=== PATIENT | male | born 1995 | race Caucasian/White ===

== ENCOUNTER → 2016-04-08 | Outpatient (CLI) | payer BC ==
[~2016-04-08] MED LIST: ALBU0.8322 IH; ALBU17AE23; ALBU17AE3 IH; ALBU17AE3 INH; ALBUNEBRX IH; ALPR0.5T PO; ANTACID; AZIT250T PO; AZIT250T5 PO; CETI-343 PO; CLOT15CR6; CYCL10TA9 PO; DIPH25CA79 PO; DIPH50CA33 PO; DXM1T PO; EPIN0.3P2 IM; FAMO-119 PO; FAMO40TA6 PO; FLUT1DIS26; FLUT1DIS26 IH; FLUT1DIS27 IH; HYDR-3456 PO; HYDR-700 PO; IBP800T PO; IPRA3AMP19 IH; LANS15CA PO; LRT10T PO; MONT10TA24 PO; NF-ESOM40C PO; ONDAN4ODT PO; ONDN4T PO; PNT40TEC PO; PRD20T PO; TIOT18CA2 IH; TRAM50TA2 PO
--- OUTSIDE RECORDS SUMMARY | 2016-04-08 16:32 | XMS REPORT | Continuity of Care Document ---
Author Author [facility] Organization [facility] Address Unknown Phone Unavailable Care Team Providers Care Collateral Specialist Name Role Phone STANFORDTOAN DO PCP Insurance Providers Payer Name Policy Number Subscriber Name Relationship [facility] [id number] Eusebio Henderson 18 Father Advance Directives Directive Response Recorded Date/Time Advance Directives No 02/17/16 11:40pm Health Care Power of Sports Physical Therapist No 02/17/16 11:40pm Organ Donor Yes 02/17/16 11:40pm Resuscitation Status Full Code 02/17/16 11:40pm Chief Complaint and Reason for Visit Chief Complaint Respiratory Problems Reason for Visit SUBJECTIVE DYSPNEA Problems Active Problems Medical Problem Onset Date Status Anxiety Unknown Acute Asthma with acute exacerbation Unknown Acute Asthma with acute exacerbation Unknown Acute Asthma with acute exacerbation Unknown Acute Asthma with acute exacerbation Unknown Acute Asthma with acute exacerbation Unknown Acute Non-compliance Unknown Acute Palpitations Unknown Acute Shortness of breath Unknown Acute Shortness of breath Unknown Acute Vocal cord dysfunction Unknown Acute Vocal cord dysfunction Unknown Acute Vocal cord dysfunction Unknown Acute Medications Current Home Medications Medication Dose Units Route Directions Days/Qty Instructions Start Date Salmeterol Xinafoate/Fluticasone 1 Disk 1 Puff Inhalation Daily 1 PUFF 09/07/13 Esomeprazole Magnesium 40 Mg 40 Mg Oral Daily 30 09/23/13 Albuterol 17 Gm 2 [place] Inhalation Every 6 Hours as needed for Shortness Of Breath 1 FOR BREATHING 10/24/13 Tiotropium [place] 1 Inh 1 Inh Inhalation Daily 0 12/09/13 Albuterol Sulfate 2.5 Mg/3 Ml 2.5 Mg Inhalation Every 4HRS for Dyspnea 0 12/09/13 Cetirizine Hcl 10 Mg 10 Mg Oral Daily And Prn as needed for Congestion 02/13/16 Diphenhydramine Hcl 25 Mg 50 Mg Oral Bedtime as needed for Insomnia 02/13/16 Prednisone 20 Mg 20 Mg Oral As Directed 18 Take 3 daily (60 mg) for 3 days, then 2 daily (40 mg) for 3 days, then one daily (20 mg) for 3 days. 02/12 Clotrimazole/Betamethasone Dip 15 Gm 45 02/16/16 Alprazolam 0.5 Mg 0.5 Mg Oral Twice Daily And Prn as needed for Anxiety 10 02/16/16 Past Home Medications Medication Directions Ordered Status Albuterol 17 Gm Inh, 1 Puff Inhalation As Needed 09/10/08 Discontinued Albuterol 17 Gm Aerosol, 09/10/08 Discontinued Ondansetron Hcl 4 Mg Tab, 1 Tab Oral Give Every 8 Hrs On Schedule 09/10/08 Discontinued Cyclobenzaprine Hcl (Flexeril) 10 Mg Tablet, 1 Each Oral Q8hr Prn 11/26/09 Discontinued Ibuprofen 800 Mg Tab, 800 Mg Oral Give Every 6 Hr On Schedule 11/26/09 Discontinued Ondansetron Hcl 4 Mg Tab, 4 Mg Oral Every 4HRS 05/08/11 Discontinued Albuterol Sulfate 2.5 Mg/3 Ml Solution, 2.5 Mg Inhalation Q4hr Prn 01/06/12 Discontinued Salmeterol Xinafoate/Fluticasone 1 Disk Inhp, 1 Puff Inhalation Twice A Day 02/16/12 Discontinued Dexamethasone 1 Mg Tab, 3 Each Oral Twice A Day 02/17/12 Discontinued Pantoprazole Sodium 40 Mg Tablet.dr, 40 Mg Oral Daily 12/24/12 Discontinued Acetaminophen/Hydrocodone Bitart 1 Each Tablet, 1 Tab Oral Q4-6HR as needed for Pain 07/15/13 Discontinued Tramadol Hcl 50 Mg Tablet, 50 Mg Oral Every 4HRS as needed for Pain 08/21/13 Discontinued Famotidine (Pepcid) 40 Mg Tablet, 1 Each Oral Daily 09/07/13 Discontinued Loratadine 10 Mg Tab, 5 Mg Oral Daily 09/07/13 Discontinued [Rx Antacid] , Twice A Day 09/07/13 Discontinued Prednisone 20 Mg Tab, 40 Mg Oral Daily as needed for Allergic Reaction Discontinued Prednisone 20 Mg Tab, 20 Mg Oral Twice A Day 09/23/13 Discontinued Prednisone 20 Mg Tab, 60 Mg Oral Daily 10/01/13 Discontinued Prednisone 20 Mg Tab, 20 Mg Oral Twice A Day 10/23/13 Discontinued Montelukast Sodium 10 Mg Tablet, 10 Mg Oral Daily 10/25/13 Discontinued Hydroxyzine Hcl (Atarax) 25 Mg Tablet, 1-2 Each Oral Qid Prn as needed for Anxiety 10/25/13 Discontinued Diphenhydramine Hcl 50 Mg Tablet, 1 Each Oral Bedtime 12/09/13 Discontinued Prednisone 20 Mg Tab, 20 Mg Oral Twice A Day 07/17/15 Discontinued Famotidine 20 Mg Tablet, 20 Mg Oral Twice A Day 07/17/15 Discontinued Prednisone 20 Mg Tab, 40 Mg Oral Daily 09/10/15 Discontinued Azithromycin 250 Mg Tablet, 250 Mg Oral As Directed 12/09/15 Discontinued Prednisone 20 Mg Tab, 40 Mg Oral Daily 12/09/15 Discontinued Prednisone 20 Mg Tab, 40 Mg Oral Daily 12/25/15 Discontinued Famotidine 20 Mg Tablet, 20 Mg Oral Twice A Day 12/25/15 Discontinued Social History Social History Problem Response Recorded Date/Time Alcohol Use Occasionally Uses 09/10/2015 3:05pm Recreational Drug Use No 09/10/2015 3:05pm Recent Foreign Travel No 10/25/2013 12:33am Recent Infectious Disease Exposure No 10/25/2013 12:33am Hospitalization with Isolation Denies 02/17/2016 11:40pm Smoking Status Never a Smoker 02/17/2016 11:40pm Do you dip or chew tobacco? No 09/10/2015 3:05pm Recent Hopitalizations No 02/17/2016 11:40pm Hospitalization with Isolation Denies 02/17/2016 11:40pm Query Response Start Date Stop Date Smoking Status Never a Smoker Hospital Discharge Instructions No hospital discharge instructions. Plan of Care Discharge Date 02/18/16 12:44am Disposition 01 HOME, SELF-CARE Condition at Discharge Improved Instructions/Education Provided Asthma, Adult (DC) Prescriptions See Medication Section Referrals TOAN STANFORD DO - Primary Care Physician Additional Instructions/Education TAKE YOUR MEDICATIONS PRESCRIBED KEEP YOUR APPOINTMENT WITH DR. STANFORD TOMORROW KEEP YOUR APPOINTMENT WITH DR. MAY SCHEDULED OR SOONER IF WORSE All discharge instructions reviewed with patient and/or family. Voiced understanding. Functional Status No functional status results. Allergies, Adverse Reactions, Alerts No known allergies. Immunizations No immunization records. Vital Signs Acute Vital Signs Vital Response Date/Time Temperature (Fahrenheit) 98.5 degrees F (97.6 - 99.5) 02/17/2016 11:40pm Temperature (Calculated Celsius) 36.55023 degrees C (36.4 - 37.5) 02/17/2016 11:40pm Temperature Source Temporal 02/17/2016 11:40pm Pulse Rate (adult) 86 bpm (60 - 90) 02/17/2016 11:40pm Respiratory Rate 26 bpm (12 - 24) 02/17/2016 11:40pm O2 Sat by Pulse Oximetry 96 % (88 - 100) 02/18/2016 12:23am Blood Pressure 140/101 mm Hg 02/17/2016 11:40pm Blood Pressure Mean 114 mm Hg 02/17/2016 11:40pm Pain Numeric Pain Scale 5-Moderate Pain 02/17/2016 11:40pm Height (Feet) 6 feet 02/17/2016 11:40pm Height (Inches) 1 inches 02/17/2016 11:40pm Height (Calculated Centimeters) 185.320834 cm 02/17/2016 11:40pm Weight (Pounds) 215 pounds 02/17/2016 11:40pm Weight (Calculated Kilograms) 97.158624 kilograms 02/17/2016 11:40pm Capillary Refill Capillary Refill Less Than 3 Seconds 02/17/2016 11:40pm Height 6 ft 1 in Weight 215 lb Body Mass Index 28.4 kg/m^2 Results Pending Laboratory Results Test Name Collection Date/Time Procedures Procedure Status Date Provider(s) Tracing only of electrocardiogram Completed 01/22/16 АЛЕКСАНДР ART MD Encounters Encounter Location Arrival/Admit Date Discharge/Depart Date Attending Provider Departed Emergency Room [facility] 02/17/16 11:23pm 12:44am DOYLE AKBAR DO Departed Emergency Room [facility] 02/16/16 12:59pm 2:28pm LNIDA JENKINS APRN Departed Emergency Room [facility] 02/13/16 6:52pm 02/12 8:43HAROON Funk MD Departed Emergency Room [facility] 01/21/16 11:19pm 12:27am АЛЕКСАНДР ART MD Recent Diagnosis
[2016-04-11 18:04] LABS: IGE DETAIL 86.8 IU/mL
[2016-04-12 07:51] LABS: INT IGE See Footnote
[2016-04-12 12:02] LABS: DUST MITE CL CLASS 3; DUST MITE RAST 3.70 H KU/L (0.00-0.34)
[2016-04-12 12:03] LABS: CAT DANDER CL CLASS 2; CAT DANDER RAST 1.05 H KU/L (0.00-0.34); DOG DANDER CL CLASS 1; DOG DANDER RAST 0.45 H KU/L (0.00-0.34)
[2016-04-12 12:04] LABS: BERMUDA CL CLASS 0; BERMUDA GRASS RAST <0.35 (<0.35); JOHNSON GR CL CLASS 0; JOHNSON GRASS RAST <0.35 (<0.35); PECAN TR CL CLASS 0
[2016-04-12 12:05] LABS: ELM TREE CL CLASS 1; OAK TREE <0.35 (<0.35); OAK TREE CL CLASS 0
[2016-04-12 12:06] LABS: CLADOSPORIUM CL CLASS 2; CLADOSPORIUM MOLD RAST 0.70 H KU/L (0.00-0.34); ELM TREE 0.47 H KU/L (0.00-0.34); MARSH ELDER RAST 0.51 H KU/L (0.00-0.34); RAGWEED CL CLASS 2; RAGWEED RAST 1.84 H KU/L (0.00-0.34); ROUGH MARSH CL CLASS 1
[2016-04-12 12:07] LABS: ALT TEN CL CLASS 2; KENT BLUE CL CLASS 2; KENTUCKY BLUE GRASS RAST 1.59 H KU/L (0.00-0.34)
[2016-04-12 13:04] LABS: ALLERGEN INTERP SEE FOOTNOTE (0.00-0.34)
== END ==
LOC: LAB 16:27
PROVIDERS: ATTEND Internal Medicine Critical Care Medicine
DX: J45.909 Unspecified asthma, uncomplicated (principal); R06.00 Dyspnea, unspecified; E66.9 Obesity, unspecified
CPT/HCPCS: 36415; 82785; 86003

== ENCOUNTER 2016-07-14 10:27 | Emergency (ER) | payer BC ==
[~2016-07-14] VITALS: Ht 185.4 cm; Wt 99.8 kg
[2016-07-14] MEDS ORDERED: RT-ALBUTEROL/IPRATROPIUM 3 ML (DUONEB) VIAL INH ONE (10:45)
[2016-07-14 11:00] LABS: BASOPHILS # (AUTO) 0.1 10^3/uL (0.0-0.1); BASOPHILS % (AUTO) 1 % (0-10); EOSINOPHILS # (AUTO) 0.1 10^3/uL (0.0-0.3); EOSINOPHILS % (AUTO) 1 % (0-10); LYMPHOCYTES # (AUTO) 1.6 X 10^3 (1.0-4.0); LYMPHOCYTES % (AUTO) 30 % (12-44); MEAN CORPUSCULAR HEMOGLOBIN 31 PG (25-34); MEAN CORPUSCULAR HGB CONC 34 G/DL (32-36); MEAN CORPUSCULAR VOLUME 89 FL (80-99); MEAN PLATELET VOLUME 10.1 FL (7.4-10.4); MONOCYTES # (AUTO) 0.5 X 10^3 (0.0-1.0); MONOCYTES % (AUTO) 10 % (0-12); NEUTROPHILS # (AUTO) 3.1 X 10^3 (1.8-7.8); NEUTROPHILS % (AUTO) 58 % (42-75); PLATELET COUNT 248 10^3/uL (130-400); RED BLOOD COUNT 4.82 10^6/uL (4.35-5.85); RED CELL DISTRIBUTION WIDTH 11.9 % (10.0-14.5); WHITE BLOOD COUNT 5.4 10^3/uL (4.3-11.0)
--- NOTE | 2016-07-14 11:21 | Diagnostic Imaging Report ---
Portable upright radiograph of the chest. INDICATION: Shortness of breath. FINDINGS: The lungs are clear. The heart size is normal. There is no effusion or pneumothorax. The mediastinum and guillermo appear unremarkable. IMPRESSION: Unremarkable exam. Dictated by: Dictated on workstation # [id number]
--- NOTE | 2016-07-14 11:25 | ED Respiratory ---
General Chief Complaint: Respiratory Problems Stated Complaint: SOA Nursing Triage Note: ARRIVED VIA AMBULANCE FROM WORK DUE TO A SUDDEN INCREASE OF SOA. STATES HE HAS BEEN SUFFERING FROM ALLERGIES. RECIEVED A DUONEB IN ROUTE AND STATES HE FEELS BETTER AT THIS TIME. Source: patient Exam Limitations: no limitations History of Present Illness Time seen by provider: 11:20 Initial Comments The patient is a 21-year-old white male whose family is known to me. 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 He became acutely and tightly dyspneic. The ambulance was called and brought him here. A DuoNeb inhaler on the way here produced considerable relief. He was not using a mask. He has 28 previous encounters for respiratory/asthma problems. He reports that he feels much better now. He was unwilling to take a second nebulizer treatment. Timing/Duration: just prior to arrival Prior Episodes/Possible Cause: frequent episodes Allergies and Home Medications Allergies Coded Allergies: No Known Drug Allergies (Unverified , 09/10/08) Home Medications Albuterol 17 Gm Inh, 2 SPRAY IH Q6H PRN for SHORTNESS OF BREATH, #1 Ref 0 FOR BREATHING Prescribed by: TRAY CARTER on 10/24/13 1647 Albuterol Sulfate 2.5 Mg/3 Ml Vial.neb, 2.5 MG IH Q4H, #0 Prescribed by: DOMENICA BOBO on 12/09/13 1637 Alprazolam 0.5 Mg Tablet, 0.5 MG PO BID PRN PRN for ANXIETY, #10 Prescribed by: LINDA JENKINS on 02/16/16 1358 Azithromycin 250 Mg Tablet, 250 MG PO UD, #6 TAKE 2 TABLETS ON DAY ONE THEN TAKE 1 TABLET DAILY FOR FOUR MORE DAYS Prescribed by: LINDA JENKINS on 02/29/16 1552 Cetirizine HCl 10 Mg Tablet, 10 MG PO DAILY PRN PRN for CONGESTION, (Reported) Clotrimazole/Betamethasone Dip 15 Gm Cream..g., #45 (Reported) Diphenhydramine HCl 25 Mg Capsule, 50 MG PO HS PRN for INSOMNIA, (Reported) Esomeprazole Mag Trihydrate 40 Mg Capsule.dr, 40 MG PO DAILY, #30 (Reported) Fluticasone/Salmeterol 1 Disk Inhp, 1 PUFF IH DAILY, (Reported) 1 PUFF Prednisone 20 Mg Tab, 20 MG PO UD, #18 Take 3 daily (60 mg) for 3 days, then 2 daily (40 mg) for 3 days, then one daily (20 mg) for 3 days. Prescribed by: HAROON ARIZMENDI on 02/13/162032 Prednisone 20 Mg Tab, 40 MG PO DAILY, #8 Prescribed by: ROMAN PATEL on 03/08/16 1808 Tiotropium [place] 1 Inh Aerp, 1 INH IH DAILY, #0 Prescribed by: DOMENICA BOBO on 12/09/13 1604 Constitutional: see HPI EENTM: nose congestion Respiratory: wheezing Cardiovascular: no symptoms reported Gastrointestinal: no symptoms reported Genitourinary: no symptoms reported Musculoskeletal: no symptoms reported Skin: no symptoms reported Psychiatric/Neurological: No Symptoms Reported Hematologic/Lymphatic: No Symptoms Reported Immunological/Allergic: no symptoms reported Past Rjizobo-Flkhvt-Wttcfx Hx Patient Social History Alcohol Use: Occasionally Uses Recreational Drug Use: No Smoking Status: Never a Smoker Recent Foreign Travel: No Contact w/Someone Who Travel: No Recent Infectious Disease Expo: No Recent Hopitalizations: No Immunizations Up To Date Tetanus Booster (TDap): More than 5yrs PED Vaccines UTD: Yes Date of Influenza Vaccine: Mar 03, 2013 Seasonal Allergies Seasonal Allergies: Yes (STATES HE TESTED + FOR ALLERGENS) Surgeries HX Surgeries: Yes (BMT'S) Surgeries: Abdominal, Adenoidectomy, Ear Surgery, Tonsillectomy Respiratory Hx Respiratory Disorders: Yes (ASTHMA, 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) Respiratory Disorders: Asthma Cardiovascular Hx Cardiac Disorders: Yes Cardiac Disorders: Palpitations Neurological Hx Neurological Disorders: No Reproductive System Hx Reproductive Disorders: No (unsure if infertile) Genitourinary Hx Genitourinary Disorders: No Gastrointestinal Hx Gastrointestinal Disorders: Yes Gastrointestinal Disorders: Gastroesophageal Reflux, Hilario's Esophagus Musculoskeletal Hx Musculoskeletal Disorders: No Endocrine Hx Endocrine Disorders: No HEENT HX ENT Disorders: Yes (Laryngospasm) Hearing Impairment: Denies Cancer Hx Cancer: No Psychosocial Hx Psychiatric Problems: No Integumentary HX Skin/Integumentary Disorder: No Blood Transfusions Hx Blood Disorders: No Family Medical History Significant Family History: No Pertinent Family Hx, Other Conditions/Hx Physical Exam Vital Signs Vital Sign - Last 12Hours 07/14/16 10:30 Temp 98.3 Pulse 80 Resp 16 B/P (MAP) 137/84 Pulse Ox 95 Capillary Refill : Less Than 3 Seconds General Appearance: WD/WN, no apparent distress Eyes: Bilateral Eye Normal Inspection HEENT: normal ENT inspection Neck: full range of motion Respiratory: chest non-tender, lungs clear, normal breath sounds, no respiratory distress, no accessory muscle use, respiratory distress Cardiovascular: normal peripheral pulses, regular rate, rhythm, no edema, no gallop, no JVD, no murmur Gastrointestinal: normal bowel sounds, non tender, soft, no organomegaly, no pulsatile mass Extremities: normal range of motion, non-tender, normal inspection, no pedal edema, no calf tenderness, normal capillary refill, pelvis stable Neurologic/Psychiatric: post splitter II-XII nml as tested, no motor/sensory deficits, alert, normal mood/affect, oriented x 3 Skin: normal color, warm/dry, cyanosis, cool, diaphoresis, damp Lymphatic: no adenopathy Progress/Results/Core Measures Results/Orders Lab Results Laboratory Tests Test 07/14/16 10:41 Range/Units White Blood Count 5.4 4.3-11.0 10^3/uL Red Blood Count 4.82 4.35-5.85 10^6/uL Hemoglobin 14.7 13.3-17.7 G/DL Hematocrit 43 40-54 % Mean Corpuscular Volume 89 80-99 FL Mean Corpuscular Hemoglobin 31 25-34 PG Mean Corpuscular Hemoglobin Concent 34 32-36 G/DL Red Cell Distribution Width 11.9 10.0-14.5 % Platelet Count 248 130-400 10^3/uL Mean Platelet Volume 10.1 7.4-10.4 FL Neutrophils (%) (Auto) 58 42-75 % Lymphocytes (%) (Auto) 30 12-44 % Monocytes (%) (Auto) 10 0-12 % Eosinophils (%) (Auto) 1 0-10 % Basophils (%) (Auto) 1 0-10 % Neutrophils # (Auto) 3.1 1.8-7.8 X 10^3 Lymphocytes # (Auto) 1.6 1.0-4.0 X 10^3 Monocytes # (Auto) 0.5 0.0-1.0 X 10^3 Eosinophils # (Auto) 0.1 0.0-0.3 10^3/uL Basophils # (Auto) 0.1 0.0-0.1 10^3/uL My Orders Orders - ZENON POON MD Cbc With Automated Diff (07/14/16 10:41) Chest 1 View, Ap/Pa Only (07/14/16 10:41) Albuterol/Ipra Inhalation Soln (Duoneb I (07/14/16 10:45) Svn Sm Volume Nebulizer Rt-Rfs (07/14/16 10:41) Vital Signs/I&O Vital Sign - Last 12Hours 07/14/16 10:30 Temp 98.3 Pulse 80 Resp 16 B/P (MAP) 137/84 Pulse Ox 95 Blood Pressure Mean: 101 Departure Impression Impression: Primary Impression: Asthma with acute exacerbation Disposition: 01 HOME, SELF-CARE Condition: Improved Departure-Patient Inst. Referrals: TOAN STANFORD DO (PCP/Family) Primary Care Physician Patient Instructions: Asthma, Adult (DC) Add. Discharge Instructions: All discharge instructions reviewed with patient and/or family. Voiced understanding. Inquire of your safety instructor as to the appropriate masks to be wearing. Use said mask ZENON POON MD Jul 14, 2016 11:25
[2016-07-14 11:37] VITALS: BP 135/85
== END 2016-07-14 11:36 | disposition home or self-care (01) ==
LOC: EDUNIT# 10:27 → ER 10:29
DX: J45.901 Unspecified asthma with (acute) exacerbation (principal)
CPT/HCPCS: 36415; 71010; 85025

== ENCOUNTER 2016-09-20 08:55 | Emergency (ER) | payer BC ==
[~2016-09-20] VITALS: Ht 185.4 cm; Wt 104.3 kg
--- NOTE | 2016-09-20 09:10 | ED General ---
General Chief Complaint: Dizziness/Syncope Stated Complaint: NECK/BACK PAIN Source of Information: Patient, EMS Exam Limitations: No Limitations History of Present Illness Time Seen by Provider: 08:58 Initial Comments Here with report of syncopal episode and asthma attack while at work. Here by EMS with c-collar in place. Apparently he passed out and hit the floor. He complains of head and neck pain. EMS did give a DuoNeb in route and this has resolved his lung concerns. Currently just complaining of head and neck pain. 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 Timing/Duration: 1/2 Hour Severity: Moderate Associated Systoms: Headaches, No Nausea/Vomiting, Syncope Allergies and Home Medications Allergies Coded Allergies: No Known Drug Allergies (Unverified , 09/10/08) Home Medications Albuterol 17 Gm Inh, 2 SPRAY IH Q6H PRN for SHORTNESS OF BREATH, #1 Ref 0 FOR BREATHING Prescribed by: TRAY CARTER on 10/24/13 1647 Albuterol Sulfate 2.5 Mg/3 Ml Vial.neb, 2.5 MG IH Q4H, #0 Prescribed by: DOMENICA BOBO on 12/09/13 1637 Constitutional: see HPI, No chills, No fever EENTM: no symptoms reported Respiratory: see HPI, short of breath, wheezing Cardiovascular: No chest pain, syncope Gastrointestinal: no symptoms reported Musculoskeletal: see HPI, neck pain Skin: no symptoms reported Psychiatric/Neurological: See HPI All Other Systems Reviewed Negative Unless Noted: Yes Past Immjzhd-Bwqizj-Liidzd Hx Patient Social History Alcohol Use: Occasionally Uses Recreational Drug Use: No Smoking Status: Never a Smoker Recent Foreign Travel: No Contact w/Someone Who Travel: No Recent Hopitalizations: No Immunizations Up To Date Tetanus Booster (TDap): More than 5yrs PED Vaccines UTD: Yes Date of Influenza Vaccine: Mar 03, 2013 Seasonal Allergies Seasonal Allergies: Yes (STATES HE TESTED + FOR ALLERGENS) Surgeries HX Surgeries: Yes (BMT'S) Surgeries: Abdominal, Adenoidectomy, Ear Surgery, Tonsillectomy Respiratory Hx Respiratory Disorders: Yes (ASTHMA, 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) Respiratory Disorders: Asthma Cardiovascular Hx Cardiac Disorders: Yes Cardiac Disorders: Palpitations Neurological Hx Neurological Disorders: No Reproductive System Hx Reproductive Disorders: No (unsure if infertile) Genitourinary Hx Genitourinary Disorders: No Gastrointestinal Hx Gastrointestinal Disorders: Yes Gastrointestinal Disorders: Gastroesophageal Reflux, Hilario's Esophagus Musculoskeletal Hx Musculoskeletal Disorders: No Endocrine Hx Endocrine Disorders: No HEENT HX ENT Disorders: Yes (Laryngospasm) Hearing Impairment: Denies Cancer Hx Cancer: No Psychosocial Hx Psychiatric Problems: No Integumentary HX Skin/Integumentary Disorder: No Blood Transfusions Hx Blood Disorders: No Reviewed Nursing Assessment Reviewed/Agree w Nursing PMH: Yes Family Medical History Significant Family History: No Pertinent Family Hx, Other Conditions/Hx Physical Exam Vital Signs Vital Sign - Last 12Hours 09/20/16 08:55 Temp 97.1 Pulse 104 Resp 17 B/P (MAP) 149/78 Pulse Ox 97 Capillary Refill : General Appearance: No Apparent Distress, WD/WN HEENT: PERRL/EOMI, TMs Normal Neck: Tender Midline, Other (c-collar remains in place) Respiratory: Lungs Clear, Normal Breath Sounds Cardiovascular: Regular Rate, Rhythm, No Murmur Gastrointestinal: Non Tender, Soft Back: Normal Inspection, No CVA Tenderness, No Vertebral Tenderness Extremity: Normal Range of Motion, Non Tender Neurologic/Psychiatric: Alert, Oriented x3 Skin: Normal Color, Warm/Dry, Other (no obvious contusion or injury to the posterior scalp. Tender to the posterior head) Progress/Results/Core Measures Results/Orders My Orders Orders - ROMAN PATEL MD Ct Head/Cervical Spine Wo (09/20/16 09:04) Vital Signs/I&O Vital Sign - Last 12Hours 09/20/16 08:55 Temp 97.1 Pulse 104 Resp 17 B/P (MAP) 149/78 Pulse Ox 97 Progress Note : Progress Note Seen and evaluated. CT head and neck ordered. Monitor patient. Toradol 30 mg IV. C collar removed at 1021. Patient able family without difficulty. No other acute findings. Discharged home with return precautions. Patient verbalize understanding instructions and agreement with plan. Diagnostic Imaging Diagonstic Imaging: CT Plain Films/CT/US/NM/MRI: c-spine, head Comments [facility] [place], [place] NAME: DEANNA LEE MED REC#: [id number] PT STATUS: REG ER : 1995 PHYSICIAN: ROMAN PATEL MD ADMIT DATE: 09/20/16/ER Draft Date of Exam:09/20/16 CT HEAD/CERVICAL SPINE WO PROCEDURE: CT head and CT cervical spine without contrast. TECHNIQUE: Multiple contiguous axial images were obtained through the brain and cervical spine without the use of intravenous contrast. Sagittal and coronal reformations through the cervical spine were then performed. INDICATION: Fall. Patient is shaky with headache and pain near the base of the neck. FINDINGS: CT HEAD: There is no intracranial hemorrhage, edema, or mass effect. The brain parenchyma and the chaudhry/white matter differentiation are preserved. There is no hydrocephalus. No extra-axial fluid collection is seen. The calvarium and orbits appear unremarkable. There is partial opacification of posterior ethmoidal air cells seen bilaterally. CT CERVICAL SPINE: There is mild motion artifact which could obscure subtle abnormalities. The study is of reasonable diagnostic quality overall, however, for detection of major abnormalities. The cervical spine demonstrates straightening of the lordotic curvature which could be positional or related to muscle spasm. There is normal alignment at the posterior spinal line, at the facet joints, and at the lateral masses of C1 and C2. There is also satisfactory alignment at the atlantooccipital joints. The vertebral body heights are preserved. The disc heights are also preserved. No significant posterior osteophyte is seen. There is no fracture seen. The paraspinal soft tissues appear unremarkable. IMPRESSION: CT HEAD: No intracranial abnormality. Mild opacification in the posterior ethmoidal air cells is seen bilaterally. CT CERVICAL SPINE: No fracture is seen. Dictated on workstation # [id number] Dict: 09/20/16 0949 Trans: 09/20/16 1011 [id number] Interpreted by: JOI ANDERSON MD Electronically signed by: Departure Impression Impression: Primary Impression: Asthma Qualified Codes: J45.20 - Mild intermittent asthma, uncomplicated Additional Impressions: Syncope Qualified Codes: R55 - Syncope and collapse Minor head injury Qualified Codes: S00.90XA - Unspecified superficial injury of unspecified part of head, initial encounter Disposition: 01 HOME, SELF-CARE Condition: Improved Departure-Patient Inst. Decision time for Depature: 10:24 Referrals: TOAN STANFORD DO (PCP/Family) Primary Care Physician Patient Instructions: Asthma in Adults, Syncope (Fainting) (DC) Add. Discharge Instructions: All discharge instructions reviewed with patient and/or family. Voiced understanding. Continue home medications as previously prescribed or indicated. You may take Tylenol 1000 mg every 8 hours as needed for pain. You may take ibuprofen 800 mg every 8 hours as needed for pain. Follow-up with your Dr. in a few days for recheck. Return for worse pain, fever, vomiting, weakness, breathing problems or other concerns as needed. ROMAN PATEL MD Sep 20, 2016 09:10
--- NOTE | 2016-09-20 10:12 | Diagnostic Imaging Report ---
PROCEDURE: CT head and CT cervical spine without contrast. TECHNIQUE: Multiple contiguous axial images were obtained through the brain and cervical spine without the use of intravenous contrast. Sagittal and coronal reformations through the cervical spine were then performed. INDICATION: Fall. Patient is shaky with headache and pain near the base of the neck. FINDINGS: CT HEAD: There is no intracranial hemorrhage, edema, or mass effect. The brain parenchyma and the chaudhry/white matter differentiation are preserved. There is no hydrocephalus. No extra-axial fluid collection is seen. The calvarium and orbits appear unremarkable. There is partial opacification of posterior ethmoidal air cells seen bilaterally. CT CERVICAL SPINE: There is mild motion artifact which could obscure subtle abnormalities. The study is of reasonable diagnostic quality overall, however, for detection of major abnormalities. The cervical spine demonstrates straightening of the lordotic curvature which could be positional or related to muscle spasm. There is normal alignment at the posterior spinal line, at the facet joints, and at the lateral masses of C1 and C2. There is also satisfactory alignment at the atlantooccipital joints. The vertebral body heights are preserved. The disc heights are also preserved. No significant posterior osteophyte is seen. There is no fracture seen. The paraspinal soft tissues appear unremarkable. IMPRESSION: CT HEAD: No intracranial abnormality. Mild opacification in the posterior ethmoidal air cells is seen bilaterally. CT CERVICAL SPINE: No fracture is seen. Dictated by: Dictated on workstation # [id number]
[2016-09-20] MEDS ORDERED: KETOROLAC 30 MG/ML VIAL IVP STA (10:19)
[2016-09-20 10:58] VITALS: BP 149/78
--- OUTSIDE RECORDS SUMMARY | 2016-09-22 14:30 | XMS REPORT | Continuity of Care Document ---
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 measurement (moles/volume) 107 mmol /L 98-107 Carbon dioxide 25 mmol/L 21-32 Serum or plasma anion gap determination (moles/volume) 8 mmol/L 5-14 Serum or plasma urea nitrogen measurement (mass/volume) 14 mg/dL 7-18 Serum or plasma creatinine measurement (mass/volume) 1.00 mg /dL 0.60-1.30 Serum or plasma urea nitrogen/creatinine mass ratio 14 NRG Serum or plasma creatinine measurement with calculation of estimated glomerular filtration rate > NRG Serum or plasma glucose measurement (mass/volume) 110 mg/dL 70-105 Serum or plasma calcium measurement (mass/volume) 9.3 mg/dL 8.5-10.1 Magnesium - 02/16/16 13:30 Magnesium 2.2 mg/dL 1.8-2.4 Complete blood count (CBC) with automated white blood cell (WBC) differential - 02/29/16 15:50 Blood leukocytes automated count (number/volume) 8.4 10*3/ uL 4.3-11.0 Blood erythrocytes automated count (number/volume) 4.79 10*6 /uL 4.35-5.85 Venous blood hemoglobin measurement (mass/volume) 15.1 g/dL 13.3-17.7 Blood hematocrit (volume fraction) 43 % 40-54 Automated erythrocyte mean corpuscular volume 91 [foz_us] 80-99 Automated erythrocyte mean corpuscular hemoglobin (mass per erythrocyte) 32 pg 25-34 Automated erythrocyte mean corpuscular hemoglobin concentration measurement ( mass/volume) 35 g/dL 32-36 Automated erythrocyte distribution width ratio 12.6 % 10.0-14.5 Automated blood platelet count (count/volume) 214 10*3/uL 130-400 Automated blood platelet mean volume measurement 10.5 [foz_ us] 7.4-10.4 Automated blood neutrophils/100 leukocytes 68 % 42-75 Automated blood lymphocytes/100 leukocytes 22 % 12-44 Blood monocytes/100 leukocytes 9 % 0-12 Automated blood eosinophils/100 leukocytes 1 % 0-10 Automated blood basophils/100 leukocytes 1 % 0-10 Blood neutrophils automated count (number/volume) 5.7 10*3 1.8-7.8 Blood lymphocytes automated count (number/volume) 1.9 10*3 1.0-4.0 Blood monocytes automated count (number/volume) 0.8 10*3 0.0-1.0 Automated eosinophil count 0.1 10*3/uL 0.0-0.3 Automated blood basophil count (count/volume) 0.0 10*3/uL 0.0-0.1 IMMUNOGLOBULIN IGE - 04/08/16 16:46 Serum or plasma IgE antibody detection 86.8 NRG IgE measurement (mass/volume) See Footnote NRG RAST [place] [facility] PROFILE - 04/08/16 16:46 Serum or plasma rheumatoid factor measurement (units/volume) 1.84 H 0.00-0.34 Serum Alternaria alternata IgE antibody assay (units/volume) 2.22 H 0.00-0.34 Dog dander IgE ab RAST class [presence] in serum CLASS 1 NRG Serum dust mite specific IgE antibody assay 3.70 H 0.00-0.34 Serum mold allergen mix 1 (Alternaria alternata, Aspergillus fumigatus, Cladosporium herbarum and Pen 0.70 H 0.00-0.34 Serum [place] live oak IgE antibody assay (units/volume) < <0.35 Serum [place] grass IgE antibody assay (units/volume) < <0.35 Serum cat dander IgE antibody assay (units/volume) 1.05 H 0.00-0.34 Serum dog dander specific IgE antibody assay 0.45 H 0.00-0.34 [place] CL CLASS 0 NRG [place] blue grass IgE ab [units/volume] in serum CLASS 2 NRG Bermuda grass IgE ab RAST class [presence] in serum CLASS 0 NRG Southern ragweed IgE ab RAST class [presence] in serum CLASS 2 NRG Cat dander IgE ab RAST class [presence] in serum CLASS 2 NRG Prydeinig house dust mite IgE ab RAST class [presence] in serum CLASS 3 NRG ALT TEN CL CLASS 2 NRG Cladosporium herbarum IgE ab RAST class [presence] in serum CLASS 2 NRG Serum white elm IgE antibody assay (units/volume) 0.47 H 0.00-0.34 [place] TREE CL CLASS 1 NRG Serum pecan or hickory tree IgE antibody assay (units/volume) CLASS 0 NRG Serum Shoaib grass IgE antibody assay (units/volume) CLASS 0 NRG Serum watkins elder IgE antibody assay (units/volume) CLASS 1 NRG [id number] - 04/08/16 16:46 [id number] SEE FOOTNOTE 0.00-0.34 Complete blood count (CBC) with automated white blood cell (WBC) differential - 07/14/16 10:41 Blood leukocytes automated count (number/volume) 5.4 10*3/ uL 4.3-11.0 Blood erythrocytes automated count (number/volume) 4.82 10*6 /uL 4.35-5.85 Venous blood hemoglobin measurement (mass/volume) 14.7 g/dL 13.3-17.7 Blood hematocrit (volume fraction) 43 % 40-54 Automated erythrocyte mean corpuscular volume 89 [foz_us] 80-99 Automated erythrocyte mean corpuscular hemoglobin (mass per erythrocyte) 31 pg 25-34 Automated erythrocyte mean corpuscular hemoglobin concentration measurement ( mass/volume) 34 g/dL 32-36 Automated erythrocyte distribution width ratio 11.9 % 10.0-14.5 Automated blood platelet count (count/volume) 248 10*3/uL 130-400 Automated blood platelet mean volume measurement 10.1 [foz_ us] 7.4-10.4 Automated blood neutrophils/100 leukocytes 58 % 42-75 Automated blood lymphocytes/100 leukocytes 30 % 12-44 Blood monocytes/100 leukocytes 10 % 0-12 Automated blood eosinophils/100 leukocytes 1 % 0-10 Automated blood basophils/100 leukocytes 1 % 0-10 Blood neutrophils automated count (number/volume) 3.1 10*3 1.8-7.8 Blood lymphocytes automated count (number/volume) 1.6 10*3 1.0-4.0 Blood monocytes automated count (number/volume) 0.5 10*3 0.0-1.0 Automated eosinophil count 0.1 10*3/uL 0.0-0.3 Automated blood basophil count (count/volume) 0.1 10*3/uL 0.0-0.1 Encounters ACCT No. Visit Date/Time Discharge Status Pt. Type Provider Facility Loc./Unit Complaint [id number] 03/08/2013 10:05:00 03/08/2013 23: 59:59 [facility] Outpatient ROSALVA ARMSTRONG APRN [id number] 02/01/2012 12:44:00 02/01/2012 23: 59:59 [facility] Outpatient [id number] 07/30/2012 08:45:00 Document Registration
== END 2016-09-20 10:58 | disposition home or self-care (01) ==
LOC: EDUNIT# 09:03 → ER 09:04
DX: S09.90XA Unspecified injury of head, initial encounter (principal); J45.909 Unspecified asthma, uncomplicated; R55 Syncope and collapse; Z86.79 Personal history of other diseases of the circulatory system; W01.198A Fall on same level from slipping, tripping and stumbling with subsequent striking against other object, initial encounter
CPT/HCPCS: 70450; 72125

== ENCOUNTER 2016-10-19 16:25 | Emergency (ER) | payer BC ==
[~2016-10-19] VITALS: Ht 185.4 cm; Wt 104.6 kg
[2016-10-19] MEDS ORDERED: PROMETHAZINE INJ 25 MG/ML (PHENERGAN) AMP IVP STA (18:35)
[2016-10-19] MEDS ORDERED: NS IV 1000 ML 1,000 ML IV ONE (18:35)
--- NOTE | 2016-10-19 18:43 | ED Abdominal Pain ---
General Chief Complaint: Abdominal/GI Problems Stated Complaint: PT HAS BEEN VOMITTING AND PASSED OUT AT DR SALINAS Nursing Triage Note: PT C/O N/V/D SINCE 1000 THIS AM. HE ALSO STATES HE "PASSED OUT" WHILE AT DR LEE'S OFFICE WITH SO. Sepsis Screen: No Definite Risk History of Present Illness Time Seen By Provider: 18:30 Initial Comments Patient reports nausea vomiting and diarrhea for the last 6 hours. He had a syncopal episode with no loss of consciousness during his girlfriend's visit with Dr. Lee today. He tried Zofran at 1300 with no resolution of his symptoms. He reports that his girlfriend and brother have had similar episodes in the last 3-4 days. Timing/Duration: 4-6 Hours Severity/Quality: Mild Location: Generalized Abdomen Radiation: No Radiation Activities at Onset: None Modifying Factors: Improves With Defecating, Improves With Resting, Improves With Vomiting Associated Symptoms: Fatigue, Nausea/Vomiting, Syncope, Weakness Allergies and Home Medications Allergies Coded Allergies: No Known Drug Allergies (Unverified , 09/10/08) Home Medications Albuterol 17 Gm Inh, 2 SPRAY IH Q6H PRN for SHORTNESS OF BREATH, #1 Ref 0 FOR BREATHING Prescribed by: TRAY CARTER on 10/24/13 1647 Albuterol Sulfate 2.5 Mg/3 Ml Vial.neb, 2.5 MG IH Q4H, #0 Prescribed by: DOMENICA BOBO on 12/09/13 1637 Diphenoxylate HCl/Atropine 1 Each Tablet, 1 EACH PO Q4H, #6 Ref 0 Prescribed by: ERNETTA NEWELL on 10/19/161939 Promethazine HCl 25 Mg Tablet, 25 MG PO Q6H PRN for NAUSEA/VOMITING, #6 Ref 0 Prescribed by: RENETTA NEWELL on 10/19/161939 Review of Systems Constitutional: no symptoms reported, see HPI Gastrointestinal: See HPI, Abdominal Pain, Diarrhea, Nausea, Poor Appetite, Poor Fluid Intake, Vomiting Genitourinary: No Symptoms Reported, See HPI All Other Systems Reviewed Negative Unless Noted: Yes Past Rhrcsft-Klzphj-Szwjiw Hx Patient Social History Alcohol Use: Denies Use Recreational Drug Use: No Smoking Status: Never a Smoker 2nd Hand Smoke Exposure: No Recent Foreign Travel: No Contact w/Someone Who Travel: No Recent Infectious Disease Expo: No Recent Hopitalizations: No Immunizations Up To Date Tetanus Booster (TDap): More than 5yrs PED Vaccines UTD: Yes Date of Influenza Vaccine: Mar 03, 2013 Seasonal Allergies Seasonal Allergies: Yes (STATES HE TESTED + FOR ALLERGENS) Surgeries HX Surgeries: Yes (BMT'S) Surgeries: Abdominal, Adenoidectomy, Ear Surgery, Tonsillectomy Respiratory Hx Respiratory Disorders: Yes (ASTHMA, 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) Respiratory Disorders: Asthma Cardiovascular Hx Cardiac Disorders: Yes Cardiac Disorders: Palpitations Neurological Hx Neurological Disorders: No Reproductive System Hx Reproductive Disorders: No (unsure if infertile) Genitourinary Hx Genitourinary Disorders: No Gastrointestinal Hx Gastrointestinal Disorders: Yes Gastrointestinal Disorders: Gastroesophageal Reflux, Hilario's Esophagus Musculoskeletal Hx Musculoskeletal Disorders: No Endocrine Hx Endocrine Disorders: No HEENT HX ENT Disorders: Yes (Laryngospasm) Hearing Impairment: Denies Cancer Hx Cancer: No Psychosocial Hx Psychiatric Problems: No Integumentary HX Skin/Integumentary Disorder: No Blood Transfusions Hx Blood Disorders: No Reviewed Nursing Assessment Reviewed/Agree w Nursing PMH: Yes Family Medical History Significant Family History: No Pertinent Family Hx, Other Conditions/Hx Physical Exam Vital Signs VS - Last 72 Hours, by Label 10/19/16 18:13 Temp 97.2 Pulse 91 Resp 16 B/P (MAP) 138/88 Pulse Ox 99 O2 Delivery Room Air Capillary Refill : Less Than 3 Seconds General Appearance: WD/WN, no apparent distress HEENT: PERRL/EOMI, normal ENT inspection, TMs normal, pharynx normal Neck: non-tender, full range of motion, supple, normal inspection Respiratory: chest non-tender, lungs clear, normal breath sounds Cardiovascular: normal peripheral pulses, regular rate, rhythm, no murmur Gastrointestinal: normal bowel sounds, soft, No distended, No guarding, No rebound, tenderness (generalized), other (negative [place]) Extremities: normal range of motion, non-tender, normal inspection, no calf tenderness, normal capillary refill Back: normal inspection, no CVA tenderness, no vertebral tenderness Neurologic/Psychiatric: no motor/sensory deficits, alert, normal mood/affect, oriented x 3 Skin: normal color, warm/dry Lymphatic: no adenopathy Progress/Results/Core Measures Results/Orders Lab Results Laboratory Tests Test 10/19/16 18:38 10/19/16 18:50 Range/Units Urine Color YELLOW Urine Clarity CLEAR Urine pH 6 5-9 Urine Specific [place] 1.015 L 1.016-1.022 Urine Protein 1+ H NEGATIVE Urine Glucose (UA) NEGATIVE NEGATIVE Urine Ketones 2+ H NEGATIVE Urine Nitrite NEGATIVE NEGATIVE Urine Bilirubin NEGATIVE NEGATIVE Urine Urobilinogen NORMAL NORMAL MG/DL Urine Leukocyte Esterase NEGATIVE NEGATIVE Urine RBC (Auto) 2+ H NEGATIVE Urine RBC 0-2 /HPF Urine WBC NONE /HPF Urine Crystals NONE /LPF Urine Bacteria NONE /HPF Urine Casts NONE /LPF Urine Mucus NEGATIVE /LPF Urine Culture Indicated NO White Blood Count 10.5 4.3-11.0 10^3/uL Red Blood Count 5.44 4.35-5.85 10^6/uL Hemoglobin 16.6 13.3-17.7 G/DL Hematocrit 48 40-54 % Mean Corpuscular Volume 88 80-99 FL Mean Corpuscular Hemoglobin 31 25-34 PG Mean Corpuscular Hemoglobin Concent 35 32-36 G/DL Red Cell Distribution Width 12.4 10.0-14.5 % Platelet Count 190 130-400 10^3/uL Mean Platelet Volume 10.8 H 7.4-10.4 FL Neutrophils (%) (Auto) 86 H 42-75 % Lymphocytes (%) (Auto) 6 L 12-44 % Monocytes (%) (Auto) 8 0-12 % Eosinophils (%) (Auto) 0 0-10 % Basophils (%) (Auto) 0 0-10 % Neutrophils # (Auto) 9.1 H 1.8-7.8 X 10^3 Lymphocytes # (Auto) 0.6 L 1.0-4.0 X 10^3 Monocytes # (Auto) 0.8 0.0-1.0 X 10^3 Eosinophils # (Auto) 0.0 0.0-0.3 10^3/uL Basophils # (Auto) 0.0 0.0-0.1 10^3/uL Neutrophils % (Manual) 89 % Lymphocytes % (Manual) 4 % Monocytes % (Manual) 3 % Eosinophils % (Manual) 0 % Basophils % (Manual) 1 % Band Neutrophils 3 % Blood Morphology Comment NORMAL Sodium Level 140 135-145 MMOL/L Potassium Level 4.3 3.6-5.0 MMOL/L Chloride Level 106 98-107 MMOL/L Carbon Dioxide Level 24 21-32 MMOL/L Anion Gap 10 5-14 MMOL/L Blood Urea Nitrogen 13 7-18 MG/DL Creatinine 0.93 0.60-1.30 MG/DL Estimat Glomerular Filtration Rate > 60 BUN/Creatinine Ratio 14 Glucose Level 91 70-105 MG/DL Calcium Level 9.3 8.5-10.1 MG/DL Total Bilirubin 2.0 H 0.1-1.0 MG/DL Aspartate Amino Transf (AST/SGOT) 41 H 5-34 U/L Alanine Aminotransferase (ALT/SGPT) 100 H 0-55 U/L Alkaline Phosphatase 92 40-136 U/L Total Protein 7.4 6.4-8.2 GM/DL Albumin 4.5 3.2-4.5 GM/DL My Orders Orders - RENETTA NEWELL Cbc With Automated Diff (10/19/16 18:35) Comprehensive Metabolic Panel (10/19/16 18:35) Ua Culture If Indicated (10/19/16 18:35) Saline Lock/Iv-Start (10/19/16 18:35) Ns Iv 1000 Ml (Sodium Chloride 0.9%) (10/19/16 18:35) Promethazine Injection (Phenergan Injec (10/19/16 18:35) Manual Differential (10/19/16 18:50) Medications Given in ED Current Medications Medications Dose Ordered Sig/Lisa Route Start Time Stop Time Status Last Admin Dose Admin Sodium Chloride 1,000 ml @ 0 mls/hr Q0M ONCE IV 10/19/16 18:35 10/19/16 18:36 DC 10/19/16 18:50 0 MLS/HR Vital Signs/I&O Vital Sign - Last 12Hours 10/19/16 18:13 Temp 97.2 Pulse 91 Resp 16 B/P (MAP) 138/88 Pulse Ox 99 O2 Delivery Room Air Blood Pressure Mean: 105 Progress Note : Time: 18:30 Progress Note Evaluation for nausea vomiting and diarrhea. Will obtain labs, 1 L IV fluid normal saline, Phenergan 25 mg IV. 1909 patient drowsy, reports improvement in diarrhea, nausea and vomiting. Patient will attempt patient chips. 1929 patient eating ice chips, no further nausea or vomiting or diarrhea. Discussed plans for discharge to home, verbalized understanding of all discharge instructions. Departure Impression Impression: Primary Impression: Nausea and vomiting Qualified Codes: R11.14 - Bilious vomiting Additional Impressions: Dehydration Diarrhea Qualified Codes: R19.7 - Diarrhea, unspecified Disposition: 01 HOME, SELF-CARE Condition: Improved Departure-Patient Inst. Decision time for Depature: 19:30 Referrals: TOAN STANFORD DO (PCP/Family) Primary Care Physician Patient Instructions: Nausea and Vomiting, Adult (DC), Viral Gastroenteritis, Adult (DC) Add. Discharge Instructions: Clear liquids until tomorrow morning. Use prescription medicine for nausea, vomiting and diarrhea as needed Return to emergency department for increased symptoms, fever greater than 100 or new problems. All discharge instructions reviewed with patient and/or family. Voiced understanding. Scripts Diphenoxylate HCl/Atropine (Lomotil 2.5-0.025 mg Tablet) 1 Each Tablet 1 EACH PO Q4H for Diarrhea, #6 TAB 0 Refills Prov: RENETTA NEWELL 10/19/16 Promethazine HCl (Promethazine Tablet) 25 Mg Tablet 25 MG PO Q6H Y for NAUSEA/VOMITING, #6 TAB 0 Refills Prov: RENETTA NEWELL 10/19/16 Work/School Note: Work Release Form Date Seen in the Emergency Department: Oct 19, 2016 Return to Work: Oct 21, 2016 Restrictions: No Restrictions RENETTA NEWELL Oct 19, 2016 18:43
[2016-10-19 18:51] LABS: BILIRUBIN,URINE NEGATIVE (NEGATIVE); KETONES,URINE 2+ (NEGATIVE); LEUKOCYTE ESTERASE ,URINE NEGATIVE (NEGATIVE); NITRITE,URINE NEGATIVE (NEGATIVE); PH,URINE 6 (5-9); PROTEIN,URINE 1+ (NEGATIVE); UROBILINOGEN,URINE NORMAL (NORMAL)
[2016-10-19 19:03] LABS: BASOPHILS % (AUTO) 0 % (0-10); EOSINOPHILS % (AUTO) 0 % (0-10); LYMPHOCYTES # (AUTO) 0.6 X 10^3 (1.0-4.0); LYMPHOCYTES % (AUTO) 6 % (12-44); MEAN CORPUSCULAR HEMOGLOBIN 31 PG (25-34); MEAN CORPUSCULAR HGB CONC 35 G/DL (32-36); MEAN CORPUSCULAR VOLUME 88 FL (80-99); MEAN PLATELET VOLUME 10.8 FL (7.4-10.4); MONOCYTES # (AUTO) 0.8 X 10^3 (0.0-1.0); MONOCYTES % (AUTO) 8 % (0-12); NEUTROPHILS # (AUTO) 9.1 X 10^3 (1.8-7.8); NEUTROPHILS % (AUTO) 86 % (42-75); PLATELET COUNT 190 10^3/uL (130-400); RED BLOOD COUNT 5.44 10^6/uL (4.35-5.85); RED CELL DISTRIBUTION WIDTH 12.4 % (10.0-14.5); WHITE BLOOD COUNT 10.5 10^3/uL (4.3-11.0)
[2016-10-19 19:24] LABS: ALANINE AMINOTRANSFERASE 100 U/L (0-55); ALBUMIN 4.5 GM/DL (3.2-4.5); ANION GAP 10 MMOL/L (5-14); ASPARTATE AMINO TRANSFERASE 41 U/L (5-34); BLOOD UREA NITROGEN 13 MG/DL (7-18); BUN/CREATININE RATIO 14; CALCIUM 9.3 MG/DL (8.5-10.1); CARBON DIOXIDE 24 MMOL/L (21-32); CHLORIDE 106 MMOL/L (98-107); CREATININE SERUM 0.93 MG/DL (0.60-1.30); GFR ESTIMATED > 60; GLUCOSE 91 MG/DL (70-105); POTASSIUM 4.3 MMOL/L (3.6-5.0); SODIUM 140 MMOL/L (135-145); TOTAL PROTEIN 7.4 GM/DL (6.4-8.2)
[2016-10-19 19:25] LABS: BAND NEUTROPHILS 3 %; BASOPHILS % (MANUAL) 1 %; EOSINOPHILS % (MANUAL) 0 %; LYMPHOCYTES % (MANUAL) 4 %; NEUTROPHILS % (MANUAL) 89 %
[2016-10-19] MEDS ORDERED: DIPH1TAB PO (19:40)
[2016-10-19] MEDS ORDERED: PROM25TA14 PO (19:40)
[2016-10-19 19:45] VITALS: BP 130/74
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
== END 2016-10-19 19:45 | disposition home or self-care (01) ==
LOC: EDUNIT# 16:25 → ER 16:28
DX: E86.0 Dehydration (principal); R11.0 Nausea; K21.9 Gastro-esophageal reflux disease without esophagitis; J45.909 Unspecified asthma, uncomplicated; Z90.89 Acquired absence of other organs
CPT/HCPCS: 36415; 80053; 81000; 85007; 85027; 96361; 96374

== ENCOUNTER → 2017-09-11 | Outpatient (REF) ==
[~2017-09-11] MED LIST changes: +AZIT250T12 PO; -AZIT250T5 PO; +DIPH1TAB PO; +PROM25TA14 PO
--- NOTE | 2017-09-11 16:06 | Diagnostic Imaging Report ---
INDICATION: Left hand injury with pain. AP, oblique and lateral views of the left hand are obtained. FINDINGS: No acute fracture or dislocation is identified. No abnormal lytic or sclerotic focus is seen, and there is no radiopaque foreign body. IMPRESSION: No acute abnormality. Dictated by: Dictated on workstation # [id number]
== END | disposition home or self-care (01) ==
LOC: OCC 15:31
PROVIDERS: ATTEND Family Medicine
CPT/HCPCS: 73130

== ENCOUNTER 2017-10-26 17:01 | Emergency (ER) | payer BC ==
[~2017-10-26] VITALS: Ht 185.4 cm; Wt 102.1 kg
[2017-10-26] MEDS ORDERED: IPRA3AMP31 IH (18:12)
[2017-10-26] MEDS ORDERED: PRD20T PO (18:12)
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
[2017-10-26 18:21] VITALS: BP 123/67
== END 2017-10-26 18:21 | disposition home or self-care (01) ==
LOC: EDUNIT# 17:01 → ER 17:02
DX: J45.901 Unspecified asthma with (acute) exacerbation (principal); K21.9 Gastro-esophageal reflux disease without esophagitis; Z87.19 Personal history of other diseases of the digestive system; Z79.51 Long term (current) use of inhaled steroids; Z79.52 Long term (current) use of systemic steroids; Z90.89 Acquired absence of other organs
CPT/HCPCS: 99283

== ENCOUNTER 2018-03-03 13:39 | Emergency (ER) | payer SELFPAY ==
[~2018-03-03] VITALS: Ht 185.4 cm; Wt 105.7 kg
[~2018-03-03 13:39] MED LIST changes: -CETI-343 PO; +CETI10TA4 PO; +IPRA3AMP31 IH
--- NOTE | 2018-03-03 14:27 | ED Trauma-Multisystem ---
General Stated Complaint: R SHOULDER/R KNEE INJ Source of Information: Patient Exam Limitations: No Limitations History of Present Illness Date Seen by Provider: Mar 03, 2018 Time Seen by Provider: 14:26 Initial Comments Patient is a 23-year-old male who presents to the emergency room with complaints of right shoulder and right knee pain after being hit by a cow. He reports that he was deer hunting and a pasture when the cattle in the pasture started to rodrigo him and a cow struck him on the right side knocking him to the ground. He got back up and ran and jumped over a fence landing on his right side again. Reports pain to his right knee and right shoulder. Denies other injuries from the incident. Occurred: This Morning Pain/Injury Location: Lower Extremity, Upper Extremity (right knee and right shoulder) Associated Symptoms (Fall): No Headache, No Neck Pain Allergies and Home Medications Allergies Coded Allergies: No Known Drug Allergies (Unverified , 09/10/08) Home Medications Albuterol 17 Gm Inh, 2 SPRAY IH Q6H PRN for SHORTNESS OF BREATH FOR BREATHING Prescribed by: TRAY CARTER on 10/24/13 1647 Albuterol Sulfate 2.5 Mg/3 Ml Vial.neb, 2.5 MG IH Q4H Prescribed by: DOMENICA BOBO on 12/09/13 1637 Diphenoxylate HCl/Atropine 1 Each Tablet, 1 EACH PO Q4H Prescribed by: RENETTA NEWELL on 10/19/161939 Ipratropium/Albuterol Sulfate 3 Ml Ampul.neb, 3 ML IH Q4H PRN for SHORTNESS OF BREATH Prescribed by: DOYLE AKBAR on 10/26/171811 Prednisone 20 Mg Tab, 40 MG PO DAILY Prescribed by: DOYLE AKBAR on 10/26/171811 Promethazine HCl 25 Mg Tablet, 25 MG PO Q6H PRN for NAUSEA/VOMITING Prescribed by: RENETTA NEWELL on 10/19/161939 Patient Home Medication List Home Medication List Reviewed: Yes Review of Systems Review of Systems Constitutional: no symptoms reported, see HPI Musculoskeletal: joint pain (right knee and right shoulder) All Other Systems Reviewed Negative Unless Noted: Yes Past Sauafty-Djtjwh-Pwubcw Hx Past Med/Social Hx: Reviewed Nursing Past Med/Soc Hx Patient Social History 2nd Hand Smoke Exposure: No Recent Foreign Travel: No Contact w/Someone Who Travel: No Recent Hopitalizations: No Immunizations Up To Date Tetanus Booster (TDap): More than 5yrs PED Vaccines UTD: Yes Date of Influenza Vaccine: Mar 03, 2013 Seasonal Allergies Seasonal Allergies: Yes (STATES HE TESTED + FOR ALLERGENS) Past Medical History Surgeries: Yes (BMT'S, RIGHT KNEE) Abdominal, Adenoidectomy, Ear Surgery, Orthopedic, Tonsillectomy Respiratory: Yes (ASTHMA, 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) Asthma Currently Using CPAP: No Currently Using BIPAP: No Cardiac: Yes Palpitations Neurological: No Reproductive Disorders: No Gastrointestinal: Yes Gastroesophageal Reflux, Hilario's Esophagus Musculoskeletal: No Endocrine: No HEENT: Yes ("LARYNGOSPASM" ) Hearing Impairment: Denies Cancer: No Psychosocial: No Integumentary: No Blood Disorders: No Family Medical History Reviewed Nursing Family Hx No Pertinent Family Hx, Other Conditions/Hx Physical Exam Vital Signs Vital Signs - First Documented 03/03/18 14:18 Temp 98.0 Pulse 99 Resp 16 B/P (MAP) 188/130 (149) Pulse Ox 99 O2 Delivery Room Air Height, Weight, BMI Height: 6'1.00" Weight: 225lbs. 8.0oz. 102.580171av; 22.29 BMI Method:Stated General Appearance: No Apparent Distress, WD/WN Head: No Evidence of Injury Neck: Full Range of Motion, Normal Inspection, Non Tender, Supple Cardiovascular: Regular Rate, Rhythm, No Edema, No Gallop, No JVD, No Murmur, Normal Peripheral Pulses Respiratory: Chest Non Tender, Lungs Clear, Normal Breath Sounds, No Accessory Muscle Use, No Respiratory Distress Extremity: Normal Capillary Refill, Normal Inspection, Normal Range of Motion ( of the and right shoulder), No Calf Tenderness, No Pedal Edema; No Swelling ( tenderness to the right shoulder and right knee); Other Neurologic/Psychiatric: Alert, Oriented x3, Normal Mood/Affect Skin: Normal Color, Warm/Dry Nghia Coma Score Best Eye Response (Nghia): (4) Open Spontaneously Best Verbal Response (Kimball): (5) Oriented Best Motor Response (Kimball): (6) Obeys Commands Kimball Total: 15 Progress/Results/Core Measures Results/Orders My Orders Orders - MAR BEAUCHAMP Shoulder, Right, 3 Views (03/03/18 13:42) Knee, Right, 3 Views (03/03/18 13:42) Hydrocodone/Apap 7.5/325 Tab (Lortab 7. (03/03/18 14:30) Medications Given in ED Vital Signs/I&O 03/03/18 03/03/18 14:18 16:20 Temp 98.0 Pulse 99 77 Resp 16 16 B/P (MAP) 188/130 (149) 134/90 (105) Pulse Ox 99 98 O2 Delivery Room Air Room Air Progress Progress Note : Time: 15:53 Progress Note I have seen and evaluated the patient. I have informed him of normal imaging studies. His pain has improved. He agrees with plan of care and plans for discharge. Return precautions were given. Diagnostic Imaging Diagonstic Imaging: Xray Plain Films/CT/US/NM/MRI: knee, other (shoulder) Comments NAME: DEANNA LEE [facility] REC#: [id number] PT STATUS: DEP ER : 1995 PHYSICIAN: MAR BEAUCHAMP ADMIT DATE: 03/03/18/ER Signed Date of Exam: 03/03/18 KNEE, RIGHT, 3 VIEWS INDICATION: Injury to right knee. TIME OF EXAM: 3:16 PM FINDINGS: 3 views right knee show normal alignment. Joint spaces are well maintained. The articular surfaces are smooth. No fracture, dislocation or effusion is seen. IMPRESSION: No acute bony abnormality is detected. Dictated by: Dictated on workstation # [id number] Dict: 03/03/18 1515 Trans: 03/03/18 1619 Interpreted by: MARIAMA ERICKSON MD Electronically signed by: MARIAMA ERICKSON MD 03/03/18 1619 NAME: DEANNA LEE [facility] REC#: [id number] PT STATUS: REG ER : 1995 PHYSICIAN: MAR BEAUCHAMP ADMIT DATE: 03/03/18/ER Signed Date of Exam: 03/03/18 SHOULDER, RIGHT, 3 VIEWS INDICATION: Injury to the right shoulder. TIME OF EXAM: 3:21 PM FINDINGS: 3 views right shoulder show normal glenohumeral and acromioclavicular alignment. Acromiohumeral space is normal. No fracture or dislocation is seen. IMPRESSION: No acute bony abnormality is detected. Dictated by: Dictated on workstation # [id number] Dict: 03/03/18 1513 Trans: 03/03/18 1521 Interpreted by: MARIAMA ERICKSON MD Electronically signed by: MARIAMA ERICKSON MD 03/03/18 1521 Reviewed: Reviewed by Me Departure Impression Primary Impression: Contusion of shoulder, right Additional Impression: Contusion of knee, right Disposition: HOME, SELF-CARE Condition: Stable/Unchanged Departure-Patient Inst. Decision time for Depature: 15:53 Referrals: TOAN STANFORD DO (PCP/Family) Primary Care Physician Patient Instructions: General Trauma (DC) Add. Discharge Instructions: Tylenol and ibuprofen as directed by the bottle for pain relief. Ice to the sore areas at 20 minute intervals. Rest. Use the Dinh bandages as needed for comfort. Follow-up with her primary care provider within 1 week for recheck. Return back to the emergency room for any worsening symptoms or concerns as needed. MAR BEAUCHAMP Mar 03, 2018 14:27
[2018-03-03] MEDS ORDERED: HYDROcodone/APAP 7.5 MG/325 MG (LORTAB, LORCET PLUS) TABLET PO ONE (14:30)
--- NOTE | 2018-03-03 15:18 | Diagnostic Imaging Report ---
INDICATION: Injury to the right shoulder. TIME OF EXAM: 3:21 PM FINDINGS: 3 views right shoulder show normal glenohumeral and acromioclavicular alignment. Acromiohumeral space is normal. No fracture or dislocation is seen. IMPRESSION: No acute bony abnormality is detected. Dictated by: Dictated on workstation # [id number]
--- OUTSIDE RECORDS SUMMARY | 2018-03-03 15:54 | XMS REPORT ---
Author Author MCKENZIE PHAN [facility] Address [address] [place] [address] Care Team Providers Care Concrete Mason Name Role Phone MCKENZIE PHAN Unavailable PROBLEMS Type Condition ICD9-CM Code [id number] Code Onset Dates Condition Status SNOMED Code Problem Acute severe exacerbation of asthma J45.901 Active 968201645 Problem Other acne 706.1 Active 38974951 Problem Need for prophylactic vaccination and inoculation, Influenza V04.81 Active 106190487 Problem Unspecified disorder of skin and subcutaneous tissue 709.9 Active 81212146 Problem Need for prophylactic vaccination and inoculation, Influenza V04.81 Active 914486540 ALLERGIES No Information ENCOUNTERS Encounter Location Date Diagnosis [facility] [address] [address] Feb, [facility] [address] [address] Feb, Sore throat J02.9 [facility] [address] [address] Feb, Encounter for immunization Z23 [facility] [address] [id number] Jul, Dental examination Z01.20 [facility] [address] [id number] Dec, Encounter for dental examination Z01.20 [facility] [address] [address] Oct, Acute severe exacerbation of asthma J45.901 [facility] [address] [address] Jul, Encounter for immunization Z23 [facility] [address] [facility] [id number] [address] 2015 Encounter for immunization Z23 [facility] [address] [facility] [id number], [place] [address] 14 Jul, 2014 [facility] [address] [address] Jul, 2014 [facility] [address] [address] Jan, [facility] [address] [address] Jan, [facility] [address] [place] [address] Mar, [facility] [address] [address] Mar, [facility] [address] [address] Jul, [facility] [address] [address] Jan, [facility] [address], [place] [address] Jan, IMMUNIZATIONS No Known Immunizations SOCIAL HISTORY Never Assessed REASON FOR VISIT PLAN OF CARE VITAL SIGNS MEDICATIONS Unknown Medications RESULTS No Results PROCEDURES No Known procedures INSTRUCTIONS MEDICATIONS ADMINISTERED No Known Medications MEDICAL (GENERAL) HISTORY Type Description Date Medical History Asthma Surgical History tonsillectomy and adenoidectomy Surgical History meniskus repair 01/2017 Hospitalization History Multiple admissions for resp problems
--- OUTSIDE RECORDS SUMMARY | 2018-03-03 15:54 | XMS REPORT ---
Author Author MCKENZIE PHAN [facility] Address [address] [place] [address] Care Team Providers Care Production Recovery Operator Name Role Phone MCKENZIE PHAN Unavailable PROBLEMS Type Condition ICD9-CM Code FKA48-YS Code Onset Dates Condition Status SNOMED Code Problem Acute severe exacerbation of asthma J45.901 Active 122117387 Problem Other acne 706.1 Active 56379192 Problem Need for prophylactic vaccination and inoculation, Influenza V04.81 Active 075494099 Problem Unspecified disorder of skin and subcutaneous tissue 709.9 Active 89578372 Problem Need for prophylactic vaccination and inoculation, Influenza V04.81 Active 272928306 ALLERGIES No Known Allergies ENCOUNTERS Encounter Location Date Diagnosis [facility] [address] [address] Feb, [facility] [address] [address] Feb, Sore throat J02.9 [facility] [address] [address] Feb, Encounter for immunization Z23 [facility] [address] [id number] Jul, Dental examination Z01.20 [facility] [id number] [place] [id number] Dec, Encounter for dental examination Z01.20 [facility] [address] [address] Oct, Acute severe exacerbation of asthma J45.901 [facility] [address] [address] Jul, Encounter for immunization Z23 [facility] [address] [address] 2015 Encounter for immunization Z23 [facility] [id number] [place] [address] 14 Jul, 2014 [facility] [address] [address] Jul, 2014 [facility] [id number] [place] [address] Jan, 2013 [facility] [id number] [place] [address] Jan, [facility] [id number] [place] [address] Mar, 2012 [facility] [id number] [place] [address] Mar, 2012 [facility] [id number] [place] [address] Jul, 2012 [facility] [id number] [place] [address] Jan, [facility] [id number] [place] [address] Jan, IMMUNIZATIONS No Known Immunizations SOCIAL HISTORY Never Assessed REASON FOR VISIT Congestion, cough, sore throat and fevers off and on that started last week.-- KATERINA Trejo PLAN OF CARE Activity Details Follow Up if not improving with PCP or reg follow up Reason: VITAL SIGNS Height 71 in 2018-02-19 Weight 240.6 lbs 2018-02-19 Temperature 98.1 degrees Fahrenheit 2018-02-19 Heart Rate 84 bpm 2018-02-19 Respiratory Rate 20 2018-02-19 BMI 33.55 kg/m2 2018-02-19 Blood pressure systolic 116 mmHg 2018-02-19 Blood pressure diastolic 80 mmHg 2018-02-19 MEDICATIONS Medication Instructions Dosage Frequency Start Date End Date Duration Status Nexium 24HR 20 MG Orally Once a day 1 capsule 24h Active Cetirizine HCl 10 MG Orally Once a day 1 tablet 24h 30 day(s) Active Fish Oil 1000 MG Orally Once a day 1 capsule 24h 30 day(s) Active RESULTS Name Result Date Reference Range STREP A (IN HOUSE) 2018-02-19 STREP A Negative Control + Lot # [id number] Exp date 08/31/2018 PROCEDURES Procedure Date Ordered Result Body Site STREP A ASSAY W/OPTIC Feb 19, 2018 INSTRUCTIONS MEDICATIONS ADMINISTERED No Known Medications MEDICAL (GENERAL) HISTORY Type Description Date Medical History Asthma Surgical History tonsillectomy and adenoidectomy Surgical History meniskus repair 01/2017 Hospitalization History Multiple admissions for resp problems
--- OUTSIDE RECORDS SUMMARY | 2018-03-03 15:54 | XMS REPORT ---
Author Author LUCIANA PELLETIER [facility] Address [address] [place] [address] Care Team Providers Care Track Patrol Name Role Phone PRABHU LUCIANA Unavailable PROBLEMS Type Condition ICD9-CM Code RTT76-PB Code Onset Dates Condition Status SNOMED Code Problem Acute severe exacerbation of asthma J45.901 Active 525273666 Problem Other acne 706.1 Active 90886002 Problem Need for prophylactic vaccination and inoculation, Influenza V04.81 Active 225759435 Problem Unspecified disorder of skin and subcutaneous tissue 709.9 Active 96281703 Problem Need for prophylactic vaccination and inoculation, Influenza V04.81 Active 830167369 ALLERGIES No Known Allergies ENCOUNTERS Encounter Location Date Diagnosis [facility] [address] [address] Feb, Encounter for immunization Z23 [facility] [address] [id number] Jul, Dental examination Z01.20 [facility] [address] [id number] Dec, Encounter for dental examination Z01.20 [facility] [id number] [place] [address] Oct, Acute severe exacerbation of asthma J45.901 [facility] [id number] [place] [address] Jul, Encounter for immunization Z23 [facility] [address] [address] Jan, Encounter for immunization Z23 [facility] [id number] [place] [address] Jul, [facility] [id number], [place] [address] Jul, [facility] [id number], [place] [address] Jan, [facility] [id number] Jan, [facility] [address], [place] [address] Mar, [facility] [id number], [place] [address] Mar, [facility] [address] [address] Jul, [facility] [id number], [place] [address] Jan, [facility] [id number], [place] [address] Jan, IMMUNIZATIONS Vaccine Route Administration Date Status FLULAVAL QUAD 0.5ML (6 MO & UP) 2018 IM Intramuscular Feb 01, 2018 Administered SOCIAL HISTORY Never Assessed REASON FOR VISIT Flu shot per pts request. [email or web address] PLAN OF CARE VITAL SIGNS Height 71 in 2018-02-01 Weight 232.6 lbs 2018-02-01 BMI 32.44 kg/m2 2018-02-01 MEDICATIONS Medication Instructions Dosage Frequency Start Date End Date Duration Status Claritin 10 MG Orally Once a day 1 tablet 24h Active Breo Ellipta 200-25 MCG/INH Inhalation Once a day 1 puff 24h Active Nexium 24HR 20 MG Orally Once a day 1 capsule 24h Active Spiriva Respimat Active Bactrim DS 800-160 mg 1 tablet by Oral route 2 times per day for 10 day(s) Jul, Not-Taking Bactroban 2 % 1 niyah by Topical route 2 times per day for 14 day(s) Jul, Not-Taking Advair Diskus 500-50 mcg/dose Jul, Not-Taking Fish Oil 1000 MG Orally Once a day 1 capsule 24h 30 day(s) Active RESULTS No Results PROCEDURES Procedure Date Ordered Result Body Site FLULAVAL QUAD 0.5ML (6 MO AND UP) 2017Feb 01, 2018 SINGLE IMMUNIZATION ADMIN Feb 01, 2018 INSTRUCTIONS MEDICATIONS ADMINISTERED No Known Medications MEDICAL (GENERAL) HISTORY Type Description Date Medical History Asthma Surgical History tonsillectomy and adenoidectomy Surgical History meniskus repair 01/2017 Hospitalization History Multiple admissions for resp problems
--- OUTSIDE RECORDS SUMMARY | 2018-03-03 15:54 | XMS REPORT ---
Author Author HANKCELINA BLAS Jimbo [facility] Address Unknown Care Team Providers Care Supervisor Rod Placing Name Role Phone CELINA AUSTIN Unavailable PROBLEMS Type Condition ICD9-CM Code FXH77-ML Code Onset Dates Condition Status SNOMED Code Problem Acute severe exacerbation of asthma J45.901 Active 067713404 Problem Other acne 706.1 Active 45323735 Problem Need for prophylactic vaccination and inoculation, Influenza V04.81 Active 227350492 Problem Unspecified disorder of skin and subcutaneous tissue 709.9 Active 45655947 Problem Need for prophylactic vaccination and inoculation, Influenza V04.81 Active 907614310 ALLERGIES No Known Allergies ENCOUNTERS Encounter Location Date Diagnosis [facility] [id number] [place] [id number] Jul, Dental examination Z01.20 [facility] [address] [id number] Dec, Encounter for dental examination Z01.20 [facility] [id number] [place] [address] Oct, Acute severe exacerbation of asthma J45.901 [facility] [id number] [place] [address] Jul, Encounter for immunization Z23 [facility] [id number] [place] [address] Jan, Encounter for immunization Z23 [facility] [address] [address] 14 Jul, 2014 [facility] [address] [address] Jul, 2014 [facility] [address] [address] Jan, [facility] [address] [facility] [id number] [place] Jan, [facility] [address] [facility] [id number], [place] [address] Mar, [facility] [address] [facility] [id number], [place] [address] Mar, [facility] [address] [facility] [id number] Jul, [facility] [address] [facility] [id number] Jan, [facility] [address] [facility] [id number], [place] [address] Jan, IMMUNIZATIONS No Known Immunizations SOCIAL HISTORY Never Assessed REASON FOR VISIT delilah PLAN OF CARE Activity Details Follow Up prn Reason:RADHA VITAL SIGNS Height 71 in 2017-07-03 Blood pressure systolic 138 mmHg 2017-07-03 Blood pressure diastolic 85 mmHg 2017-07-03 MEDICATIONS Medication Instructions Dosage Frequency Start Date End Date Duration Status Bactroban 2 % 1 niyah by Topical route 2 times per day for 14 day(s) Jul, Not-Taking Advair Diskus 500-50 mcg/dose Jul, Not-Taking Spiriva Respimat Active Bactrim DS 800-160 mg 1 tablet by Oral route 2 times per day for 10 day(s) Jul, Not-Taking Breo Ellipta 200-25 MCG/INH Inhalation Once a day 1 puff 24h Active Nexium 24HR 20 MG Orally Once a day 1 capsule 24h Active Claritin 10 MG Orally Once a day 1 tablet 24h Active RESULTS No Results PROCEDURES Procedure Date Ordered Result Body Site LTD ORAL EVALUATION - PROBLEM FOCUS July 03, 2017 INTRAORL-PERIAPICAL 1 FILM 54699 July 03, 2017 BITEWING - SINGLE FILM July 03, 2017 INTRAORL-PERIAPICAL EA ADD FILM July 03, 2017 INSTRUCTIONS MEDICATIONS ADMINISTERED No Known Medications MEDICAL (GENERAL) HISTORY Type Description Date Medical History Asthma Surgical History tonsillectomy and adenoidectomy Surgical History meniskus repair 01/2017 Hospitalization History Multiple admissions for resp problems
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
--- NOTE | 2018-03-03 16:06 | Diagnostic Imaging Report ---
INDICATION: Injury to right knee. TIME OF EXAM: 3:16 PM FINDINGS: 3 views right knee show normal alignment. Joint spaces are well maintained. The articular surfaces are smooth. No fracture, dislocation or effusion is seen. IMPRESSION: No acute bony abnormality is detected. Dictated by: Dictated on workstation # [id number]
[2018-03-03 16:20] VITALS: BP 134/90
== END 2018-03-03 16:20 | disposition home or self-care (01) ==
LOC: EDUNIT# 13:39 → ER 13:40
DX: S40.011A Contusion of right shoulder, initial encounter (principal); S80.01XA Contusion of right knee, initial encounter; J45.909 Unspecified asthma, uncomplicated; K21.9 Gastro-esophageal reflux disease without esophagitis; R40.2142 Coma scale, eyes open, spontaneous, at arrival to emergency department; R40.2252 Coma scale, best verbal response, oriented, at arrival to emergency department; R40.2362 Coma scale, best motor response, obeys commands, at arrival to emergency department; Z87.19 Personal history of other diseases of the digestive system; Z79.51 Long term (current) use of inhaled steroids; Z79.52 Long term (current) use of systemic steroids; Z90.89 Acquired absence of other organs; Z98.890 Other specified postprocedural states; W55.89XA Other contact with other mammals, initial encounter
CPT/HCPCS: 73030; 73562

== ENCOUNTER 2018-03-25 10:25 | Emergency (ER) | payer SELFPAY ==
[~2018-03-25] VITALS: Ht 185.4 cm; Wt 104.3 kg
[2018-03-25] MEDS ORDERED: RX-TOBRA/DEXAMETH (TOBRADEX) OP. SUSP 2.5 ML BTL OU STA (11:06)
[2018-03-25] MEDS ORDERED: FLUORESCEIN (FLUOR-I-STRIPS) 1 MG STRP OU ONE (11:15)
[2018-03-25] MEDS ORDERED: TETRACAINE 0.5% OPHTH SOLN 4 ML BTL (SINGLE DOSE ONLY) OU ONE (11:15)
[2018-03-25] MEDS ORDERED: BSS 15 ML IR ONE (11:15)
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
[2018-03-25 11:48] VITALS: BP 143/88
== END 2018-03-25 11:48 | disposition home or self-care (01) ==
LOC: EDUNIT# 10:25 → ER 10:26
DX: S05.01XA Injury of conjunctiva and corneal abrasion without foreign body, right eye, initial encounter (principal); H10.9 Unspecified conjunctivitis; J45.909 Unspecified asthma, uncomplicated; K21.9 Gastro-esophageal reflux disease without esophagitis; Z87.19 Personal history of other diseases of the digestive system; Z79.51 Long term (current) use of inhaled steroids; Z79.52 Long term (current) use of systemic steroids; Z90.89 Acquired absence of other organs; X58.XXXA Exposure to other specified factors, initial encounter
CPT/HCPCS: 99284

== ENCOUNTER 2018-10-18 16:50 | Emergency (ER) | payer BC, OTHER | END 2018-10-18 18:40 | disposition home or self-care (01) | LOC: ER 16:50 ==

== ENCOUNTER 2018-11-23 17:46 | Emergency (ER) | payer BC | END 2018-11-23 19:46 | disposition home or self-care (01) | LOC: ER 17:46 ==

== ENCOUNTER 2018-12-03 13:16 | Emergency (ER) | payer BC ==
[~2018-12-03] VITALS: Ht 185.4 cm; Wt 109.3 kg
[~2018-12-03 13:16] MED LIST changes: +NYST1000 PO
[2018-12-03] MEDS ORDERED: KETOROLAC 30 MG/ML VIAL IVP STA (13:45)
[2018-12-03] MEDS ORDERED: ONDANSETRON 4 MG/2 ML (SDV) Z0FRAN IVP ONE (13:45)
[2018-12-03] MEDS ORDERED: NS IV 1000 ML 1,000 ML IV ONE (13:45)
[2018-12-03] MEDS ORDERED: NS IV 1000 ML 1,000 ML IV STA (13:45)
[2018-12-03 13:59] LABS: BASOPHILS % (AUTO) 1 % (0-10); EOSINOPHILS # (AUTO) 0.1 10^3/uL (0.0-0.3); EOSINOPHILS % (AUTO) 1 % (0-10); HEMATOCRIT 45 % (40-54); LYMPHOCYTES # (AUTO) 1.8 X 10^3 (1.0-4.0); LYMPHOCYTES % (AUTO) 31 % (12-44); MEAN CORPUSCULAR HEMOGLOBIN 31 PG (25-34); MEAN CORPUSCULAR HGB CONC 35 G/DL (32-36); MEAN CORPUSCULAR VOLUME 88 FL (80-99); MEAN PLATELET VOLUME 10.7 FL (7.4-10.4); MONOCYTES # (AUTO) 0.7 X 10^3 (0.0-1.0); MONOCYTES % (AUTO) 11 % (0-12); NEUTROPHILS # (AUTO) 3.3 X 10^3 (1.8-7.8); NEUTROPHILS % (AUTO) 57 % (42-75); PLATELET COUNT 256 10^3/uL (130-400); RED CELL DISTRIBUTION WIDTH 12.3 % (10.0-14.5); WHITE BLOOD COUNT 5.9 10^3/uL (4.3-11.0)
[2018-12-03 14:15] LABS: ALANINE AMINOTRANSFERASE 44 U/L (0-55); ALBUMIN 4.4 GM/DL (3.2-4.5); ALKALINE PHOSPHATASE 101 U/L (40-136); BILIRUBIN,TOTAL 1.1 MG/DL (0.1-1.0); BUN/CREATININE RATIO 10; CALCIUM 9.3 MG/DL (8.5-10.1); CARBON DIOXIDE 26 MMOL/L (21-32); CHLORIDE 106 MMOL/L (98-107); CREATININE SERUM 0.86 MG/DL (0.60-1.30); GFR ESTIMATED > 60; GLUCOSE 98 MG/DL (70-105); LIPASE 30 U/L (8-78); POTASSIUM 4.4 MMOL/L (3.6-5.0); SODIUM 139 MMOL/L (135-145); TOTAL PROTEIN 7.4 GM/DL (6.4-8.2)
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
[2018-12-03] MEDS ORDERED: NS 100 ML (IVPB) BAG IV ONE (14:45)
[2018-12-03] MEDS ORDERED: HOLD METFORMIN - RECEIVED CONTRAST 20 ML VIAL IV SCH (14:45)
[2018-12-03] MEDS ORDERED: IOHEXOL 350 MG/ML 100 ML (OMNIPAQUE 350) VIAL IV ONE (14:45)
--- NOTE | 2018-12-03 15:08 | Diagnostic Imaging Report ---
PROCEDURE: CT abdomen and pelvis with contrast. TECHNIQUE: Multiple contiguous axial images were obtained through the abdomen and pelvis after administration of intravenous contrast. Auto Exposure Controls were utilized during the CT exam to meet ALARA standards for radiation dose reduction. INDICATION: Right-sided abdominal pain. Dark stools. FINDINGS: The lung bases are clear. The liver appears normal. The gallbladder and bile ducts are normal. The pancreas and spleen are normal. The adrenal glands are normal. There is normal enhancement of the abdominal organs and vessels. The stomach and small bowel are not distended. There are no areas of thickened bowel wall. The appendix is normal. The colon shows normal stool and gas pattern. There are diverticula in the descending and sigmoid colon though no evidence of diverticulitis. The bladder is normal. Prostate is not enlarged. No intra-abdominal adenopathy of pathologic size. No free air or free fluid. IMPRESSION: Normal CT scan of the abdomen and pelvis with mild diverticulosis. No evidence of diverticulitis. Dictated by: Dictated on workstation # [id number]
[2018-12-03 15:09] LABS: BILIRUBIN,URINE NEGATIVE (NEGATIVE); CLARITY,URINE CLEAR; COLOR,URINE YELLOW; GLUCOSE, URINE (UA) NEGATIVE (NEGATIVE); KETONES,URINE NEGATIVE (NEGATIVE); LEUKOCYTE ESTERASE ,URINE NEGATIVE (NEGATIVE); NITRITE,URINE NEGATIVE (NEGATIVE); PH,URINE 8 (5-9); PROTEIN,URINE NEGATIVE (NEGATIVE); UROBILINOGEN,URINE NORMAL (NORMAL)
[2018-12-03 15:25] LABS: BACTERIA,URINE NEGATIVE /HPF
[2018-12-03] MEDS ORDERED: SUCR1TAB PO (15:39)
[2018-12-03 16:10] VITALS: BP 123/71
== END 2018-12-03 16:00 | disposition home or self-care (01) ==
LOC: EDUNIT# 13:16 → ER 13:17
DX: R10.13 Epigastric pain (principal); J45.909 Unspecified asthma, uncomplicated; K21.9 Gastro-esophageal reflux disease without esophagitis; Z79.52 Long term (current) use of systemic steroids; Z90.89 Acquired absence of other organs
CPT/HCPCS: 36415; 74177; 80053; 81000; 83690; 85025; 86141

== ENCOUNTER 2019-02-01 07:27 | Emergency (ER) | payer BC, OTHER ==
[~2019-02-01] VITALS: Ht 185.4 cm; Wt 107.0 kg
[~2019-02-01 07:27] MED LIST changes: +SUCR1TAB PO
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
[2019-02-01] MEDS ORDERED: KETOROLAC 60 MG/2 ML VIAL IM STA (08:20)
--- NOTE | 2019-02-01 08:28 | Diagnostic Imaging Report ---
INDICATION: Prior history of shoulder dislocations. Patient states that he dislocated the shoulder yesterday. TIME OF EXAM: 8:02 a.m. COMPARISON: Correlation is made with prior shoulder radiograph from 03/03/2018. TECHNIQUE: Three views of the right shoulder were obtained. FINDINGS: The glenohumeral and acromioclavicular alignment are normal. The acromiohumeral space is normal. No fracture or dislocation is identified. IMPRESSION: No acute bony abnormality is detected. Dictated by: Dictated on workstation # [id number]
--- NOTE | 2019-02-01 08:33 | NUR ---
Pt wanted IM toradol in R ventrogluteal side after charted in L
[2019-02-01 09:24] VITALS: BP 141/93
[2019-02-25] MEDS ORDERED: TRM50T PO (09:40)
[2019-02-25] MEDS ORDERED: IBUP-2473 PO (09:40)
== END 2019-02-01 09:19 | disposition home or self-care (01) ==
LOC: EDUNIT# 07:27 → ER 07:28
DX: S46.911A Strain of unspecified muscle, fascia and tendon at shoulder and upper arm level, right arm, initial encounter (principal); J45.909 Unspecified asthma, uncomplicated; K21.9 Gastro-esophageal reflux disease without esophagitis; Z90.89 Acquired absence of other organs; Z79.52 Long term (current) use of systemic steroids; Z87.891 Personal history of nicotine dependence; X50.0XXA Overexertion from strenuous movement or load, initial encounter; Y92.59 Other trade areas as the place of occurrence of the external cause
CPT/HCPCS: 73030; 96372

== ENCOUNTER 2019-02-07 05:45 | Emergency (ER) | payer BC, OTHER ==
[~2019-02-07] VITALS: Ht 182 cm; Wt 107.0 kg
[2019-02-07 05:47] VITALS: BP 137/90
[2019-02-07] MEDS ORDERED: fentaNYL INJECTION 100 MCG/2 ML AMP ONE (05:50)
[2019-02-07] MEDS ORDERED: LACTATED RINGERS 1,000 ML IV ONE (06:07)
[2019-02-07 06:11] LABS: MEAN PLATELET VOLUME 10.1 FL (7.4-10.4); WHITE BLOOD COUNT 10.3 10^3/uL (4.3-11.0)
[2019-02-07] MEDS ORDERED: KETAMINE/NaCl 50 MG/5 ML SYRINGE (ED ONLY) IV ONE (06:15)
[2019-02-07] MEDS ORDERED: fentaNYL INJECTION 100 MCG/2 ML AMP IVP ONE (06:15)
[2019-02-07] MEDS ORDERED: ceFAZolin 2 GM IV Premixed 50 ML IV ONE (06:15)
[2019-02-07 06:39] LABS: ALANINE AMINOTRANSFERASE 38 U/L (0-55); ALBUMIN 3.7 GM/DL (3.2-4.5); ALKALINE PHOSPHATASE 78 U/L (40-136); BILIRUBIN,DIRECT 0.3 MG/DL (0.0-0.3); BILIRUBIN,INDIRECT 0.5 MG/DL; BILIRUBIN,TOTAL 0.8 MG/DL (0.1-1.0); BUN/CREATININE RATIO 17; CALCIUM 8.1 MG/DL (8.5-10.1); CARBON DIOXIDE 23 MMOL/L (21-32); CHLORIDE 109 MMOL/L (98-107); CREATININE SERUM 0.95 MG/DL (0.60-1.30); GFR ESTIMATED > 60; GLUCOSE 162 MG/DL (70-105); POTASSIUM 4.1 MMOL/L (3.6-5.0); SODIUM 140 MMOL/L (135-145); TOTAL PROTEIN 5.6 GM/DL (6.4-8.2)
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
== END 2019-02-07 06:50 | disposition short-term general hospital (02) ==
LOC: EDUNIT# 05:45 → ER 05:47
DX: S72.322A Displaced transverse fracture of shaft of left femur, initial encounter for closed fracture (principal); S82.202C Unspecified fracture of shaft of left tibia, initial encounter for open fracture type IIIA, IIIB, or IIIC; S82.402C Unspecified fracture of shaft of left fibula, initial encounter for open fracture type IIIA, IIIB, or IIIC; J45.909 Unspecified asthma, uncomplicated; K21.9 Gastro-esophageal reflux disease without esophagitis; Z79.52 Long term (current) use of systemic steroids; Z90.89 Acquired absence of other organs; V89.2XXA Person injured in unspecified motor-vehicle accident, traffic, initial encounter
CPT/HCPCS: 36415; 71045; 72170; 73020; 73552; 73590; 80048; 80076; 80320; 85027; 86850; 86900; 86901; 93041; 99291

== ENCOUNTER → 2019-02-12 | Outpatient (CLI) | payer OTHER, BC ==
[~2019-02-12] MED LIST changes: +CETI10TA20 PO; +ENOX40DI13 SQ; +HYDR-3820 PO
== END | disposition home or self-care (01) ==
LOC: PREOP 05:47
PROVIDERS: ATTEND Surgery
DX: Z01.818 Encounter for other preprocedural examination (principal)

== ENCOUNTER 2019-02-13 11:24 | Inpatient (IN) | payer OTHER, BC ==
[~2019-02-13] VITALS: Ht 185.5 cm; Wt 113.6 kg
[~2019-02-13 11:24] MED LIST changes: -CETI10TA20 PO; -ENOX40DI13 SQ; -HYDR-3820 PO
[2019-02-13] MEDS ORDERED: LACTULOSE SYRUP 10GM/15ML (ENULOSE) 30ML UDC PO PRN (12:00)
[2019-02-13] MEDS ORDERED: ENOXAPARIN 40 MG/0.4 ML (LOVENOX) SYR SC SCH (12:00)
[2019-02-13] MEDS ORDERED: diphenhydrAMINE 25 MG TAB (BENADRYL) PO PRN (12:00)
[2019-02-13] MEDS ORDERED: HYDROcodone/APAP 5 MG/325 MG (LORTAB) TAB PO PRN (12:00)
[2019-02-13] MEDS ORDERED: BISACODYL 10 MG SUPP (DULCOLAX) PR PRN (12:00)
[2019-02-13] MEDS ORDERED: ACETAMINOPHEN 500 MG TAB (TYLENOL) PO PRN (12:00)
[2019-02-13] MEDS ORDERED: CALCIUM CARBONATE 500 MG (TUMS) TAB.CHEW PO PRN (12:00)
[2019-02-13] MEDS ORDERED: DOCUSATE SODIUM 100 MG (COLACE) CAP PO PRN (12:00)
[2019-02-13] MEDS ORDERED: FLEET ENEMA ADULT 1 EA BTL PR PRN (12:00)
[2019-02-13] MEDS ORDERED: guaiFENesin/CODEINE (ROBITUSSIN AC) 10ML UDC PO PRN (12:00)
[2019-02-13] MEDS ORDERED: ONDANSETRON 4 MG (ZOFRAN) ORAL DISSOLVE TAB PO PRN (12:00)
[2019-02-13] MEDS ORDERED: LOPERAMIDE 2 MG (IMODIUM) TABLET PO PRN (12:00)
[2019-02-13] MEDS ORDERED: HYDR-3820 PO (12:24)
[2019-02-13] MEDS ORDERED: CETI10TA20 PO (12:24)
[2019-02-13] MEDS ORDERED: ENOX40DI13 SQ (12:24)
[2019-02-13] MEDS ORDERED: NF-ESOM40C PO (12:24)
[2019-02-13] MEDS ORDERED: FAMO40TA6 PO (12:24)
--- NOTE | 2019-02-13 12:27 | NUR ---
UPDATED MED REC WITH DISCHARGE SUMMARY FROM ORIENTAL. NOTE THE FOLLOWING CHANGES WERE MADE AT THAT DISCHARGE: START TAKING: HYDROCODONE 10-325MG 1 Q4H PRN #30 LOVENOX 40MG DAILY #14 CONTINUE: FAMOTIDINE 40MG DAILY NEXIUM 40MG HS ZYRTEC 10MG HS [facility] HAS NOT FILLED ANY MEDICATION RECENTLY FOR THE PATIENT AND THERE IS NO MEDS SHOWN ON THE EXT MED HX. Addendum: 02/14/19 at 0815 by BIPIN MCDONALD sales department clerk REMOVED THE TWO NEW MEDICATIONS ORDERED AT DISCHARGE FROM ORIENTAL AT THIS TIME; HYDROCODONE AND LOVENOX.
[2019-02-13 16:30] VITALS: BP 126/69
--- NOTE | 2019-02-13 16:30 | NUR ---
PT TO ROOM 424 VIA WC ACCOMPANIED BY FAMILY AND HOSPITAL STAFF. PT TRANSFERRED USING WALKER AND GAIT BELT AND ASSISTANCE FROM STAFF TO BED. PT INTRODUCED TO SURROUNDINGS AND PLAN OF CARE. PT CALL LIGHT WITHIN REACH.
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
[2019-02-13] MEDS ORDERED: RT-ALBUTEROL SULF 2.5 MG/3 ML PRE-MIX VIAL INH PRN (17:00)
[2019-02-13] MEDS: POLYETHYLENE GLYCOL 17 GM (MIRALAX) PACK PO SCH (19:26)
[2019-02-13] MEDS: HYDROcodone/APAP 10 MG/325 MG (LORTAB) TAB PO PRN ×2 (19:26→23:33)
[2019-02-13] MEDS: SENNA W/DOCUSATE (SENOKOT S) TABLET PO SCH (19:26)
[2019-02-14] VITALS (7 sets, daily range): BP systolic 102–154; BP diastolic 65–86
[2019-02-14] MEDS: HYDROcodone/APAP 10 MG/325 MG (LORTAB) TAB PO PRN ×5 (03:54→23:30)
[2019-02-14 06:13] LABS: BASOPHILS % (AUTO) 1 % (0-10); EOSINOPHILS # (AUTO) 0.1 10^3/uL (0.0-0.3); EOSINOPHILS % (AUTO) 2 % (0-10); HEMATOCRIT 24 % (40-54); HEMOGLOBIN 7.8 G/DL (13.3-17.7); LYMPHOCYTES # (AUTO) 1.2 X 10^3 (1.0-4.0); LYMPHOCYTES % (AUTO) 15 % (12-44); MEAN CORPUSCULAR HEMOGLOBIN 30 PG (25-34); MEAN CORPUSCULAR HGB CONC 32 G/DL (32-36); MEAN CORPUSCULAR VOLUME 92 FL (80-99); MEAN PLATELET VOLUME 9.8 FL (7.4-10.4); MONOCYTES % (AUTO) 12 % (0-12); NEUTROPHILS # (AUTO) 5.5 X 10^3 (1.8-7.8); NEUTROPHILS % (AUTO) 71 % (42-75); PLATELET COUNT 344 10^3/uL (130-400); RED CELL DISTRIBUTION WIDTH 13.5 % (10.0-14.5); WHITE BLOOD COUNT 7.8 10^3/uL (4.3-11.0)
[2019-02-14 06:43] LABS: ALANINE AMINOTRANSFERASE 52 U/L (0-55); ALBUMIN 3.2 GM/DL (3.2-4.5); ALKALINE PHOSPHATASE 53 U/L (40-136); BILIRUBIN,TOTAL 1.9 MG/DL (0.1-1.0); BUN/CREATININE RATIO 22; CALCIUM 8.8 MG/DL (8.5-10.1); CARBON DIOXIDE 24 MMOL/L (21-32); CHLORIDE 104 MMOL/L (98-107); CREATININE SERUM 0.69 MG/DL (0.60-1.30); GFR ESTIMATED > 60; GLUCOSE 102 MG/DL (70-105); POTASSIUM 4.1 MMOL/L (3.6-5.0); SODIUM 137 MMOL/L (135-145); TOTAL PROTEIN 5.8 GM/DL (6.4-8.2)
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
--- NOTE | 2019-02-14 08:51 | Physical Therapy Progress Note ---
Therapy Progress Note This note is for 02/13/2019. Pt arrived to this facility at 1430 via wheelchair van transport. Unable to complete full PT evaluation on this date due to time of arrival. Assisted pt from wheelchair to bed and assisted nursing with making patient comfortable. Will complete PT and OT evaluations on 02/14/2019. TOVA DUMONT PT Feb 14, 2019 08:51 POS
[2019-02-14] MEDS: SENNA W/DOCUSATE (SENOKOT S) TABLET PO SCH ×2 (09:33→21:45)
[2019-02-14] MEDS: FAMOTIDINE 20 MG (PEPCID) TABLET PO SCH (09:34)
[2019-02-14] MEDS: ENOXAPARIN 40 MG/0.4 ML (LOVENOX) SYR SC SCH (09:35)
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
[2019-02-14] MEDS: IRON SUCROSE 200 MG/10 ML (VENOFER) VIAL IV SCH (10:41)
[2019-02-14] MEDS: POLYETHYLENE GLYCOL 17 GM (MIRALAX) PACK PO SCH ×2 (10:53→19:37)
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
--- NOTE | 2019-02-14 13:24 | Occupational Ther Daily Note ---
OT Current Status-Daily Note Subjective Pt seen in bed, more alert than evaluation. Pt agreeable to OT tx session, states that he is "in rehab" and "needs to work." Pt apologizes for pt's previous state, pt educated on safety and ensured. Pt states 6-7/10 pain in LLE while laying in bed. Mental Status/Objective Patient Orientation: Person, Place, Situation, Normal For Age ADL-Treatment Therapy Code Descriptions/Definitions Functional [place] Measure: 0=Not Assessed/NA 4=Minimal Assistance 1=Total Assistance 5=Supervision or Setup 2=Maximal Assistance 6=Modified [place] 3=Moderate Assistance 7=Complete IndependenceSCALE: Activities may be completed with or without assistive devices. 8-Fpdiyplbly-eqdduzl completes the activity by him/herself with no assistance from a helper. 5-Set-up or Clean-up Assistance-helper sets up or cleans up; patient completes activity. [place] assists only prior to or following the activity. 4-Supervision or Touching Assistance-helper provides verbal cues and/or touching/steadying and/or contact guard assistance as patient completes activity. Assistance may be provided throughout the activity or intermittently. 3-Partial/Moderate Assistance-helper does LESS THAN HALF the effort. [place] lifts, holds or supports trunk or limbs, but provides less than half the effort. 2-Substantial/Maximal Assistance-helper does MORE THAN HALF the effort. [place] lifts or holds trunk or limbs and provides more than half the effort. 2-Ptatlgnup-mgxwyj does ALL the effort. Patient does none of the effort to complete the activity. Or, the assistance of 2 or more helpers is required for the patient to complete the activity. If activity was not attempted, code reason: 7-Patient Refused. 9-Not Applicable-not attempted and the patient did not perform the activity before the current illness, exacerbation or injury. 10-Not Attempted due to Environmental Limitations-(lack of equipment, weather restraints, etc.). 88-Not Attempted due to Medical Conditions or Safety Concerns. Eating (QC): 5 Shower/Bathe Self (QC): 3 Upper Body Dressing (QC): 3 Lower Body Dressing (QC): 2 on/off footwear 6 (RLE) Other Treatment present through session. Pt agreeable to sponge bath while in bed. Pt talkative throughout session. Pt completes UB bathing with min A for back, completes LB bathing with min A for rolling while in bed and maintaining position during bathing task; pt requires max cues for attention to task during bathing. completes assist with rolling/ pant management. Pt completes UB dressing with min A for adjusting in back, LB dressing with assist to pull down from hips and pull up over hips in bed. Pt completes sitting EOB with min A to sit upright and max A for LB movement to EOB; pt wishes to sit in recliner chair for feeding. Pt sit to stand with min A, vocalizing pain/ denying dizziness, utilizes FWW to take 4 steps to situate in front of chair with CGA. Pt sits while extends and supports LLE; pt positioned with cold packs on LLE and pillows under LLE. Pt requires s/u for cutting meat and opening soda. Pt and left with call light in reach, all needs met. Education OT Patient Education: Correct positioning, Instructions to caregiver, Modified ADL techniques, Purpose of tx/functional activities, Reviewed precautions, Safety issues, Transfer techniques, Use of adapted equipment Teaching Recipient: Patient, Significant Other Teaching Methods: Demonstration, Discussion Response to Teaching: Verbalize Understanding, Return Demonstration, Reinforcement Needed OT Short Term Goals Short Term Goals 1=Demonstrate adherence to instructed precautions during ADL tasks. 2=Patient will verbalize/demonstrate understanding of assistive devices/modifications for ADL. 3=Patient will improve strength/tolerance for activity to enable patient to perform ADL's. OT Associate Trainer Goals Associate Trainer Goals Time Frame: Feb 28, 2019 Eating (QC): 6 Oral Hygiene (QC): 6 Shower/Bathe Self (QC): 5 Upper Body Dressing (QC): 6 Lower Body Dressing (QC): 6 On/Off Footwear (QC): 6 Toileting Hygiene (QC): 6 Toilet/Commode Transfer (QC): 6 Additional Goals: 1-Demonstrate ADL Tasks, 2-Verbalize Understanding, 3-ImproveStrength/Marcelle 1=Demonstrate adherence to instructed precautions during ADL tasks. 2=Patient will verbalize/demonstrate understanding of assistive devices/modifications for ADL. 3=Patient will improve strength/tolerance for activity to enable patient to perform ADL's. OT Education/Plan Problem List/Assessment Assessment: Decreased Activ Tolerance, Decreased UE Strength, Dependent Transfers, Impaired Bed Mobility, Impaired Funct Balance, Impaired I ADL's, Impaired Self-Care Skills Discharge Recommendations Plan/Recommendations: Continue POC Treatment Plan/Plan of Care Treatment,Training & Education: Yes Patient would benefit from OT for education, treatment and training to promote independence in ADL's, mobility, safety and/or upper extremity function for ADL's. Plan of Care: ADL Retraining, Caregiver Training, Concurrent Therapy, Functional Mobility, Group Exercise/Act as Ind, UE Funct Exercise/Act Treatment Duration: Feb 28, 2019 Frequency: At least 5 of 7 days/Wk (IRF) Estimated Hrs Per Day: 1.5 hours per day Agreement: Yes Rehab Potential: Guarded Time/GCodes Start Time: 11:15 Stop Time: 12:15 Total Time Billed (hr/min): 60 Billed Treatment Time 1, ADL 4 (60) DENNISE GONZALEZ OTR Feb 14, 2019 13:24 POS
[2019-02-14 14:11] LABS: BILIRUBIN,URINE NEGATIVE (NEGATIVE); CLARITY,URINE SL CLOUDY; COLOR,URINE DARK YELLOW; GLUCOSE, URINE (UA) NEGATIVE (NEGATIVE); KETONES,URINE NEGATIVE (NEGATIVE); LEUKOCYTE ESTERASE ,URINE NEGATIVE (NEGATIVE); NITRITE,URINE NEGATIVE (NEGATIVE); PROTEIN,URINE NEGATIVE (NEGATIVE)
--- NOTE | 2019-02-14 14:14 | Occupational Ther Daily Note ---
OT Current Status-Daily Note Subjective Pt seen in recliner chair, states 7/10 pain in LLE. Pt states no pain in RUE. Pt agreeable to OT/ PT cotreat. Cotreat required due to pt's NWB LLE status, decreased standing balance and standing tolerance, increased pain and episodes of light headedness. OT focused on ADL tasks, UE placement, and environmental barriers while PT focused on functional transfers, standing endurance, balance and gross motor movements. Mental Status/Objective Patient Orientation: Normal For Age ADL-Treatment Therapy Code Descriptions/Definitions Functional [place] Measure: 0=Not Assessed/NA 4=Minimal Assistance 1=Total Assistance 5=Supervision or Setup 2=Maximal Assistance 6=Modified [place] 3=Moderate Assistance 7=Complete IndependenceSCALE: Activities may be completed with or without assistive devices. 7-Suzdqgcgrj-dqsgyzk completes the activity by him/herself with no assistance from a helper. 5-Set-up or Clean-up Assistance-helper sets up or cleans up; patient completes activity. [place] assists only prior to or following the activity. 4-Supervision or Touching Assistance-helper provides verbal cues and/or touching/steadying and/or contact guard assistance as patient completes activity. Assistance may be provided throughout the activity or intermittently. 3-Partial/Moderate Assistance-helper does LESS THAN HALF the effort. [place] lifts, holds or supports trunk or limbs, but provides less than half the effort. 2-Substantial/Maximal Assistance-helper does MORE THAN HALF the effort. [place] lifts or holds trunk or limbs and provides more than half the effort. 6-Oknzaipkk-fnkqtq does ALL the effort. Patient does none of the effort to complete the activity. Or, the assistance of 2 or more helpers is required for the patient to complete the activity. If activity was not attempted, code reason: 7-Patient Refused. 9-Not Applicable-not attempted and the patient did not perform the activity before the current illness, exacerbation or injury. 10-Not Attempted due to Environmental Limitations-(lack of equipment, weather restraints, etc.). 88-Not Attempted due to Medical Conditions or Safety Concerns. Oral Hygiene (QC): 5 (Pt completes in w/c in front of sink. Pt completes by placing toothbrush in R cast, places toothpaste on with LUE, able to completes with s/u for water and item placements. and minimal cues.) Other Treatment OT/ PT cotreat from [id number]. Pt sit to stand from recliner chair with CGA. Pt utilizes FWW with platform to step ~3 steps to w/c. Sits with control. Pt completes oral hygiene with s/u. Pt pushed to therapy gym, completes 2 stances at parallel bars with full WB on RLE and NWB LLE. Pt completes with BUE placed on bars, cues to stand upright as pt begins to slouch. Pt states no pain in RUE, pain in LLE during entire session, increased grimacing with movement. Pt transfers to recliner chair in room with CGA and use of FWW. Pt left with legs elevated, call light in reach, all needs met. Education OT Patient Education: Correct positioning, Exercise program, Modified ADL techniques, Reviewed precautions, Transfer techniques Teaching Recipient: Patient Teaching Methods: Demonstration, Discussion Response to Teaching: Verbalize Understanding, Return Demonstration OT Short Term Goals Short Term Goals Eating(FIM): 7 Grooming(FIM): 7 1=Demonstrate adherence to instructed precautions during ADL tasks. 2=Patient will verbalize/demonstrate understanding of assistive devices/modifications for ADL. 3=Patient will improve strength/tolerance for activity to enable patient to perform ADL's. OT Detention Goals Nutrient Management Specialist Goals Time Frame: Feb 28, 2019 Eating (QC): 6 Oral Hygiene (QC): 6 Shower/Bathe Self (QC): 5 Upper Body Dressing (QC): 6 Lower Body Dressing (QC): 6 On/Off Footwear (QC): 6 Toileting Hygiene (QC): 6 Toilet/Commode Transfer (QC): 6 Additional Goals: 1-Demonstrate ADL Tasks, 2-Verbalize Understanding, 3- ImproveStrength/Marcelle 1=Demonstrate adherence to instructed precautions during ADL tasks. 2=Patient will verbalize/demonstrate understanding of assistive devices/modifications for ADL. 3=Patient will improve strength/tolerance for activity to enable patient to perform ADL's. OT Education/Plan Problem List/Assessment Assessment: Decreased Activ Tolerance, Decreased UE Strength, Dependent Transfers, Impaired Funct Balance, Impaired I ADL's, Impaired Self-Care Skills Discharge Recommendations Plan/Recommendations: Continue POC Treatment Plan/Plan of Care Treatment,Training & Education: Yes Patient would benefit from OT for education, treatment and training to promote independence in ADL's, mobility, safety and/or upper extremity function for ADL's. Plan of Care: ADL Retraining, Caregiver Training, Concurrent Therapy, Functional Mobility, Group Exercise/Act as Ind, UE Funct Exercise/Act Treatment Duration: Feb 28, 2019 Frequency: At least 5 of 7 days/Wk (IRF) Estimated Hrs Per Day: 1.5 hours per day Agreement: Yes Rehab Potential: Guarded Time/GCodes Start Time: 13:30 Stop Time: 14:00 Total Time Billed (hr/min): 30 Billed Treatment Time 1, ADL (10), EX (20)= 30 OT/ PT cotreat. Cotreat required due to pt's NWB LLE status, decreased standing balance and standing tolerance, increased pain and episodes of light headedness. OT focused on ADL tasks, UE placement, and environmental barriers while PT focused on functional transfers, standing endurance, balance and gross motor mo vements DENNISE GONZALEZ OTR Feb 14, 2019 14:14 POS
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
[2019-02-14 14:24] LABS: BACTERIA,URINE NEGATIVE /HPF; SQUAMOUS EPITHELIAL CELL,UR 0-2 /HPF
--- NOTE | 2019-02-14 14:25 | NUR ---
Visit by Multiple Cut Off Saw Operatorramon Cuevas: Engaged in rapport building and educated about Spiritual Care Services. Pt is mandaeism. Two female visitors present at the conclusion of visit.
--- NOTE | 2019-02-14 14:57 | Physical Therapy Daily Note ---
PT Daily Note-Current Subjective pt in recliner pre-tx agrees to PT/OT cotreat this session. Pt needs 2 skilled therapist for mobility as well as for the need to coordinate UE & LE functional activities. Pt reports 7/10 pain in the LLE at this time and no pain in the RUE. Appearance pt in recliner post-tx with feet elevated and present for duration of session. Pt with call light, room phone, tray table in reach and all needs met at this time. Mental Status Patient Orientation: Person, Place, Time, Situation Attachments: IV Transfers SCALE: Activities may be completed with or without assistive devices. 2-Yjklwrnbsq-basxbiy completes the activity by him/herself with no assistance from a helper. 5-Set-up or Clean-up Assistance-helper sets up or cleans up; patient completes activity. [place] assists only prior to or following the activity. 4-Supervision or Touching Assistance-helper provides verbal cues and/or touching/steadying and/or contact guard assistance as patient completes activ ity. Assistance may be provided throughout the activity or intermittently. 3-Partial/Moderate Assistance-helper does LESS THAN HALF the effort. [place] lifts, holds or supports trunk or limbs, but provides less than half the effort. 2-Substantial/Maximal Assistance-helper does MORE THAN HALF the effort. [place] lifts or holds trunk or limbs and provides more than half the effort. 8-Dydsiubel-ylprsb does ALL the effort. Patient does none of the effort to complete the activity. Or, the assistance of 2 or more helpers is required for the patient to complete the activity. If activity was not attempted, code reason: 7-Patient Refused. 9-Not Applicable-not attempted and the patient did not perform the activity before the current illness, exacerbation or injury. 10-Not Attempted due to Environmental Limitations-(lack of equipment, weather restraints, etc.). 88-Not Attempted due to Medical Conditions or Safety Concerns. Sit to Stand (QC): 3 (Naima-CGA) Chair/Qxa-wj-Azozb Xfer(QC): 3 (Naima-CGA) pt requires Naima-CGA for sit to stand and for transferring to the WC/Chair as pt tends to have a posterior lean requiring Naima to maintain upright. Weight Bearing Right Lower Extremity: Right Full Weight Bearing Left Lower Extremity: Left Non Weight Bearing Exercises Standing: Sit to Stand Standing Reps: 2 Treatments PT assisted in transfers to WC and with seated balance training while OT worked on UE ADL training. Pt performed sit to stands in the //bars and required co- treat as pt tries to stay hunched over and has difficulty coming to upright position. Assessment Current Status: Fair Progress pt has improved transfer assist needs from last session. Pt appears to be more awake and aware this session but continues to have high pain in the LLE. Pt is able to maintain NWB status on the LLE. Pt is highly fatigued following structured therapy. PT Short Term Goals Short Term Goals Time Frame: Feb 21, 2019 Gait Distance Comment: 100' CGA Gait Assistive Device: Walker Platform Wheelchair Distance: 100' Wheelchair Level of Assist: 3 PT Flake Or Shred Roll Operator Goals Group Home Goals PT Group Home Goals Time Frame: Mar 07, 2019 Sit to Lying (QC): 3 (Naima) Lying-Sitting on Side/Bed(QC): 3 (Naima) Sit to Stand (QC): 4 (CGA) Roll Left to Right (QC): 6 Chair/Wdy-wa-Pfkme Xfer(QC): 4 (CGA) Car Transfer (QC): 4 (CGA) Does the Patient Walk: Yes Distance: 150' Walk 10 feet (QC): 4 (CGA) Walk 10ft-Uneven Surface(QC): 4 (CGA) Walk 50ft with 2 Turns (QC): 4 (CGA) Walk 150 ft (QC): 4 (CGA) Gait Assistive Device: Walker Platform # of Steps: 4 1 Step (curb) (QC): 3 (Naima) 4 Steps (QC): 3 (Naima) PT Plan Problem List Problem List: Activity Tolerance, Functional Strength, Safety, Balance, Gait, Transfer, Bed Mobility, ROM Treatment/Plan Treatment Plan: Continue Plan of Care Treatment Plan: Bed Mobility, Concurrent Therapy, Education, Functional Activity Marcelle, Functional Strength, Group Therapy, Gait, Safety, Therapeutic Exercise, Transfers Treatment Duration: Feb 28, 2019 Frequency: At least 5 of 7 days/Wk (IRF) Estimated Hrs Per Day: 1.5 hours per day Patient and/or Family Agrees t: Yes Safety Risks/Education Patient Education: Transfer Techniques, Reviewed Precautions, Correct Positioning, Safety Issues Teaching Recipient: Patient Teaching Methods: Demonstration, Discussion Response to Teaching: Return Demonstration, Reinforcement Needed Time/GCodes Time In: 1330 Time Out: 1400 Total Billed Treatment Time: 30 Total Billed Treatment Co-treat with OT [id number] 1 visit FA 30' PT performed transfers and standing, assist with mobility during ADL's, OT performed ADL's and assist with UE positioning during transfers and standing. MAREN PERES PT Feb 14, 2019 14:57 POS
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
[2019-02-14] MEDS: LORATADINE (CLARITIN) 10 MG TAB PO SCH (21:45)
[2019-02-14] MEDS: PANTOPRAZOLE 40 MG (PROTONIX) TAB PO SCH (21:45)
[2019-02-14] MEDS: ALPRAZolam 0.25 MG (XANAX) TAB PO PRN (22:03)
[2019-02-15] MEDS: HYDROcodone/APAP 10 MG/325 MG (LORTAB) TAB PO PRN ×4 (04:07→23:22)
[2019-02-15 05:04] VITALS: BP 128/76
--- NOTE | 2019-02-15 06:15 | NUR ---
Remaining sutures to left side of face d/c'd at this time. Pt kelly well with no c/o's.
--- NOTE | 2019-02-15 08:59 | Physical Therapy Daily Note ---
PT Daily Note-Current Subjective Pt in bed pre-tx agrees to therapy. pt reports pain 6/10 in the L thigh and calf. Pt agrees to PT/OT co-treat. This will be co-treat secondary to pt's need for the skill of 2 therapist to coordinate UE & LE functional activity as well as to maintain balance while performing functional activities. Appearance pt in WC in his room with the L LE elevated post-tx with OT continuing for some ADL's. All needs met at this time. Mental Status Patient Orientation: Person, Place, Time, Situation Attachments: Other-See Comments (LLE emir wrapped. RUE emri wrapped), IV Pt is more clear headed this session. Pt reports that overall he feels better and feels like today will be a good day. pt is pleasant and motivated with therapy today. Transfers SCALE: Activities may be completed with or without assistive devices. 8-Nhfmvithsu-nvktova completes the activity by him/herself with no assistance from a helper. 5-Set-up or Clean-up Assistance-helper sets up or cleans up; patient completes activity. [place] assists only prior to or following the activity. 4-Supervision or Touching Assistance-helper provides verbal cues and/or touching/steadying and/or contact guard assistance as patient completes activity. Assistance may be provided throughout the activity or intermittently. 3-Partial/Moderate Assistance-helper does LESS THAN HALF the effort. [place] lifts, holds or supports trunk or limbs, but provides less than half the effort. 2-Substantial/Maximal Assistance-helper does MORE THAN HALF the effort. [place] lifts or holds trunk or limbs and provides more than half the effort. 0-Sksqeawuf-zbuydj does ALL the effort. Patient does none of the effort to complete the activity. Or, the assistance of 2 or more helpers is required for the patient to complete the activity. If activity was not attempted, code reason: 7-Patient Refused. 9-Not Applicable-not attempted and the patient did not perform the activity before the current illness, exacerbation or injury. 10-Not Attempted due to Environmental Limitations-(lack of equipment, weather restraints, etc.). 88-Not Attempted due to Medical Conditions or Safety Concerns. Sit to Stand (QC): 3 (Naima-CGA) Chair/Ptt-nc-Obbwj Xfer(QC): 3 (Naima-CGA) Weight Bearing Right Lower Extremity: Right Full Weight Bearing Left Lower Extremity: Left Non Weight Bearing Gait Training Does the Patient Walk?: Yes Distance: 26' Walk 10 feet (QC): 3 (Naima) Gait Assistive Device: Walker Platform pt is Naima for ambulation secondary to posterior lean and COM. Pt is unsteady on his feet and has 2-3 periods of min LOB posteriorly requiring Naima to correct and regain balance. Wheelchair Training Wheelchair Distance: 1=183-17 ft Distance: 100' Wheel 50 ft with 2 turns (QC): 3 (Naima) Type of Wheelchair: Manual pt continues to drift to the R while propelling with the R LE and LUE. Pt is able to feel the drift and attempts to self correcting using only the RLE to turn back left. Balance Special Test Comments pt performs ADL training with OT while balancing without UE support and brings the R foot off of the floor. Pt able to sit and reach in all directions to play catch for 5 minutes. Exercises Seated Therapy Exercises: Ankle pumps, Long arc quads, Hip flexion Seated Reps: 10 (RLE only) Treatments pt performed transfer training with PT while OT worked on UE coordination and placement for transfers. PT assisted pt with balance control while OT practiced ADL's. OT assisted with pt balance control while PT challenged balance playing catch with a ball to multiple locations in front of the pt and throwing the ball back from his front and again from over his head. Pt played catch for 5 minutes. Assessment Current Status: Good Progress pt with improved transfers this date. pt had weeping coming from the medial maleoli blister which RN was notified of and RN said to wrap the wound for therapy, noted strike through into the dressing post-tx. Pt kelly increased activity kelly this date with only min-mod lightheadedness requiring shorter breaks. Pt balance continues to be poor with the posterior lean during standing. Pt continues to have decreased hip flexion while sitting. PT Short Term Goals Short Term Goals Time Frame: Feb 21, 2019 Gait Distance Comment: 100' CGA Gait Assistive Device: Walker Platform Wheelchair Distance: 100' Wheelchair Level of Assist: 3 PT Telegraphic Typewriter Installer Goals Shelter Goals PT Shelter Goals Time Frame: Mar 07, 2019 Sit to Lying (QC): 3 (Naima) Lying-Sitting on Side/Bed(QC): 3 (Naima) Sit to Stand (QC): 4 (CGA) Roll Left to Right (QC): 6 Chair/Ybi-vd-Pckvh Xfer(QC): 4 (CGA) Car Transfer (QC): 4 (CGA) Does the Patient Walk: Yes Distance: 150' Walk 10 feet (QC): 4 (CGA) Walk 10ft-Uneven Surface(QC): 4 (CGA) Walk 50ft with 2 Turns (QC): 4 (CGA) Walk 150 ft (QC): 4 (CGA) Gait Assistive Device: Walker Platform # of Steps: 4 1 Step (curb) (QC): 3 (Naima) 4 Steps (QC): 3 (Naima) PT Plan Problem List Problem List: Activity Tolerance, Functional Strength, Safety, Balance, Gait, Transfer, Bed Mobility, ROM Treatment/Plan Treatment Plan: Continue Plan of Care Treatment Plan: Bed Mobility, Concurrent Therapy, Education, Functional Activity Marcelle, Functional Strength, Group Therapy, Gait, Safety, Therapeutic Exercise, Transfers Treatment Duration: Feb 28, 2019 Frequency: At least 5 of 7 days/Wk (IRF) Estimated Hrs Per Day: 1.5 hours per day Patient and/or Family Agrees t: Yes Safety Risks/Education Patient Education: Gait Training, Transfer Techniques, Correct Positioning, Safety Issues Teaching Recipient: Patient Teaching Methods: Demonstration, Discussion Response to Teaching: Reinforcement Needed Time/GCodes Time In: 0900 Time Out: 1000 Total Billed Treatment Time: 60 Total Billed Treatment 60 minutes co-treat with OT. OT works on balance assist, UE coordination and placement for transfers, and ADL's. PT works on balance assist and LE coordination and placement for transfers, sitting balance exercises, and LE functional exercises. 1 visit FA 45' EX 15' MAREN PERES PT Feb 15, 2019 08:59 POS
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
--- NOTE | 2019-02-15 09:26 | Occupational Ther Daily Note ---
OT Current Status-Daily Note Subjective Pt seen in bed on this date, agreeable to OT tx session. Pt states 6/10 pain in LLE. OT/ PT cotreatment for 60 minutes to focus on higher level motor function due to decreased balance, NWB status, safety, and overall complexity of pt's condition. OT focused on ADLs, dressing, and UE movements while PT focused on gait, balance, LE movement. Mental Status/Objective Patient Orientation: Person, Place, Time, Situation, Normal For Age ADL-Treatment Therapy Code Descriptions/Definitions Functional [place] Measure: 0=Not Assessed/NA 4=Minimal Assistance 1=Total Assistance 5=Supervision or Setup 2=Maximal Assistance 6=Modified [place] 3=Moderate Assistance 7=Complete IndependenceSCALE: Activities may be completed with or without assistive devices. 3-Ffacufbesr-xsflndn completes the activity by him/herself with no assistance from a helper. 5-Set-up or Clean-up Assistance-helper sets up or cleans up; patient completes a ctivity. [place] assists only prior to or following the activity. 4-Supervision or Touching Assistance-helper provides verbal cues and/or touching/steadying and/or contact guard assistance as patient completes activity. Assistance may be provided throughout the activity or intermittently. 3-Partial/Moderate Assistance-helper does LESS THAN HALF the effort. [place] lifts, holds or supports trunk or limbs, but provides less than half the effort. 2-Substantial/Maximal Assistance-helper does MORE THAN HALF the effort. [place] lifts or holds trunk or limbs and provides more than half the effort. 9-Tobmndlkg-ixuyac does ALL the effort. Patient does none of the effort to complete the activity. Or, the assistance of 2 or more helpers is required for the patient to complete the activity. If activity was not attempted, code reason: 7-Patient Refused. 9-Not Applicable-not attempted and the patient did not perform the activity before the current illness, exacerbation or injury. 10-Not Attempted due to Environmental Limitations-(lack of equipment, weather restraints, etc.). 88-Not Attempted due to Medical Conditions or Safety Concerns. Oral Hygiene (QC): 6 Upper Body Dressing (QC): 5 Lower Body Dressing (QC): 2 Toileting Hygiene (QC): 1 Toilet Transfer (QC): 1 Other Treatment OT/ PT cotreatment for 60 minutes to focus on higher level motor function due to decreased balance, NWB status, safety, and overall complexity of pt's condition. OT focused on ADLs, dressing, and UE movements while PT focused on gait, balance, LE movement. Pt transfers from EOB to FWW with CGA. Pt completes walking to w/c with CGA, sits in w/c with good control. Pt pushed to hallway where pt propels w/c with R foot on floor and L hand pushing. Pt attempts R hand pushing, unable to bowstring maker. Pt educated on use of theraband in future to potentially use to bowstring maker with increased abilties. Pt transfers to EOM with CGA and FWW. Pt completes forward trunk flexion exercises to enable to increased IND for pant donning, pt expresses pain toward end of range during forward flexion to toe. Pt educated to complete exercises within pain toelrance. Pt completes threading theraband around L toe with use of barrel tester and drainer, doffs, and completes donning theraband on R leg up to thigh. Pt completes each exercises 2 sets of 10 reps. Pt completes UE movement/ balance activity with ball toss, able to complete with good dynamic sitting balance and UE movement, pt c/o pain when reaching further to L side with more WB on L hip. Pt sit to stand with CGA, FWW to w/c, pt pushed to room and remains in w/c when PT leaves. Pt completes tooth brushing at sink with IND (w/c placed in front of sink), pt states need for bathroom; CGA with FWW to commode. Pillow placed under L foot due to height of commode. Pt told to notify OT when pt complete BM. Pt yells from bathroom, states he urinated on pants. Pt yelling/ crying on commode. Pt's pants doffed with max A, donned with max A. Pt attempts BM, begins yelling in pain stating that it needs to come out and it is painful. Pt completes deep breathing exercises and drinks water, pt redirected from yelling/ crying momentarily before begins again. Pt begins to close eyes and let head drop, pt requires physical and verbal cues to maintain alertness. Nursing, nursing care partner, and OT present. Environment s/u for successful transition into recliner chair within bathroom. Pt alert when stands, requires cues to maintain stance with FWW as pt's R leg bent and placed behind pt's base of support; suppository placed with pt agreement, pants donned with TD, and pt transfers to recliner chair with TD (Max Ax2). Pt reclined and pillows placed under pt for comfort. Pt left with nursing staff in room, call light in reach, pt's head to side and eyes slightly open. Education OT Patient Education: Correct positioning, Exercise program, Home exercise program, Modified ADL techniques, Purpose of tx/functional activities, Reviewed precautions, Safety issues, Transfer techniques, Use of adapted equipment, W/C management Teaching Recipient: Patient Teaching Methods: Demonstration, Discussion Response to Teaching: Verbalize Understanding, Return Demonstration, Reinforcement Needed OT Short Term Goals Short Term Goals Eating(FIM): 7 Grooming(FIM): 7 1=Demonstrate adherence to instructed precautions during ADL tasks. 2=Patient will verbalize/demonstrate understanding of assistive devices/modifications for ADL. 3=Patient will improve strength/tolerance for activity to enable patient to perform ADL's. OT Assisted Goals Assisted Goals Time Frame: Feb 28, 2019 Eating (QC): 6 Oral Hygiene (QC): 6 Shower/Bathe Self (QC): 5 Upper Body Dressing (QC): 6 Lower Body Dressing (QC): 6 On/Off Footwear (QC): 6 Toileting Hygiene (QC): 6 Toilet/Commode Transfer (QC): 6 Additional Goals: 1-Demonstrate ADL Tasks, 2-Verbalize Understanding, 3- ImproveStrength/Marcelle 1=Demonstrate adherence to instructed precautions during ADL tasks. 2=Patient will verbalize/demonstrate understanding of assistive devices/modifications for ADL. 3=Patient will improve strength/tolerance for activity to enable patient to perform ADL's. OT Education/Plan Problem List/Assessment Assessment: Decreased Activ Tolerance, Decreased Safety Aware, Dependent Transfers, Impaired Funct Balance, Impaired I ADL's, Impaired Self-Care Skills Discharge Recommendations Plan/Recommendations: Continue POC Equpiment Recommendations-D/C: Youth Manager, Rails on Toilet Treatment Plan/Plan of Care Treatment,Training & Education: Yes Patient would benefit from OT for education, treatment and training to promote independence in ADL's, mobility, safety and/or upper extremity function for ADL's. Plan of Care: ADL Retraining, Caregiver Training, Concurrent Therapy, Functional Mobility, Group Exercise/Act as Ind, UE Funct Exercise/Act Treatment Duration: Feb 28, 2019 Frequency: At least 5 of 7 days/Wk (IRF) Estimated Hrs Per Day: 1.5 hours per day Agreement: Yes Rehab Potential: Guarded Time/GCodes Start Time: 08:00 Stop Time: 09:45 Total Time Billed (hr/min): 105 Billed Treatment Time 1, ADL 4 (55), EX 3 (50)= 105 OT/ PT cotreatment from [id number] (60 min) to focus on higher level motor function due to decreased balance, NWB status, safety, and overall complexity of pt's condition. OT focused on ADLs, dressing, and UE movements while PT focused on gait, balance, LE movement. DENNISE GONZALEZ OTR Feb 15, 2019 09:26 POS
[2019-02-15 09:46] VITALS: BP 127/83
[2019-02-15] MEDS: SENNA W/DOCUSATE (SENOKOT S) TABLET PO SCH ×2 (09:50→21:10)
[2019-02-15] MEDS: ENOXAPARIN 40 MG/0.4 ML (LOVENOX) SYR SC SCH (09:50)
[2019-02-15] MEDS: FAMOTIDINE 20 MG (PEPCID) TABLET PO SCH (09:50)
[2019-02-15] MEDS: POLYETHYLENE GLYCOL 17 GM (MIRALAX) PACK PO SCH ×2 (09:51→21:11)
[2019-02-15 09:55] VITALS: BP 119/76
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
[2019-02-15] MEDS: BACLOFEN 10 MG (LIORESAL) TAB PO PRN ×2 (10:40→21:11)
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
--- NOTE | 2019-02-15 13:21 | Physical Therapy Daily Note ---
PT Daily Note-Current Subjective pt in recliner pre-tx with spouse in the room. Pt agrees to therapy and reports 3/10 pain in the LLE. Appearance pt in recliner with feet elevated post-tx with spouse in room for duration of session. pt with call light, room phone, tray table in reach with all needs met at this time. Mental Status Patient Orientation: Person, Place, Time, Situation Transfers SCALE: Activities may be completed with or without assistive devices. 5-Idjtdmpuun-itysxrv completes the activity by him/herself with no assistance from a helper. 5-Set-up or Clean-up Assistance-helper sets up or cleans up; patient completes activity. [place] assists only prior to or following the activity. 4-Supervision or Touching Assistance-helper provides verbal cues and/or touching/steadying and/or contact guard assistance as patient completes activity. Assistance may be provided throughout the activity or intermittently. 3-Partial/Moderate Assistance-helper does LESS THAN HALF the effort. [place] lifts, holds or supports trunk or limbs, but provides less than half the effort. 2-Substantial/Maximal Assistance-helper does MORE THAN HALF the effort. [place] lifts or holds trunk or limbs and provides more than half the effort. 2-Qajccssdz-llrjmy does ALL the effort. Patient does none of the effort to complete the activity. Or, the assistance of 2 or more helpers is required for the patient to complete the activity. If activity was not attempted, code reason: 7-Patient Refused. 9-Not Applicable-not attempted and the patient did not perform the activity before the current illness, exacerbation or injury. 10-Not Attempted due to Environmental Limitations-(lack of equipment, weather restraints, etc.). 88-Not Attempted due to Medical Conditions or Safety Concerns. Weight Bearing Right Lower Extremity: Right Full Weight Bearing Left Lower Extremity: Left Non Weight Bearing Exercises Supine Ex: Ankle pumps, Quad Set, Glut sets, Heel Slides, Straight leg raise, Hip abd/add Supine Reps: 40 (4sets 10 repsRLE AROMLLE AAROM) Treatments pt performed supine functional strengthening exercises reclined in the chair. Assessment Current Status: Fair Progress pt demonstrating increased Quad/VMO contraction this session. Pt continues to wince and moan with any motion of the LLE. Pt seems to be more drowsy and lethargic this afternoon much like pt's sessions yesterday. PT Short Term Goals Short Term Goals Time Frame: Feb 21, 2019 Gait Distance Comment: 100' CGA Gait Assistive Device: Walker Platform Wheelchair Distance: 100' Wheelchair Level of Assist: 3 PT Custodial Goals Custodial Goals PT [facility] Home Demonstrator Goals Time Frame: Mar 07, 2019 Sit to Lying (QC): 3 (Naima) Lying-Sitting on Side/Bed(QC): 3 (Naima) Sit to Stand (QC): 4 (CGA) Roll Left to Right (QC): 6 Chair/Cuk-hh-Vyegl Xfer(QC): 4 (CGA) Car Transfer (QC): 4 (CGA) Does the Patient Walk: Yes Distance: 150' Walk 10 feet (QC): 4 (CGA) Walk 10ft-Uneven Surface(QC): 4 (CGA) Walk 50ft with 2 Turns (QC): 4 (CGA) Walk 150 ft (QC): 4 (CGA) Gait Assistive Device: Walker Platform # of Steps: 4 1 Step (curb) (QC): 3 (Naima) 4 Steps (QC): 3 (Naima) PT Plan Problem List Problem List: Activity Tolerance, Functional Strength, Safety, Balance, Gait, Transfer, Bed Mobility, ROM Treatment/Plan Treatment Plan: Continue Plan of Care Treatment Plan: Bed Mobility, Concurrent Therapy, Education, Functional Activity Marcelle, Functional Strength, Group Therapy, Gait, Safety, Therapeutic Exercise, Transfers Treatment Duration: Feb 28, 2019 Frequency: At least 5 of 7 days/Wk (IRF) Estimated Hrs Per Day: 1.5 hours per day Patient and/or Family Agrees t: Yes Safety Risks/Education Patient Education: Correct Positioning, Safety Issues Teaching Recipient: Patient Teaching Methods: Demonstration, Discussion Response to Teaching: Return Demonstration, Reinforcement Needed Time/GCodes Time In: 1245 Time Out: 1315 Total Billed Treatment Time: 30 Total Billed Treatment 1 visit EX 30' MAREN PERES PT Feb 15, 2019 13:21 POS
[2019-02-15 16:11] VITALS: BP 109/70
[2019-02-15] MEDS: LORATADINE (CLARITIN) 10 MG TAB PO SCH (21:10)
[2019-02-15] MEDS: PANTOPRAZOLE 40 MG (PROTONIX) TAB PO SCH (21:10)
[2019-02-16] MEDS: HYDROcodone/APAP 10 MG/325 MG (LORTAB) TAB PO PRN ×5 (04:51→21:33)
[2019-02-16 05:39] VITALS: BP 114/74
[2019-02-16] MEDS: SENNA W/DOCUSATE (SENOKOT S) TABLET PO SCH ×2 (08:17→20:23)
[2019-02-16] MEDS: FAMOTIDINE 20 MG (PEPCID) TABLET PO SCH (08:18)
[2019-02-16] MEDS: IRON SUCROSE 200 MG/10 ML (VENOFER) VIAL IV SCH (08:18)
[2019-02-16] MEDS: ENOXAPARIN 40 MG/0.4 ML (LOVENOX) SYR SC SCH (08:18)
[2019-02-16] MEDS: POLYETHYLENE GLYCOL 17 GM (MIRALAX) PACK PO SCH ×2 (08:27→20:24)
--- NOTE | 2019-02-16 09:50 | Occupational Ther Daily Note ---
OT Current Status-Daily Note Subjective Pt seen in bed, c/o 10 pain in LLE. Pt agreeable to OT/ PT co-treat. Co-treat rendered due to pt's previous pain reactions during functional transfers and safety, balance and NWB status. OT focused on ADL functions, balance, and UE movements and adaptations while PT focused on balance, gait, w/c mobility, and gross motor movements. Mental Status/Objective Patient Orientation: Normal For Age ADL-Treatment Therapy Code Descriptions/Definitions Functional [place] Measure: 0=Not Assessed/NA 4=Minimal Assistance 1=Total Assistance 5=Supervision or Setup 2=Maximal Assistance 6=Modified [place] 3=Moderate Assistance 7=Complete IndependenceSCALE: Activities may be completed with or without assistive devices. 2-Mreojbrysl-wckacyk completes the activity by him/herself with no assistance from a helper. 5-Set-up or Clean-up Assistance-helper sets up or cleans up; patient completes activity. [place] assists only prior to or following the activity. 4-Supervision or Touching Assistance-helper provides verbal cues and/or touching/steadying and/or contact guard assistance as patient completes activity. Assistance may be provided throughout the activity or intermittently. 3-Partial/Moderate Assistance-helper does LESS THAN HALF the effort. [place] lifts, holds or supports trunk or limbs, but provides less than half the effort. 2-Substantial/Maximal Assistance-helper does MORE THAN HALF the effort. [place] lifts or holds trunk or limbs and provides more than half the effort. 4-Dqcdanplm-bsozky does ALL the effort. Patient does none of the effort to complete the activity. Or, the assistance of 2 or more helpers is required for the patient to complete the activity. If activity was not attempted, code reason: 7-Patient Refused. 9-Not Applicable-not attempted and the patient did not perform the activity before the current illness, exacerbation or injury. 10-Not Attempted due to Environmental Limitations-(lack of equipment, weather restraints, etc.). 88-Not Attempted due to Medical Conditions or Safety Concerns. Eating (QC): 6 Upper Body Dressing (QC): 5 Other Treatment OT/ PT co-treat. Co-treat rendered due to pt's previous pain reactions during functional transfers and safety, balance and NWB status. OT focused on ADL functions, balance, and UE movements and adaptations while PT focused on balance, gait, w/c mobility, and gross motor movements. Pt completes bed mob with assist for LLE movement toward EOB, grimaces during movement. Completes UB dressing sitting EOB. Sit to stand with CGA to FWW with platform, completes ~25 feet of walking with CGA. Requires sit in w/c, pushed to therapy gym. Pt transfers EOM with FWW, completes dynamic sitting balance activities while seated EOM with wiggle cushion under bottom, reaching in differ ent planes with CGA, and reaching below waist and lifting R LE toward body for increased balance/ coordination with min A for righting self. Pt completes sit to stand with CGA, sits in w/c with good control. R UE modified with theraband for increased crowning inspector, completes w/c mobility utilizing theraband and R thumb grasp to wheel with rest breaks, pt educated on need to know thumb limits and rest intermittently. Pt able to situate self in w/c in room, requests to remain in w/c. Pt's call light in reach, all needs met, pt's L LE secured with theraband as pt's motor control of LLE decreased, decreased risk of limb falling from leg rest. Pt agrees comfortable; pt is able to reach theraband to pull to remove if needed. Education OT Patient Education: Correct positioning, Exercise program, Home exercise program, Modified ADL techniques, Purpose of tx/functional activities, Reviewed precautions, Safety issues, Transfer techniques, W/C management Teaching Recipient: Patient Teaching Methods: Demonstration, Discussion Response to Teaching: Verbalize Understanding, Return Demonstration OT Short Term Goals Short Term Goals Eating(FIM): 7 Grooming(FIM): 7 1=Demonstrate adherence to instructed precautions during ADL tasks. 2=Patient will verbalize/demonstrate understanding of assistive devices/modifications for ADL. 3=Patient will improve strength/tolerance for activity to enable patient to perform ADL's. OT Prison Goals Prison Goals Time Frame: Feb 28, 2019 Eating (QC): 6 Oral Hygiene (QC): 6 Shower/Bathe Self (QC): 5 Upper Body Dressing (QC): 6 Lower Body Dressing (QC): 6 On/Off Footwear (QC): 6 Toileting Hygiene (QC): 6 Toilet/Commode Transfer (QC): 6 Additional Goals: 1-Demonstrate ADL Tasks, 2-Verbalize Understanding, 3-ImproveStrength/Marcelle 1=Demonstrate adherence to instructed precautions during ADL tasks. 2=Patient will verbalize/demonstrate understanding of assistive devices/modifications for ADL. 3=Patient will improve strength/tolerance for activity to enable patient to perform ADL's. OT Education/Plan Problem List/Assessment Assessment: Decreased Activ Tolerance, Decreased UE Strength, Dependent Transfers, Impaired Funct Balance, Impaired I ADL's, Impaired Self-Care Skills Discharge Recommendations Plan/Recommendations: Continue POC Treatment Plan/Plan of Care Treatment,Training & Education: Yes Patient would benefit from OT for education, treatment and training to promote i ndependence in ADL's, mobility, safety and/or upper extremity function for ADL's. Plan of Care: ADL Retraining, Caregiver Training, Concurrent Therapy, Functional Mobility, Group Exercise/Act as Ind, UE Funct Exercise/Act Treatment Duration: Feb 28, 2019 Frequency: At least 5 of 7 days/Wk (IRF) Estimated Hrs Per Day: 1.5 hours per day Agreement: Yes Rehab Potential: Guarded Time/GCodes Start Time: 08:30 Stop Time: 09:10 Total Time Billed (hr/min): 40 Billed Treatment Time OT/ PT co-treat. Co-treat rendered due to pt's previous pain reactions during functional transfers and safety, balance and NWB status. OT focused on ADL functions, balance, and UE movements and adaptations while PT focused on balance, gait, w/c mobility, and gross motor movements. 1, ADL (10), EX 2 (30)= 40 DENNISE GONZALEZ OTR Feb 16, 2019 09:50 POS
[2019-02-16] MEDS: IBUPROFEN TABLET 200 MG TAB PO PRN (11:48)
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
--- NOTE | 2019-02-16 12:22 | Physical Therapy Daily Note ---
PT Daily Note-Current Subjective Pt seen in bed, c/o 3/10 pain in LLE. Pt agreeable to OT/ PT co-treat. Co-treat rendered due to pt's previous pain reactions during functional transfers and safety, balance and NWB status. OT focused on ADL functions, balance, and UE movements and adaptations while PT focused on balance, gait, w/c mobility, and gross motor movements. Mental Status Patient Orientation: Normal For Age Transfers SCALE: Activities may be completed with or without assistive devices. 0-Pqxupakydq-jfdfkfw completes the activity by him/herself with no assistance from a helper. 5-Set-up or Clean-up Assistance-helper sets up or cleans up; patient completes activity. [place] assists only prior to or following the activity. 4-Supervision or Touching Assistance-helper provides verbal cues and/or touching/steadying and/or contact guard assistance as patient completes activity. Assistance may be provided throughout the activity or intermittently. 3-Partial/Moderate Assistance-helper does LESS THAN HALF the effort. [place] l ifts, holds or supports trunk or limbs, but provides less than half the effort. 2-Substantial/Maximal Assistance-helper does MORE THAN HALF the effort. [place] lifts or holds trunk or limbs and provides more than half the effort. 6-Hjxbnnnrh-oulegt does ALL the effort. Patient does none of the effort to complete the activity. Or, the assistance of 2 or more helpers is required for t he patient to complete the activity. If activity was not attempted, code reason: 7-Patient Refused. 9-Not Applicable-not attempted and the patient did not perform the activity before the current illness, exacerbation or injury. 10-Not Attempted due to Environmental Limitations-(lack of equipment, weather restraints, etc.). 88-Not Attempted due to Medical Conditions or Safety Concerns. Roll Left to Right (QC): 5 Sit to Lying (QC): 3 Sit to Stand (QC): 3 Chair/Hjw-nm-Jwucj Xfer(QC): 4 occasional retro LOB when backing up toward chair requiring min A to correct. Requiring min A with LLE out of bed and on/off w/c leg rest Weight Bearing Right Lower Extremity: Right Full Weight Bearing Left Lower Extremity: Left Non Weight Bearing WBAT- RIGHT HAND Gait Training Does the Patient Walk?: Yes Distance: 45 Walk 10 feet (QC): 4 Gait Assistive Device: Walker Platform (R platform) Wheelchair Training Does the Pt Use a Wheelchair?: Yes Wheelchair Distance: 3=374-60 ft Wheel 50 ft with 2 turns (QC): 4 Type of Wheelchair: Manual skilled verb inst for techniques in maneuvering w/c in room, around corners, through doorways Treatments Pt completes bed mob with assist for LLE movement toward EOB, grimaces during movement. Completes UB dressing sitting EOB. Sit to stand with CGA to FWW with p latform, completes 45 feet of walking with CGA. Requires sit in w/c, pushed to therapy gym. Pt transfers EOM with FWW, completes dynamic sitting balance activities while seated EOM with wiggle cushion under bottom, reaching in different planes with CGA, and reaching below waist and lifting R LE toward body for increased balance/ coordination with min A for righting self. Pt completes sit to stand with CGA, sits in w/c with good control. R UE modified with theraband for increased hand router operator, completes w/c mobility utilizing theraband and R thumb grasp to wheel with rest breaks, pt educated on need to know thumb limits and rest intermittently. Pt able to situate self in w/c in room, requests to remain in w/c. Pt's call light in reach, all needs met, pt's L LE secured with theraband as pt's motor control of LLE decreased, decreased risk of limb falling from leg rest. Pt agrees comfortable; pt is able to reach theraband to pull to remove if needed. Assessment Current Status: Good Progress PT Short Term Goals Short Term Goals Time Frame: Feb 21, 2019 Gait Distance Comment: 100' CGA Gait Assistive Device: Walker Platform Wheelchair Distance: 100' Wheelchair Level of Assist: 3 PT Fdc Goals Inspector Heating And Refrigeration Goals PT Inspector Heating And Refrigeration Goals Time Frame: Mar 07, 2019 Sit to Lying (QC): 3 (Naima) Lying-Sitting on Side/Bed(QC): 3 (Naima) Sit to Stand (QC): 4 (CGA) Roll Left to Right (QC): 6 Chair/Hcd-dq-Yncjl Xfer(QC): 4 (CGA) Car Transfer (QC): 4 (CGA) Does the Patient Walk: Yes Distance: 150' Walk 10 feet (QC): 4 (CGA) Walk 10ft-Uneven Surface(QC): 4 (CGA) Walk 50ft with 2 Turns (QC): 4 (CGA) Walk 150 ft (QC): 4 (CGA) Gait Assistive Device: Walker Platform # of Steps: 4 1 Step (curb) (QC): 3 (Naima) 4 Steps (QC): 3 (Naima) PT Plan Treatment/Plan Treatment Plan: Continue Plan of Care Treatment Plan: Bed Mobility, Concurrent Therapy, Education, Functional Activity [place], Functional Strength, Group Therapy, Gait, Safety, Therapeutic Exercise, Transfers Treatment Duration: Feb 28, 2019 Frequency: At least 5 of 7 days/Wk (IRF) Estimated Hrs Per Day: 1.5 hours per day Patient and/or Family Agrees t: Yes Safety Risks/Education Patient Education: Gait Training, Transfer Techniques, Reviewed Precautions, Reviewed Use of Ice, W/C Management, Safety Issues Teaching Recipient: Patient Teaching Methods: Demonstration, Discussion Response to Teaching: Verbalize Understanding, Return Demonstration Time/GCodes Time In: 830 Time Out: 910 Total Billed Treatment Time: 40 Total Billed Treatment 1 visit, NM x1 unit, GT x1 unit, WC x1 unit RAMONITA MULLER PTA Feb 16, 2019 12:22 POS
--- NOTE | 2019-02-16 14:00 | NUR ---
Dressing change done to left leg/ Pt tolerated poorly. [place] are clean/no redness or swelling noted/no drainage noted. Two large dark fluid blisters were noted at bilateral sides of left ankle. Blisters intact, but weeping noted to dressings in this area. Sutures to lateral area of left calf and sutures on posterior calf are reddened/lumpy. Lateral area of left calf appears pale/bruised/decreased capillary refill. Extreme pain noted by pt during dressing change.
[2019-02-16 17:02] VITALS: BP 117/69
[2019-02-16] MEDS: BACLOFEN 10 MG (LIORESAL) TAB PO PRN ×2 (17:24→22:56)
[2019-02-16] MEDS: PANTOPRAZOLE 40 MG (PROTONIX) TAB PO SCH (20:23)
[2019-02-16] MEDS: LORATADINE (CLARITIN) 10 MG TAB PO SCH (20:23)
[2019-02-16] MEDS: ALPRAZolam 0.25 MG (XANAX) TAB PO PRN (22:56)
[2019-02-17] MEDS: HYDROcodone/APAP 10 MG/325 MG (LORTAB) TAB PO PRN ×4 (06:04→22:12)
[2019-02-17 06:14] VITALS: BP 106/64
[2019-02-17] MEDS: ENOXAPARIN 40 MG/0.4 ML (LOVENOX) SYR SC SCH (08:59)
[2019-02-17] MEDS: SENNA W/DOCUSATE (SENOKOT S) TABLET PO SCH ×2 (08:59→21:22)
[2019-02-17] MEDS: FAMOTIDINE 20 MG (PEPCID) TABLET PO SCH (08:59)
[2019-02-17] MEDS: POLYETHYLENE GLYCOL 17 GM (MIRALAX) PACK PO SCH ×2 (09:00→21:06)
[2019-02-17] MEDS: BACLOFEN 10 MG (LIORESAL) TAB PO PRN ×2 (09:08→18:01)
--- NOTE | 2019-02-17 09:59 | NUR ---
pt has at side during assessment. Pt turning/positioning in bed independently. Pain is better controlled today, pt states. He is watching television/joking some/ Pt to w/c and then traveled down stairs accompanied by /family for change of scenery. Skin on buttocks normal/no signs of pressure. Swelling in fingers of right hand has subsided. Pt has appropriate color/sensation of fingers and is able to move them. Toes of left foot continue to be +1 edema/appropriate color/appropriate temp. Lungs clear/bs x 4/states he feels like he will have a bm today.
--- NOTE | 2019-02-17 11:19 | NUR ---
pt back from w/c walk. pt in br/ Large BM. pt felt dizzy and felt like he was going to pass out. pt placed in w/c and back to bed. pt feels better after returning to bed. Pillows x 3 placed under left leg. rails up x 4. will continue to monitor
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
--- NOTE | 2019-02-17 17:50 | NUR ---
DRESSING CHANGE TO LEFT LOWER EXTREMITY. LEFT TOES +1 EDEMA /WARM TO TOUCH/SENSATION APPROPRIATE. STAPLE SITES ARE CLEAN/NO DRAINAGE. LARGE BLISTERS ON LEFT HEEL BILATERALLY HAS RUPTURED AND ARE DRAINING DARK BROWN/RED FLUID. ANTERIOR FOOT IS REDDENED/ +2 EDEMA/ WARM TO TOUCH/TIGHT/SHINY. INCISIONS CONTINUE TO BE ROUGH EDGED/SMALL AMOUNT OF RED/SEROUS FLUID. XEROFORM ON CICI/INCISION SITES/GAUZE TO HEEL BILATERALLY. ABD PADS THROUGHOUT AND THEN WRAPPED WITH KERLIX. BRACE PLACED/WRAPS PLACED OVER GAUZE FROM TOES TO KNEE.
[2019-02-17 18:18] VITALS: BP 75/64
[2019-02-17] MEDS: IBUPROFEN TABLET 200 MG TAB PO PRN (21:22)
[2019-02-17] MEDS: LORATADINE (CLARITIN) 10 MG TAB PO SCH (21:22)
[2019-02-17] MEDS: PANTOPRAZOLE 40 MG (PROTONIX) TAB PO SCH (21:22)
[2019-02-18] MEDS: BACLOFEN 10 MG (LIORESAL) TAB PO PRN ×3 (02:34→21:52)
[2019-02-18] MEDS: HYDROcodone/APAP 10 MG/325 MG (LORTAB) TAB PO PRN ×4 (02:34→20:51)
[2019-02-18 06:04] VITALS: BP 122/74
[2019-02-18 08:02] LABS: BASOPHILS # (AUTO) 0.1 10^3/uL (0.0-0.1); BASOPHILS % (AUTO) 1 % (0-10); EOSINOPHILS # (AUTO) 0.1 10^3/uL (0.0-0.3); EOSINOPHILS % (AUTO) 2 % (0-10); HEMATOCRIT 28 % (40-54); HEMOGLOBIN 8.7 G/DL (13.3-17.7); LYMPHOCYTES # (AUTO) 1.6 X 10^3 (1.0-4.0); LYMPHOCYTES % (AUTO) 20 % (12-44); MEAN CORPUSCULAR HEMOGLOBIN 30 PG (25-34); MEAN CORPUSCULAR HGB CONC 31 G/DL (32-36); MEAN CORPUSCULAR VOLUME 97 FL (80-99); MONOCYTES # (AUTO) 0.8 X 10^3 (0.0-1.0); MONOCYTES % (AUTO) 9 % (0-12); NEUTROPHILS # (AUTO) 5.8 X 10^3 (1.8-7.8); NEUTROPHILS % (AUTO) 69 % (42-75); PLATELET COUNT 453 10^3/uL (130-400); RED CELL DISTRIBUTION WIDTH 15.9 % (10.0-14.5); WHITE BLOOD COUNT 8.4 10^3/uL (4.3-11.0)
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
[2019-02-18 08:28] LABS: ALANINE AMINOTRANSFERASE 38 U/L (0-55); ALBUMIN 3.3 GM/DL (3.2-4.5); ALKALINE PHOSPHATASE 64 U/L (40-136); BILIRUBIN,TOTAL 1.4 MG/DL (0.1-1.0); BUN/CREATININE RATIO 21; CALCIUM 9.2 MG/DL (8.5-10.1); CARBON DIOXIDE 23 MMOL/L (21-32); CHLORIDE 105 MMOL/L (98-107); CREATININE SERUM 0.77 MG/DL (0.60-1.30); GFR ESTIMATED > 60; GLUCOSE 123 MG/DL (70-105); POTASSIUM 4.6 MMOL/L (3.6-5.0); SODIUM 136 MMOL/L (135-145); TOTAL PROTEIN 6.1 GM/DL (6.4-8.2)
[2019-02-18] MEDS: POLYETHYLENE GLYCOL 17 GM (MIRALAX) PACK PO SCH ×2 (09:00→20:51)
--- NOTE | 2019-02-18 09:00 | Physical Therapy Daily Note ---
PT Daily Note-Current Subjective pt in bed pre-tx agrees to PT this morning. This session will be co-tx with OT secondary to pt's need for the assist of 2 therapist for balance and coordinating UE & LE for functional activities and due to pain with activity. Appearance pt in WC in room with LLE elevated with OT in the room to continues with OT therapy and grooming and ADL's. Mental Status Patient Orientation: Person, Place, Time, Situation Attachments: IV Transfers SCALE: Activities may be completed with or without assistive devices. 0-Tkmpwzgcag-jauvbwx completes the activity by him/herself with no assistance from a helper. 5-Set-up or Clean-up Assistance-helper sets up or cleans up; patient completes activity. [place] assists only prior to or following the activity. 4-Supervision or Touching Assistance-helper provides verbal cues and/or touching/steadying and/or contact guard assistance as patient completes activity. Assistance may be provided throughout the activity or intermittently. 3-Partial/Moderate Assistance-helper does LESS THAN HALF the effort. [place] lifts, holds or supports trunk or limbs, but provides less than half the effort. 2-Substantial/Maximal Assistance-helper does MORE THAN HALF the effort. [place] lifts or holds trunk or limbs and provides more than half the effort. 3-Qgqgdrgfe-etgnuw does ALL the effort. Patient does none of the effort to complete the activity. Or, the assistance of 2 or more helpers is required for the patient to complete the activity. If activity was not attempted, code reason: 7-Patient Refused. 9-Not Applicable-not attempted and the patient did not perform the activity before the current illness, exacerbation or injury. 10-Not Attempted due to Environmental Limitations-(lack of equipment, weather restraints, etc.). 88-Not Attempted due to Medical Conditions or Safety Concerns. Sit to Stand (QC): 3 (Naima) pt able to transfer supine to sit EOB with Naima only needing help for LLE mobility. Weight Bearing Right Lower Extremity: Right Full Weight Bearing Left Lower Extremity: Left Non Weight Bearing WBAT- RIGHT HAND Gait Training Distance: 15' Walk 10 feet (QC): 3 (mod assist) Gait Assistive Device: Walker Platform (RUE) pt continues to have posterior COM requiring modA at times to maintain balance. Treatments PT worked on sitting and standing balance while OT performed ADL's and showering. PT performed transfers while OT assisted with UE placement and functional usage. Assessment Current Status: Fair Progress pt required decreased assistance with all transfers today. Pt had no syncopial episodes this session and only c/o dizziness once this session towards the end of his shower. Pts balance is improving, however, pt continues to maintain a sitting position with decreased hip flexion. PT Short Term Goals Short Term Goals Time Frame: Feb 21, 2019 Gait Distance Comment: 100' CGA Gait Assistive Device: Walker Platform Wheelchair Distance: 100' Wheelchair Level of Assist: 3 PT Light Rail Train Operator Goals Light Rail Train Operator Goals PT Halfway Goals Time Frame: Mar 07, 2019 Sit to Lying (QC): 3 (Naima) Lying-Sitting on Side/Bed(QC): 3 (Naima) Sit to Stand (QC): 4 (CGA) Roll Left to Right (QC): 6 Chair/Ign-hn-Xrfdp Xfer(QC): 4 (CGA) Car Transfer (QC): 4 (CGA) Does the Patient Walk: Yes Distance: 150' Walk 10 feet (QC): 4 (CGA) Walk 10ft-Uneven Surface(QC): 4 (CGA) Walk 50ft with 2 Turns (QC): 4 (CGA) Walk 150 ft (QC): 4 (CGA) Gait Assistive Device: Walker Platform # of Steps: 4 1 Step (curb) (QC): 3 (Naima) 4 Steps (QC): 3 (Naima) PT Plan Problem List Problem List: Activity Tolerance, Functional Strength, Safety, Balance, Gait, Transfer, Bed Mobility, ROM Treatment/Plan Treatment Plan: Continue Plan of Care Treatment Plan: Bed Mobility, Concurrent Therapy, Education, Functional Activity Marcelle, Functional Strength, Group Therapy, Gait, Safety, Therapeutic Exercise, Transfers Treatment Duration: Feb 28, 2019 Frequency: At least 5 of 7 days/Wk (IRF) Estimated Hrs Per Day: 1.5 hours per day Patient and/or Family Agrees t: Yes Safety Risks/Education Patient Education: Gait Training, Transfer Techniques, Reviewed Precautions, Correct Positioning, Safety Issues Teaching Recipient: Patient Teaching Methods: Demonstration, Discussion Response to Teaching: Return Demonstration, Reinforcement Needed Time/GCodes Time In: 0800 Time Out: 0900 Total Billed Treatment Time: 60 Total Billed Treatment 60min co-tx with OT. 1 visit GT 15' FA 45' MAREN PERES PT Feb 18, 2019 09:00 POS
[2019-02-18] MEDS: ENOXAPARIN 40 MG/0.4 ML (LOVENOX) SYR SC SCH (09:03)
[2019-02-18] MEDS: FAMOTIDINE 20 MG (PEPCID) TABLET PO SCH (09:04)
[2019-02-18] MEDS: IRON SUCROSE 200 MG/10 ML (VENOFER) VIAL IV SCH (10:11)
[2019-02-18] MEDS: SENNA W/DOCUSATE (SENOKOT S) TABLET PO SCH ×2 (10:11→20:51)
--- NOTE | 2019-02-18 12:12 | Occupational Ther Daily Note ---
OT Current Status-Daily Note Subjective OT/ PT co-treat for 60 min ([id number]) due to pt's pain level, NWB, decreased functional transfer status. OT focused on ADL function and UE movements while PT focused on functional transfers and gross motor abilities. Pt seen in bed, does not rate pain, agreeable to OT/ PT co-treatment and showering. Pt states did not sleep well previous night. Mental Status/Objective Patient Orientation: Normal For Age ADL-Treatment Therapy Code Descriptions/Definitions Functional [place] Measure: 0=Not Assessed/NA 4=Minimal Assistance 1=Total Assistance 5=Supervision or Setup 2=Maximal Assistance 6=Modified [place] 3=Moderate Assistance 7=Complete IndependenceSCALE: Activities may be completed with or without assistive devices. 3-Zoeboxwxjk-qhyrtii completes the activity by him/herself with no assistance from a helper. 5-Set-up or Clean-up Assistance-helper sets up or cleans up; patient completes activity. [place] assists only prior to or following the activity. 4-Supervision or Touching Assistance-helper provides verbal cues and/or touching/steadying and/or contact guard assistance as patient completes activity. Assistance may be provided throughout the activity or intermittently. 3-Partial/Moderate Assistance-helper does LESS THAN HALF the effort. [place] lifts, holds or supports trunk or limbs, but provides less than half the effort. 2-Substantial/Maximal Assistance-helper does MORE THAN HALF the effort. [place] lifts or holds trunk or limbs and provides more than half the effort. 7-Qhdrqtcse-anvbxh does ALL the effort. Patient does none of the effort to complete the activity. Or, the assistance of 2 or more helpers is required for the patient to complete the activity. If activity was not attempted, code reason: 7-Patient Refused. 9-Not Applicable-not attempted and the patient did not perform the activity before the current illness, exacerbation or injury. 10-Not Attempted due to Environmental Limitations-(lack of equipment, weather restraints, etc.). 88-Not Attempted due to Medical Conditions or Safety Concerns. Eating (QC): 6 (completes drinking with IND.) Oral Hygiene (QC): 6 (completes while seated in w/c in front of sink. Utilizes R UE for stabilization of toothbrush during toothpaste donning.) Shower/Bathe Self (QC): 4 (Completes on commode within shower with s/u for covering LLE and RUE bandaging, pillows propped up to suite comfort of LLE.Pt does not stand to wash bottom, rather utilizes LHS to reach under commode with IND.Pt dries all areas excluding back. 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 Completes pulling up in stance with min A for maintaining balance.) Toilet Transfer (QC): 4 (CGA from w/c to commode with use of FWW with platforms. While transferring from commode (post showering) to w/c with FWW, pt c/o nausea/ lightheadedness. Pt drinks water and requires rest and cues for breathing techniques. Pt completes sit to stand with CGA and completes safe transfer to w/c. ) Other Treatment Pt completes ADLs in room. Pt remains in w/c at end of PT/ OT cotreatment. Pt completes UE theraband exercises while seated in w/c with skilled modifications to allow R UE to maintain hold on theraband. Pt requires minimal cues for positioning and resistance levels. Pt's nurse notified of dressing wet, completes sit to stand with FWW from w/c with CGA to complete bandage doff/ donning, maintains stance for ~2 minutes with CGA. Pt positioned in w/c with LLE propped up with leg rest. Pt left with call light in reach, all needs met. Education OT Patient Education: Correct positioning, Exercise program, Home exercise program, Modified ADL techniques, Purpose of tx/functional activities, Safety issues, Transfer techniques, Use of adapted equipment Teaching Recipient: Patient Teaching Methods: Demonstration, Discussion Response to Teaching: Verbalize Understanding, Return Demonstration OT Short Term Goals Short Term Goals Eating(FIM): 7 Grooming(FIM): 7 1=Demonstrate adherence to instructed precautions during ADL tasks. 2=Patient will verbalize/demonstrate understanding of assistive devices/modifications for ADL. 3=Patient will improve strength/tolerance for activity to enable patient to perform ADL's. OT Cryptographer Goals Cryptographer Goals Time Frame: Feb 28, 2019 Eating (QC): 6 (met) Oral Hygiene (QC): 6 (met) Shower/Bathe Self (QC): 5 (met) Upper Body Dressing (QC): 6 Lower Body Dressing (QC): 6 On/Off Footwear (QC): 6 Toileting Hygiene (QC): 6 Toilet/Commode Transfer (QC): 6 Additional Goals: 1-Demonstrate ADL Tasks, 2-Verbalize Understanding, 3- ImproveStrength/Marcelle 1=Demonstrate adherence to instructed precautions during ADL tasks. 2=Patient will verbalize/demonstrate understanding of assistive devices/modifications for ADL. 3=Patient will improve strength/tolerance for activity to enable patient to perform ADL's. OT Education/Plan Problem List/Assessment Assessment: Decreased Activ Tolerance, Dependent Transfers, Impaired Bed Mobility, Impaired Funct Balance, Impaired I ADL's, Impaired Self-Care Skills, Restricted Funct UE ROM Discharge Recommendations Plan/Recommendations: Continue POC Equpiment Recommendations-D/C: Toilet Riser with Rails, Etcher Enameling Treatment Plan/Plan of Care Treatment,Training & Education: Yes Patient would benefit from OT for education, treatment and training to promote independence in ADL's, mobility, safety and/or upper extremity function for ADL's. Plan of Care: ADL Retraining, Caregiver Training, Concurrent Therapy, Functional Mobility, Group Exercise/Act as Ind, UE Funct Exercise/Act Treatment Duration: Feb 28, 2019 Frequency: At least 5 of 7 days/Wk (IRF) Estimated Hrs Per Day: 1.5 hours per day Agreement: Yes Rehab Potential: Guarded Time/GCodes Start Time: 08:00 Stop Time: 09:30 Total Time Billed (hr/min): 90 Billed Treatment Time OT/ PT cotreatment [id number] OT individual session [id number] 1, ADL 5, EX (90) DENNISE GONZALEZ OTR Feb 18, 2019 12:12 POS
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
--- NOTE | 2019-02-18 15:22 | Physical Therapy Daily Note ---
PT Daily Note-Current Subjective Agrees to PT. Pt reports dizziness post treatment and notes "the room is spinning." Pt layed down and reported feeling better. Transfers SCALE: Activities may be completed with or without assistive devices. 0-Otyjkyjdnd-rhhpldh completes the activity by him/herself with no assistance from a helper. 5-Set-up or Clean-up Assistance-helper sets up or cleans up; patient completes activity. [place] assists only prior to or following the activity. 4-Supervision or Touching Assistance-helper provides verbal cues and/or touching/steadying and/or contact guard assistance as patient completes activity. Assistance may be provided throughout the activity or intermittently. 3-Partial/Moderate Assistance-helper does LESS THAN HALF the effort. [place] lifts, holds or supports trunk or limbs, but provides less than half the effort. 2-Substantial/Maximal Assistance-helper does MORE THAN HALF the effort. [place] lifts or holds trunk or limbs and provides more than half the effort. 1-Qwzuhwugj-qejibb does ALL the effort. Patient does none of the effort to complete the activity. Or, the assistance of 2 or more helpers is required for the patient to complete the activity. If activity was not attempted, code reason: 7-Patient Refused. 9-Not Applicable-not attempted and the patient did not perform the activity before the current illness, exacerbation or injury. 10-Not Attempted due to Environmental Limitations-(lack of equipment, weather restraints, etc.). 88-Not Attempted due to Medical Conditions or Safety Concerns. Roll Left & Right (QC): 0 Sit to Lying (QC): 3 Lying to Sitting/Side of Bed(Q: 3 Sit to Stand (QC): 3 Chair/Wab-co-Fgbji Xfer(QC): 3 Car Transfer (QC): 88 Weight Bearing Right Lower Extremity: Right Full Weight Bearing Left Lower Extremity: Left Non Weight Bearing WBAT- RIGHT HAND Gait Training Does the Patient Walk?: Yes Distance: 120ft; 80 ft Walk 10 feet (QC): 3 (min assist for balance and safety ) Walk 50 ft with 2 Turns(QC): 3 Walk 150 ft (QC): 88 Walking 10ft/uneven surface-QC: 88 Gait Assistive Device: Walker Platform Wheelchair Training Does the Pt Use a Wheelchair?: No Wheel 50 ft with 2 turns (QC): 0 Wheel 150 ft (QC): 0 Type of Wheelchair: Manual Stair Training Stair Training: Handrails/: No handrail #of Steps: 0 1 Step (curb) (QC): 0 4 Steps (QC): 0 12 Steps (QC): 0 Assessment Current Status: Good Progress Pt is progressing with gait distance and safety. Able to maintain NWB status. PT Short Term Goals Short Term Goals Time Frame: Feb 21, 2019 PT Prison Goals Front Desk Manager Goals PT Prison Goals Time Frame: Mar 07, 2019 Roll Left & Right (QC): 6 Sit to Lying (QC): 3 (Naima) Lying-Sitting on Side/Bed(QC): 3 (Naima) Sit to Stand (QC): 4 (CGA) Chair/Mlk-jc-Dchcf Xfer(QC): 4 (CGA) Toilet Transfer (QC): 6 Car Transfer (QC): 4 (CGA) Does the Patient Walk: Yes Walk 10 feet (QC): 4 (CGA) Walk 50ft with 2 Turns (QC): 4 (CGA) Walk 150 ft (QC): 4 (CGA) Walking 10ft on Uneven Surface: 4 (CGA) 1 Step (curb) (QC): 3 (Naima) 4 Steps (QC): 3 (Naima) 12 Steps (QC): 88 Picking up an Object (QC): 88 Does the Pt use WC or Scooter?: No Type: N/A Type: N/A PT Plan Problem List Problem List: Activity Tolerance, Functional Strength, Safety Treatment/Plan Treatment Plan: Continue Plan of Care Treatment Plan: Bed Mobility, Concurrent Therapy, Education, Functional Activity Marcelle, Functional Strength, Group Therapy, Gait, Safety, Therapeutic Exercise, Transfers Treatment Duration: Feb 28, 2019 Frequency: At least 5 of 7 days/Wk (IRF) Estimated Hrs Per Day: 1.5 hours per day Patient and/or Family Agrees t: Yes Safety Risks/Education Patient Education: Gait Training, Transfer Techniques Teaching Recipient: Patient Teaching Methods: Demonstration, Discussion Response to Teaching: Reinforcement Needed Time/GCodes Time In: 1230 Time Out: 108 Total Billed Treatment Time: 38 Total Billed Treatment visit GT 38 TOVA DUMONT PT Feb 18, 2019 15:22 POS
[2019-02-18 16:00] VITALS: BP 106/64
[2019-02-18 18:00] VITALS: BP 117/69
[2019-02-18] MEDS: PANTOPRAZOLE 40 MG (PROTONIX) TAB PO SCH (20:50)
[2019-02-18] MEDS: LORATADINE (CLARITIN) 10 MG TAB PO SCH (20:51)
[2019-02-18] MEDS: MELATONIN 3 MG TABLET PO PRN (21:52)
[2019-02-19 05:23] VITALS: BP 134/81
[2019-02-19] MEDS: HYDROcodone/APAP 10 MG/325 MG (LORTAB) TAB PO PRN ×4 (06:26→20:33)
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
[2019-02-19] MEDS: POLYETHYLENE GLYCOL 17 GM (MIRALAX) PACK PO SCH ×2 (08:44→20:33)
[2019-02-19] MEDS: FAMOTIDINE 20 MG (PEPCID) TABLET PO SCH (08:44)
[2019-02-19] MEDS: SENNA W/DOCUSATE (SENOKOT S) TABLET PO SCH ×3 (08:44→20:33)
[2019-02-19] MEDS: ENOXAPARIN 40 MG/0.4 ML (LOVENOX) SYR SC SCH (08:45)
--- NOTE | 2019-02-19 09:40 | Occupational Ther Daily Note ---
OT Current Status-Daily Note Subjective Pt seen in bed, alert and talkative. Pt's brother and present through session, agreeable to OT tx session. Mental Status/Objective Patient Orientation: Normal For Age ADL-Treatment Therapy Code Descriptions/Definitions Functional [place] Measure: 0=Not Assessed/NA 4=Minimal Assistance 1=Total Assistance 5=Supervision or Setup 2=Maximal Assistance 6=Modified [place] 3=Moderate Assistance 7=Complete IndependenceSCALE: Activities may be completed with or without assistive devices. 6-Gdliadfwsm-fxnwslp completes the activity by him/herself with no assistance from a helper. 5-Set-up or Clean-up Assistance-helper sets up or cleans up; patient completes activity. [place] assists only prior to or following the activity. 4-Supervision or Touching Assistance-helper provides verbal cues and/or touching/steadying and/or contact guard assistance as patient completes activity. Assistance may be provided throughout the activity or intermittently. 3-Partial/Moderate Assistance-helper does LESS THAN HALF the effort. [place] lifts, holds or supports trunk or limbs, but provides less than half the effort. 2-Substantial/Maximal Assistance-helper does MORE THAN HALF the effort. [place] lifts or holds trunk or limbs and provides more than half the effort. 4-Jhggpohqj-wzfqco does ALL the effort. Patient does none of the effort to complete the activity. Or, the assistance of 2 or more helpers is required for the patient to complete the activity. If activity was not attempted, code reason: 7-Patient Refused. 9-Not Applicable-not attempted and the patient did not perform the activity before the current illness, exacerbation or injury. 10-Not Attempted due to Environmental Limitations-(lack of equipment, weather restraints, etc.). 88-Not Attempted due to Medical Conditions or Safety Concerns. Eating (QC): 6 Oral Hygiene (QC): 4 (CGA while in stance at sink, pt completes with modified grasp in R cast.) Lower Body Dressing (QC): 3 (Pt completes sweat pant donning with assist for threading onto LLE due to large bandaging and difficulty clearing LE from floor. Pt requires assist to quill picking machine operator LE ) Toileting Hygiene (QC): 4 (CGA in stance. Pt able to wipe self with s/u with L hand) Toilet Transfer (QC): 4 (CGA to commode. Pt c/o urination out side of commode. New commode placed on pt's toilet for increased IND and decreased frustration with urination.) Other Treatment Pt completes LB dressing EOB with good motor control and ability to thread most of sweat pants onto LLE with bessemer converter blower with assist for lifting LE off floor. Pt completes sit to stand from bed with CGA, brushes teeth with CGA at sink. Pt completes standing tolerance while playing tabletop game for 3-4 minutes, does not c/o pain, good standing balance while reaching for cards outside of MIMI. Pt completes sit to stand CGA, toilet transfer CGA ( Pt's educated on toilet transfers, return demonstrates ability to assist pt with transfers), and completes BM. Pt screams that urine got on floor once more and should grab his fan as he is hot. Pt's places fan in bathroom. Pt completes toileting routine with increased IND on this date, still requires CGA in stance to complete BM hygiene. Pt's educated on pt's abilities within bathroom and common results on commode- pt and educated on safety of ensuring someone with pt as he toilets due to decreased pain management techniques. Pt and agree that pt will not bathe without present but would have difficulty and safety issues going to bathroom without assist due to episodes of decreased alertness. Pt and educated on AE and DME within the home. Pt completes EOB exercises with theraband, reaches with LUE to thread theraband around toes, cues for breathing techniques due to holding breath, pt states dizziness, requires rest break back into bed 2x during this exercise. Pt drinks water and talks to family members without issues immediately in bed. Pt returns to sitting position EOB, completes UE theraband exercises with modified marketing consultant for RUE. Pt completes with mod cues for positioning and tension. Pt completes trunk rotations and lateral leaning EOB, pt c/o L knee popping when leaning to R side, requires rest break 1x during this exercise as pt begins leaning backwards and closing eyes. Pt returns to sitting once alert, continues exercise and talks with family members during exercise, does not c/o pain or experience any dizziness/ pain while talking. Pt sit to stand from EOB, transfers with FWW to w/c, positioned with theraband per pt's request to maintain LLE propping. Pt educated on how to untie theraband if needed. Pt nods in agreement. Pt left in w/c with family members present, pt talkative, call light in reach, all needs met. Education OT Patient Education: Correct positioning, Exercise program, Home exercise program, Modified ADL techniques, Purpose of tx/functional activities, Safety issues, Transfer techniques, Use of adapted equipment Teaching Recipient: Patient, Family, Significant Other Teaching Methods: Demonstration, Discussion Response to Teaching: Verbalize Understanding, Return Demonstration OT Fci Goals Fci Goals Time Frame: Feb 28, 2019 Eating (QC): 6 (met) Oral Hygiene (QC): 6 (met) Toileting Hygiene (QC): 6 Shower/Bathe Self (QC): 5 (met) Upper Body Dressing (QC): 6 Lower Body Dressing (QC): 6 On/Off Footwear (QC): 6 Additional Goals: 1-Demonstrate ADL Tasks, 2-Verbalize Understanding, 3- ImproveStrength/Marcelle 1=Demonstrate adherence to instructed precautions during ADL tasks. 2=Patient will verbalize/demonstrate understanding of assistive devices/modifications for ADL. 3=Patient will improve strength/tolerance for activity to enable patient to perform ADL's. OT Education/Plan Problem List/Assessment Assessment: Decreased Activ Tolerance, Decreased Safety Aware, Dependent Transfers, Impaired Funct Balance, Impaired I ADL's, Impaired Self-Care Skills Discharge Recommendations Plan/Recommendations: Continue POC Equpiment Recommendations-D/C: Rails on Tub/Shower, Roofer Applicator, Bedside Commode Treatment Plan/Plan of Care Treatment,Training & Education: Yes Patient would benefit from OT for education, treatment and training to promote independence in ADL's, mobility, safety and/or upper extremity function for ADL's. Plan of Care: ADL Retraining, Caregiver Training, Concurrent Therapy, Functional Mobility, Group Exercise/Act as Ind, UE Funct Exercise/Act Treatment Duration: Feb 28, 2019 Frequency: At least 5 of 7 days/Wk (IRF) Estimated Hrs Per Day: 1.5 hours per day Agreement: Yes Rehab Potential: Guarded Time/GCodes Start Time: 08:00 Stop Time: 09:30 Total Time Billed (hr/min): 90 Billed Treatment Time 1, ADL 3 (45), EX 2 (30), FA (15)= 90 DENNISE GONZALEZ OTR Feb 19, 2019 09:40 POS
--- NOTE | 2019-02-19 10:03 | Speech Therapy Daily Note ---
Speech Daily Progress Note Subjective Date Seen by Provider: Feb 19, 2019 Time Seen by Provider: 00:30 Patient was playing war games with his brother when I entered his room. Patient's was also present. Objective Patient completed a series of memory questions with 80% given 15% verbal cues. Assessment Assessment Current Status: Good Progress Treatment Plan Continue Plan of Care Speech Short Term Goals Short Term Goals Short Term Goals 1) The patient will complete memory tasks related to his daily needs at 90% or greater with minimal cues. 2) The patient will complete problem solving tasks related to his daily needs at 90% or greater with minimal cues. 3) The patient will complete safety awareness tasks related to his daily needs at 90% or greater with minimal cues. Speech Can Cutter Goals Can Cutter Goals The patient will improve cognitive-communication necessary for safety and daily living tasks with minimal assist. Speech-Plan Patient/Family Goals Patient/Family Goals: Patient plans on returning home post rehab. Treatment Plan Speech Therapy Treatment Plan: Continue Plan of Care Patient's cognitive progress has been significant. Treatment Duration: Feb 22, 2019 Frequency: 2 times per week Estimated Hrs Per Day: .5 hour per day Rehab Potential: Guarded Barriers to Learning: Patient has cognitive deficits. Pt/Family Agrees to Plan: Yes Safety Risks/Education Teaching Recipient: Patient, Family, Significant Other Teaching Methods: Demonstration, Discussion Response to Teaching: Verbalize Understanding, Return Demonstration Education Topics Provided: Continued safety within his room. Time Speech Therapy Time In: 09:00 Speech Therapy Time Out: 09:30 Total Billed Time: 30 Billed Treatment Time 1, RUFINO Jensen Feb 19, 2019 10:03 POS
--- NOTE | 2019-02-19 10:29 | NUR ---
Patient has a follow up appointment with Dr. Cook in the [facility] office in [place], [place] tomorrow, 02/20/19, at 10[address]. Dr[address] Vargas has requested patient keep this appointment. Patient will require wheelchair van transportation. Discussed with Fredrick Gonzalez RN Director. Transportation via [employer] has been approved. Faxed information to [employer] and awaiting confirmation phone call. Notified patient of plan and patient verbalized understanding. Patient's will accompany patient to his appointment.
--- NOTE | 2019-02-19 10:57 | Physical Therapy Daily Note ---
PT Daily Note-Current Subjective Patient in wheelchair at bedside pre tx, agrees to PT, has 5/10 pain in left leg. Appearance Patient in wheelchair at bedside post tx with nurse call, phone, tray, visitors in the room, all needs met. Mental Status Patient Orientation: Person, Place, Situation Transfers SCALE: Activities may be completed with or without assistive devices. 8-Sjhutenehw-bjybjuo completes the activity by him/herself with no assistance from a helper. 5-Set-up or Clean-up Assistance-helper sets up or cleans up; patient completes activity. [place] assists only prior to or following the activity. 4-Supervision or Touching Assistance-helper provides verbal cues and/or touching/steadying and/or contact guard assistance as patient completes activity. Assistance may be provided throughout the activity or intermittently. 3-Partial/Moderate Assistance-helper does LESS THAN HALF the effort. [place] lifts, holds or supports trunk or limbs, but provides less than half the effort. 2-Substantial/Maximal Assistance-helper does MORE THAN HALF the effort. [place] lifts or holds trunk or limbs and provides more than half the effort. 7-Exyqpagbq-prfpvs does ALL the effort. Patient does none of the effort to complete the activity. Or, the assistance of 2 or more helpers is required for the patient to complete the activity. If activity was not attempted, code reason: 7-Patient Refused. 9-Not Applicable-not attempted and the patient did not perform the activity before the current illness, exacerbation or injury. 10-Not Attempted due to Environmental Limitations-(lack of equipment, weather restraints, etc.). 88-Not Attempted due to Medical Conditions or Safety Concerns. Roll Left & Right (QC): 3 Sit to Lying (QC): 3 Lying to Sitting/Side of Bed(Q: 3 Sit to Stand (QC): 4 Chair/Soc-fk-Heehc Xfer(QC): 4 Min assist for supine to sit, CGA for sit to stand and transfers. Patient needs cues for hand placement and positioning in order to keep weight off his left leg. Weight Bearing Right Lower Extremity: Right Full Weight Bearing Left Lower Extremity: Left Non Weight Bearing WBAT- RIGHT HAND Gait Training Distance: 100', 50' Walk 10 feet (QC): 4 Walk 50 ft with 2 Turns(QC): 4 Gait Assistive Device: Walker Platform CGA, patient got light headed on the way back to his room and had to sit in the wheelchair and wheeled back to his room. Patient cannot lift his left leg to clear his foot, he slides it along the floor but is compliant with keeping weight off it. Exercises Supine Ex: Ankle pumps (wiggle toes), Quad Set, Glut sets, Heel Slides, Short Arc Quads Supine Reps: 10 (just LLE AAROM) LAQ right side with 3# ankle weight for 5 min, sit to stand 2 sets of 5 Treatments LE exercise, bed mobility and transfers, ambulation Assessment Current Status: Fair Progress Patient needs frequent rest breaks due to pain and fatigue, tends to get light headed with activity PT Short Term Goals Short Term Goals Time Frame: Feb 21, 2019 PT Mcfp Goals Mcfp Goals PT Mcfp Goals Time Frame: Mar 07, 2019 Roll Left & Right (QC): 6 Sit to Lying (QC): 3 (Naima) Lying-Sitting on Side/Bed(QC): 3 (Naima) Sit to Stand (QC): 4 (CGA) Chair/Vtd-lp-Unfej Xfer(QC): 4 (CGA) Toilet Transfer (QC): 6 Car Transfer (QC): 4 (CGA) Does the Patient Walk: Yes Walk 10 feet (QC): 4 (CGA) Walk 50ft with 2 Turns (QC): 4 (CGA) Walk 150 ft (QC): 4 (CGA) Walking 10ft on Uneven Surface: 4 (CGA) 1 Step (curb) (QC): 3 (Naima) 4 Steps (QC): 3 (Naima) 12 Steps (QC): 88 Picking up an Object (QC): 88 Does the Pt use WC or Scooter?: No Type: N/A Type: N/A PT Plan Problem List Problem List: Activity Tolerance, Functional Strength, Safety, Balance, Gait, Transfer, Bed Mobility, ROM Treatment/Plan Treatment Plan: Continue Plan of Care Treatment Plan: Bed Mobility, Concurrent Therapy, Education, Functional Activity Marcelle, Functional Strength, Group Therapy, Gait, Safety, Therapeutic Exercise, Transfers Treatment Duration: Feb 28, 2019 Frequency: At least 5 of 7 days/Wk (IRF) Estimated Hrs Per Day: 1.5 hours per day Patient and/or Family Agrees t: Yes Safety Risks/Education Patient Education: Gait Training, Transfer Techniques, Reviewed Precautions, Correct Positioning, Safety Issues Teaching Recipient: Patient Teaching Methods: Demonstration, Discussion Response to Teaching: Reinforcement Needed Time/GCodes Time In: 1000 Time Out: 1100 Total Billed Treatment Time: 60 Total Billed Treatment 1 visit GT 20' EX 30' FA 10' MAREN PERES PT Feb 19, 2019 10:57 POS
[2019-02-19] MEDS: BACLOFEN 10 MG (LIORESAL) TAB PO PRN (11:07)
--- NOTE | 2019-02-19 13:31 | Physical Therapy Daily Note ---
PT Daily Note-Current Subjective pt in bed pre-tx agrees to PT. pt with unreported pain in the LLE Appearance pt in WC post-tx with in room, call light, room phone, tray table in reach and all needs met at this time. Mental Status Patient Orientation: Person, Place, Time, Situation LLE & RUE wrapped Transfers SCALE: Activities may be completed with or without assistive devices. 3-Eabxrhadsn-ednewea completes the activity by him/herself with no assistance from a helper. 5-Set-up or Clean-up Assistance-helper sets up or cleans up; patient completes activity. [place] assists only prior to or following the activity. 4-Supervision or Touching Assistance-helper provides verbal cues and/or touching/steadying and/or contact guard assistance as patient completes activity. Assistance may be provided throughout the activity or intermittently. 3-Partial/Moderate Assistance-helper does LESS THAN HALF the effort. [place] lifts, holds or supports trunk or limbs, but provides less than half the effort. 2-Substantial/Maximal Assistance-helper does MORE THAN HALF the effort. [place] lifts or holds trunk or limbs and provides more than half the effort. 8-Lodfdrrcn-arhwmt does ALL the effort. Patient does none of the effort to complete the activity. Or, the assistance of 2 or more helpers is required for the patient to complete the activity. If activity was not attempted, code reason: 7-Patient Refused. 9-Not Applicable-not attempted and the patient did not perform the activity before the current illness, exacerbation or injury. 10-Not Attempted due to Environmental Limitations-(lack of equipment, weather restraints, etc.). 88-Not Attempted due to Medical Conditions or Safety Concerns. Sit to Stand (QC): 4 (CGA) Chair/Maa-ey-Bsjco Xfer(QC): 4 (CGA) Weight Bearing Right Lower Extremity: Right Full Weight Bearing Left Lower Extremity: Left Non Weight Bearing WBAT- RIGHT HAND Exercises Supine Ex: Ankle pumps, Quad Set, Glut sets, Heel Slides, Straight leg raise Supine Reps: 30 (15reps 2 sets, no AP on left leg, AAROM) Treatments pt performed functional LE strengthening exercises, transfer training, and education Assessment Current Status: Fair Progress pt improved LLE knee ROM with decreased pain. Pt educated on importance of increasing ROM and for making sure he continues to breathe and not hold his breath through session PT Short Term Goals Short Term Goals Time Frame: Feb 21, 2019 PT Correction Goals Tire Tester Goals PT Tire Tester Goals Time Frame: Mar 07, 2019 Roll Left & Right (QC): 6 Sit to Lying (QC): 3 (Naima) Lying-Sitting on Side/Bed(QC): 3 (Naima) Sit to Stand (QC): 4 (CGA) Chair/Bbs-ra-Ksurm Xfer(QC): 4 (CGA) Toilet Transfer (QC): 6 Car Transfer (QC): 4 (CGA) Does the Patient Walk: Yes Walk 10 feet (QC): 4 (CGA) Walk 50ft with 2 Turns (QC): 4 (CGA) Walk 150 ft (QC): 4 (CGA) Walking 10ft on Uneven Surface: 4 (CGA) 1 Step (curb) (QC): 3 (Naima) 4 Steps (QC): 3 (Naima) 12 Steps (QC): 88 Picking up an Object (QC): 88 Does the Pt use WC or Scooter?: No Type: N/A Type: N/A PT Plan Problem List Problem List: Activity Tolerance, Functional Strength, Safety, Balance, Gait, Transfer, Bed Mobility, ROM Treatment/Plan Treatment Plan: Continue Plan of Care Treatment Plan: Bed Mobility, Concurrent Therapy, Education, Functional A ctivity Marcelle, Functional Strength, Group Therapy, Gait, Safety, Therapeutic Exercise, Transfers Treatment Duration: Feb 28, 2019 Frequency: At least 5 of 7 days/Wk (IRF) Estimated Hrs Per Day: 1.5 hours per day Patient and/or Family Agrees t: Yes Safety Risks/Education Patient Education: Transfer Techniques, Correct Positioning, Safety Issues Teaching Recipient: Patient Teaching Methods: Demonstration, Discussion Response to Teaching: Return Demonstration, Reinforcement Needed Time/GCodes Time In: 1300 Time Out: 1330 Total Billed Treatment Time: 30 Total Billed Treatment 1 visit EX 30' MAREN PERES PT Feb 19, 2019 13:31 POS
--- NOTE | 2019-02-19 15:43 | NUR ---
Confirmed with [employer] transportation tomorrow, 02/20/19, to Dr. Cook's office for follow up appointment. [employer] will be at the hospital at approximately 0915 tomorrow to parts picker patient. Therapy, RN, patient and patient's spouse notified of parts picker time and all verbalized understanding.
[2019-02-19 17:25] VITALS: BP 123/73
--- NOTE | 2019-02-19 19:15 | NUR ---
bedside report received from MICHAEL MIRANDA, assume care of pt
[2019-02-19] MEDS: PANTOPRAZOLE 40 MG (PROTONIX) TAB PO SCH (20:32)
[2019-02-19] MEDS: LORATADINE (CLARITIN) 10 MG TAB PO SCH (20:32)
[2019-02-19] MEDS: MELATONIN 3 MG TABLET PO PRN (20:32)
--- NOTE | 2019-02-19 20:33 | NUR ---
pt refused miralax, c/o pain to lt leg level 6/10 on numeric scale, Lortab 10 1 tab given, also requested melatonin
--- NOTE | 2019-02-19 21:20 | NUR ---
rates pain level 3/10 on numeric scale
[2019-02-20] MEDS: HYDROcodone/APAP 10 MG/325 MG (LORTAB) TAB PO PRN ×5 (03:24→22:48)
--- NOTE | 2019-02-20 03:24 | NUR ---
c/o lt leg pain level 6/10 numeric scale, Lortab 10 1 tab given
--- NOTE | 2019-02-20 04:12 | NUR ---
resting quietly in bed, pain level 0/10 on flacc scale
[2019-02-20 06:00] VITALS: BP 124/79
--- NOTE | 2019-02-20 07:08 | NUR ---
bedside report given to MICHAEL MIRANDA
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
[2019-02-20] MEDS: FAMOTIDINE 20 MG (PEPCID) TABLET PO SCH (08:07)
[2019-02-20] MEDS: IRON SUCROSE 200 MG/10 ML (VENOFER) VIAL IV SCH (08:07)
[2019-02-20] MEDS: ENOXAPARIN 40 MG/0.4 ML (LOVENOX) SYR SC SCH (08:07)
[2019-02-20] MEDS: POLYETHYLENE GLYCOL 17 GM (MIRALAX) PACK PO SCH ×4 (08:34→20:41)
[2019-02-20] MEDS: SENNA W/DOCUSATE (SENOKOT S) TABLET PO SCH ×2 (08:34→20:40)
--- NOTE | 2019-02-20 09:23 | NUR ---
PT LEFT UNIT PER W/C TO GO TO DR. LIVINGSTON IN [place], PER [facility] TRANSPORTATION, ACCOMP BY SPINE SPECIALIST & .
--- NOTE | 2019-02-20 10:43 | Occupational Ther Daily Note ---
OT Current Status-Daily Note Subjective Pt seen in bed asleep, easily wakes with auditory cues. Pt states no current pain, though grimaces at times throughout therapy session. PT/ OT co-treat due to increased physical challenges on this date placed by therapists, requiring the assist of 2 therapists. OT focused on pt's ADL function, balance and UE m ovements while PT focused on gait/ mobility, LE movements and standing balance. Pt agreeable to co-treat session. Mental Status/Objective Patient Orientation: Normal For Age ADL-Treatment Therapy Code Descriptions/Definitions Functional [place] Measure: 0=Not Assessed/NA 4=Minimal Assistance 1=Total Assistance 5=Supervision or Setup 2=Maximal Assistance 6=Modified [place] 3=Moderate Assistance 7=Complete IndependenceSCALE: Activities may be completed with or without assistive devices. 0-Jrfzqqxkye-higkzqv completes the activity by him/herself with no assistance from a helper. 5-Set-up or Clean-up Assistance-helper sets up or cleans up; patient completes activity. [place] assists only prior to or following the activity. 4-Supervision or Touching Assistance-helper provides verbal cues and/or touching/steadying and/or contact guard assistance as patient completes activity. Assistance may be provided throughout the activity or intermittently. 3-Partial/Moderate Assistance-helper does LESS THAN HALF the effort. [place] lifts, holds or supports trunk or limbs, but provides less than half the effort. 2-Substantial/Maximal Assistance-helper does MORE THAN HALF the effort. [place] lifts or holds trunk or limbs and provides more than half the effort. 3-Krwvlcabj-sxrvhs does ALL the effort. Patient does none of the effort to complete the activity. Or, the assistance of 2 or more helpers is required for the patient to complete the activity. If activity was not attempted, code reason: 7-Patient Refused. 9-Not Applicable-not attempted and the patient did not perform the activity before the current illness, exacerbation or injury. 10-Not Attempted due to Environmental Limitations-(lack of equipment, weather restraints, etc.). 88-Not Attempted due to Medical Conditions or Safety Concerns. Eating (QC): 6 Oral Hygiene (QC): 4 (SBA while pt standing at sink with FWW) Shower/Bathe Self (QC): 4 (CGA in stance as pt washes bottom/ kelly area with warm wipes.) Upper Body Dressing (QC): 5 (s/u) Toileting Hygiene (QC): 4 (CGA in stance.) Toilet Transfer (QC): 4 (SBA stand to sit. Pt agrees new commode more comfortable and agree commode good option at home) QC on/off sock: 6 EOB Other Treatment Pt completes bed mob with SUP, able to hold onto sweats to lift LLE to EOB. Pt sits EOB with SBA to complete UB washing/ dressing. Pt sit to stand from EOB with FWW and CGA to wash bottom/ kelly area. Pt completes ADLs in bathroom. Pt ambulates with FWW to therapy gym with standing rest break due to pain in LLE. Pt sits in chair, completes round of 3 exercises 3x (UE theraband exercises 10 reps per side focusing on triceps and back, LLE knee bend/ straightening and adduction/ abduction with decreased friction surface, and LLE lifting to clear floor to thread theraband past ankle with use of shadow graph weight operator). Pt completes with c/o pain in adduction/ abduction, requires rest in chair. Pt sit to stand with CGA, transfers with FWW to EOM to complete functional seated balance while reaching in different planes above and below shoulder and waist height, reaching across midline. Pt able to complete all reaching with good- balance with c/o pain while leaning to L side in L hip. Requires rest break supine on mat 2x during exercise due to pain/ nausea. Pt returns to room with CGA with use of FWW, transfers to w/c to be pushed to [facility] vehicle for appointment. Pt positioned for comfort and left with transportation and end of session. Education OT Patient Education: Correct positioning, Exercise program, Home exercise program, Modified ADL techniques, Purpose of tx/functional activities, Safety issues Teaching Recipient: Patient Teaching Methods: Demonstration, Discussion Response to Teaching: Verbalize Understanding, Return Demonstration OT Partner Alliance Manager Goals Partner Alliance Manager Goals Time Frame: Feb 28, 2019 Eating (QC): 6 (met) Oral Hygiene (QC): 6 (met) Toileting Hygiene (QC): 6 Shower/Bathe Self (QC): 5 (met) Upper Body Dressing (QC): 6 Lower Body Dressing (QC): 6 On/Off Footwear (QC): 6 (met) Additional Goals: 1-Demonstrate ADL Tasks, 2-Verbalize Understanding, 3- ImproveStrength/Marcelle 1=Demonstrate adherence to instructed precautions during ADL tasks. 2=Patient will verbalize/demonstrate understanding of assistive devices/modifications for ADL. 3=Patient will improve strength/tolerance for activity to enable patient to perform ADL's. OT Education/Plan Problem List/Assessment Assessment: Decreased Activ Tolerance, Decreased UE Strength, Dependent Transfers, Impaired Funct Balance, Impaired I ADL's, Impaired Self-Care Skills Discharge Recommendations Plan/Recommendations: Continue POC Equpiment Recommendations-D/C: Assistant Field Hockey Coach, Bedside Commode Treatment Plan/Plan of Care Treatment,Training & Education: Yes Patient would benefit from OT for education, treatment and training to promote independence in ADL's, mobility, safety and/or upper extremity function for ADL's. Plan of Care: ADL Retraining, Caregiver Training, Concurrent Therapy, Functional Mobility, Group Exercise/Act as Ind, UE Funct Exercise/Act Treatment Duration: Feb 28, 2019 Frequency: At least 5 of 7 days/Wk (IRF) Estimated Hrs Per Day: 1.5 hours per day Agreement: Yes Rehab Potential: Guarded Time/GCodes Start Time: 07:50 Stop Time: 09:25 Total Time Billed (hr/min): 95 Billed Treatment Time 1, ADL 2 (30), EX 4 (65)= 95 DENNISE GONZALEZ OTR Feb 20, 2019 10:43 POS
--- NOTE | 2019-02-20 11:59 | Physical Therapy Daily Note ---
PT Daily Note-Current Subjective Pt agreeable to PT/OT co tx session. States will be picked up this morning by transportation for Dr james in [place]. Pain Numeric Pain Scale: 0-No Pain Comment: no pain at rest, pain increases with activity but no pain rating provided Appearance Upon arrival into pt's room, pt in bed awake and alert with OT present. At end of session, pt up in w/c being with nsg, pt and transportation present. Mental Status Patient Orientation: Person, Place, Time, Eyes Open, Situation R knee support brace Transfers SCALE: Activities may be completed with or without assistive devices. 0-Hfpifeogzv-mvbixke completes the activity by him/herself with no assistance from a helper. 5-Set-up or Clean-up Assistance-helper sets up or cleans up; patient completes activity. [place] assists only prior to or following the activity. 4-Supervision or Touching Assistance-helper provides verbal cues and/or touching/steadying and/or contact guard assistance as patient completes activity. Assistance may be provided throughout the activity or intermittently. 3-Partial/Moderate Assistance-helper does LESS THAN HALF the effort. [place] lifts, holds or supports trunk or limbs, but provides less than half the effort. 2-Substantial/Maximal Assistance-helper does MORE THAN HALF the effort. [place] lifts or holds trunk or limbs and provides more than half the effort. 4-Rewnnpmzc-ukjizq does ALL the effort. Patient does none of the effort to complete the activity. Or, the assistance of 2 or more helpers is required for the patient to complete the activity. If activity was not attempted, code reason: 7-Patient Refused. 9-Not Applicable-not attempted and the patient did not perform the activity before the current illness, exacerbation or injury. 10-Not Attempted due to Environmental Limitations-(lack of equipment, weather restraints, etc.). 88-Not Attempted due to Medical Conditions or Safety Concerns. Sit to Lying (QC): 3 (x4 reps throughout tx session, occasionally requiring min A with RLE both on and off mat in gym, SBA only in and out of bed) Lying to Sitting/Side of Bed(Q: 3 (x4 reps throughout tx session, occasionally requiring min A with RLE both on and off mat in gym, SBA only in and out of bed) Sit to Stand (QC): 4 added practicing transfers on off toilet riser Weight Bearing Right Lower Extremity: Right Full Weight Bearing Left Lower Extremity: Left Non Weight Bearing WBAT- RIGHT HAND Gait Training Does the Patient Walk?: Yes Walk 10 feet (QC): 4 Walk 50 ft with 2 Turns(QC): 4 Walk 150 ft (QC): 4 Gait Persons Needed: 1 Gait Assistive Device: Walker Platform (platform RUE) slow pace, standing rest breaks, compliant with WB precautions, fatigue and increased pain Exercises Seated Therapy Exercises: Sit to stand (10), Shoulder Abd (10, red tband), Hip flexion (knee ext AAROM), Hamstring Curls (10, friction eliminated), Reaching activity (cones off floor and on plinth in all plance, occasional R foot off floor to increase sitting balance difficulty, fwd flexion stretch x10), Hip abd/add (knee ext, friction eliminated), Tricep (10, red tband) Neuromuscular sitting and standing balance activities with cones and at sink with ADL's Treatments PT/ OT co-treat due to increased physical challenges on this date placed by therapists, requiring the assist of 2 therapists. OT focused on pt's ADL function, balance and UE movements while PT focused on gait/ mobility, LE movements and standing balance. Pt agreeable to co-treat session. Pt completes bed mob with SUP, able to hold onto sweats to lift LLE to EOB. Pt sits EOB with SBA to complete UB washing/ dressing. Pt sit to stand from EOB with FWW and CGA to wash bottom/ kelly area. Pt completes ADLs in bathroom. Pt ambulates with FWW to therapy gym with standing rest break due to pain in LLE. Pt sits in chair, completes round of 3 exercises 3x (UE theraband exercises 10 reps per side focusing on triceps and back, LLE knee bend/ straightening and adduction/ abduction with decreased friction surface, and LLE lifting to clear floor to thread theraband past ankle with use of senior staff consultant). Pt completes with c/o pain in adduction/ abduction, requires rest in chair. Pt sit to stand with CGA, transfers with FWW to EOM to complete functional seated balance while reaching in different planes above and below shoulder and waist height, reaching across midline. Pt able to complete all reaching with good- balance with c/o pain while leaning to L side in L hip. Requires rest break supine on mat 2x during exercise due to pain/ nausea. Pt returns to room with CGA with use of FWW, transfers to w/c to be pushed to [facility] vehicle for appointment. Pt positioned for comfort and left with transportation and end of session. Assessment Current Status: Good Progress PT Short Term Goals Short Term Goals Time Frame: Feb 21, 2019 PT Fpc Goals Fpc Goals PT Fpc Goals Time Frame: Mar 07, 2019 Roll Left & Right (QC): 6 Sit to Lying (QC): 3 (Naima) Lying-Sitting on Side/Bed(QC): 3 (Naima) Sit to Stand (QC): 4 (CGA) Chair/Vxz-jp-Abntk Xfer(QC): 4 (CGA) Toilet Transfer (QC): 6 Car Transfer (QC): 4 (CGA) Does the Patient Walk: Yes Walk 10 feet (QC): 4 (CGA) Walk 50ft with 2 Turns (QC): 4 (CGA) Walk 150 ft (QC): 4 (CGA) Walking 10ft on Uneven Surface: 4 (CGA) 1 Step (curb) (QC): 3 (Naima) 4 Steps (QC): 3 (Naima) 12 Steps (QC): 88 Picking up an Object (QC): 88 Does the Pt use WC or Scooter?: No Type: N/A Type: N/A PT Plan Treatment/Plan Treatment Plan: Continue Plan of Care Treatment Plan: Bed Mobility, Concurrent Therapy, Education, Functional Activity Marcelle, Functional Strength, Group Therapy, Gait, Safety, Therapeutic Exercise, Transfers Treatment Duration: Feb 28, 2019 Frequency: At least 5 of 7 days/Wk (IRF) Estimated Hrs Per Day: 1.5 hours per day Patient and/or Family Agrees t: Yes Safety Risks/Education Patient Education: Gait Training, Transfer Techniques, Reviewed Precautions, Safety Issues Teaching Recipient: Patient Teaching Methods: Demonstration, Discussion Response to Teaching: Verbalize Understanding, Return Demonstration Time/GCodes Time In: 800 Time Out: 925 Total Billed Treatment Time: 85 Total Billed Treatment 1 visit, FA x15 min, EX x25 min, GT x15 min, NM x30 min RAMONITA MULLER DISPLAY CARD WRITER Feb 20, 2019 11:59 POS
--- NOTE | 2019-02-20 12:42 | NUR ---
Pt returned per w/c via [facility]. states that the surgeon took the david out of the leg incisions, left the sutures & said that he would take those out at appt next week. X-rays were taken, & all drsgs were changed there.
[2019-02-20 17:29] VITALS: BP 112/72
--- NOTE | 2019-02-20 18:12 | NUR ---
Pt has appt w his surgeon, Dr. Jose Antonio Cook @ [facility] on Feb 27 @ 10:30.
[2019-02-20] MEDS: MELATONIN 3 MG TABLET PO PRN (20:40)
[2019-02-20] MEDS: PANTOPRAZOLE 40 MG (PROTONIX) TAB PO SCH (20:40)
[2019-02-20] MEDS: LORATADINE (CLARITIN) 10 MG TAB PO SCH (20:40)
[2019-02-20] MEDS: BACLOFEN 10 MG (LIORESAL) TAB PO PRN (22:48)
[2019-02-21] MEDS: BACLOFEN 10 MG (LIORESAL) TAB PO PRN ×2 (05:23→19:55)
[2019-02-21] MEDS: HYDROcodone/APAP 10 MG/325 MG (LORTAB) TAB PO PRN ×3 (05:23→19:53)
[2019-02-21 05:58] VITALS: BP 112/71
[2019-02-21 06:19] LABS: HEMOGLOBIN 8.3 G/DL (13.3-17.7); RED CELL DISTRIBUTION WIDTH 15.6 % (10.0-14.5)
--- NOTE | 2019-02-21 08:59 | Physical Therapy Daily Note ---
PT Daily Note-Current Subjective pt in bed pre-tx agrees to therapy, pt brother in room at this time. This session will be co-treat secondary to pt needing the skill of 2 therapists to maintain high level balance while performing functional activities and to coordinate UE & LE for functional mobility and transfers. Appearance pt on EOB with OT to continues with therapy. All needs met at this time. Mental Status Patient Orientation: Person, Place, Time, Situation Transfers SCALE: Activities may be completed with or without assistive devices. 9-Bonukgbpxm-pgcseqa completes the activity by him/herself with no assistance from a helper. 5-Set-up or Clean-up Assistance-helper sets up or cleans up; patient completes activity. [place] assists only prior to or following the activity. 4-Supervision or Touching Assistance-helper provides verbal cues and/or touching/steadying and/or contact guard assistance as patient completes activity. Assistance may be provided throughout the activity or intermittently. 3-Partial/Moderate Assistance-helper does LESS THAN HALF the effort. [place] lifts, holds or supports trunk or limbs, but provides less than half the effort. 2-Substantial/Maximal Assistance-helper does MORE THAN HALF the effort. [place] lifts or holds trunk or limbs and provides more than half the effort. 7-Aoxuhwzpo-djdywk does ALL the effort. Patient does none of the effort to complete the activity. Or, the assistance of 2 or more helpers is required for the patient to complete the activity. If activity was not attempted, code reason: 7-Patient Refused. 9-Not Applicable-not attempted and the patient did not perform the activity befo re the current illness, exacerbation or injury. 10-Not Attempted due to Environmental Limitations-(lack of equipment, weather re straints, etc.). 88-Not Attempted due to Medical Conditions or Safety Concerns. Roll Left & Right (QC): 4 (SBA) Lying to Sitting/Side of Bed(Q: 4 (SBA) Sit to Stand (QC): 4 (CGA) Chair/Szu-ak-Pvvxv Xfer(QC): 4 Weight Bearing Right Lower Extremity: Right Full Weight Bearing Left Lower Extremity: Left Non Weight Bearing WBAT- RIGHT HAND Gait Training Does the Patient Walk?: Yes Distance: 150'x2 Walk 10 feet (QC): 4 (CGA) Walk 50 ft with 2 Turns(QC): 4 (CGA) Walk 150 ft (QC): 4 (CGA) Gait Assistive Device: Walker Platform pt continues to ambulate with the RLE externally rotated and hopping. Pt has unusual leaning patterns during ambulation this session leaning his head down onto his right shoulder or squatting on the RLE while standing. Wheelchair Training Does the Pt Use a Wheelchair?: No Balance Special Test Comments pt performed standing and rotating to move cones and reaching to challenge balance. pt performed catching and throwing a ball in changing positions to challenge balance. with and without sitting on foam Exercises Seated Therapy Exercises: Hip flexion Seated Reps: 20 Treatments pt performed transfer training, skilled ambulation training, functional LE strengthening exercises, balance training, and education PT assisted with standing balance and sitting balance while OT performed reaching for cones and catching a ball in multiple positions to challenge high level balance. OT assisted with balance & UE placement as PT performed transfers and ambulation. Assessment Current Status: Good Progress pt has no episode of syncope this session. Pt is able to maintain balance with CGA needed and able to perform dual tasking with the balance and speaking. Pt is improving in his distance for ambulation and his tolerance for longer bouts of exercise performed with decreased rest time required. PT Short Term Goals Short Term Goals Time Frame: Feb 21, 2019 PT Shelter Goals Director Diabetes Goals PT Director Diabetes Goals Time Frame: Mar 07, 2019 Roll Left & Right (QC): 6 Sit to Lying (QC): 3 (Naima) Lying-Sitting on Side/Bed(QC): 3 (Naima) Sit to Stand (QC): 4 (CGA) Chair/Vzf-my-Brxey Xfer(QC): 4 (CGA) Toilet Transfer (QC): 6 Car Transfer (QC): 4 (CGA) Does the Patient Walk: Yes Walk 10 feet (QC): 4 (CGA) Walk 50ft with 2 Turns (QC): 4 (CGA) Walk 150 ft (QC): 4 (CGA) Walking 10ft on Uneven Surface: 4 (CGA) 1 Step (curb) (QC): 3 (Naima) 4 Steps (QC): 3 (Naima) 12 Steps (QC): 88 Picking up an Object (QC): 88 Does the Pt use WC or Scooter?: No Type: N/A Type: N/A PT Plan Problem List Problem List: Activity Tolerance, Functional Strength, Safety, Balance, Gait, Transfer, Bed Mobility, ROM Treatment/Plan Treatment Plan: Continue Plan of Care Treatment Plan: Bed Mobility, Concurrent Therapy, Education, Functional Activity Marcelle, Functional Strength, Group Therapy, Gait, Safety, Therapeutic Exercise, Transfers Treatment Duration: Feb 28, 2019 Frequency: At least 5 of 7 days/Wk (IRF) Estimated Hrs Per Day: 1.5 hours per day Patient and/or Family Agrees t: Yes Safety Risks/Education Patient Education: Gait Training, Transfer Techniques, Correct Positioning, Safety Issues Teaching Recipient: Patient Teaching Methods: Demonstration, Discussion Response to Teaching: Return Demonstration, Reinforcement Needed Time/GCodes Time In: 0800 Time Out: 0900 Total Billed Treatment Time: 60 Total Billed Treatment 1 visit 60' minute Co-Treat with OT GT 15' FA 30' EX 15' MAREN PERES PT Feb 21, 2019 08:59 POS
[2019-02-21] MEDS: SENNA W/DOCUSATE (SENOKOT S) TABLET PO SCH ×2 (09:16→19:54)
[2019-02-21] MEDS: ENOXAPARIN 40 MG/0.4 ML (LOVENOX) SYR SC SCH (09:16)
[2019-02-21] MEDS: FAMOTIDINE 20 MG (PEPCID) TABLET PO SCH (09:16)
[2019-02-21] MEDS: POLYETHYLENE GLYCOL 17 GM (MIRALAX) PACK PO SCH ×2 (09:17→19:54)
--- NOTE | 2019-02-21 09:37 | Occupational Ther Daily Note ---
OT Current Status-Daily Note Subjective Pt does not c/o pain on this date, states he slept well and is feeling like he is ready to go home. Pt educated on level of function previous date and safety hazards, pt states agreement but hesitantly as he wishes to return home. Pt agreeable to OT/ PT cotreatment from 8675-8611; co-treat required to work on high level dynamic balance with safety based on pt's NWB status and need for 2 clinicians. OT worked on balance during ADLs and UE movements while PT focused on gait, mobility, standing balance, and LE movements. Pt agreeable for OT individual tx from 4526-6143 to complete ADLs and UE exercises in recliner chair. Mental Status/Objective Patient Orientation: Normal For Age ADL-Treatment Therapy Code Descriptions/Definitions Functional [place] Measure: 0=Not Assessed/NA 4=Minimal Assistance 1=Total Assistance 5=Supervision or Setup 2=Maximal Assistance 6=Modified [place] 3=Moderate Assistance 7=Complete IndependenceSCALE: Activities may be completed with or without assistive devices. 7-Nbvcugaltj-roibtcl completes the activity by him/herself with no assistance from a helper. 5-Set-up or Clean-up Assistance-helper sets up or cleans up; patient completes activity. [place] assists only prior to or following the activity. 4-Supervision or Touching Assistance-helper provides verbal cues and/or touching/steadying and/or contact guard assistance as patient completes activity. Assistance may be provided throughout the activity or intermittently. 3-Partial/Moderate Assistance-helper does LESS THAN HALF the effort. [place] lifts, holds or supports trunk or limbs, but provides less than half the effort. 2-Substantial/Maximal Assistance-helper does MORE THAN HALF the effort. [place] lifts or holds trunk or limbs and provides more than half the effort. 1-Hcrskevio-nuvcrm does ALL the effort. Patient does none of the effort to complete the activity. Or, the assistance of 2 or more helpers is required for the patient to complete the activity. If activity was not attempted, code reason: 7-Patient Refused. 9-Not Applicable-not attempted and the patient did not perform the activity before the current illness, exacerbation or injury. 10-Not Attempted due to Environmental Limitations-(lack of equipment, weather restraints, etc.). 88-Not Attempted due to Medical Conditions or Safety Concerns. Eating (QC): 6 Oral Hygiene (QC): 4 (SUP- balance good on this date.) Upper Body Dressing (QC): 6 (IND) Toileting Hygiene (QC): 4 (SUP in stance.) Toilet Transfer (QC): 4 (SUP- completes with FWW, backs to standard toilet, commode placed on L side of toilet to represent sink/ countertop at home on L side. Pt able to stand>sit and sit>stand with SUP with use of commode on L and grab bar on R side. Pt states standard toilet more comfortable for LLE position and states grab bar may be preferred over commode at home.) Other Treatment Pt agreeable to OT/ PT cotreatment from 7089-7135; co-treat required to work on high level dynamic balance with safety based on pt's NWB status and need for 2 clinicians. OT worked on balance during ADLs and UE movements while PT focused on gait, mobility, standing balance, and LE movements. Pt agreeable for OT individual tx from [id number] to complete ADLs and UE exercises in recliner chair. Pt completes bed mob with SUP. Pt sit to stand with SBA, ambulates to therapy gym to complete standing balance activity crossing midline and reaching in different planes (good balance), dynamic sitting balance with and without wiggle cushion under bottom (good to fair balance). Pt completes reaction activity with ball toss, completes fine motor/ gripping activity while in sit with good success. Pt requires cues for leg positioning, balance, and education for safety at home. Pt completes bending below waist to complete LLE don/ doffing of theraband to represent pant donning. Pt talks throughout bending exercises, completes without closing eyes/ expressing lightheadedness/ nausea. Pt educated on benefits of talking/ deep breathing/ singing through activities. Pt ambulates with SBA to room, sits EOB to complete shirt doff/ donning with washing back and arm pits with IND. Pt completes toileting and oral hygiene with increased IND. Pt returns to recliner chair, completes 10 reps of 5 UE exercises bilaterally to focus on strengthening and endurance. Pt requires min cues for positioning. Pt left in recliner chair, all needs met, call light in reach. Education OT Patient Education: Correct positioning, Energy conservation, Exercise program, Home exercise program, Modified ADL techniques, Purpose of tx/functional activities, Reviewed precautions, Rehab process, Safety issues, Transfer techniques Teaching Recipient: Patient Teaching Methods: Demonstration, Discussion Response to Teaching: Verbalize Understanding, Return Demonstration OT Waistline Joiner Lockstitch Goals Nursing Home Goals Time Frame: Feb 28, 2019 Eating (QC): 6 (met) Oral Hygiene (QC): 6 (met) Toileting Hygiene (QC): 6 Shower/Bathe Self (QC): 5 (met) Upper Body Dressing (QC): 6 (met) Lower Body Dressing (QC): 6 On/Off Footwear (QC): 6 (met) Additional Goals: 1-Demonstrate ADL Tasks, 2-Verbalize Understanding, 3- ImproveStrength/Marcelle 1=Demonstrate adherence to instructed precautions during ADL tasks. 2=Patient will verbalize/demonstrate understanding of assistive devices/modifications for ADL. 3=Patient will improve strength/tolerance for activity to enable patient to perform ADL's. OT Education/Plan Problem List/Assessment Assessment: Decreased Activ Tolerance, Decreased Safety Aware, Impaired I ADL's, Impaired Self-Care Skills Discharge Recommendations Plan/Recommendations: Continue POC Equpiment Recommendations-D/C: Rails on Toilet Treatment Plan/Plan of Care Treatment,Training & Education: Yes Patient would benefit from OT for education, treatment and training to promote independence in ADL's, mobility, safety and/or upper extremity function for ADL's. Plan of Care: ADL Retraining, Caregiver Training, Concurrent Therapy, Functional Mobility, Group Exercise/Act as Ind, UE Funct Exercise/Act Treatment Duration: Feb 28, 2019 Frequency: At least 5 of 7 days/Wk (IRF) Estimated Hrs Per Day: 1.5 hours per day Agreement: Yes Rehab Potential: Guarded Time/GCodes Start Time: 08:00 Stop Time: 09:30 Total Time Billed (hr/min): 90 Billed Treatment Time 1, ADL 2 (30), EX 4 (60)= 90 Pt agreeable to OT/ PT cotreatment from 8565-5792; co-treat required to work on high level dynamic balance with safety based on pt's NWB status and need for 2 clinicians. OT worked on balance during ADLs and UE movements while PT focused on gait, mobility, standing balance, and LE movements. Pt agreeable for OT individual tx from 8016-6910 to complete ADLs and UE exercises in recliner chair. DENNISE GONZALEZ OTR Feb 21, 2019 09:37 POS
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
--- NOTE | 2019-02-21 11:36 | NUR ---
Reviewed weekly Rehab Team Conference Summary with patient. He has a second followup appointment with his orthopaedic surgeon, Dr. Jose Antonio Cook, 02/27/19 at 1030. Patient is in agreement for that a.m. to be his target discharge date departing with family timely for this appointment. DME: Reviewed recommended DME with patient and facilities in service area. Patient indicated his choice agency to be [facility], particularly for the benefit of the umbrella of financial assistance. Will pursue: FWW with right platform. Patient/spouse to pursue grab bars for tub/shower, tub transfer bench, extended shower hose, cartographic designer, bedside commode/framework for toilet. Ramp was discussed prior. Patient has one step into home, patient agrees with therapy team that he can manage this safely and no ramp is needed.
--- NOTE | 2019-02-21 12:51 | NUR ---
"RD ASSESSMENT PMHx: GERD; Hilario's Esophagus; asthma PT INTERACTION: Pt was awake and pleasant during follow-up. Pt states that he has been eating well since last assessment. Note pt avg PO intake of >75% x3d, per chart review. Pt states no recent issues with n/v/c/d since last assessment. Note last BM was 02/19 and pt currently on bowel regimen of miralax BID; senna BID; and colace PRN, per chart review. ABNORMAL NUTRITION-RELATED LAB VALUES: glu 123 (H); bili 1.4 (H); Pro 6.1 (L) Est. kcal needs: 7352-4033 kcal | 20-25 kcal/kg Est. Pro needs: 129-150 g Pro | 1.2-1.4 g Pro/kg PES STATEMENT: Given pt's avg PO intake, no nutrition diagnosis at this time (NO-1.1) INTERVENTION: Continue with current diet order of Regular diet. MONITOR/EVALUATE: PO Intake; Plan of Care; Hydration Status; Weight Status; Lab Values Anjali Brady, MS, RD, LD"
--- NOTE | 2019-02-21 14:20 | Physical Therapy Daily Note ---
PT Daily Note-Current Subjective pt in bed pre-tx agrees to therapy. pt reports unrated pain isn't too bad just laying in bed. Appearance pt in WC with LLE elevated with call light, room phone, tray table in reach with all needs met at this time. Mental Status Patient Orientation: Person, Place, Time, Situation Transfers SCALE: Activities may be completed with or without assistive devices. 1-Ecvwtezyrk-vxrolbk completes the activity by him/herself with no assistance from a helper. 5-Set-up or Clean-up Assistance-helper sets up or cleans up; patient completes activity. [place] assists only prior to or following the activity. 4-Supervision or Touching Assistance-helper provides verbal cues and/or touching/steadying and/or contact guard assistance as patient completes activity. Assistance may be provided throughout the activity or intermittently. 3-Partial/Moderate Assistance-helper does LESS THAN HALF the effort. [place] lifts, holds or supports trunk or limbs, but provides less than half the effort. 2-Substantial/Maximal Assistance-helper does MORE THAN HALF the effort. [place] lifts or holds trunk or limbs and provides more than half the effort. 0-Kmejeokcb-tjegkd does ALL the effort. Patient does none of the effort to complete the activity. Or, the assistance of 2 or more helpers is required for the patient to complete the activity. If activity was not attempted, code reason: 7-Patient Refused. 9-Not Applicable-not attempted and the patient did not perform the activity before the current illness, exacerbation or injury. 10-Not Attempted due to Environmental Limitations-(lack of equipment, weather restraints, etc.). 88-Not Attempted due to Medical Conditions or Safety Concerns. Lying to Sitting/Side of Bed(Q: 4 (SBA) Sit to Stand (QC): 4 (CGA) Weight Bearing Right Lower Extremity: Right Full Weight Bearing Left Lower Extremity: Left Non Weight Bearing WBAT- RIGHT HAND Gait Training Distance: 200' Walk 10 feet (QC): 4 (CGA) Walk 50 ft with 2 Turns(QC): 4 (CGA) Walk 150 ft (QC): 4 (CGA) Gait Assistive Device: Walker Platform pt has difficulty sliding his LLE on the floor in his room but is able to manage on all other floors. Pt required 3 standing rest breaks during ambulation to rest his UE's. Wheelchair Training Does the Pt Use a Wheelchair?: No Exercises Seated Therapy Exercises: Ankle pumps, Hip flexion, Hamstring Curls, Hip abd/add Seated Reps: 30 (15reps 2 sets) Treatments pt performed functional LE strengthening exercise, skilled ambulation training, transfer training, bed mobility training, and education. Assessment Current Status: Good Progress pt kelly increase in ambulation kelly this session. Pt demonstrates slight increase in knee ROM and quad contraction quality. Continues to try to slide left foot on the floor instead of lifting it from the ground. PT Short Term Goals Short Term Goals Time Frame: Feb 21, 2019 PT Long-Term Goals Long-Term Goals PT Foreign Student Adviser Goals Time Frame: Mar 07, 2019 Roll Left & Right (QC): 6 Sit to Lying (QC): 3 (Naima) Lying-Sitting on Side/Bed(QC): 3 (Naima) Sit to Stand (QC): 4 (CGA) Chair/Sfy-sz-Dppqi Xfer(QC): 4 (CGA) Toilet Transfer (QC): 6 Car Transfer (QC): 4 (CGA) Does the Patient Walk: Yes Walk 10 feet (QC): 4 (CGA) Walk 50ft with 2 Turns (QC): 4 (CGA) Walk 150 ft (QC): 4 (CGA) Walking 10ft on Uneven Surface: 4 (CGA) 1 Step (curb) (QC): 3 (Naima) 4 Steps (QC): 3 (Naima) 12 Steps (QC): 88 Picking up an Object (QC): 88 Does the Pt use WC or Scooter?: No Type: N/A Type: N/A PT Plan Problem List Problem List: Activity Tolerance, Functional Strength, Safety, Balance, Gait, Transfer, Bed Mobility, ROM Treatment/Plan Treatment Plan: Continue Plan of Care Treatment Plan: Bed Mobility, Concurrent Therapy, Education, Functional Activity Marcelle, Functional Strength, Group Therapy, Gait, Safety, Therapeutic Exercise, Transfers Treatment Duration: Feb 28, 2019 Frequency: At least 5 of 7 days/Wk (IRF) Estimated Hrs Per Day: 1.5 hours per day Patient and/or Family Agrees t: Yes Safety Risks/Education Patient Education: Gait Training, Transfer Techniques, Correct Positioning, Safety Issues Teaching Recipient: Patient Teaching Methods: Demonstration, Discussion Response to Teaching: Return Demonstration, Reinforcement Needed Time/GCodes Time In: 1300 Time Out: 1330 Total Billed Treatment Time: 30 Total Billed Treatment 1 visit EX 15' GT 15' MAREN PERES PT Feb 21, 2019 14:20 POS
--- NOTE | 2019-02-21 16:20 | NUR ---
Met with patient and spouse Vale to review discharge plan with them together. DME: Planner Scheduler will coordinate W with [employer] platform. Reiterated patient/family responsible to obtain: Grab bars for tub/shower area, tub transfer bench, extended shower hose, relationship advisor, BSC/framework over stool. Vale made a list and she is going to shop through [employer] in preparation for 02/27 discharge. It was learned that patient's assumed insurance, [facility], had approved patient for his admission here 02/13/19. When Clinical Liaison/Torrie called for review on 02/19/19, it was learned that patient's insurance was terminated as of 01/31/19 and that new insurance [employer] [facility] initiated 02/01/19. Torrie and freelance writer working in partnership to advocate for patient's stay to be covered, updated patient/spouse fully and will continue to do so as more is known. Vale indicated that patient likely was admitted to [facility] under old insurance as well because that was reflected on the demographics from his presentation to [facility] ED and transferred with him for trauma intervention. Planner Scheduler will fax updated insurance to [facility] on behalf of patient. Patient requested a day pass for Monday to go to [facility], physician approved. Patient will utilize the hospital [facility] with [employer] platform for outing. Addendum: 02/21/19 at 1652 by JULIETA GALVAN Patient's motor vehicle insurance is [employer]: Policy #[id number] Claim #[id number] Reproductive Endocrinologist: Pia Gale, phone [phone]
[2019-02-21 16:31] VITALS: BP 111/71
[2019-02-21] MEDS: LORATADINE (CLARITIN) 10 MG TAB PO SCH (19:52)
[2019-02-21] MEDS: PANTOPRAZOLE 40 MG (PROTONIX) TAB PO SCH (19:53)
[2019-02-21] MEDS: MELATONIN 3 MG TABLET PO PRN (19:55)
[2019-02-22] MEDS: HYDROcodone/APAP 10 MG/325 MG (LORTAB) TAB PO PRN ×4 (01:52→21:39)
[2019-02-22 05:55] VITALS: BP 120/73
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
--- NOTE | 2019-02-22 09:01 | Occupational Ther Daily Note ---
OT Current Status-Daily Note Subjective Pt seen in bed, awake. Pt agreeable to OT/ PT co-treat; co-treat due to working towards higher level balance/ ADL function requiring the skill of 2 therapists that an aide could not provide. OT focused on ADL abilities and UE movements while PT focused on LB/ gross movements and balance. Pt denies pain, though grimaces with movements intermittently. ADL-Treatment Therapy Code Descriptions/Definitions Functional [place] Measure: 0=Not Assessed/NA 4=Minimal Assistance 1=Total Assistance 5=Supervision or Setup 2=Maximal Assistance 6=Modified [place] 3=Moderate Assistance 7=Complete IndependenceSCALE: Activities may be completed with or without assistive devices. 7-Lfpcqmpihd-pdogpwo completes the activity by him/herself with no assistance from a helper. 5-Set-up or Clean-up Assistance-helper sets up or cleans up; patient completes activity. [place] assists only prior to or following the activity. 4-Supervision or Touching Assistance-helper provides verbal cues and/or touching/steadying and/or contact guard assistance as patient completes activity. Assistance may be provided throughout the activity or intermittently. 3-Partial/Moderate Assistance-helper does LESS THAN HALF the effort. [place] lifts, holds or supports trunk or limbs, but provides less than half the effort. 2-Substantial/Maximal Assistance-helper does MORE THAN HALF the effort. [place] lifts or holds trunk or limbs and provides more than half the effort. 6-Vdcexrvti-bodwby does ALL the effort. Patient does none of the effort to complete the activity. Or, the assistance of 2 or more helpers is required for the patient to complete the activity. If activity was not attempted, code reason: 7-Patient Refused. 9-Not Applicable-not attempted and the patient did not perform the activity before the current illness, exacerbation or injury. 10-Not Attempted due to Environmental Limitations-(lack of equipment, weather restraints, etc.). 88-Not Attempted due to Medical Conditions or Safety Concerns. Eating (QC): 6 Oral Hygiene (QC): 4 (SBA at sink with FWW use.) Shower/Bathe Self (QC): 5 (s/u) Upper Body Dressing (QC): 6 Lower Body Dressing (QC): 4 (Able to thread BUE with lining parts sewer without assist. CGA while in stance to pull up) Toileting Hygiene (QC): 6 (completes bottom hygiene in shower.) on/ off footwear: 6 Other Treatment Pt completes ADLs in room, pt ambulates to tub to complete tub bench transfer with IND. Pt states tub at home is ~3in taller than tub here, able to complete with grimacing but good abilities to problem solve. Pt educated on other bathing options including keeping LLE outside of shower/ bathing on bench sideways and when present. Pt has flat affect on this date until speaking in gym where he begins to talk about preferred topics. Pt complete UE and LE movements/ exercises with 2# weights on B wrists. Pt questions why he is still at [facility] and states his abilities and financial pressures; pt educated on [facility] process and safety needed at home. Pt returns to room, sits in w/c with pillows and leg rests to comfort. Pt again has flat affect, states no other needs, call light in reach. 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 2=Patient will verbalize/demonstrate understanding of assistive devices/modifications for ADL. 3=Patient will improve strength/tolerance for activity to enable patient to perform ADL's. OT Education/Plan Problem List/Assessment Assessment: Decreased Activ Tolerance, Impaired Funct Balance, Impaired I ADL's Discharge Recommendations Plan/Recommendations: Continue POC Equpiment Recommendations-D/C: Extended Bath Bench, Extended Shower Sprayer, Household Coordinator, Rails on Toilet Treatment Plan/Plan of Care Treatment,Training & Education: Yes Patient would benefit from OT for education, treatment and training to promote independence in ADL's, mobility, safety and/or upper extremity function for ADL's. Plan of Care: ADL Retraining, Caregiver Training, Concurrent Therapy, Functional Mobility, Group Exercise/Act as Ind, UE Funct Exercise/Act Treatment Duration: Feb 28, 2019 Frequency: At least 5 of 7 days/Wk (IRF) Estimated Hrs Per Day: 1.5 hours per day Agreement: Yes Rehab Potential: Guarded Time/GCodes Start Time: 08:00 Stop Time: 09:00 Total Time Billed (hr/min): 60 Billed Treatment Time 1, ADL 3 (45) EX (15)= 60 OT/ PT co-treat; co-treat due to working towards higher level balance/ ADL function requiring the skill of 2 therapists that an aide could not provide. OT focused on ADL abilities and UE movements while PT focused on LB/ gross movements and balance. DENNISE GONZALEZ OTR Feb 22, 2019 09:01 POS
[2019-02-22] MEDS: SENNA W/DOCUSATE (SENOKOT S) TABLET PO SCH ×2 (09:10→20:36)
[2019-02-22] MEDS: FAMOTIDINE 20 MG (PEPCID) TABLET PO SCH (09:10)
[2019-02-22] MEDS: ENOXAPARIN 40 MG/0.4 ML (LOVENOX) SYR SC SCH (09:11)
[2019-02-22] MEDS: IRON SUCROSE 200 MG/10 ML (VENOFER) VIAL IV SCH (09:38)
[2019-02-22] MEDS: POLYETHYLENE GLYCOL 17 GM (MIRALAX) PACK PO SCH ×2 (10:00→20:36)
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
--- NOTE | 2019-02-22 11:39 | Occupational Ther Daily Note ---
OT Current Status-Daily Note Subjective Pt seen in bed, awake. Pt states no pain, agreeable to OT tx session. Given options, pt states he would like to continue working on tub transfers. ADL-Treatment Therapy Code Descriptions/Definitions Functional [place] Measure: 0=Not Assessed/NA 4=Minimal Assistance 1=Total Assistance 5=Supervision or Setup 2=Maximal Assistance 6=Modified [place]vin 3=Moderate Assistance 7=Complete IndependenceSCALE: Activities may be completed with or without assistive devices. 5-Synhkwihpx-xxhcwwh completes the activity by him/herself with no assistance from a helper. 5-Set-up or Clean-up Assistance-helper sets up or cleans up; patient completes activity. [place] assists only prior to or following the activity. 4-Supervision or Touching Assistance-helper provides verbal cues and/or touching/steadying and/or contact guard assistance as patient completes activity. Assistance may be provided throughout the activity or intermittently. 3-Partial/Moderate Assistance-helper does LESS THAN HALF the effort. [place] lifts, holds or supports trunk or limbs, but provides less than half the effort. 2-Substantial/Maximal Assistance-helper does MORE THAN HALF the effort. [place] lifts or holds trunk or limbs and provides more than half the effort. 9-Nubozorbd-ldbubx does ALL the effort. Patient does none of the effort to complete the activity. Or, the assistance of 2 or more helpers is required for the patient to complete the activity. If activity was not attempted, code reason: 7-Patient Refused. 9-Not Applicable-not attempted and the patient did not perform the activity before the current illness, exacerbation or injury. 10-Not Attempted due to Environmental Limitations-(lack of equipment, weather restraints, etc.). 88-Not Attempted due to Medical Conditions or Safety Concerns. Eating (QC): 6 Other Treatment Pt completes bed mob with IND. Sit to stand with SBA, ambulates with FWW and platform to tub shower, completes tub transfer bench 2x with increased LLE clearance from edge of tub for practice at home. Pt completes with SUP. Pt states they plan to place 2 grab bars within the shower, placement for grab bars discussed. Pt sit to stand and returns to recliner chair, completes leaning side/ side with pain noted leaning to L side to represent leaning during toilet hygiene. Pt completes LLE raises to practice for pant donning with min A for clearance. Pt left in recliner chair, legs elevated, call light within reach, all needs met. Education OT Patient Education: Correct positioning, Exercise program, Home exercise program, Modified ADL techniques, Transfer techniques, Use of adapted equipment Teaching Recipient: Patient Teaching Methods: Demonstration, Discussion Response to Teaching: Verbalize Understanding, Return Demonstration OT Halfway Goals Halfway Goals Time Frame: Feb 28, 2019 Eating (QC): 6 (met) Oral Hygiene (QC): 6 (met) Toileting Hygiene (QC): 6 Shower/Bathe Self (QC): 5 (met) Upper Body Dressing (QC): 6 (met) Lower Body Dressing (QC): 6 On/Off Footwear (QC): 6 (met) Additional Goals: 1-Demonstrate ADL Tasks, 2-Verbalize Understanding, 3- ImproveStrength/Marcelle 1=Demonstrate adherence to instructed precautions during ADL tasks. 2=Patient will verbalize/demonstrate understanding of assistive devices/modifications for ADL. 3=Patient will improve strength/tolerance for activity to enable patient to perform ADL's. OT Education/Plan Problem List/Assessment Assessment: Decreased Activ Tolerance, Impaired Funct Balance, Impaired I ADL' s, Impaired Self-Care Skills Discharge Recommendations Plan/Recommendations: Continue POC Equpiment Recommendations-D/C: Extended Bath Bench Treatment Plan/Plan of Care Treatment,Training & Education: Yes Patient would benefit from OT for education, treatment and training to promote independence in ADL's, mobility, safety and/or upper extremity function for ADL's. Plan of Care: ADL Retraining, Caregiver Training, Concurrent Therapy, Functional Mobility, Group Exercise/Act as Ind, UE Funct Exercise/Act Treatment Duration: Feb 28, 2019 Frequency: At least 5 of 7 days/Wk (IRF) Estimated Hrs Per Day: 1.5 hours per day Agreement: Yes Rehab Potential: Guarded Time/GCodes Start Time: 11:00 Stop Time: 11:30 Total Time Billed (hr/min): 30 Billed Treatment Time 1, FA (15), EX (15)= 30 DENNISE GONZALEZ OTR Feb 22, 2019 11:39 POS
--- NOTE | 2019-02-22 14:06 | Speech Therapy Daily Note ---
Speech Daily Progress Note Subjective Date Seen by Provider: Feb 22, 2019 Time Seen by Provider: 00:30 Patient was resting in his bed working on a "[employer]" notebook. Objective Patient completed memory tasks at 90% with minimal cues. Assessment Assessment Current Status: Good Progress Treatment Plan Continue Plan of Care Speech Short Term Goals Short Term Goals Short Term Goals 1) The patient will complete memory tasks related to his daily needs at 90% or greater with minimal cues. 2) The patient will complete problem solving tasks related to his daily needs at 90% or greater with minimal cues. 3) The patient will complete safety awareness tasks related to his daily needs at 90% or greater with minimal cues. 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 Speech-Plan Patient/Family Goals Patient/Family Goals: Patient plans on returning home with his and son next week. Treatment Plan Speech Therapy Treatment Plan: Continue Plan of Care Patient has made good progress as a result of skilled therapies. Treatment Duration: Feb 27, 2019 Frequency: 2 times per week Estimated Hrs Per Day: .5 hour per day Rehab Potential: Guarded Barriers to Learning: Patient has mild cognitive deficits, however these have mostly resolved Pt/Family Agrees to Plan: Yes Safety Risks/Education Teaching Recipient: Patient Teaching Methods: Demonstration, Discussion Response to Teaching: Verbalize Understanding, Return Demonstration Education Topics Provided: Continued safety within his room. Time Speech Therapy Time In: 09:30 Speech Therapy Time Out: 10:00 Total Billed Time: 30 Billed Treatment Time 1MEAGHAN [address] ST Feb 22, 2019 14:06 POS
--- NOTE | 2019-02-22 14:25 | Physical Therapy Daily Note ---
PT Daily Note-Current Subjective pt in recliner pre-tx agrees to therapy and has 6/10 pain in the LLE Appearance pt in bed post-tx with call light, room phone, tray table, and all needs met at this time. Mental Status Patient Orientation: Person, Place, Time, Situation Transfers SCALE: Activities may be completed with or without assistive devices. 0-Ydmtwqohad-sbdzbft completes the activity by him/herself with no assistance from a helper. 5-Set-up or Clean-up Assistance-helper sets up or cleans up; patient completes activity. [place] assists only prior to or following the activity. 4-Supervision or Touching Assistance-helper provides verbal cues and/or touching/steadying and/or contact guard assistance as patient completes activity. Assistance may be provided throughout the activity or intermittently. 3-Partial/Moderate Assistance-helper does LESS THAN HALF the effort. [place] lifts, holds or supports trunk or limbs, but provides less than half the effort. 2-Substantial/Maximal Assistance-helper does MORE THAN HALF the effort. [place] lifts or holds trunk or limbs and provides more than half the effort. 3-Xjnbvtmiy-bbpjcs does ALL the effort. Patient does none of the effort to complete the activity. Or, the assistance of 2 or more helpers is required for the patient to complete the activity. If activity was not attempted, code reason: 7-Patient Refused. 9-Not Applicable-not attempted and the patient did not perform the activity before the current illness, exacerbation or injury. 10-Not Attempted due to Environmental Limitations-(lack of equipment, weather restraints, etc.). 88-Not Attempted due to Medical Conditions or Safety Concerns. Sit to Lying (QC): 5 Sit to Stand (QC): 4 (SBA) Chair/Kqx-uj-Yclxn Xfer(QC): 4 (CGA) Weight Bearing Right Lower Extremity: Right Full Weight Bearing Left Lower Extremity: Left Non Weight Bearing WBAT- RIGHT HAND Exercises Seated Therapy Exercises: Hamstring Curls, Hip abd/add Seated Reps: 20 (10reps 2 sets) Treatments pt performed functional LE strengthening, bed mobility training, transfer training, and education. Assessment Current Status: Good Progress pt requires decreased assistance for transfers and continues to not have syncopial episodes PT Short Term Goals Short Term Goals Time Frame: Feb 21, 2019 PT Organic Preparation Analyst Goals Jail Goals PT Jail Goals Time Frame: Mar 07, 2019 Roll Left & Right (QC): 6 Sit to Lying (QC): 3 (Naima) Lying-Sitting on Side/Bed(QC): 3 (Naima) Sit to Stand (QC): 4 (CGA) Chair/Szd-td-Ttpno Xfer(QC): 4 (CGA) Toilet Transfer (QC): 6 Car Transfer (QC): 4 (CGA) Does the Patient Walk: Yes Walk 10 feet (QC): 4 (CGA) Walk 50ft with 2 Turns (QC): 4 (CGA) Walk 150 ft (QC): 4 (CGA) Walking 10ft on Uneven Surface: 4 (CGA) 1 Step (curb) (QC): 3 (Naima) 4 Steps (QC): 3 (Naima) 12 Steps (QC): 88 Picking up an Object (QC): 88 Does the Pt use WC or Scooter?: No Type: N/A Type: N/A PT Plan Problem List Problem List: Activity Tolerance, Functional Strength, Safety, Balance, Gait, Transfer, Bed Mobility, ROM Treatment/Plan Treatment Plan: Continue Plan of Care Treatment Plan: Bed Mobility, Concurrent Therapy, Education, Functional Activity Marcelle, Functional Strength, Group Therapy, Gait, Safety, Therapeutic Exercise, Transfers Treatment Duration: Feb 28, 2019 Frequency: At least 5 of 7 days/Wk (IRF) Estimated Hrs Per Day: 1.5 hours per day Patient and/or Family Agrees t: Yes Safety Risks/Education Patient Education: Gait Training, Transfer Techniques, Correct Positioning, Safety Issues Teaching Recipient: Patient Teaching Methods: Demonstration, Discussion Response to Teaching: Return Demonstration, Reinforcement Needed Time/GCodes Time In: 1245 Time Out: 1300 Total Billed Treatment Time: 15 Total Billed Treatment 1 visit EX MAREN AUGUSTIN PT Feb 22, 2019 14:25 POS
[2019-02-22 16:28] VITALS: BP 113/75
[2019-02-22] MEDS: BACLOFEN 10 MG (LIORESAL) TAB PO PRN (18:26)
[2019-02-22] MEDS: LORATADINE (CLARITIN) 10 MG TAB PO SCH (20:36)
[2019-02-22] MEDS: PANTOPRAZOLE 40 MG (PROTONIX) TAB PO SCH (20:36)
[2019-02-22] MEDS: MELATONIN 3 MG TABLET PO PRN (21:39)
[2019-02-23] MEDS: HYDROcodone/APAP 10 MG/325 MG (LORTAB) TAB PO PRN ×4 (01:56→20:20)
[2019-02-23 06:00] VITALS: BP 117/74
--- NOTE | 2019-02-23 09:00 | NUR ---
Patient and Patient requests to visit with Pastoral Care. Explained will call and leave message. Weekend hours for pastoral care may be different than weekday hours. Patient voiced understanding. Will continue to monitor.
[2019-02-23] MEDS: SENNA W/DOCUSATE (SENOKOT S) TABLET PO SCH ×2 (09:10→20:20)
[2019-02-23] MEDS: FAMOTIDINE 20 MG (PEPCID) TABLET PO SCH (09:11)
[2019-02-23] MEDS: ENOXAPARIN 40 MG/0.4 ML (LOVENOX) SYR SC SCH (09:11)
[2019-02-23] MEDS: POLYETHYLENE GLYCOL 17 GM (MIRALAX) PACK PO SCH ×2 (09:18→20:21)
--- NOTE | 2019-02-23 12:06 | Physical Therapy Daily Note ---
PT Daily Note-Current Subjective Pt agreeable to PT session. States he didn't have a very good night last night. C/O pain and extreme discomfort down LLE upon standing from EOB. States he has not been up out of bed since last night and just now getting up with therapy at 1130am. Pain Numeric Pain Scale: 6 Comment: LLE and R knee Appearance Pt in bed upon arrival, using urinal, donned shorts. At end of session, pt sitting up in recliner with lunch tray, call light and phone within reach, CIGARETTE PACKAGE EXAMINER present Mental Status Patient Orientation: Person, Place, Time, Eyes Open, Situation Transfers SCALE: Activities may be completed with or without assistive devices. 3-Cuprpdorcf-koaxiyw completes the activity by him/herself with no assistance from a helper. 5-Set-up or Clean-up Assistance-helper sets up or cleans up; patient completes activity. [place] assists only prior to or following the activity. 4-Supervision or Touching Assistance-helper provides verbal cues and/or touching/steadying and/or contact guard assistance as patient completes activity. Assistance may be provided throughout the activity or intermittently. 3-Partial/Moderate Assistance-helper does LESS THAN HALF the effort. [place] lifts, holds or supports trunk or limbs, but provides less than half the effort. 2-Substantial/Maximal Assistance-helper does MORE THAN HALF the effort. [place] lifts or holds trunk or limbs and provides more than half the effort. 5-Wrxcykbpv-ahuosu does ALL the effort. Patient does none of the effort to complete the activity. Or, the assistance of 2 or more helpers is required for the patient to complete the activity. If activity was not attempted, code reason: 7-Patient Refused. 9-Not Applicable-not attempted and the patient did not perform the activity before the current illness, exacerbation or injury. 10-Not Attempted due to Environmental Limitations-(lack of equipment, weather restraints, etc.). 88-Not Attempted due to Medical Conditions or Safety Concerns. Roll Left & Right (QC): 6 Sit to Lying (QC): 6 Sit to Stand (QC): 6 Chair/Oys-ia-Jbmwp Xfer(QC): 5 Weight Bearing Right Lower Extremity: Right Full Weight Bearing Left Lower Extremity: Left Non Weight Bearing WBAT- RIGHT HAND Gait Training Does the Patient Walk?: Yes Distance: 200 Walk 10 feet (QC): 4 Walk 50 ft with 2 Turns(QC): 4 Walk 150 ft (QC): 4 Gait Persons Needed: 1 Gait Assistive Device: Walker Platform Right Exercises Seated Therapy Exercises: Sit to stand (5), Hip flexion (with knee extended, physical A with LLE), Hamstring Curls (20), Hip abd/add (20) Treatments education, safety, bed mobility, transfers, gait, strength, balance, functional mobility, activity tolerance Assessment Current Status: Good Progress PT Short Term Goals Short Term Goals Time Frame: Feb 21, 2019 PT Armored Machine Operator Goals Armored Machine Operator Goals PT Armored Machine Operator Goals Time Frame: Mar 07, 2019 Roll Left & Right (QC): 6 Sit to Lying (QC): 3 (Naima) Lying-Sitting on Side/Bed(QC): 3 (Naima) Sit to Stand (QC): 4 (CGA) Chair/Zzh-xk-Ytwmz Xfer(QC): 4 (CGA) Toilet Transfer (QC): 6 Car Transfer (QC): 4 (CGA) Does the Patient Walk: Yes Walk 10 feet (QC): 4 (CGA) Walk 50ft with 2 Turns (QC): 4 (CGA) Walk 150 ft (QC): 4 (CGA) Walking 10ft on Uneven Surface: 4 (CGA) 1 Step (curb) (QC): 3 (Naima) 4 Steps (QC): 3 (Naima) 12 Steps (QC): 88 Picking up an Object (QC): 88 Does the Pt use WC or Scooter?: No Type: N/A Type: N/A PT Plan Treatment/Plan Treatment Plan: Continue Plan of Care Treatment Plan: Bed Mobility, Concurrent Therapy, Education, Functional Activity Marcelle, Functional Strength, Group Therapy, Gait, Safety, Therapeutic Exercise, Transfers Treatment Duration: Feb 28, 2019 Frequency: At least 5 of 7 days/Wk (IRF) Estimated Hrs Per Day: 1.5 hours per day Patient and/or Family Agrees t: Yes Safety Risks/Education Patient Education: Gait Training, Transfer Techniques, Reviewed Precautions, Safety Issues Teaching Recipient: Patient Teaching Methods: Discussion Response to Teaching: Verbalize Understanding Time/GCodes Time In: 1121 Time Out: 1153 Total Billed Treatment Time: 32 Total Billed Treatment 1 visit, GT x15, EX x17 RAMONITA MULLER WOOL CLASSER Feb 23, 2019 12:06 POS
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
[2019-02-23] MEDS: BACLOFEN 10 MG (LIORESAL) TAB PO PRN (14:26)
[2019-02-23 16:12] VITALS: BP 111/68
[2019-02-23 17:46] VITALS: BP 112/72
[2019-02-23] MEDS: LORATADINE (CLARITIN) 10 MG TAB PO SCH (20:19)
[2019-02-23] MEDS: PANTOPRAZOLE 40 MG (PROTONIX) TAB PO SCH (20:19)
[2019-02-23] MEDS: MELATONIN 3 MG TABLET PO PRN (20:20)
[2019-02-24] MEDS: HYDROcodone/APAP 10 MG/325 MG (LORTAB) TAB PO PRN ×5 (02:49→21:45)
[2019-02-24 05:50] VITALS: BP 124/77
[2019-02-24] MEDS: ENOXAPARIN 40 MG/0.4 ML (LOVENOX) SYR SC SCH (08:29)
[2019-02-24] MEDS: FAMOTIDINE 20 MG (PEPCID) TABLET PO SCH (08:29)
--- NOTE | 2019-02-24 09:00 | NUR ---
Patient off floor with at this time. doctor aware and day pass signed and on chart.
[2019-02-24] MEDS: POLYETHYLENE GLYCOL 17 GM (MIRALAX) PACK PO SCH ×2 (09:02→21:31)
[2019-02-24] MEDS: SENNA W/DOCUSATE (SENOKOT S) TABLET PO SCH ×2 (09:02→21:31)
--- NOTE | 2019-02-24 11:30 | NUR ---
Patient returned to room at this time. complained of pain and discomfort. pain med given
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
[2019-02-24] MEDS: BACLOFEN 10 MG (LIORESAL) TAB PO PRN (13:18)
[2019-02-24 17:15] VITALS: BP 119/67
[2019-02-24] MEDS: MELATONIN 3 MG TABLET PO PRN (21:30)
[2019-02-24] MEDS: PANTOPRAZOLE 40 MG (PROTONIX) TAB PO SCH (21:31)
[2019-02-24] MEDS: LORATADINE (CLARITIN) 10 MG TAB PO SCH (21:31)
[2019-02-25] MEDS: HYDROcodone/APAP 10 MG/325 MG (LORTAB) TAB PO PRN ×4 (04:40→18:40)
[2019-02-25 05:16] LABS: BASOPHILS % (AUTO) 1 % (0-10); EOSINOPHILS # (AUTO) 0.1 10^3/uL (0.0-0.3); EOSINOPHILS % (AUTO) 1 % (0-10); HEMATOCRIT 32 % (40-54); HEMOGLOBIN 9.9 G/DL (13.3-17.7); LYMPHOCYTES # (AUTO) 1.5 X 10^3 (1.0-4.0); LYMPHOCYTES % (AUTO) 29 % (12-44); MEAN CORPUSCULAR HEMOGLOBIN 30 PG (25-34); MEAN CORPUSCULAR HGB CONC 31 G/DL (32-36); MEAN CORPUSCULAR VOLUME 97 FL (80-99); MONOCYTES # (AUTO) 0.6 X 10^3 (0.0-1.0); MONOCYTES % (AUTO) 11 % (0-12); NEUTROPHILS % (AUTO) 58 % (42-75); PLATELET COUNT 533 10^3/uL (130-400); RED CELL DISTRIBUTION WIDTH 15.7 % (10.0-14.5); WHITE BLOOD COUNT 5.2 10^3/uL (4.3-11.0)
[2019-02-25 05:37] LABS: ALANINE AMINOTRANSFERASE 44 U/L (0-55); ALBUMIN 3.6 GM/DL (3.2-4.5); ALKALINE PHOSPHATASE 104 U/L (40-136); BUN/CREATININE RATIO 18; CALCIUM 9.1 MG/DL (8.5-10.1); CARBON DIOXIDE 24 MMOL/L (21-32); CHLORIDE 106 MMOL/L (98-107); CREATININE SERUM 0.82 MG/DL (0.60-1.30); GFR ESTIMATED > 60; GLUCOSE 95 MG/DL (70-105); POTASSIUM 4.2 MMOL/L (3.6-5.0); SODIUM 140 MMOL/L (135-145); TOTAL PROTEIN 6.3 GM/DL (6.4-8.2)
[2019-02-25 05:42] VITALS: BP 119/79
--- NOTE | 2019-02-25 08:00 | NUR ---
STATES ADEQUATE PAIN RELIEF WITH PAIN MEDICATION. DRESSINGS D/I. AT BEDSIDE.
--- NOTE | 2019-02-25 08:58 | Physical Therapy Daily Note ---
PT Daily Note-Current Subjective pt in bed pre-tx agrees to therapy and reports pain of 6/10 in the LLE. RN notified of pain. Pt's and brother present for duration of sessionThis session will be co-tx with OT this session secondary to pt's need for 2 skilled therapist to maintain and challenge pt's balance as well the need to coordinate UE and LE for functional activities. Appearance pt sitting EOB with OT to finish therapy. All needs met at this time. Mental Status Patient Orientation: Person, Place, Time, Situation Transfers SCALE: Activities may be completed with or without assistive devices. 5-Hxyblobfmr-qnasnbd completes the activity by him/herself with no assistance from a helper. 5-Set-up or Clean-up Assistance-helper sets up or cleans up; patient completes activity. [place] assists only prior to or following the activity. 4-Supervision or Touching Assistance-helper provides verbal cues and/or touching/steadying and/or contact guard assistance as patient completes activity. Assistance may be provided throughout the activity or intermittently. 3-Partial/Moderate Assistance-helper does LESS THAN HALF the effort. [place] lifts, holds or supports trunk or limbs, but provides less than half the effort. 2-Substantial/Maximal Assistance-helper does MORE THAN HALF the effort. [place] lifts or holds trunk or limbs and provides more than half the effort. 4-Hpjevvvna-kxekvv does ALL the effort. Patient does none of the effort to complete the activity. Or, the assistance of 2 or more helpers is required for the patient to complete the activity. If activity was not attempted, code reason: 7-Patient Refused. 9-Not Applicable-not attempted and the patient did not perform the activity before the current illness, exacerbation or injury. 10-Not Attempted due to Environmental Limitations-(lack of equipment, weather restraints, etc.). 88-Not Attempted due to Medical Conditions or Safety Concerns. Roll Left & Right (QC): 6 Sit to Lying (QC): 6 Lying to Sitting/Side of Bed(Q: 6 Sit to Stand (QC): 5 Chair/Giu-tk-Xrbae Xfer(QC): 4 (SBA) Toilet Transfer (QC): 4 (SBA) Weight Bearing Right Lower Extremity: Right Full Weight Bearing Left Lower Extremity: Left Non Weight Bearing WBAT- RIGHT HAND Gait Training Does the Patient Walk?: Yes Distance: 100'x2, 200' Walk 10 feet (QC): 5 Walk 50 ft with 2 Turns(QC): 5 Walk 150 ft (QC): 4 (SA) Gait Assistive Device: Walker Platform pt continues to verbally maintain NWB on the LLE by hoping with the RLE turned out and adducted for balance.. Pt continues to have fatigue in B/L UE for ambulating at this time. Wheelchair Training Does the Pt Use a Wheelchair?: No Stair Training Stair Training: Handrails/: uses walker #of Steps: 1 1 Step (curb) (QC): 4 (CGA) 4 Steps (QC): 88 12 Steps (QC): 88 (88) Stairs: Pattern: Hops pt educated on proper technique to maneuver step as well as controlling LLE to keep from hitting the step. ( L foot casted in a bit of PF and pt. does not fully hip hike to bring LLE into clearance of step as he ascends and required skilled instruction to complete this task efficiently which was improved with 2nd attempt) pt reports he is able to put FWW up onto step at home to move into house so this is practiced at this time. Exercises Seated Therapy Exercises: Hamstring Curls (AROM) Seated Reps: 10 Treatments pt performed balance training with OT passing balls and reaching for cones while PT assisted with maintaining balance both on and off of Aerex foam. OT assisted with UE placement while PT trained pt on steps, ambulation, and transfers. Assessment Current Status: Good Progress pt continues to self limit LLE AROM during exercises but is able to get 20-30 extra degress of L knee flexion prior to standing. Pt was CGA for step which pt reports is all he will have to do to get into his house. Pt has some minor LOB while playing catch with ball to the sides while standing on Aerex and requires Naima to recover while maintaining NWB on LLE. Pt continues with no syncopal episodes this session. Pt reports multiple times that he is ready to go home today and wants to leave now. PT Short Term Goals Short Term Goals Time Frame: Feb 21, 2019 PT Credit Analysis Manager Goals Credit Analysis Manager Goals PT Usp Goals Time Frame: Mar 07, 2019 Roll Left & Right (QC): 6 Sit to Lying (QC): 3 (Naima) Lying-Sitting on Side/Bed(QC): 3 (Naima) Sit to Stand (QC): 4 (CGA) Chair/Zee-yt-Mmnna Xfer(QC): 4 (CGA) Toilet Transfer (QC): 6 Car Transfer (QC): 4 (CGA) Does the Patient Walk: Yes Walk 10 feet (QC): 4 (CGA) Walk 50ft with 2 Turns (QC): 4 (CGA) Walk 150 ft (QC): 4 (CGA) Walking 10ft on Uneven Surface: 4 (CGA) 1 Step (curb) (QC): 3 (Naima) 4 Steps (QC): 3 (Naima) 12 Steps (QC): 88 Picking up an Object (QC): 88 Does the Pt use WC or Scooter?: No Type: N/A Type: N/A PT Plan Problem List Problem List: Activity Tolerance, Functional Strength, Safety, Balance, Gait, Transfer, Bed Mobility, ROM Treatment/Plan Treatment Plan: Continue Plan of Care Treatment Plan: Bed Mobility, Concurrent Therapy, Education, Functional Activity Marcelle, Functional Strength, Group Therapy, Gait, Safety, Therapeutic Exercise, Transfers Treatment Duration: Feb 28, 2019 Frequency: At least 5 of 7 days/Wk (IRF) Estimated Hrs Per Day: 1.5 hours per day Patient and/or Family Agrees t: Yes Safety Risks/Education Patient Education: Gait Training, Transfer Techniques, Steps, Correct Positioning, Safety Issues Teaching Recipient: Patient Teaching Methods: Demonstration, Discussion Response to Teaching: Return Demonstration, Reinforcement Needed Time/GCodes Time In: 0800 Time Out: 0900 Total Billed Treatment Time: 60 Total Billed Treatment 60' Co-tx with OT. 1 visit 30' GT 30' FA ROSS GUPTA SHORT RANGE AIR DEFENSE ARTILLERY Feb 25, 2019 08:58 POS
--- NOTE | 2019-02-25 09:19 | Occupational Ther Daily Note ---
OT Current Status-Daily Note Subjective Pt alert and awake, willing to participate with OT/PT co-treatment this date due to pt's NWB status, requiring the skill of two therapists to address high level dynamic standing balance tasks. Pt complaining of mild pain this date. ADL-Treatment Therapy Code Descriptions/Definitions Functional [place] Measure: 0=Not Assessed/NA 4=Minimal Assistance 1=Total Assistance 5=Supervision or Setup 2=Maximal Assistance 6=Modified [place] 3=Moderate Assistance 7=Complete IndependenceSCALE: Activities may be completed with or without assistive devices. 0-Wpwejcspef-xfqqvfw completes the activity by him/herself with no assistance from a helper. 5-Set-up or Clean-up Assistance-helper sets up or cleans up; patient completes activity. [place] assists only prior to or following the activity. 4-Supervision or Touching Assistance-helper provides verbal cues and/or touching/steadying and/or contact guard assistance as patient completes activity. Assistance may be provided throughout the activity or intermittently. 3-Partial/Moderate Assistance-helper does LESS THAN HALF the effort. [place] lifts, holds or supports trunk or limbs, but provides less than half the effort. 2-Substantial/Maximal Assistance-helper does MORE THAN HALF the effort. [place] lifts or holds trunk or limbs and provides more than half the effort. 7-Ixqdhgvwm-upvgaj does ALL the effort. Patient does none of the effort to complete the activity. Or, the assistance of 2 or more helpers is required for the patient to complete the activity. If activity was not attempted, code reason: 7-Patient Refused. 9-Not Applicable-not attempted and the patient did not perform the activity before the current illness, exacerbation or injury. 10-Not Attempted due to Environmental Limitations-(lack of equipment, weather restraints, etc.). 88-Not Attempted due to Medical Conditions or Safety Concerns. Upper Body Dressing (QC): 5 (SBA while seated EOB. ) Lower Body Dressing (QC): 5 (SBA while pt performed task from bed level, using party plan salesperson to assist with affected LLE. ) Toileting Hygiene (QC): 4 (CGA for transfer and while standing to manage clothing. ) Toilet Transfer (QC): 4 (CGA for transfer. ) Other Treatment Pt participated in 60 minutes of co-treatment with PT to address graded difficulty with dynamic standing balance tasks. Due to pt's NWB status, co- treatment with the skill of two therapists was required. Pt progressed from seated dynamic balance activities, to standing balance while maintaining NWB through LLE. Pt tolerated progression well, and required verbal cues to maintain NWB through LLE. Pt progressed to maintaining standing balance on foam pad, to increase pt's overall challenge while maintaining balance and NWB status. Pt with three minimal losses of balance, and required Jennifer from PT to regain upright position. Pt participated in functional mobility tasks throughout his environment, including navigating steps as pt plans on returning to home tomorrow's date. Pt agreed to participate in 30 minutes of self care assessment, for QC. Pt performed total body undressing/re-dressing with SBA/CGA, and verbal cues for safety techniques and use of AE. OT discussed options in their home for completing dressing, toileting, and bathing tasks with the use of AE and/or compensatory techniques. Education OT Patient Education: Correct positioning, Energy conservation, Exercise program, Modified ADL techniques, Purpose of tx/functional activities, Transfer techniques Teaching Recipient: Patient, Family Teaching Methods: Demonstration, Discussion Response to Teaching: Verbalize Understanding, Return Demonstration OT Short Term Goals Short Term Goals Toileting hygiene: 4 (CGA for toileting transfer, hygiene, and clothing management. ) Upper body dressin (SBA for safety.) Lower body dressin (SBA from bed level. ) Putting on/taking off footwear: 5 (SBA for doffing/donning sock. ) OT Pet Care Assistant Goals Senior Living Goals Time Frame: Feb 28, 2019 Eating (QC): 6 (met) Oral Hygiene (QC): 6 (met) Toileting Hygiene (QC): 6 Shower/Bathe Self (QC): 5 (met) Upper Body Dressing (QC): 6 (met) Lower Body Dressing (QC): 6 On/Off Footwear (QC): 6 (met) Additional Goals: 1-Demonstrate ADL Tasks, 2-Verbalize Understanding, 3-ImproveStrength/Marcelle 1=Demonstrate adherence to instructed precautions during ADL tasks. 2=Patient will verbalize/demonstrate understanding of assistive devices/modifications for ADL. 3=Patient will improve strength/tolerance for activity to enable patient to perform ADL's. OT Education/Plan Discharge Recommendations Plan/Recommendations: Continue POC Treatment Plan/Plan of Care Patient would benefit from OT for education, treatment and training to promote independence in ADL's, mobility, safety and/or upper extremity function for ADL's. Plan of Care: ADL Retraining, Caregiver Training, Concurrent Therapy, Functional Mobility, Group Exercise/Act as Ind, UE Funct Exercise/Act Treatment Duration: Feb 28, 2019 Frequency: At least 5 of 7 days/Wk (IRF) Estimated Hrs Per Day: 1.5 hours per day Agreement: Yes Rehab Potential: Guarded Time/GCodes Start Time: 08:00 Stop Time: 09:30 Total Time Billed (hr/min): 90 Billed Treatment Time 1, TA4, SC2 POLY BURROWS OT Feb 25, 2019 09:19 POS
[2019-02-25] MEDS: FAMOTIDINE 20 MG (PEPCID) TABLET PO SCH (09:26)
[2019-02-25] MEDS: BACLOFEN 10 MG (LIORESAL) TAB PO PRN ×2 (09:27→18:40)
[2019-02-25] MEDS: POLYETHYLENE GLYCOL 17 GM (MIRALAX) PACK PO SCH ×2 (09:27→20:05)
[2019-02-25] MEDS: SENNA W/DOCUSATE (SENOKOT S) TABLET PO SCH ×2 (09:28→20:04)
[2019-02-25] MEDS: ENOXAPARIN 40 MG/0.4 ML (LOVENOX) SYR SC SCH (09:29)
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
[2019-02-25] MEDS ORDERED: TRAM50TA2 PO (09:40)
[2019-02-25] MEDS ORDERED: HYDR-3820 PO (09:40)
[2019-02-25] MEDS ORDERED: BACL10TA PO (09:40)
[2019-02-25] MEDS ORDERED: SENN-20 PO (09:40)
[2019-02-25] MEDS ORDERED: ENOX40DI8 SC (09:40)
[2019-02-25] MEDS ORDERED: IBUP-2055 PO (09:40)
--- NOTE | 2019-02-25 09:42 | D/C HH Face to Face Order ---
D/C Face to Face Orders Reconcile Patient Problems Problems Reviewed?: Yes Instructions for Patient Via [facility], Patient Instructions/FollowUp: [facility] 1 week Ortho Baldemar as scheduled 02/27/19 Physician to follow Patient: [facility] Discharge Diet for Home: No Restrictions Patient Problems: Left tib fib fracture Asthma Goals for Patient: Return to independent living Patient Data-Allergies,Ht & Wt Patient Allergies: Coded Allergies: chocolate flavor (Verified Allergy, Unknown, 02/13/19) lavender (Lavandula angustifolia) (Verified Allergy, Unknown, 02/13/19) Height (Feet): 6 Height (Inches): 1.00 Weight (Pounds): 241 Weight (Ounces): 8.0 Home Health Need/Face to Face Date of Face to Face: Feb 25, 2019 Clinical Findings: Generalized weakness and fatigue, Instability, Muscle weakness, Non or partial weight bearing, Pain with ambulation, Unsteady gait I have seen Pt grid-zh-ktrf: Yes Discharged To: Home Diagnosis/Conditions: Left tib fib fracture Asthma Patient is Homebound due to: Jamee fall risk due to instabilty, Muscle weakness, Non-weight bearing, Pain w/ambulation Homebound Status Due to the above stated illness, injury or surgical procedure (medical condition or diagnosis) and associated clinical findings, the patient is homebound because of his/her inability to leave home except with aid of a supportive device and/or person AND leaving the home requires a considerable and taxing effort or is medically contraindicated. Pt req the following assistanc: Walker Home Health Nursing Orders Home Health Services Order: Nursing Services, Rn Progressive Care-Evaluate & Treat, Physical Therapy-Evaluate & Treat Certify Stmt I certify that this patient is under my care and that I, a nurse practitioner or a physician; a cancer genetics assistant working with me, had a face to face encounter that - meets the physician face to face encounter requirements with this patient as dated. TOAN STANFORD DO Feb 25, 2019 09:42 POS
--- NOTE | 2019-02-25 11:15 | NUR ---
Physician has approved patient's discharge ahead of schedule, finalizing for tomorrow. HHC: Referral completed with spouse preferred agency, [facility], for RN, PT, OT. Agency indicates they could accept patient's insurance, they will check benefits to confirm coverage. DME: Order for FWW with right platform completed with [facility] per patient/ preference. Agency understands to deliver DME to patient hospital room prior to discharge. Spouse has ordered and/or obtained: Tub transfer bench, extended shower hose, grab bars for tub/shower/bathroom in [place] places. Wheelchair is on order and anticipated delivery is Monday evening. Patient is practicing with therapy to mimic his home toilet area so he can push up from their vanity. FOLLOWUP: Patient has his second appointment with Dr. Cook in [place] on Tuesday 02/27. Chiropractic Practice Manager confirmed with office they have wheelchairs at entrance for patient use, updated patient. Patient and spouse have been discussing home arrangement and activities. They have a toddler and will continue some day care use. [place] is off work/school the next 10 days so will be able to be with patient during home adjustment period. Discharge plan complete unless unforeseen issues arise.
--- NOTE | 2019-02-25 14:38 | Physical Therapy Daily Note ---
PT Daily Note-Current Subjective pt in bed pre-tx with present for duration of tx. pt agrees to therapy and reports unrated pain in the LLE this afternoon. Appearance pt in bed post-tx with call light, room phone, tray table in reach with all needs met at this time. Mental Status Patient Orientation: Person, Place, Time, Situation Transfers SCALE: Activities may be completed with or without assistive devices. 8-Itsuhtelqn-szvngma completes the activity by him/herself with no assistance from a helper. 5-Set-up or Clean-up Assistance-helper sets up or cleans up; patient completes activity. [place] assists only prior to or following the activity. 4-Supervision or Touching Assistance-helper provides verbal cues and/or touching/steadying and/or contact guard assistance as patient completes activity. Assistance may be provided throughout the activity or intermittently. 3-Partial/Moderate Assistance-helper does LESS THAN HALF the effort. [place] lifts, holds or supports trunk or limbs, but provides less than half the effort. 2-Substantial/Maximal Assistance-helper does MORE THAN HALF the effort. [place] lifts or holds trunk or limbs and provides more than half the effort. 3-Lmdbppedo-zfbyvd does ALL the effort. Patient does none of the effort to complete the activity. Or, the assistance of 2 or more helpers is required for the patient to complete the activity. If activity was not attempted, code reason: 7-Patient Refused. 9-Not Applicable-not attempted and the patient did not perform the activity before the current illness, exacerbation or injury. 10-Not Attempted due to Environmental Limitations-(lack of equipment, weather restraints, etc.). 88-Not Attempted due to Medical Conditions or Safety Concerns. Sit to Lying (QC): 6 Lying to Sitting/Side of Bed(Q: 6 Sit to Stand (QC): 6 Toilet Transfer (QC): 6 Car Transfer (QC): 6 (pt slides backwards into back seat of wifes car and leaves LLE propped up on bench seat.) Weight Bearing Right Lower Extremity: Right Full Weight Bearing Left Lower Extremity: Left Non Weight Bearing WBAT- RIGHT HAND Gait Training Does the Patient Walk?: Yes Distance: 100'x2 Walk 10 feet (QC): 4 (SBA) Walk 50 ft with 2 Turns(QC): 4 (SBA) Walking 10ft/uneven surface-QC: 4 (SBA) Gait Assistive Device: Walker Platform pt demonstrates crouch to push LLE when stuck on floor again this session. Pt educated to stay inside of walker to lift the LLE off the ground to keep it from sticking. Wheelchair Training Does the Pt Use a Wheelchair?: No Stair Training Stair Training: Handrails/: uses walker #of Steps: 1 1 Step (curb) (QC): 4 (CGA) Stairs: Pattern: Hops Balance Picking up an Object (QC): 4 (SBA) Treatments pt performed transfer training, bed mobility training, skilled ambulation training, step training, and education. Assessment Current Status: Good Progress Pt not able to completely spin LLE into the car but was able to slide into wifes car leave LLE propped on bench seat. Pt is more groggy and tired during this afternoon session. reports pt just had pain meds. PT Short Term Goals Short Term Goals Time Frame: Feb 21, 2019 PT Custodial Goals Custodial Goals PT Timber Faller Goals Time Frame: Mar 07, 2019 Roll Left & Right (QC): 6 Sit to Lying (QC): 3 (Naima) Lying-Sitting on Side/Bed(QC): 3 (Naima) Sit to Stand (QC): 4 (CGA) Chair/Xxu-pu-Bueei Xfer(QC): 4 (CGA) Toilet Transfer (QC): 6 Car Transfer (QC): 4 (CGA) Does the Patient Walk: Yes Walk 10 feet (QC): 4 (CGA) Walk 50ft with 2 Turns (QC): 4 (CGA) Walk 150 ft (QC): 4 (CGA) Walking 10ft on Uneven Surface: 4 (CGA) 1 Step (curb) (QC): 3 (Naima) 4 Steps (QC): 3 (Naima) 12 Steps (QC): 88 Picking up an Object (QC): 88 Does the Pt use WC or Scooter?: No Type: N/A Type: N/A PT Plan Problem List Problem List: Activity Tolerance, Functional Strength, Safety, Balance, Gait, Transfer, Bed Mobility, ROM Treatment/Plan Treatment Plan: Continue Plan of Care Treatment Plan: Bed Mobility, Concurrent Therapy, Education, Functional Activity Marcelle, Functional Strength, Group Therapy, Gait, Safety, Therapeutic Exercise, Transfers Treatment Duration: Feb 28, 2019 Frequency: At least 5 of 7 days/Wk (IRF) Estimated Hrs Per Day: 1.5 hours per day Patient and/or Family Agrees t: Yes Safety Risks/Education Patient Education: Gait Training, Transfer Techniques, Steps, Reviewed Precautions, Correct Positioning, Safety Issues Teaching Recipient: Patient Teaching Methods: Demonstration, Discussion Response to Teaching: Return Demonstration, Reinforcement Needed Time/GCodes Time In: 1330 Time Out: 1400 Total Billed Treatment Time: 30 Total Billed Treatment 1 visit FA 30' ROSS GUPTA BARGE PILOT Feb 25, 2019 14:38 POS
[2019-02-25 16:01] VITALS: BP 113/69
[2019-02-25] MEDS: LORATADINE (CLARITIN) 10 MG TAB PO SCH (20:04)
[2019-02-25] MEDS: PANTOPRAZOLE 40 MG (PROTONIX) TAB PO SCH (20:04)
[2019-02-25] MEDS: MELATONIN 3 MG TABLET PO PRN (21:30)
[2019-02-26] MEDS: HYDROcodone/APAP 10 MG/325 MG (LORTAB) TAB PO PRN ×2 (05:09→09:22)
[2019-02-26 06:06] VITALS: BP 108/71
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
--- NOTE | 2019-02-26 09:05 | Occupational Ther Daily Note ---
OT Current Status-Daily Note Subjective Pt seen in bed, agreeable to OT tx session. Pt states mild pain in LLE, able to complete bed mob IND. Pt to d/c on this date. Mental Status/Objective Patient Orientation: Normal For Age ADL-Treatment Therapy Code Descriptions/Definitions Functional [place] Measure: 0=Not Assessed/NA 4=Minimal Assistance 1=Total Assistance 5=Supervision or Setup 2=Maximal Assistance 6=Modified [place] 3=Moderate Assistance 7=Complete IndependenceSCALE: Activities may be completed with or without assistive devices. 4-Bugmcwztwj-ebktqiv completes the activity by him/herself with no assistance from a helper. 5-Set-up or Clean-up Assistance-helper sets up or cleans up; patient completes activity. [place] assists only prior to or following the activity. 4-Supervision or Touching Assistance-helper provides verbal cues and/or touching/steadying and/or contact guard assistance as patient completes activity. Assistance may be provided throughout the activity or intermittently. 3-Partial/Moderate Assistance-helper does LESS THAN HALF the effort. [place] lifts, holds or supports trunk or limbs, but provides less than half the effort. 2-Substantial/Maximal Assistance-helper does MORE THAN HALF the effort. [place] lifts or holds trunk or limbs and provides more than half the effort. 0-Lnacggilg-rombxf does ALL the effort. Patient does none of the effort to complete the activity. Or, the assistance of 2 or more helpers is required for the patient to complete the activity. If activity was not attempted, code reason: 7-Patient Refused. 9-Not Applicable-not attempted and the patient did not perform the activity before the current illness, exacerbation or injury. 10-Not Attempted due to Environmental Limitations-(lack of equipment, weather restraints, etc.). 88-Not Attempted due to Medical Conditions or Safety Concerns. Eating (QC): 6 Oral Hygiene (QC): 4 (SUP at sink) Shower/Bathe Self (QC): 4 (CGA in stance to complete bottom/ kelly hygiene) Upper Body Dressing (QC): 6 Lower Body Dressing (QC): 4 (CGA in stance to complete pulling down/ up from hips.) Toileting Hygiene (QC): 4 (CGA in stance to complete at FWW level) Toilet Transfer (QC): 4 (CGA to toilet) QC on/off footwear: 6 IND EOB Other Treatment Pt agreeable to QC's in room. Pt completes sponge bath EOB/ at FWW level. DME comes in to adjust pt's new walker, utilizes throughout, adjusted per pt's preference and functional abilities. Pt's present through half of session, states they are getting targeting acquisition officer, grab bars, toilet riser in mail today. Pt and state no questions, pt left in recliner chair with all needs met, call light in reach, present. Education OT Patient Education: Correct positioning, Modified ADL techniques, Safety issues Teaching Recipient: Patient, Significant Other Teaching Methods: Demonstration, Discussion Response to Teaching: Verbalize Understanding, Return Demonstration OT Short Term Goals Short Term Goals Toileting hygiene: 4 (CGA for toileting transfer, hygiene, and clothing management. ) Upper body dressin (SBA for safety.) Lower body dressin (SBA from bed level. ) Putting on/taking off footwear: 5 (SBA for doffing/donning sock. ) OT Care Home Goals Ground School Instructor Goals Time Frame: Feb 28, 2019 Eating (QC): 6 (met) Oral Hygiene (QC): 6 (met) Toileting Hygiene (QC): 6 Shower/Bathe Self (QC): 5 (met) Upper Body Dressing (QC): 6 (met) Lower Body Dressing (QC): 6 On/Off Footwear (QC): 6 (met) Additional Goals: 1-Demonstrate ADL Tasks, 2-Verbalize Understanding, 3-ImproveStrength/Marcelle 1=Demonstrate adherence to instructed precautions during ADL tasks. 2=Patient will verbalize/demonstrate understanding of assistive devices/modifications for ADL. 3=Patient will improve strength/tolerance for activity to enable patient to perform ADL's. OT Education/Plan Problem List/Assessment Assessment: Decreased Activ Tolerance, Impaired Funct Balance, Impaired I ADL's, Impaired Self-Care Skills Discharge Recommendations Plan/Recommendations: Continue POC Therapy Discharge Recommendati: Home & Family Treatment Plan/Plan of Care Treatment,Training & Education: Yes Patient would benefit from OT for education, treatment and training to promote independence in ADL's, mobility, safety and/or upper extremity function for ADL's. Plan of Care: ADL Retraining, Caregiver Training, Concurrent Therapy, Functional Mobility, Group Exercise/Act as Ind, UE Funct Exercise/Act Treatment Duration: Feb 28, 2019 Frequency: At least 5 of 7 days/Wk (IRF) Estimated Hrs Per Day: 1.5 hours per day Agreement: Yes Rehab Potential: Guarded Time/GCodes Start Time: 08:30 Stop Time: 09:00 Total Time Billed (hr/min): 30 Billed Treatment Time 1, ADL 2 (30) DENNISE GONZALEZ OTR Feb 26, 2019 09:05 POS
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
[2019-02-26] MEDS: FAMOTIDINE 20 MG (PEPCID) TABLET PO SCH (09:21)
[2019-02-26] MEDS: ENOXAPARIN 40 MG/0.4 ML (LOVENOX) SYR SC SCH (09:22)
[2019-02-26] MEDS: SENNA W/DOCUSATE (SENOKOT S) TABLET PO SCH (09:24)
[2019-02-26] MEDS: POLYETHYLENE GLYCOL 17 GM (MIRALAX) PACK PO SCH (09:24)
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
--- NOTE | 2019-02-26 09:46 | Speech Therapy Daily Note ---
Speech Daily Progress Note Subjective Date Seen by Provider: Feb 26, 2019 Time Seen by Provider: 00:10 Patient was excited to be going home. Objective Patient exhibited safety awareness while packing up to return home without cues. Treatment Plan Discontinue ST, Goals Met Speech Short Term Goals Short Term Goals Short Term Goals 1) The patient will complete memory tasks related to his daily needs at 90% or greater with minimal cues. 2) The patient will complete problem solving tasks related to his daily needs at 90% or greater with minimal cues. 3) The patient will complete safety awareness tasks related to his daily needs at 90% or greater with minimal cues. Speech Half-Way Goals Half-Way Goals The patient will improve cognitive-communication necessary for safety and daily living tasks with minimal assist. Speech-Plan Patient/Family Goals Patient/Family Goals: Patient is returning home today with his . Treatment Plan Speech Therapy Treatment Plan: Discontinue ST, Goals Met Patient progressed well as a result of skilled ST. Treatment Duration: Feb 26, 2019 Frequency: 2 times per week Estimated Hrs Per Day: .5 hour per day Rehab Potential: Guarded Barriers to Learning: None identified at this time. Patient has met all ST goals. Pt/Family Agrees to Plan: Yes Safety Risks/Education Teaching Recipient: Patient, Significant Other Teaching Methods: Demonstration, Discussion Response to Teaching: Verbalize Understanding, Return Demonstration Education Topics Provided: Continued safety upon his return home. Time Speech Therapy Time In: 09:00 Speech Therapy Time Out: 09:10 Total Billed Time: 10 Billed Treatment Time 1, SLTS No QUALITY CODES: EXPRESSION OF IDEAS/WANTS:4 UNDERSTANDING VERBAL CONTENT:4 BRIEF INTERVIEW MENTAL STATUS: YES REPETITION OF 3 WORDS: 3 TEMPORAL ORIENTATION: YEAR: CORRECT, MONTH:CORRECT, DAY:CORRECT RECALL: SOCK: YES, COLOR: YES, BED: YES MEMORY/RECALL ABILITY: SEASON, LOCATION OF ROOM, STAFF NAMES AND THAT HE IS IN THE HOSPITAL RUFINO CHI Feb 26, 2019 09:46 POS
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
[2019-02-26 11:20] VITALS: BP 108/71
== END 2019-02-26 11:20 | disposition home health service (06) | DRG 561 ==
PROVIDERS: ADMIT Internal Medicine; ATTEND Internal Medicine
DX: S82.252E Displaced comminuted fracture of shaft of left tibia, subsequent encounter for open fracture type I or II with routine healing (principal); S72.302D Unspecified fracture of shaft of left femur, subsequent encounter for closed fracture with routine healing; S62.300D Unspecified fracture of second metacarpal bone, right hand, subsequent encounter for fracture with routine healing; J45.909 Unspecified asthma, uncomplicated; K22.70 Barrett's esophagus without dysplasia; K21.9 Gastro-esophageal reflux disease without esophagitis; F41.9 Anxiety disorder, unspecified; J38.3 Other diseases of vocal cords; D64.9 Anemia, unspecified; D50.9 Iron deficiency anemia, unspecified; R55 Syncope and collapse; R45.89 Other symptoms and signs involving emotional state; G47.00 Insomnia, unspecified; K59.09 Other constipation; Z90.49 Acquired absence of other specified parts of digestive tract; V48.3XXD Unspecified car occupant injured in noncollision transport accident in nontraffic accident, subsequent encounter
CPT/HCPCS: 36415; 80053; 81000; 82565; 82962; 85025; 85027

== ENCOUNTER 2019-03-10 11:39 | Emergency (ER) | payer BC, OTHER ==
[~2019-03-10] VITALS: Ht 185 cm; Wt 104.5 kg
[~2019-03-10 11:39] MED LIST changes: +BACL10TA PO; +CETI10TA20 PO; +ENOX40DI13 SQ; +ENOX40DI8 SC; +HYDR-3820 PO; +IBUP-2473 PO; +SENN-20 PO; +TRM50T PO
--- NOTE | 2019-03-10 12:40 | NUR ---
PT TO ROOM 09 VIA . PT WEARING A BOOT. BOOT AND DRESSING REMOVED. PT TAKING HIS OWN PAIN PILL FROM HOME.
--- NOTE | 2019-03-10 13:36 | NUR ---
IN ROOM AT THIS TIME WITH PT.
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
--- NOTE | 2019-03-10 14:19 | Diagnostic Imaging Report ---
INDICATION: Fractures COMPARISON: 02/07/2019 TECHNIQUE: 4 intraoperative images of the left tibia and fibula are obtained dated 03/10/2019 FINDINGS: Intramedullary alexa is partially visualized within the distal left femur without evidence of hardware complication. Interval placement of an intramedullary alexa transfixing previously noted severely comminuted mid to distal tibial shaft fracture. Single interlocking screws seen proximally with 2 interlocking screws distally. There is no evidence of hardware complication. Alignment appears significantly improved though some fracture fragments remain laterally and anteriorly displaced. Comminuted distal fibular shaft fracture is again identified. Alignment appears significantly improved though persistent halfshaft width posterior displacement is present. No new fracture. No suspicious radiopaque foreign body. IMPRESSION: Interval internal fixation of previously noted comminuted tibial fractures with alignment appearing improved without evidence of hardware complication. Improved alignment of previously noted comminuted distal fibular fracture. Interval placement of an intramedullary alexa within the partially visualized left femur. No new acute osseous abnormality. Dictated by: Dictated on workstation # [id number]
--- NOTE | 2019-03-10 15:00 | NUR ---
SEE DR'S CHARTING FOR WOUND DESCRIPTION.
[2019-03-10 15:23] VITALS: BP 138/87
== END 2019-03-10 15:23 | disposition home or self-care (01) ==
LOC: EDUNIT# 11:39 → ER 11:41
DX: S81.802D Unspecified open wound, left lower leg, subsequent encounter (principal); J45.909 Unspecified asthma, uncomplicated; K21.9 Gastro-esophageal reflux disease without esophagitis; Z87.828 Personal history of other (healed) physical injury and trauma; Z87.891 Personal history of nicotine dependence; Z90.89 Acquired absence of other organs; V89.2XXD Person injured in unspecified motor-vehicle accident, traffic, subsequent encounter
CPT/HCPCS: 73590

== ENCOUNTER 2019-06-05 22:08 | Emergency (ER) | payer BC ==
[~2019-06-05] VITALS: Ht 185 cm; Wt 105.0 kg
[~2019-06-05 22:08] MED LIST changes: +ACHYD1T PO; -CETI10TA20 PO; +CETI10TA21 PO; -HYDR-3820 PO
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
[2019-06-05] MEDS ORDERED: PANTOPRAZOLE 40 MG (PROTONIX) VIAL IV ONE (22:30)
[2019-06-05 22:48] LABS: BASOPHILS % (AUTO) 0 % (0-10); EOSINOPHILS % (AUTO) 1 % (0-10); HEMATOCRIT 45 % (40-54); HEMOGLOBIN 15.1 G/DL (13.3-17.7); LYMPHOCYTES # (AUTO) 2.5 X 10^3 (1.0-4.0); LYMPHOCYTES % (AUTO) 38 % (12-44); MEAN CORPUSCULAR HEMOGLOBIN 29 PG (25-34); MEAN CORPUSCULAR HGB CONC 34 G/DL (32-36); MEAN CORPUSCULAR VOLUME 86 FL (80-99); MEAN PLATELET VOLUME 10.1 FL (7.4-10.4); MONOCYTES # (AUTO) 0.8 X 10^3 (0.0-1.0); MONOCYTES % (AUTO) 12 % (0-12); NEUTROPHILS # (AUTO) 3.3 X 10^3 (1.8-7.8); NEUTROPHILS % (AUTO) 49 % (42-75); PLATELET COUNT 232 10^3/uL (130-400); RED CELL DISTRIBUTION WIDTH 13.5 % (10.0-14.5); WHITE BLOOD COUNT 6.7 10^3/uL (4.3-11.0)
[2019-06-05 23:03] LABS: ALANINE AMINOTRANSFERASE 38 U/L (0-55); ALBUMIN 4.5 GM/DL (3.2-4.5); ALKALINE PHOSPHATASE 133 U/L (40-136); BILIRUBIN,TOTAL 0.7 MG/DL (0.1-1.0); BUN/CREATININE RATIO 15; CALCIUM 9.7 MG/DL (8.5-10.1); CARBON DIOXIDE 23 MMOL/L (21-32); CHLORIDE 105 MMOL/L (98-107); CREATININE SERUM 0.88 MG/DL (0.60-1.30); GFR ESTIMATED > 60; GLUCOSE 94 MG/DL (70-105); LIPASE 35 U/L (8-78); MAGNESIUM 2.2 MG/DL (1.6-2.4); SODIUM 141 MMOL/L (135-145); TOTAL PROTEIN 7.5 GM/DL (6.4-8.2)
[2019-06-05 23:05] LABS: FIBRIN DEGRADATION PRODUCTS 0.82 UG/ML (0.00-0.49); PROTHROMBIN TIME PATIENT 13.9 SEC (12.2-14.7)
[2019-06-05] MEDS ORDERED: SUCR1TAB36 PO (23:15)
[2019-06-05 23:25] VITALS: BP 121/74
--- NOTE | 2019-06-06 06:17 | Diagnostic Imaging Report ---
INDICATION: Chest wall pain COMPARISON: 07/14/16 FINDINGS: Single view of the chest demonstrates clear lungs bilaterally. The heart is normal. There is no pneumothorax. Osseous structures normal. IMPRESSION: Negative chest Dictated by: Dictated on workstation # [id number]
== END 2019-06-05 23:29 | disposition home or self-care (01) ==
LOC: EDUNIT# 22:08 → ER 22:10
DX: K29.70 Gastritis, unspecified, without bleeding (principal); K21.9 Gastro-esophageal reflux disease without esophagitis; Z88.8 Allergy status to other drugs, medicaments and biological substances; Z87.891 Personal history of nicotine dependence
CPT/HCPCS: 36415; 71045; 80053; 83690; 83735; 83874; 84484; 85025; 85379; 85610; 85730; 93005; 93041

== ENCOUNTER 2019-06-20 05:14 | Emergency (ER) | payer BC ==
[~2019-06-20] VITALS: Ht 185.4 cm; Wt 104.3 kg
[~2019-06-20 05:14] MED LIST changes: +SUCR1TAB36 PO
[2019-06-20] MEDS ORDERED: LACTATED RINGERS 1,000 ML IV ONE (05:37)
[2019-06-20] MEDS ORDERED: HYOSCYAMINE 0.125 MG (LEVSIN) TAB PO ONE (05:45)
[2019-06-20] MEDS ORDERED: ONDANSETRON 4 MG/2 ML (SDV) Z0FRAN IVP ONE (05:45)
[2019-06-20 05:56] LABS: BASOPHILS % (AUTO) 0 % (0-10); EOSINOPHILS % (AUTO) 0 % (0-10); HEMATOCRIT 47 % (40-54); LYMPHOCYTES # (AUTO) 0.8 X 10^3 (1.0-4.0); LYMPHOCYTES % (AUTO) 11 % (12-44); MEAN CORPUSCULAR HEMOGLOBIN 29 PG (25-34); MEAN CORPUSCULAR HGB CONC 34 G/DL (32-36); MEAN CORPUSCULAR VOLUME 85 FL (80-99); MEAN PLATELET VOLUME 9.5 FL (7.4-10.4); MONOCYTES # (AUTO) 1.3 X 10^3 (0.0-1.0); MONOCYTES % (AUTO) 18 % (0-12); NEUTROPHILS # (AUTO) 5.3 X 10^3 (1.8-7.8); NEUTROPHILS % (AUTO) 71 % (42-75); PLATELET COUNT 271 10^3/uL (130-400); RED CELL DISTRIBUTION WIDTH 14.1 % (10.0-14.5); WHITE BLOOD COUNT 7.5 10^3/uL (4.3-11.0)
[2019-06-20 06:08] LABS: ALANINE AMINOTRANSFERASE 30 U/L (0-55); ALBUMIN 4.3 GM/DL (3.2-4.5); ALKALINE PHOSPHATASE 127 U/L (40-136); BUN/CREATININE RATIO 12; CALCIUM 9.5 MG/DL (8.5-10.1); CARBON DIOXIDE 24 MMOL/L (21-32); CHLORIDE 100 MMOL/L (98-107); CREATININE SERUM 1.26 MG/DL (0.60-1.30); GFR ESTIMATED > 60; GLUCOSE 128 MG/DL (70-105); MAGNESIUM 1.8 MG/DL (1.6-2.4); POTASSIUM 3.8 MMOL/L (3.6-5.0); SODIUM 137 MMOL/L (135-145); TOTAL PROTEIN 7.7 GM/DL (6.4-8.2)
--- NOTE | 2019-06-20 06:09 | ED GI ---
General Chief Complaint: Abdominal/GI Problems Stated Complaint: VOMITING, DIARRHEA Nursing Triage Note: WAS DIAGNOSED WITH GASTROENTERITIS BY [facility] ON MONDAY AFTER HAVING NAUSEA, VOMITING AND DIARRHEA THAT STARTED ON MONDAY. ZOFRAN WAS PRESCRIBED AND PATIENT STATES HE FELT LIKE HE WAS IMPROVING OVER THE LAST FEW DAYS. AROUND 2200 LAST NIGHT HOWEVER HE BEGAN HAVING DIARRHEA AND VOMITING AGAIN AT WHICH TIME HE TOOK A ZOFRAN AND THEN REPEATED ZOFRAN AGAIN AT 0400 BECAUSE HE COULD NOT STOP VOMITING. REPORTS OATMEAL, CRACKERS ADN SPRITE HAVE BEEEN HIS DIET THE LAST FEW DAYS. PATIENT DENIES PAIN AT THIS TIME. Sepsis Screen: No Definite Risk Source of Information: Patient Exam Limitations: No Limitations (HAROON JONES MD) History of Present Illness Date Seen by Provider: Jun 20, 2019 Time Seen by Provider: 05:35 Initial Comments This 24-year-old young man presents to the emergency room with complaints of nausea, vomiting, and diarrhea for at least 3 days now. He has been trying to use sublingual Zofran at home without success. He denies any blood in his stool. He has had fevers recently but no fever at present. He has some crampy abdominal pain but otherwise denies any significant pain. (HAROON JONES MD) Allergies and Home Medications Allergies Coded Allergies: chocolate flavor (Verified Allergy, Unknown, 02/13/19) lavender (Lavandula angustifolia) (Verified Allergy, Unknown, 02/13/19) Home Medications Esomeprazole Magnesium 40 Mg Cap, 40 MG PO HS, (Reported) Famotidine 40 Mg Tablet, 40 MG PO DAILY, (Reported) Hydrocodone Bit/Acetaminophen 1 Each Tablet, 1 EA PO Q4H PRN for PAIN-SEVERE (8- 10) Prescribed by: TOAN STANFORD on 02/25/19 0940 Hyoscyamine Sulfate 0.125 Mg Tab.subl, 0.125 MG SL Q4H PRN for CRAMPS Prescribed by: ROMAN PATEL on 06/20/19 0635 Sucralfate 1 Gm Tablet, 1 GM PO QIDACHS Prescribed by: JESSICA CERON on 06/05/19 2318 Patient Home Medication List Home Medication List Reviewed: Yes (HAROON JONES MD) Review of Systems Review of Systems Constitutional: see HPI EENTM: No Symptoms Reported Respiratory: No Symptoms Reported Cardiovascular: No Symptoms Reported Gastrointestinal: See HPI Genitourinary: No Symptoms Reported Musculoskeletal: no symptoms reported Skin: no symptoms reported Psychiatric/Neurological: No Symptoms Reported Endocrine: No Symptoms Reported Hematologic/Lymphatic: No Symptoms Reported (HAROON JONES MD) Past Eswxlvb-Vaelnj-Joaaqh Hx Past Med/Social Hx: Reviewed and Corrections made (HAROON JONES MD) Patient Social History Alcohol Use: Denies Use Recreational Drug Use: No 2nd Hand Smoke Exposure: No Recent Foreign Travel: No Contact w/Someone Who Travel: No Recent Infectious Disease Expo: No Recent Hopitalizations: No Physical Abuse: No Sexual Abuse: No Mistreated: No Fear: No (HAROON JONES MD) Immunizations Up To Date Tetanus Booster (TDap): Less than 5yrs PED Vaccines UTD: Yes Date of Influenza Vaccine: Jan 09, 2019 (HAROON JONES MD) Seasonal Allergies Seasonal Allergies: Yes (HAROON JONES MD) Past Medical History Surgeries: Yes (BMT'S, RIGHT KNEE) Abdominal, Adenoidectomy, Ear Surgery, Orthopedic (left femur fracture repair), Tonsillectomy Respiratory: Yes Asthma Currently Using CPAP: No Currently Using BIPAP: No Cardiac: No Palpitations Neurological: No Reproductive Disorders: No Genitourinary: No Gastrointestinal: Yes Gastroesophageal Reflux, Hilario's Esophagus Musculoskeletal: Yes Fractures Endocrine: No HEENT: Yes Hearing Impairment: Denies Cancer: No Psychosocial: No Integumentary: No Blood Disorders: No (HAROON JONES MD) Family Medical History Asthma 19 MOTHER G8 BROTHER Diabetes mellitus 19 MOTHER FH: rheumatoid arthritis 19 MOTHER G8 BROTHER FH: sleep apnea 19 MOTHER G8 BROTHER Seizure disorder G8 BROTHER No Pertinent Family Hx, Other Conditions/Hx (HAROON JONES MD) Physical Exam Vital Signs Vital Signs - First Documented 06/20/19 05:27 Temp 37.3 Pulse 102 Resp 20 B/P (MAP) 143/100 (114) Pulse Ox 97 O2 Delivery Room Air (ROMAN PATEL MD) Vital Signs Capillary Refill : Less Than 3 Seconds (HAROON JONES MD) Height/Weight/BMI Height: 6'1.00" Weight: 241lbs. 8.0oz. 109.157719is; 30.00 BMI Method:Stated General Appearance: WD/WN, no apparent distress HEENT: normal ENT inspection, other (pasty oral mucosa) Neck: normal inspection Respiratory: lungs clear, normal breath sounds, no respiratory distress, no accessory muscle use Cardiovascular: regular rate, rhythm, no edema, no murmur Gastrointestinal: normal bowel sounds, non tender, soft Extremities: normal inspection, no pedal edema Neurologic/Psychiatric: records management associate II-XII nml as tested, no motor/sensory deficits, alert, normal mood/affect, oriented x 3 Skin: normal color, warm/dry (HAROON JONES MD) Progress/Results/Core Measures Results/Orders Lab Results Laboratory Tests Test 06/20/19 05:40 Range/Units White Blood Count 7.5 4.3-11.0 10^3/uL Red Blood Count 5.51 4.35-5.85 10^6/uL Hemoglobin 16.0 13.3-17.7 G/DL Hematocrit 47 40-54 % Mean Corpuscular Volume 85 80-99 FL Mean Corpuscular Hemoglobin 29 25-34 PG Mean Corpuscular Hemoglobin Concent 34 32-36 G/DL Red Cell Distribution Width 14.1 10.0-14.5 % Platelet Count 271 130-400 10^3/uL Mean Platelet Volume 9.5 7.4-10.4 FL Neutrophils (%) (Auto) 71 42-75 % Lymphocytes (%) (Auto) 11 L 12-44 % Monocytes (%) (Auto) 18 H 0-12 % Eosinophils (%) (Auto) 0 0-10 % Basophils (%) (Auto) 0 0-10 % Neutrophils # (Auto) 5.3 1.8-7.8 X 10^3 Lymphocytes # (Auto) 0.8 L 1.0-4.0 X 10^3 Monocytes # (Auto) 1.3 H 0.0-1.0 X 10^3 Eosinophils # (Auto) 0.0 0.0-0.3 10^3/uL Basophils # (Auto) 0.0 0.0-0.1 10^3/uL Sodium Level 137 135-145 MMOL/L Potassium Level 3.8 3.6-5.0 MMOL/L Chloride Level 100 98-107 MMOL/L Carbon Dioxide Level 24 21-32 MMOL/L Anion Gap 13 5-14 MMOL/L Blood Urea Nitrogen 15 7-18 MG/DL Creatinine 1.26 0.60-1.30 MG/DL Estimat Glomerular Filtration Rate > 60 BUN/Creatinine Ratio 12 Glucose Level 128 H 70-105 MG/DL Calcium Level 9.5 8.5-10.1 MG/DL Corrected Calcium 9.3 8.5-10.1 MG/DL Magnesium Level 1.8 1.6-2.4 MG/DL Total Bilirubin 2.0 H 0.1-1.0 MG/DL Aspartate Amino Transf (AST/SGOT) 28 5-34 U/L Alanine Aminotransferase (ALT/SGPT) 30 0-55 U/L Alkaline Phosphatase 127 40-136 U/L Total Protein 7.7 6.4-8.2 GM/DL Albumin 4.3 3.2-4.5 GM/DL (ROMAN PATEL MD) Medications Given in ED Current Medications Medications Dose Ordered Sig/Lisa Route Start Time Stop Time Status Last Admin Dose Admin Hyoscyamine Sulfate 0.25 mg ONCE ONCE PO 06/20/19 05:45 06/20/19 05:46 DC 06/20/19 06:03 0.25 MG Lactated Ringer's 1,000 ml @ 0 mls/hr Q0M ONCE IV 06/20/19 05:37 06/20/19 05:39 DC 06/20/19 05:42 0 MLS/HR Ondansetron HCl 8 mg ONCE ONCE IVP 06/20/19 05:45 06/20/19 05:46 DC 06/20/19 05:43 8 MG (ROMAN PATEL MD) Vital Signs/I&O 06/20/19 05:27 Temp 37.3 Pulse 102 Resp 20 B/P (MAP) 143/100 (114) Pulse Ox 97 O2 Delivery Room Air (ROMAN PATEL MD) Blood Pressure Mean: 114 Progress Progress Note : Time: 06:11 Progress Note Patient is being treated with a liter of LR, Zofran, and Levsin. Labs are relatively unremarkable. Care is being transitioned to Dr. Dr. Patel at this time. (HAROON JONES MD) Progress Note : Progress Note 0620: I have assumed care of the patient from Dr. Jones pending completion of treatment. I have reevaluated the patient and he is doing much better. We are transitioning to ice chips now. Patient states the cramping is markedly decreased. In reviewing his history it seems that he had onset of this on Monday and it got better. He resumed diet on Monday (yesterday) and had return of symptoms late last night and through this morning. The treatment given so far as significantly improved his symptoms. Labs were reviewed and are unremarkable. Discussed outpatient therapy. He has Zofran. We will add Levsin. Discharged home with return precautions. Patient verbalize understanding instructions and agreement with plan. (ROMAN PATEL MD) Departure Impression Primary Impression: Nausea and vomiting Qualified Codes: R11.2 - Nausea with vomiting, unspecified Additional Impression: Diarrhea Qualified Codes: R19.7 - Diarrhea, unspecified Disposition: 01 HOME, SELF-CARE Condition: Stable Departure-Patient Inst. Decision time for Depature: 06:34 (ROMAN PATEL MD) Referrals: MCKENZIE SANCHEZ MD (PCP/Family) Primary Care Physician Patient Instructions: Acute Abdomen (Belly Pain), Adult (DC), Nausea and Vomiting, Adult (DC), Diarrhea and Traveler's Diarrhea, Adult (DC) Add. Discharge Instructions: Clear liquid diet for the next 24 hours and then it and says tolerated. Resume diet slowly. Take medications as directed. Follow-up with your doctor in a few days for recheck. Return for worse pain, fever, vomiting, weakness, breathing problems, blood in your vomit or stool or other concerns as needed. All discharge instructions reviewed with patient and/or family. Voiced understanding. Scripts Hyoscyamine Sulfate (Levsin-Sl) 0.125 Mg Tab.subl 0.125 MG SL Q4H PRN for CRAMPS, #10 TAB 0 Refills Prov: ROMAN PATEL MD 06/20/19 HAROON JONES MD Jun 20, 2019 06:09 ROMAN PATEL MD Jun 20, 2019 06:34
[2019-06-20] MEDS ORDERED: HYOS0.1283 SL (06:35)
[2019-06-20 07:08] VITALS: BP 128/84
[2019-06-20] MEDS ORDERED: PROM25TA14 PO (13:54)
== END 2019-06-20 07:09 | disposition home or self-care (01) ==
LOC: EDUNIT# 05:14 → ER 05:18
DX: R11.2 Nausea with vomiting, unspecified (principal); R19.7 Diarrhea, unspecified; K21.9 Gastro-esophageal reflux disease without esophagitis; Z88.8 Allergy status to other drugs, medicaments and biological substances; Z90.89 Acquired absence of other organs
CPT/HCPCS: 36415; 80053; 83735; 85025; 99283

== ENCOUNTER 2019-06-20 13:16 | Emergency (ER) | payer BC ==
[~2019-06-20] VITALS: Ht 185.4 cm; Wt 104.3 kg
[~2019-06-20 13:16] MED LIST changes: +HYOS0.1283 SL
[2019-06-20] MEDS ORDERED: NS IV 1000 ML 1,000 ML IV SCH (13:30)
[2019-06-20] MEDS ORDERED: PROMETHAZINE INJ 25 MG/ML (PHENERGAN) AMP IVP ONE (13:30)
[2019-06-20] MEDS ORDERED: PROM25TA14 PO (13:54)
--- NOTE | 2019-06-20 13:54 | ED GI ---
General Chief Complaint: Abdominal/GI Problems Stated Complaint: NAUSEA/VOMITING Nursing Triage Note: was seen in this ED this AM, was DC'd home, states she called this ED and stated that pt was not improving and was told to bring pt back and he would IV phenergan Sepsis Screen: No Definite Risk Source of Information: Patient Exam Limitations: No Limitations History of Present Illness Date Seen by Provider: Jun 20, 2019 Time Seen by Provider: 13:52 Initial Comments To ER with persistent nausea vomiting diarrhea, he was released from the emergency room just a few hours ago for nausea vomiting diarrhea. Zofran at home is not helping. Severity/Quality: Moderate Location: Generalized Abdomen Radiation: No Radiation Activities at Onset: None Allergies and Home Medications Allergies Coded Allergies: chocolate flavor (Verified Allergy, Unknown, 02/13/19) lavender (Lavandula angustifolia) (Verified Allergy, Unknown, 02/13/19) Home Medications Esomeprazole Magnesium 40 Mg Cap, 40 MG PO HS, (Reported) Famotidine 40 Mg Tablet, 40 MG PO DAILY, (Reported) Hydrocodone Bit/Acetaminophen 1 Each Tablet, 1 EA PO Q4H PRN for PAIN-SEVERE (8- 10) Prescribed by: TOAN STANFORD on 02/25/19 0940 Hyoscyamine Sulfate 0.125 Mg Tab.subl, 0.125 MG SL Q4H PRN for CRAMPS Prescribed by: ROMAN PATEL on 06/20/19 0635 Sucralfate 1 Gm Tablet, 1 GM PO QIDACHS Prescribed by: JESSICA CERON on 06/05/19 2315 Patient Home Medication List Home Medication List Reviewed: Yes Review of Systems Review of Systems Constitutional: see HPI EENTM: No Symptoms Reported Respiratory: No Symptoms Reported Cardiovascular: No Symptoms Reported Gastrointestinal: See HPI; Denies Abdominal Pain; Diarrhea, Nausea, Vomiting Genitourinary: No Symptoms Reported Musculoskeletal: no symptoms reported Skin: no symptoms reported Psychiatric/Neurological: No Symptoms Reported Endocrine: No Symptoms Reported Hematologic/Lymphatic: No Symptoms Reported Past Irwopac-Bzvhke-Kjqmri Hx Patient Social History Alcohol Use: Denies Use Recreational Drug Use: No 2nd Hand Smoke Exposure: No Recent Foreign Travel: No Contact w/Someone Who Travel: No Recent Infectious Disease Expo: No Recent Hopitalizations: No Immunizations Up To Date Tetanus Booster (TDap): Less than 5yrs PED Vaccines UTD: Yes Date of Influenza Vaccine: Jan 09, 2019 Seasonal Allergies Seasonal Allergies: Yes Past Medical History Surgeries: Yes (BMT'S, RIGHT KNEE) Abdominal, Adenoidectomy, Ear Surgery, Orthopedic, Tonsillectomy Respiratory: Yes Asthma Currently Using CPAP: No Currently Using BIPAP: No Cardiac: No Palpitations Neurological: No Reproductive Disorders: No Genitourinary: No Gastrointestinal: Yes Gastroesophageal Reflux, Hilario's Esophagus Musculoskeletal: Yes Fractures Endocrine: No HEENT: Yes Hearing Impairment: Denies Cancer: No Psychosocial: No Integumentary: No Blood Disorders: No Family Medical History Asthma 19 MOTHER G8 BROTHER Diabetes mellitus 19 MOTHER FH: rheumatoid arthritis 19 MOTHER G8 BROTHER FH: sleep apnea 19 MOTHER G8 BROTHER Seizure disorder G8 BROTHER No Pertinent Family Hx, Other Conditions/Hx Physical Exam Vital Signs Vital Signs - First Documented 06/20/19 13:25 Temp 36.6 Pulse 114 B/P (MAP) 129/85 (100) Pulse Ox 18 Capillary Refill : Less Than 3 Seconds Height/Weight/BMI Height: 6'1.00" Weight: 241lbs. 8.0oz. 109.692610ig; 30.00 BMI Method:Stated General Appearance: WD/WN, no apparent distress HEENT: PERRL/EOMI, normal ENT inspection Respiratory: no respiratory distress (out), no accessory muscle use Gastrointestinal: normal bowel sounds, non tender, soft Extremities: normal range of motion, non-tender Neurologic/Psychiatric: alert, normal mood/affect, oriented x 3 Skin: normal color, warm/dry Progress/Results/Core Measures Results/Orders My Orders Orders - LINDA JENKINS APRN Ed Iv/Invasive Line Start (06/20/19 13:28) Ns Iv 1000 Ml (Sodium Chloride 0.9%) (06/20/19 13:30) Promethazine Injection (Phenergan Injec (06/20/19 13:30) Medications Given in ED Current Medications Medications Dose Ordered Sig/Lisa Route Start Time Stop Time Status Last Admin Dose Admin Promethazine HCl 25 mg ONCE ONCE IVP 06/20/19 13:30 06/20/19 13:31 DC 06/20/19 13:40 25 MG Vital Signs/I&O 06/20/19 13:25 Temp 36.6 Pulse 114 B/P (MAP) 129/85 (100) Pulse Ox 18 Blood Pressure Mean: 100 Departure Impression Primary Impression: Nausea vomiting and diarrhea Disposition: 01 HOME, SELF-CARE Condition: Stable Departure-Patient Inst. Decision time for Depature: 13:54 Referrals: MCKENZIE SANCHEZ MD (PCP/Family) Primary Care Physician Patient Instructions: Nausea and Vomiting, Adult Add. Discharge Instructions: 1. You can use [id number] Imodium. Also use the Phenergan in addition to the Zofran for added nausea control. All discharge instructions reviewed with patient and/or family. Voiced understanding. Scripts Promethazine HCl (Promethazine Tablet) 25 Mg Tablet 25 MG PO Q8H PRN for NAUSEA/VOMITING, #14 TAB 0 Refills Prov: LINDA JENKINS APRN 06/20/19 LINDA JENKINS APRN Jun 20, 2019 13:54
[2019-06-20 14:58] VITALS: BP 129/85
== END 2019-06-20 14:58 | disposition home or self-care (01) ==
LOC: EDUNIT# 13:16 → ER 13:17
DX: R11.2 Nausea with vomiting, unspecified (principal); R19.7 Diarrhea, unspecified; K21.9 Gastro-esophageal reflux disease without esophagitis; Z88.8 Allergy status to other drugs, medicaments and biological substances; Z90.89 Acquired absence of other organs
CPT/HCPCS: 96361; 96374

== ENCOUNTER → 2019-08-01 | Outpatient (CLI) | payer BC ==
--- NOTE | 2019-08-01 09:15 | Diagnostic Imaging Report ---
PROCEDURE: US Gallbladder. TECHNIQUE: Multiple real-time grayscale images were obtained over the right upper quadrant in various projections. INDICATION: Epigastric tenderness. COMPARISON: None available. FINDINGS: The liver is normal in size measuring 18 cm in craniocaudal length, and has normal echogenicity. There is no focal hepatic mass. The main portal vein is patent with antegrade flow. The gallbladder is distended without gallstones, wall thickening, or pericholecystic fluid. The common bile duct is not visualized due to overlying bowel gas. No intrahepatic biliary dilation. The visualized portions of the pancreas are normal. Portions of the head and tail are obscured by overlying bowel gas. The right kidney is normal in size. No hydronephrosis, shadowing calculi, or suspicious mass lesion. IMPRESSION: 1. Normal gallbladder and liver. 2. Common bile duct is obscured due to overlying bowel gas. No intrahepatic biliary duct dilatation. Dictated by: Dictated on workstation # [id number]
== END ==
LOC: RAD 07:51
PROVIDERS: ATTEND Surgery
DX: R10.816 Epigastric abdominal tenderness (principal)
CPT/HCPCS: 76705

== ENCOUNTER → 2019-08-21 | Outpatient (CLI) | payer BC ==
[~2019-08-21] MED LIST changes: +CATHETER FLUSH 10 ML SYR IV PRN
--- NOTE | 2019-08-21 12:12 | Diagnostic Imaging Report ---
RADIOPHARMACEUTICAL: 5.23mCi Tc-99m Choletec IV INDICATION: Epigastric abdominal tenderness. COMPARISON: Ultrasound dated August 01, 2019. TECHNIQUE: Anterior dynamic imaging for 45 minutes. Additional 60 minute imaging was performed after patient ingested an 8 ounce can of Ensure. FINDINGS: There is homogenous uptake throughout the liver. The gallbladder is visualized at 10minutes and small bowel at 45minutes. After patient ingested an 8 ounce can of Ensure, there is normal contraction of the gallbladder with normal calculated GBEF at 44%. IMPRESSION: 1. Normal HIDA Scan without evidence of cystic or common duct obstruction. 2. Normal GBEF of 44%. Dictated by: Dictated on workstation # [id number]
== END ==
LOC: CARD 08-05 09:48
PROVIDERS: ATTEND Surgery
DX: R10.816 Epigastric abdominal tenderness (principal)
CPT/HCPCS: 78227

== ENCOUNTER 2019-09-06 08:03 | Outpatient (RCR) | payer BC ==
[~2019-09-06] VITALS: Ht 185 cm; Wt 99.0 kg
[~2019-09-06 08:03] MED LIST changes: -CATHETER FLUSH 10 ML SYR IV PRN; +MELA3CAP2 PO
== END 2019-09-06 14:02 | disposition home or self-care (01) ==
LOC: PREOP 08:03
PROVIDERS: ATTEND Surgery
DX: Z01.812 Encounter for preprocedural laboratory examination (principal); Z20.828 Contact with and (suspected) exposure to other viral communicable diseases; K22.70 Barrett's esophagus without dysplasia
CPT/HCPCS: 87635

== ENCOUNTER 2019-10-04 22:56 | Emergency (ER) | payer BC ==
[~2019-10-04] VITALS: Ht 187 cm; Wt 99.0 kg
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
--- OUTSIDE RECORDS SUMMARY | 2019-10-04 23:08 | XMS REPORT | Continuity of Care Document ---
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 ALT TEN CL CLASS 2 NRG Cladosporium herbarum IgE ab RAST class [presence] in serum CLASS 2 NRG Serum white elm IgE antibody assay (units/volume) 0.47 H 0.00-0.34 ELM TREE CL CLASS 1 NRG Serum pecan or hickory tree IgE antibody assay (units/ volume) CLASS 0 NRG Serum Shoaib grass IgE antibody assay (units/volume) CLASS 0 NRG Serum watkins elder IgE antibody assay (units/volume) CLASS 1 NRG [id number] - 04/08/16 16:46 [id number] SEE FOOTNOTE 0.00-0.34 Complete blood count (CBC) with automate d white blood cell (WBC) differential - 07/14/16 10:41 Blood leukocytes automated count (number/volume) 5.4 10*3/uL 4.3-11.0 Blood erythrocytes automated count (number/volume) 4.82 10*6/uL 4.35-5.85 Venous blood hemoglobin measurement (mass/volume) 14.7 g/dL 13.3-17.7 Blood hematocrit (volume fraction) 43 % 40-54 Automated erythrocyte mean corpuscular volume 89 [ foz_us] 80-99 Automated erythrocyte mean corpuscular h emoglobin (mass per erythrocyte) 31 pg 25-34 Automated erythrocyte mean corpuscular h emoglobin concentration measurement (mass/volume) 34 g/dL 32-36 Automated erythrocyte distribution width ratio 11. 9 % 10.0- 14.5 Automated blood platelet count (count/volume) 248 10*3/uL [...] 10*3 1.0-4.0 Blood monocytes automated count (number/volume) 0. 5 10*3 0.0-1.0 Automated eosinophil count 0.1 10*3/uL 0 .0-0.3 Automated blood basophil count (count/volume) 0.1 10*3/uL 0.0-0.1 Complete urinalysis with reflex to cultu re - 10/19/16 18:38 Urine color determination YELLOW NRG Urine clarity determination CLEAR NR G Urine pH measurement by test strip 6 5-9 Specific gravity of urine by test strip 1.015 1.016-1.022 Urine protein assay by test strip, semi-quantitative 1+ NEGATIVE Urine glucose detection by automated test strip NE GATIVE NEGATIVE Erythrocytes detection in urine sediment by light micr oscopy 2+ NEGATIVE Urine ketones detection by automated test strip 2+ NEGATIVE Urine nitrite detection by test strip NEGATIVE NEGATIVE Urine total bilirubin detection by test strip NEGA TIVE NEGATIVE Urine urobilinogen measurement by automated test strip (mass/volume) NORMAL NORMAL Urine leukocyte esterase detection by dipstick NEG ATIVE NEGATIVE Automated urine sediment erythrocyte cou nt by microscopy (number/high power field) [HPF] NRG Automated urine sediment leukocyte count by microscopy (number/high power field) NONE NRG Bacteria detection in urine sediment by light microsco py NONE NRG Crystals detection in urine sediment by light microsco py NONE NRG Casts detection in urine sediment by light microscopy NONE NRG Mucus detection in urine sediment by light microscopy NEGATIVE NRG Complete urinalysis with reflex to culture NO NRG Complete blood count (CBC) with automate d white blood cell (WBC) differential - 10/19/16 18:50 Blood leukocytes automated count (number/volume) 10.5 10*3/uL 4.3-11.0 Blood erythrocytes automated count (number/volume) 5.44 10*6/uL 4.35-5.85 Venous blood hemoglobin measurement (mass/volume) 16.6 g/dL 13.3-17.7 Blood hematocrit (volume fraction) 48 % 40-54 Automated erythrocyte mean corpuscular volume 88 [ foz_us] 80-99 Automated erythrocyte mean corpuscular h emoglobin (mass per erythrocyte) 31 pg 25-34 Automated erythrocyte mean corpuscular h emoglobin concentration measurement (mass/volume) 35 g/dL 32-36 Automated erythrocyte distribution width ratio 12. 4 % 10.0- 14.5 Automated blood platelet count (count/volume) 190 10*3/uL [...] 10*3 1.0-4.0 Blood monocytes automated count (number/volume) 0. 8 10*3 0.0-1.0 Automated eosinophil count 0.0 10*3/uL 0 .0-0.3 Automated blood basophil count (count/volume) 0.0 10*3/uL 0.0-0.1 Comprehensive metabolic panel - 10/19/16 18:50 Serum or plasma sodium measurement (moles/volume) 140 mmol/L 135-145 Serum or plasma potassium measurement (moles/volume) 4.3 mmol/L 3.6-5.0 Serum or plasma chloride measurement (moles/volume) 106 mmol/L 98-107 Carbon dioxide 24 mmol/L 21-32 Serum or plasma anion gap determination (moles/volume) 10 mmol/L 5-14 Serum or plasma urea nitrogen measurement (mass/volume ) 13 mg/dL 7-18 Serum or plasma creatinine measurement (mass/volume) 0.93 mg/dL 0.60-1.30 Serum or plasma urea nitrogen/creatinine mass ratio 14 NRG Serum or plasma creatinine measurement w ith calculation of estimated glomerular filtration rate > NRG Serum or plasma glucose measurement (mass/volume) 91 mg/dL 70-105 Serum or plasma calcium measurement (mass/volume) 9.3 mg/dL 8.5-10.1 Serum or plasma total bilirubin measurement (mass/volu me) 2.0 mg/dL 0.1-1.0 Serum or plasma alkaline phosphatase maria elena surement (enzymatic activity/volume) 92 U/L 40-136 Serum or plasma aspartate aminotransfera se measurement (enzymatic activity/volume) 41 U/L 5-34 Serum or plasma alanine aminotransferase measurement (enzymatic activity/volume) 100 U/L 0-55 Serum or plasma protein measurement (mass/volume) 7.4 g/dL 6.4-8.2 Serum or plasma albumin measurement (mass/volume) 4.5 g/dL 3.2-4.5 Blood manual differential performed dete ction - 10/19/16 18:50 Blood monocytes/100 leukocytes 3 % NRG Manual blood segmented neutrophils/100 leukocytes 89 % NRG Blood band neutrophils/100 leukocytes 3 % NRG Manual blood lymphocytes/100 leukocytes 4 % NRG Manual eosinophils/100 leukocytes in nose 0 % NRG Manual blood basophils/100 leukocytes 1 % NRG Blood erythrocyte morphology finding identification NORMAL NRG Complete blood count (CBC) with automate d white blood cell (WBC) differential - 10/18/18 16:54 Blood leukocytes automated count (number/volume) 7.0 10*3/uL 4.3-11.0 Blood erythrocytes automated count (number/volume) 5.12 10*6/uL 4.35-5.85 Venous blood hemoglobin measurement (mass/volume) 15.8 g/dL 13.3-17.7 Blood hematocrit (volume fraction) 45 % 40-54 Automated erythrocyte mean corpuscular volume 88 [ foz_us] 80-99 Automated erythrocyte mean corpuscular h emoglobin (mass per erythrocyte) 31 pg 25-34 Automated erythrocyte mean corpuscular h emoglobin concentration measurement (mass/volume) 35 g/dL 32-36 Automated erythrocyte distribution width ratio 12. 2 % 10.0- 14.5 Automated blood platelet count (count/volume) 253 10*3/uL 130-400 Automated blood platelet mean volume measurement 10.5 [foz_us] 7.4-10.4 Automated blood neutrophils/100 leukocytes 47 % 42-75 Automated blood lymphocytes/100 leukocytes 42 % 12-44 Blood monocytes/100 leukocytes 9 % 0-12 Automated blood eosinophils/100 leukocytes 2 % 0-10 Automated blood basophils/100 leukocytes 1 % 0-10 Blood neutrophils automated count (number/volume) 3.3 10*3 1.8-7.8 Blood lymphocytes automated count (number/volume) 2.9 10*3 1.0-4.0 Blood monocytes automated count (number/volume) 0. 6 10*3 0.0-1.0 Automated eosinophil count 0.1 10*3/uL 0 .0-0.3 Automated blood basophil count (count/volume) 0.0 10*3/uL 0.0-0.1 Comprehensive metabolic panel - 10/18/18 16:54 Serum or plasma sodium measurement (moles/volume) 140 mmol/L 135-145 Serum or plasma potassium measurement (moles/volume) 3.6 mmol/L 3.6-5.0 Serum or plasma chloride measurement (moles/volume) 106 mmol/L 98-107 Carbon dioxide 25 mmol/L 21-32 Serum or plasma anion gap determination (moles/volume) 9 mmol/L 5-14 Serum or plasma urea nitrogen measurement (mass/volume ) 15 mg/dL 7-18 Serum or plasma creatinine measurement (mass/volume) 1.10 mg/dL 0.60-1.30 Serum or plasma urea nitrogen/creatinine mass ratio 14 NRG Serum or plasma creatinine measurement w ith calculation of estimated glomerular filtration rate > NRG Serum or plasma glucose measurement (mass/volume) 118 mg/dL 70-105 Serum or plasma calcium measurement (mass/volume) 10.0 mg/dL 8.5-10.1 Serum or plasma total bilirubin measurement (mass/volu me) 1.0 mg/dL 0.1-1.0 Serum or plasma alkaline phosphatase maria elena surement (enzymatic activity/volume) 97 U/L 40-136 Serum or plasma aspartate aminotransfera se measurement (enzymatic activity/volume) 30 U/L 5-34 Serum or plasma alanine aminotransferase measurement (enzymatic activity/volume) 60 U/L 0-55 Serum or plasma protein measurement (mass/volume) 7.8 g/dL 6.4-8.2 Serum or plasma albumin measurement (mass/volume) 4.8 g/dL 3.2-4.5 Magnesium - 10/18/18 16:54 Magnesium 2.3 mg/dL 1.8-2.4 Complete urinalysis with reflex to cultu re - 10/18/18 18:14 Urine color determination YELLOW NRG Urine clarity determination CLEAR NR G Urine pH measurement by test strip 6 5-9 Specific gravity of urine by test strip 1.020 1.016-1.022 Urine protein assay by test strip, semi-quantitative 1+ NEGATIVE Urine glucose detection by automated test strip NE GATIVE NEGATIVE Erythrocytes detection in urine sediment by light micr oscopy 1+ NEGATIVE Urine ketones detection by automated test strip NE GATIVE NEGATIVE Urine nitrite detection by test strip NEGATIVE NEGATIVE Urine total bilirubin detection by test strip NEGA TIVE NEGATIVE Urine urobilinogen measurement by automated test strip (mass/volume) NORMAL NORMAL Urine leukocyte esterase detection by dipstick 1+ NEGATIVE Automated urine sediment erythrocyte cou nt by microscopy (number/high power field) NONE NRG Automated urine sediment leukocyte count by microscopy (number/high power field) RARE NRG Bacteria detection in urine sediment by light microsco py TRACE NRG Squamous epithelial cells detection in u rine sediment by light microscopy RARE NRG Crystals detection in urine sediment by light microsco py NONE NRG Casts detection in urine sediment by light microscopy NONE NRG Mucus detection in urine sediment by light microscopy SMALL NRG Complete urinalysis with reflex to culture NO NRG Complete urinalysis with reflex to cultu re - 12/03/18 13:25 Urine color determination YELLOW NRG Urine clarity determination CLEAR NR G Urine pH measurement by test strip 8 5-9 Specific gravity of urine by test strip 1.010 1.016-1.022 Urine protein assay by test strip, semi-quantitative NEGATIVE NEGATIVE Urine glucose detection by automated test strip NE GATIVE NEGATIVE Erythrocytes detection in urine sediment by light micr oscopy NEGATIVE NEGATIVE Urine ketones detection by automated test strip NE GATIVE NEGATIVE Urine nitrite detection by test strip NEGATIVE NEGATIVE Urine total bilirubin detection by test strip NEGA TIVE NEGATIVE Urine urobilinogen measurement by automated test strip (mass/volume) NORMAL NORMAL Urine leukocyte esterase detection by dipstick NEG ATIVE NEGATIVE Automated urine sediment erythrocyte cou nt by microscopy (number/high power field) NONE NRG Automated urine sediment leukocyte count by microscopy (number/high power field) NONE NRG Bacteria detection in urine sediment by light microsco py NEGATIVE NRG Squamous epithelial cells detection in u rine sediment by light microscopy NONE NRG Crystals detection in urine sediment by light microsco py NONE NRG Casts detection in urine sediment by light microscopy NONE NRG Mucus detection in urine sediment by light microscopy NEGATIVE NRG Complete urinalysis with reflex to culture NO NRG Complete blood count (CBC) with automate d white blood cell (WBC) differential - 12/03/18 13:44 Blood leukocytes automated count (number/volume) 5.9 10*3/uL 4.3-11.0 Blood erythrocytes automated count (number/volume) 5.18 10*6/uL 4.35-5.85 Venous blood hemoglobin measurement (mass/volume) 16.0 g/dL 13.3-17.7 Blood hematocrit (volume fraction) 45 % 40-54 Automated erythrocyte mean corpuscular volume 88 [ foz_us] 80-99 Automated erythrocyte mean corpuscular h emoglobin (mass per erythrocyte) 31 pg 25-34 Automated erythrocyte mean corpuscular h emoglobin concentration measurement (mass/volume) 35 g/dL 32-36 Automated erythrocyte distribution width ratio 12. 3 % 10.0- 14.5 Automated blood platelet count (count/volume) 256 10*3/uL 130-400 Automated blood platelet mean volume measurement 10.7 [foz_us] 7.4-10.4 Automated blood neutrophils/100 leukocytes 57 % 42-75 Automated blood lymphocytes/100 leukocytes 31 % 12-44 Blood monocytes/100 leukocytes 11 % 0-12 Automated blood eosinophils/100 leukocytes 1 % 0-10 Automated blood basophils/100 leukocytes 1 % 0-10 Blood neutrophils automated count (number/volume) 3.3 10*3 1.8-7.8 Blood lymphocytes automated count (number/volume) 1.8 10*3 1.0-4.0 Blood monocytes automated count (number/volume) 0. 7 10*3 0.0-1.0 Automated eosinophil count 0.1 10*3/uL 0 .0-0.3 Automated blood basophil count (count/volume) 0.0 10*3/uL 0.0-0.1 Comprehensive metabolic panel - 12/03/18 13:44 Serum or plasma sodium measurement (moles/volume) 139 mmol/L 135-145 Serum or plasma potassium measurement (moles/volume) 4.4 mmol/L 3.6-5.0 Serum or plasma chloride measurement (moles/volume) 106 mmol/L 98-107 Carbon dioxide 26 mmol/L 21-32 Serum or plasma anion gap determination (moles/volume) 7 mmol/L 5-14 Serum or plasma urea nitrogen measurement (mass/volume ) 9 mg/dL 7-18 Serum or plasma creatinine measurement (mass/volume) 0.86 mg/dL 0.60-1.30 Serum or plasma urea nitrogen/creatinine mass ratio 10 NRG Serum or plasma creatinine measurement w ith calculation of estimated glomerular filtration rate > NRG Serum or plasma glucose measurement (mass/volume) 98 mg/dL 70-105 Serum or plasma calcium measurement (mass/volume) 9.3 mg/dL 8.5-10.1 Serum or plasma total bilirubin measurement (mass/volu me) 1.1 mg/dL 0.1-1.0 Serum or plasma alkaline phosphatase maria elena surement (enzymatic activity/volume) 101 U/L 40-136 Serum or plasma aspartate aminotransfera se measurement (enzymatic activity/volume) 24 U/L 5-34 Serum or plasma alanine aminotransferase measurement (enzymatic activity/volume) 44 U/L 0-55 Serum or plasma protein measurement (mass/volume) 7.4 g/dL 6.4-8.2 Serum or plasma albumin measurement (mass/volume) 4.4 g/dL 3.2-4.5 CALCIUM CORRECTED 9.0 mg/dL 8.5-10.1 Lipase - 12/03/18 13:44 Lipase 30 U/L 8-78 Serum or plasma C reactive protein measu rement (mass/volume) - 12/03/18 13:44 Serum or plasma C reactive protein measurement (mass/v olume) 0.12 mg/dL 0.00-0.50 Automated blood complete blood count (he mogram) panel - 02/07/19 06:00 Blood leukocytes automated count (number/volume) 10.3 10*3/uL 4.3-11.0 Blood erythrocytes automated count (number/volume) 4.28 10*6/uL 4.35-5.85 Venous blood hemoglobin measurement (mass/volume) 13.0 g/dL 13.3-17.7 Blood hematocrit (volume fraction) 39 % 40-54 Automated erythrocyte mean corpuscular volume 90 [ foz_us] 80-99 Automated erythrocyte mean corpuscular h emoglobin (mass per erythrocyte) 30 pg 25-34 Automated erythrocyte mean corpuscular h emoglobin concentration measurement (mass/volume) 34 g/dL 32-36 Automated erythrocyte distribution width ratio 12. 0 % 10.0- 14.5 Automated blood platelet count (count/volume) 228 10*3/uL 130-400 Automated blood platelet mean volume measurement 10.1 [foz_us] 7.4-10.4 Liver function panel (serum or plasma al k phos, alb, total and direct bili, total protein, ALT, AST) - 02/07/19 06:00 Serum or plasma total bilirubin measurement (mass/volu me) 0.8 mg/dL 0.1-1.0 Serum or plasma alkaline phosphatase maria elena surement (enzymatic activity/volume) 78 U/L 40-136 Serum or plasma aspartate aminotransfera se measurement (enzymatic activity/volume) 27 U/L 5-34 Serum or plasma alanine aminotransferase measurement (enzymatic activity/volume) 38 U/L 0-55 Serum or plasma protein measurement (mass/volume) 5.6 g/dL 6.4-8.2 Serum or plasma albumin measurement (mass/volume) 3.7 g/dL 3.2-4.5 Bilirubin direct 0.3 mg/dL 0.0-0.3 Serum or plasma indirect bilirubin measurement (mass/v olume) 0.5 mg/dL [facility] Whole blood basic metabolic panel - 10/19 06:00 Serum or plasma sodium measurement (moles/volume) 140 mmol/L 135-145 Serum or plasma potassium measurement (moles/volume) 4.1 mmol/L 3.6-5.0 Serum or plasma chloride measurement (moles/volume) 109 mmol/L 98-107 Carbon dioxide 23 mmol/L 21-32 Serum or plasma anion gap determination (moles/volume) 8 mmol/L 5-14 Serum or plasma urea nitrogen measurement (mass/volume ) 16 mg/dL 7-18 Serum or plasma creatinine measurement (mass/volume) 0.95 mg/dL 0.60-1.30 Serum or plasma urea nitrogen/creatinine mass ratio 17 NRG Serum or plasma creatinine measurement w ith calculation of estimated glomerular filtration rate > NRG Serum or plasma glucose measurement (mass/volume) 162 mg/dL 70-105 Serum or plasma calcium measurement (mass/volume) 8.1 mg/dL 8.5-10.1 Serum or plasma ethanol measurement (mas s/volume) - 02/07/19 06:00 Serum or plasma ethanol measurement (mass/volume) < mg/dL <10 Blood type T Indirect antibody screen pa farshad - 02/07/19 06:00 WRISTBAND NUMBER [id number] NRG ABO+Rh group AP NRG Blood group antibody screen NEGATIVE NR G Complete blood count (CBC) with automate d white blood cell (WBC) differential - 02/14/19 05:25 Blood leukocytes automated count (number/volume) 7.8 10*3/uL 4.3-11.0 Blood erythrocytes automated count (number/volume) 2.62 10*6/uL 4.35-5.85 Venous blood hemoglobin measurement (mass/volume) 7.8 g/dL 13.3-17.7 Blood hematocrit (volume fraction) 24 % 40-54 Automated erythrocyte mean corpuscular volume 92 [ foz_us] 80-99 Automated erythrocyte mean corpuscular h emoglobin (mass per erythrocyte) 30 pg 25-34 Automated erythrocyte mean corpuscular h emoglobin concentration measurement (mass/volume) 32 g/dL 32-36 Automated erythrocyte distribution width ratio 13. 5 % 10.0- 14.5 Automated blood platelet count (count/volume) 344 10*3/uL 130-400 Automated blood platelet mean volume measurement 9.8 [foz_us] 7.4-10.4 Automated blood neutrophils/100 leukocytes 71 % 42-75 Automated blood lymphocytes/100 leukocytes 15 % 12-44 Blood monocytes/100 leukocytes 12 % 0-12 Automated blood eosinophils/100 leukocytes 2 % 0-10 Automated blood basophils/100 leukocytes 1 % 0-10 Blood neutrophils automated count (number/volume) 5.5 10*3 1.8-7.8 Blood lymphocytes automated count (number/volume) 1.2 10*3 1.0-4.0 Blood monocytes automated count (number/volume) 1. 0 10*3 0.0-1.0 Automated eosinophil count 0.1 10*3/uL 0 .0-0.3 Automated blood basophil count (count/volume) 0.0 10*3/uL 0.0-0.1 Comprehensive metabolic panel - 02/14/19 05:25 Serum or plasma sodium measurement (moles/volume) 137 mmol/L 135-145 Serum or plasma potassium measurement (moles/volume) 4.1 mmol/L 3.6-5.0 Serum or plasma chloride measurement (moles/volume) 104 mmol/L 98-107 Carbon dioxide 24 mmol/L 21-32 Serum or plasma anion gap determination (moles/volume) 9 mmol/L 5-14 Serum or plasma urea nitrogen measurement (mass/volume ) 15 mg/dL 7-18 Serum or plasma creatinine measurement (mass/volume) 0.69 mg/dL 0.60-1.30 Serum or plasma urea nitrogen/creatinine mass ratio 22 NRG Serum or plasma creatinine measurement w ith calculation of estimated glomerular filtration rate > NRG Serum or plasma glucose measurement (mass/volume) 102 mg/dL 70-105 Serum or plasma calcium measurement (mass/volume) 8.8 mg/dL 8.5-10.1 Serum or plasma total bilirubin measurement (mass/volu me) 1.9 mg/dL 0.1-1.0 Serum or plasma alkaline phosphatase maria elena surement (enzymatic activity/volume) 53 U/L 40-136 Serum or plasma aspartate aminotransfera se measurement (enzymatic activity/volume) 37 U/L 5-34 Serum or plasma alanine aminotransferase measurement (enzymatic activity/volume) 52 U/L 0-55 Serum or plasma protein measurement (mass/volume) 5.8 g/dL 6.4-8.2 Serum or plasma albumin measurement (mass/volume) 3.2 g/dL 3.2-4.5 CALCIUM CORRECTED 9.4 mg/dL 8.5-10.1 Capillary blood glucose measurement by g lucometer (mass/volume) - 02/14/19 11:25 Capillary blood glucose measurement by glucometer (mas s/volume) 103 mg/dL 70-110 Complete urinalysis with reflex to cultu re - 02/14/19 13:50 Urine color determination DARK YELLOW N RG Urine clarity determination SL CLOUDY N RG Urine pH measurement by test strip 7.0 5-9 Specific gravity of urine by test strip 1.010 1.016-1.022 Urine protein assay by test strip, semi-quantitative NEGATIVE NEGATIVE Urine glucose detection by automated test strip NE GATIVE NEGATIVE Erythrocytes detection in urine sediment by light micr oscopy NEGATIVE NEGATIVE Urine ketones detection by automated test strip NE GATIVE NEGATIVE Urine nitrite detection by test strip NEGATIVE NEGATIVE Urine total bilirubin detection by test strip NEGA TIVE NEGATIVE Urine urobilinogen measurement by automated test strip (mass/volume) 0.2 mg/dL < = 1.0 Urine leukocyte esterase detection by dipstick NEG ATIVE NEGATIVE Automated urine sediment erythrocyte cou nt by microscopy (number/high power field) NONE NRG Automated urine sediment leukocyte count by microscopy (number/high power field) NONE NRG Bacteria detection in urine sediment by light microsco py NEGATIVE NRG Squamous epithelial cells detection in u rine sediment by light microscopy 0-2 NRG Crystals detection in urine sediment by light microsco py NONE NRG Casts detection in urine sediment by light microscopy NONE NRG Mucus detection in urine sediment by light microscopy NEGATIVE NRG Complete urinalysis with reflex to culture NO NRG Complete blood count (CBC) with automate d white blood cell (WBC) differential - 02/18/19 07:45 Blood leukocytes automated count (number/volume) 8.4 10*3/uL 4.3-11.0 Blood erythrocytes automated count (number/volume) 2.91 10*6/uL 4.35-5.85 Venous blood hemoglobin measurement (mass/volume) 8.7 g/dL 13.3-17.7 Blood hematocrit (volume fraction) 28 % 40-54 Automated erythrocyte mean corpuscular volume 97 [ foz_us] 80-99 Automated erythrocyte mean corpuscular h emoglobin (mass per erythrocyte) 30 pg 25-34 Automated erythrocyte mean corpuscular h emoglobin concentration measurement (mass/volume) 31 g/dL 32-36 Automated erythrocyte distribution width ratio 15. 9 % 10.0- 14.5 Automated blood platelet count (count/volume) 453 10*3/uL 130-400 Automated blood platelet mean volume measurement 9.0 [foz_us] 7.4-10.4 Automated blood neutrophils/100 leukocytes 69 % 42-75 Automated blood lymphocytes/100 leukocytes 20 % 12-44 Blood monocytes/100 leukocytes 9 % 0-12 Automated blood eosinophils/100 leukocytes 2 % 0-10 Automated blood basophils/100 leukocytes 1 % 0-10 Blood neutrophils automated count (number/volume) 5.8 10*3 1.8-7.8 Blood lymphocytes automated count (number/volume) 1.6 10*3 1.0-4.0 Blood monocytes automated count (number/volume) 0. 8 10*3 0.0-1.0 Automated eosinophil count 0.1 10*3/uL 0 .0-0.3 Automated blood basophil count (count/volume) 0.1 10*3/uL 0.0-0.1 Comprehensive metabolic panel - 02/18/19 07:48 Serum or plasma sodium measurement (moles/volume) 136 mmol/L 135-145 Serum or plasma potassium measurement (moles/volume) 4.6 mmol/L 3.6-5.0 Serum or plasma chloride measurement (moles/volume) 105 mmol/L 98-107 Carbon dioxide 23 mmol/L 21-32 Serum or plasma anion gap determination (moles/volume) 8 mmol/L 5-14 Serum or plasma urea nitrogen measurement (mass/volume ) 16 mg/dL 7-18 Serum or plasma creatinine measurement (mass/volume) 0.77 mg/dL 0.60-1.30 Serum or plasma urea nitrogen/creatinine mass ratio 21 NRG Serum or plasma creatinine measurement w ith calculation of estimated glomerular filtration rate > NRG Serum or plasma glucose measurement (mass/volume) 123 mg/dL 70-105 Serum or plasma calcium measurement (mass/volume) 9.2 mg/dL 8.5-10.1 Serum or plasma total bilirubin measurement (mass/volu me) 1.4 mg/dL 0.1-1.0 Serum or plasma alkaline phosphatase maria elena surement (enzymatic activity/volume) 64 U/L 40-136 Serum or plasma aspartate aminotransfera se measurement (enzymatic activity/volume) 27 U/L 5-34 Serum or plasma alanine aminotransferase measurement (enzymatic activity/volume) 38 U/L 0-55 Serum or plasma protein measurement (mass/volume) 6.1 g/dL 6.4-8.2 Serum or plasma albumin measurement (mass/volume) 3.3 g/dL 3.2-4.5 CALCIUM CORRECTED 9.8 mg/dL 8.5-10.1 Automated blood complete blood count (he mogram) panel - 02/21/19 05:57 Blood leukocytes automated count (number/volume) 7.0 10*3/uL 4.3-11.0 Blood erythrocytes automated count (number/volume) 2.78 10*6/uL 4.35-5.85 Venous blood hemoglobin measurement (mass/volume) 8.3 g/dL 13.3-17.7 Blood hematocrit (volume fraction) 27 % 40-54 Automated erythrocyte mean corpuscular volume 98 [ foz_us] 80-99 Automated erythrocyte mean corpuscular h emoglobin (mass per erythrocyte) 30 pg 25-34 Automated erythrocyte mean corpuscular h emoglobin concentration measurement (mass/volume) 31 g/dL 32-36 Automated erythrocyte distribution width ratio 15. 6 % 10.0- 14.5 Automated blood platelet count (count/volume)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
[2019-10-04 23:15] LABS: BASOPHILS % (AUTO) 0 % (0-10); EOSINOPHILS # (AUTO) 0.1 10^3/uL (0.0-0.3); EOSINOPHILS % (AUTO) 1 % (0-10); HEMATOCRIT 40 % (40-54); HEMOGLOBIN 13.3 G/DL (13.3-17.7); LYMPHOCYTES # (AUTO) 1.8 X 10^3 (1.0-4.0); LYMPHOCYTES % (AUTO) 17 % (12-44); MEAN CORPUSCULAR HEMOGLOBIN 29 PG (25-34); MEAN CORPUSCULAR HGB CONC 33 G/DL (32-36); MEAN CORPUSCULAR VOLUME 86 FL (80-99); MEAN PLATELET VOLUME 9.4 FL (7.4-10.4); MONOCYTES # (AUTO) 1.1 X 10^3 (0.0-1.0); MONOCYTES % (AUTO) 11 % (0-12); NEUTROPHILS # (AUTO) 7.4 X 10^3 (1.8-7.8); NEUTROPHILS % (AUTO) 71 % (42-75); PLATELET COUNT 330 10^3/uL (130-400); RED CELL DISTRIBUTION WIDTH 12.7 % (10.0-14.5); WHITE BLOOD COUNT 10.4 10^3/uL (4.3-11.0)
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
[2019-10-04 23:29] LABS: ALBUMIN 4.1 GM/DL (3.2-4.5); CHLORIDE 104 MMOL/L (98-107); POTASSIUM 3.9 MMOL/L (3.6-5.0); SODIUM 138 MMOL/L (135-145)
[2019-10-04 23:30] LABS: CALCIUM 9.4 MG/DL (8.5-10.1); INR 1.1 (0.8-1.4); PROTHROMBIN TIME PATIENT 14.8 SEC (12.2-14.7)
[2019-10-04 23:31] LABS: GLUCOSE 108 MG/DL (70-105); TOTAL PROTEIN 7.5 GM/DL (6.4-8.2)
[2019-10-04 23:32] LABS: CARBON DIOXIDE 24 MMOL/L (21-32)
[2019-10-04 23:33] LABS: BILIRUBIN,TOTAL 0.5 MG/DL (0.1-1.0)
[2019-10-04 23:35] LABS: ALKALINE PHOSPHATASE 122 U/L (40-136); CREATININE SERUM 0.92 MG/DL (0.60-1.30); GFR ESTIMATED > 60
[2019-10-04 23:36] LABS: BUN/CREATININE RATIO 15
[2019-10-04 23:38] LABS: ALANINE AMINOTRANSFERASE 23 U/L (0-55)
[2019-10-05] MEDS ORDERED: RX-TRAMADOL 50 MG (ULTRAM) TAB PPK#4 PO STA (00:42)
[2019-10-05] MEDS ORDERED: KETOROLAC 30 MG/ML VIAL IVP STA (00:43)
[2019-10-05] MEDS ORDERED: ACETAMINOPHEN 500 MG TAB (TYLENOL) PO STA (00:43)
[2019-10-05] MEDS ORDERED: LACTATED RINGERS 1,000 ML IV ONE (00:43)
[2019-10-05] MEDS ORDERED: TRIM/SULFAMETH 160/800 (SEPTRA DS) TAB PO ONE (00:45)
[2019-10-05] MEDS ORDERED: VANCOMYCIN INJECTION 1,000 MG in NS (IVPB) 250 ML IV SCH (00:45)
[2019-10-05] MEDS ORDERED: L. A1CAP11 PO (00:47)
[2019-10-05] MEDS ORDERED: TRAM-42 PO (00:47)
[2019-10-05] MEDS ORDERED: SULF1TAB35 PO (00:47)
[2019-10-05 03:14] VITALS: BP 137/84
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
--- NOTE | 2019-10-05 07:17 | Diagnostic Imaging Report ---
Indication: Left leg swelling and erythema AP view pelvis shows no acute fracture or dislocation. There is an intramedullary alexa in the left femur with a healed femoral shaft fracture. IMPRESSION: No acute abnormality seen in the pelvis Dictated by: Dictated on workstation # [id number]
--- NOTE | 2019-10-05 07:42 | Diagnostic Imaging Report ---
Indication: Left ankle swelling 3 views of left ankle show no acute fracture, dislocation or other acute abnormalities. There is an intramedullary alexa in the tibia transfixing an oblique fracture which appears to have bridging callus. There is a adjacent healed fibular fracture. IMPRESSION: No acute abnormality seen in the left ankle. Dictated by: Dictated on workstation # [id number]
--- NOTE | 2019-10-05 07:43 | Diagnostic Imaging Report ---
INDICATION: Left leg swelling and erythema AP and lateral views of the left femur reveal intramedullary alexa transfixing nonacute proximal diaphyseal fracture with bridging callus. Fracture line remains somewhat visible. There is no evidence of acute fracture or malalignment. Postoperative findings are also visualized in the proximal tibia. There is no evidence of acute fracture, orthopedic hardware complication or dislocation. IMPRESSION: Internally fixed nonacute left femoral fracture. Dictated by: Dictated on workstation # [id number]
--- NOTE | 2019-10-05 07:46 | Diagnostic Imaging Report ---
Indication: Left lower leg swelling AP lateral views of left tibia-fibula show old healed fractures of the distal tibia and fibula shafts. There is an intramedullary alexa in the tibia. There is no acute fracture. There is no osteolysis. IMPRESSION: Old fractures of the distal shaft of the tibia and fibula. No acute abnormalities seen. Dictated by: Dictated on workstation # [id number]
== END 2019-10-05 03:17 | disposition home or self-care (01) ==
LOC: EDUNIT# 22:56 → ER 22:57
DX: L03.116 Cellulitis of left lower limb (principal); S80.12XA Contusion of left lower leg, initial encounter; W18.31XA Fall on same level due to stepping on an object, initial encounter; Z91.048 Other nonmedicinal substance allergy status; Z79.899 Other long term (current) drug therapy
CPT/HCPCS: 36415; 71045; 72170; 73552; 73590; 73610; 80053; 83605; 85025; 85610; 85730; 87040; 96374; 96375

== ENCOUNTER 2019-10-21 05:44 | Outpatient (RCR) | payer BC ==
[~2019-10-21] VITALS: Ht 185 cm; Wt 97.0 kg
[~2019-10-21 05:44] MED LIST changes: +L. A1CAP11 PO; +SULF1TAB35 PO; +TRAM-42 PO
[2019-10-24] MEDS ORDERED: DOCU-143 PO (08:50)
[2019-10-24] MEDS ORDERED: HYDR-4226 PO (08:50)
== END 2019-10-21 11:18 | disposition home or self-care (01) ==
LOC: PREOP 05:44
PROVIDERS: ATTEND Surgery
DX: Z01.812 Encounter for preprocedural laboratory examination (principal); K82.8 Other specified diseases of gallbladder; Z20.828 Contact with and (suspected) exposure to other viral communicable diseases
CPT/HCPCS: 87635

== ENCOUNTER 2019-10-24 06:15 | Day surgery (SDC) | payer BC ==
[~2019-10-24] VITALS: Ht 185 cm; Wt 97.0 kg
[2019-10-24] VITALS (8 sets, daily range): BP systolic 121–136; BP diastolic 70–88
[2019-10-24] MEDS ORDERED: fentaNYL INJECTION 100 MCG/2 ML AMP ONE (06:42)
[2019-10-24] MEDS ORDERED: MIDAZOLAM 2 MG/2 ML (VERSED) VIAL ONE (06:42)
[2019-10-24] MEDS ORDERED: ONDANSETRON 4 MG/2 ML (SDV) Z0FRAN IV ONE (06:45)
[2019-10-24] MEDS ORDERED: FAMOTIDINE 20MG/2ML IV (PEPCID) IV ONE (06:45)
[2019-10-24] MEDS ORDERED: ceFAZolin 2 GM IV Premixed 50 ML IV ONE (06:45)
[2019-10-24] MEDS ORDERED: FAMOTIDINE 20MG/2ML IV (PEPCID) ONE (06:52)
[2019-10-24] MEDS ORDERED: ONDANSETRON 4 MG/2 ML (SDV) Z0FRAN ONE ×2 (06:52→09:02)
[2019-10-24] MEDS ORDERED: ceFAZolin 2 GM IV Premixed 50 ML ONE (06:53)
[2019-10-24 06:59] LABS: BASOPHILS % (AUTO) 1 % (0-10); EOSINOPHILS # (AUTO) 0.1 10^3/uL (0.0-0.3); EOSINOPHILS % (AUTO) 2 % (0-10); HEMATOCRIT 42 % (40-54); HEMOGLOBIN 13.9 G/DL (13.3-17.7); LYMPHOCYTES # (AUTO) 2.1 X 10^3 (1.0-4.0); LYMPHOCYTES % (AUTO) 41 % (12-44); MEAN CORPUSCULAR HEMOGLOBIN 29 PG (25-34); MEAN CORPUSCULAR HGB CONC 33 G/DL (32-36); MEAN CORPUSCULAR VOLUME 87 FL (80-99); MEAN PLATELET VOLUME 9.6 FL (7.4-10.4); MONOCYTES # (AUTO) 0.6 X 10^3 (0.0-1.0); MONOCYTES % (AUTO) 11 % (0-12); NEUTROPHILS # (AUTO) 2.3 X 10^3 (1.8-7.8); NEUTROPHILS % (AUTO) 44 % (42-75); PLATELET COUNT 239 10^3/uL (130-400); RED CELL DISTRIBUTION WIDTH 14.1 % (10.0-14.5); WHITE BLOOD COUNT 5.1 10^3/uL (4.3-11.0)
[2019-10-24] MEDS: LACTATED RINGERS 1,000 ML IV PRN ×2 (07:02→08:35)
[2019-10-24] MEDS ORDERED: IOPAMIDOL 61% 30 ML (ISOVUE 300) VIAL ONE (07:38)
[2019-10-24] MEDS ORDERED: BUP/EPI 0.5% 1:200,000 (SENSORCAINE) 30 ML VIAL ONE (07:38)
--- NOTE | 2019-10-24 07:54 | Progress Note-Pre Operative ---
Pre-Operative Progress Note H&P Reviewed The H&P was reviewed, patient examined and no changes noted. Date Seen by Provider: Oct 24, 2019 Time Seen by Provider: 07:54 Date H&P Reviewed: Oct 24, 2019 Time H&P Reviewed: 07:54 Pre-Operative Diagnosis: epigastric abd pain, biliary dyskinesia JAIDA RODRIGUEZ DO Oct 24, 2019 07:54
--- NOTE | 2019-10-24 08:49 | Progress Note-Post Operative ---
Post-Operative Progess Note Surgeon (s)/Sharepoint Admin (s) Surgeon JAIDA RODRIGUEZ DO Sharepoint Admin: Dr. Betancourt to assist in retraction dissection and closure. Pre-Operative Diagnosis epigastric abd pain, biliary dyskinesia Post-Operative Diagnosis same Procedure & Operative Findings Date of Procedure 10/24/19 Procedure Performed/Findings PROCEDURE: Laparoscopic cholecystectomy with intraoperative cholangiogram. COMPLICATIONS: None. PROCEDURE: The patient was taken to the operating suite and was prepped and draped in sterile fashion. A surgical pause was performed. Just superior to the umbilicus, a 12 mm incision was made. Dissection was taken down to the fascia, which was then scored and grasped with a Eloise and the abdomen was then entered. A 0 Vicryl suture was placed in a [id number]-[id number] fashion and a Sanderson trocar was placed and secured. Pneumoperitoneum was achieved. A 5mm trochar place in the subxyphoid and 2 in the right upper quadrant. The gallbladder was then grasped and elevated. The cystic duct, and cystic artery were then dissected out. Clip was placed on the distal portion of the cystic duct which was then partially transected. An arrow catheter was inserted into the duct. The cholangiogram was then performed. No filing defects and contrast made its way into the duodenum. Catheter removed. Clips were placed on proximal portion of the cystic duct and then the duct was then transected. Clips were placed along the proximal and distal portion of the cystic artery which was then transected. Hook cautery was used to dissect the gallbladder from the gallbladder fossa achieving hemostasis. The gallbladder was placed in an Endobag and removed through the 12 mm trocar site. The abdomen was then reinspected. Copious amounts of irrigation were used to irrigate the abdomen and there were no signs of active bleeding. Hemostasis had been achieved. The 12 mm fascial defect was then closed with 0 Vicryl suture that had been placed in a [id number] fashion. The abdomen was then desufflated, the trocars were removed. The abdomen was then washed and dried. The skin was then closed using 4-0 Monocryl in a subcuticular fashion. The abdomen was washed and dried and Skin Affix was place over incisions. Patient tolerated the procedure well without any complications and was taken to the recovery room in stable condition. Anesthesia Type general Estimated Blood Loss Estimated blood loss (mL): min Specimens/Packing Specimens Removed gallbladder JAIDA RODRIGUEZ DO Oct 24, 2019 08:49
[2019-10-24] MEDS ORDERED: DOCU-143 PO (08:50)
[2019-10-24] MEDS ORDERED: HYDR-4226 PO (08:50)
--- NOTE | 2019-10-24 08:51 | Discharge Inst-Simple/Standard ---
Discharge Inst-Standard Discharge Medications New, Converted or Re-Newed RX: RX on Chart Patient Instructions/Follow Up Plan of Care/Instructions/FU: 2-3 weeks Jacky Activity as Tolerated: No Discharge Diet: Regular Diet Other Inst to Patient Follow up Appt: Make appointment for 2-3 weeks. Instructions: No lifting greater than 10 pounds. No strenuous activity. May shower in 24 hours, no tub bath or soaking. Use incentive spirometer at home as directed. No Smoking Skin/Wound Care: You have special glue over incision, it will fall off on it's own. Symptoms to Report: Appetite Changes, Extremity Discoloration, Numbness/Tingling, Swelling Increased, Bleeding Excessive, Eyesight Changes, Pain Increased, Urine Color Change, Constipation(Persistent), Fever over 101 degree F, Pain/Pressure in chest, Urinating Difficulty, Cough Up/Vomit Blood, Heart Beat Irreg/Pounding, Pain/Pressure in jaw, Vaginal Bleeding Increase, Cramps in feet or legs, Lightheadedness, Pain/Pressure in shoulder, Diarrhea(Persistent), Memory Changes Suddenly, Questions/Concerns, Weight gain consecutive days, Dizziness/Fainting, Nausea/Vomiting, Shortness of Breath, Weight gain over 2 pounds. If eyes or skin turn yellow notify physician. If questions or concerns contact your physician Or seek help at emergency department. JAIDA RODRIGUEZ DO Oct 24, 2019 08:51
[2019-10-24] MEDS ORDERED: morphine INJ 10 MG/ML 1ML (SYR OR VIAL) IVP ONE (09:00)
[2019-10-24] MEDS ORDERED: ONDANSETRON 4 MG/2 ML (SDV) Z0FRAN IVP PRN (09:00)
[2019-10-24] MEDS ORDERED: MEPERIDINE (DEMEROL) INJ 50 MG/ML IVP ONE (09:00)
[2019-10-24] MEDS ORDERED: SEVOFLURANE (ULTANE) 15 ML INHAL SOLN ONE (09:01)
[2019-10-24] MEDS ORDERED: proPOfol 200 MG/20 ML (DIPRIVAN) VIAL IV ONE (09:01)
[2019-10-24] MEDS ORDERED: ROCURONIUM 10 MG/ML 5 ML SYRINGE IV ONE (09:02)
[2019-10-24] MEDS ORDERED: LIDOCAINE PF 2% 5 ML (XYLOCAINE) VIAL ONE (09:02)
[2019-10-24] MEDS ORDERED: GLYCOPYRROLATE 0.2 MG/ML (ROBINUL) 2 ML VIAL ONE (09:02)
[2019-10-24] MEDS ORDERED: NEOSTIGMINE 3 MG/3 ML VIAL ONE (09:02)
[2019-10-24] MEDS ORDERED: PHENYLEPHRINE 100 MCG/ML 10 ML (ANESTHESIA) SYR ONE (09:02)
--- NOTE | 2019-10-24 10:07 | Anesthesia-General Post-Op ---
General Patient Condition Mental Status/LOC: Same as Preop Cardiovascular: Satisfactory Nausea/Vomiting: Absent Respiratory: Satisfactory Pain: Controlled Complications: Absent Post Op Complications Complications None Follow Up Care/Instructions Patient Instructions None needed. Anesthesia/Patient Condition Patient Condition Patient is doing well, no complaints, stable vital signs, no apparent adverse anesthesia problems. No complications reported per nursing. DAMARIS QUINN CRNA Oct 24, 2019 10:07
[2019-10-24] MEDS ORDERED: HYDROcodone/APAP 5 MG/325 MG (LORTAB) TAB ONE (10:36)
[2019-10-24] MEDS ORDERED: HYDROcodone/APAP 5 MG/325 MG (LORTAB) TAB PO ONE (10:45)
--- NOTE | 2019-10-24 12:02 | Diagnostic Imaging Report ---
INDICATION: Fluoroscopy for intraoperative echocardiogram. Fluoroscopy was provided in the OR during intraoperative cholangiogram. 7 seconds of fluoroscopic time was utilized. Images demonstrate contrast being injected via the cystic duct remnant. Intrahepatic and extrahepatic bile ducts are normal caliber. No filling defects are seen. There is contrast flowing into the duodenum. IMPRESSION: Fluoroscopy during intraoperative cholangiogram. Dictated by: Dictated on workstation # [id number]
== END 2019-10-24 11:00 | disposition home or self-care (01) ==
LOC: SDC 06:15
PROVIDERS: ATTEND Surgery
DX: K81.1 Chronic cholecystitis (principal); K82.8 Other specified diseases of gallbladder; J45.909 Unspecified asthma, uncomplicated; K21.9 Gastro-esophageal reflux disease without esophagitis; K20.9 Esophagitis, unspecified; K22.70 Barrett's esophagus without dysplasia; E66.9 Obesity, unspecified; Z68.28 Body mass index [BMI] 28.0-28.9, adult; Z79.899 Other long term (current) drug therapy; Z79.51 Long term (current) use of inhaled steroids; Z91.09 Other allergy status, other than to drugs and biological substances; Z91.018 Allergy to other foods; Z82.49 Family history of ischemic heart disease and other diseases of the circulatory system
CPT/HCPCS: 36415; 76000; 85025; 87081

== ENCOUNTER → 2020-03-04 | Outpatient (CLI) | payer BC ==
[~2020-03-04] MED LIST changes: -CETI10TA21 PO; +CETI10TA49 PO; +DOCU-143 PO; +HYDR-4226 PO
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
== END ==
LOC: RAD 09:45
PROVIDERS: ATTEND Internal Medicine
DX: R51.9 Headache, unspecified (principal)
CPT/HCPCS: 70450

== ENCOUNTER 2020-07-17 08:56 | Emergency (ER) | payer BC, OTHER ==
[~2020-07-17] VITALS: Ht 185 cm; Wt 99.7 kg
[2020-07-17] MEDS ORDERED: LACTATED RINGERS 1,000 ML IV ONE (09:15)
[2020-07-17] MEDS ORDERED: ONDANSETRON 4 MG/2 ML (SDV) Z0FRAN IVP ONE (09:15)
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
[2020-07-17 09:31] LABS: BASOPHILS % (AUTO) 1 % (0-10); EOSINOPHILS % (AUTO) 1 % (0-10); HEMATOCRIT 50 % (40-54); HEMOGLOBIN 17.1 g/dL (13.3-17.7); LYMPHOCYTES # (AUTO) 1.4 10^3/uL (1.0-4.0); LYMPHOCYTES % (AUTO) 26 % (12-44); MEAN CORPUSCULAR HEMOGLOBIN 31 pg (25-34); MEAN CORPUSCULAR HGB CONC 34 g/dL (32-36); MEAN CORPUSCULAR VOLUME 89 fL (80-99); MEAN PLATELET VOLUME 9.8 fL (9.0-12.2); MONOCYTES # (AUTO) 0.7 10^3/uL (0.0-1.0); MONOCYTES % (AUTO) 13 % (0-12); NEUTROPHILS # (AUTO) 3.2 10^3/uL (1.8-7.8); NEUTROPHILS % (AUTO) 60 % (42-75); PLATELET COUNT 262 10^3/uL (130-400); WHITE BLOOD COUNT 5.3 10^3/uL (4.3-11.0)
[2020-07-17 09:42] LABS: ALBUMIN 4.5 GM/DL (3.2-4.5); CHLORIDE 103 MMOL/L (98-107); POTASSIUM 4.1 MMOL/L (3.6-5.0); SODIUM 140 MMOL/L (135-145)
[2020-07-17 09:43] LABS: CALCIUM 9.3 MG/DL (8.5-10.1)
[2020-07-17 09:44] LABS: GLUCOSE 104 MG/DL (70-105); TOTAL PROTEIN 7.4 GM/DL (6.4-8.2)
[2020-07-17 09:45] LABS: CARBON DIOXIDE 25 MMOL/L (21-32)
[2020-07-17 09:46] LABS: BILIRUBIN,TOTAL 2.1 MG/DL (0.1-1.0)
[2020-07-17 09:48] LABS: ALKALINE PHOSPHATASE 149 U/L (40-136); CREATININE SERUM 1.04 MG/DL (0.60-1.30); GFR ESTIMATED > 60
[2020-07-17 09:49] LABS: BUN/CREATININE RATIO 15
[2020-07-17 09:51] LABS: ALANINE AMINOTRANSFERASE 46 U/L (0-55)
[2020-07-17] MEDS ORDERED: ONDA4TAB11 SL (10:07)
[2020-07-17 10:24] VITALS: BP 117/92
== END 2020-07-17 10:24 | disposition home or self-care (01) ==
LOC: EDUNIT# 08:56 → ER 08:58
DX: R11.2 Nausea with vomiting, unspecified (principal); R19.7 Diarrhea, unspecified; E86.1 Hypovolemia; R55 Syncope and collapse; J45.909 Unspecified asthma, uncomplicated; K21.9 Gastro-esophageal reflux disease without esophagitis; Z83.3 Family history of diabetes mellitus; Z82.61 Family history of arthritis
CPT/HCPCS: 36415; 80053; 83735; 85025

== ENCOUNTER 2020-09-08 14:17 | Emergency (ER) | payer OTHER ==
[~2020-09-08] VITALS: Ht 185.5 cm; Wt 106.6 kg
[~2020-09-08 14:17] MED LIST changes: +ONDA4TAB11 SL
--- NOTE | 2020-09-08 14:26 | ED Chest Pain ---
General Chief Complaint: Chest Pain Stated Complaint: CP Source: patient Exam Limitations: no limitations History of Present Illness Date Seen by Provider: Sep 08, 2020 Time Seen by Provider: 14:26 Initial Comments This is a 25-year-old male who presented to the ER via POV for complaints of shortness of breath and chest pain. States he has a history of asthma and when his attacks occur he experiences chest pain. He does have an albuterol inhaler at home but he did not take it to work with him today. Currently reporting pain 8/10, pressure, and throughout his chest. Denies nausea, vomiting, diaphoresis. Has not taken anything for pain prior to arrival. Has no previous cardiac history, no smoking, no alcohol no illicit drugs. Denies fever, chills. Allergies and Home Medications Allergies Coded Allergies: chocolate flavor (Verified Allergy, Unknown, 02/13/19) lavender (Lavandula angustifolia) (Verified Allergy, Unknown, 02/13/19) Home Medications Cetirizine HCl 10 Mg Tablet, 10 MG PO DAILY, (Reported) Docusate Sodium 100 Mg Capsule, 100 MG PO BID Prescribed by: JAIDA RODRIGUEZ on 10/24/19 0850 Esomeprazole Magnesium 40 Mg Cap, 40 MG PO HS, (Reported) Famotidine 40 Mg Tablet, 40 MG PO DAILY, (Reported) Hydrocodone/Acetaminophen 1 Each Tablet, 1 TAB PO Q4-6HR Prescribed by: JAIDA RODRIGUEZ on 10/24/19 0850 Hyoscyamine Sulfate 0.125 Mg Tab.subl, 0.125 MG SL Q4H PRN for CRAMPS Prescribed by: ROMAN PATEL on 06/20/19 0635 L. Acidophilus/Pectin, [place] 1 Each Capsule, 2 EACH PO QID Prescribed by: DOYLE AKBAR on 10/05/19 0047 Melatonin 3 Mg Capsule, 3 MG PO HS, (Reported) Ondansetron 4 Mg Tab.rapdis, 4 MG SL Q4H PRN for NAUSEA/VOMITING Prescribed by: HAROON ARIZMENDI on 07/17/20 1007 Promethazine HCl 25 Mg Tablet, 25 MG PO Q8H PRN for NAUSEA/VOMITING Prescribed by: LINDA JENKINS on 06/20/19 1354 Sucralfate 1 Gm Tablet, 1 GM PO QIDACHS Prescribed by: JESSICA CERON on 06/05/19 4655 Sulfamethoxazole/Trimethoprim 1 Each Tablet, 2 EACH PO BID Prescribed by: DOYLE AKBAR on 10/05/19 0047 Patient Home Medication List Home Medication List Reviewed: Yes Review of Systems Review of Systems Constitutional: no symptoms reported EENTM: No Symptoms Reported Respiratory: See HPI Cardiovascular: See HPI Gastrointestinal: No Symptoms Reported Genitourinary: No Symptoms Reported Musculoskeletal: no symptoms reported Skin: no symptoms reported Psychiatric/Neurological: No Symptoms Reported Endocrine: No Symptoms Reported Hematologic/Lymphatic: No Symptoms Reported Past Eszwmli-Ohwsga-Lagruz Hx Patient Social History 2nd Hand Smoke Exposure: No Recent Hopitalizations: No Immunizations Up To Date Tetanus Booster (TDap): Less than 5yrs PED Vaccines UTD: Yes Date of Influenza Vaccine: Jan 09, 2019 Seasonal Allergies Seasonal Allergies: Yes Past Medical History Surgeries: Yes (BMT'S, RIGHT KNEE, RODS IN LEG) Abdominal, Adenoidectomy, Ear Surgery, Orthopedic, Tonsillectomy Respiratory: Yes Asthma Currently Using CPAP: No Currently Using BIPAP: No Cardiac: No Palpitations Neurological: No Reproductive Disorders: No Sexually Transmitted Disease: No HIV/AIDS: No Genitourinary: No Gastrointestinal: Yes Gastroesophageal Reflux, Hilario's Esophagus, Gall Bladder Disease Musculoskeletal: Yes Fractures Endocrine: No HEENT: Yes (GLASSES) Loss of Vision: Denies Hearing Impairment: Denies Cancer: No Psychosocial: No Integumentary: No Blood Disorders: No Adverse Reaction/Blood Tranf: No (HAS HAD BLOOD WITH NO REACTION) Family Medical History Asthma 19 MOTHER G8 BROTHER Diabetes mellitus 19 MOTHER FH: rheumatoid arthritis 19 MOTHER G8 BROTHER FH: sleep apnea 19 MOTHER G8 BROTHER Seizure disorder G8 BROTHER No Pertinent Family Hx, Other Conditions/Hx Physical Exam Vital Signs Vital Signs - First Documented 09/08/20 09/08/20 14:18 14:28 Temp 36.8 Pulse 103 Resp 18 B/P (MAP) 133/81 (98) Pulse Ox 95 O2 Delivery Room Air Capillary Refill : Height, Weight, BMI Height: 6'1.00" Weight: 241lbs. 8.0oz. 109.157971fh; 29.00 BMI Method:Stated General Appearance: No Apparent Distress, WD/WN HEENT: PERRL/EOMI, TMs Normal, Normal ENT Inspection, Pharynx Normal, Moist Mucous Membranes Neck: Full Range of Motion, Normal Inspection, Non Tender, Supple Respiratory: Chest Non Tender, Lungs Clear, Normal Breath Sounds, No Accessory Muscle Use, No Respiratory Distress Cardiovascular: Regular Rate, Rhythm, No Edema, Normal Peripheral Pulses Gastrointestinal: Normal Bowel Sounds, Non Tender, Soft Extremity: Normal Capillary Refill, Normal Range of Motion Neurologic/Psychiatric: Alert, Oriented x3, No Motor/Sensory Deficits, Normal Mood/Affect Skin: Normal Color, Warm/Dry Progress/Results/Core Measures Results/Orders Lab Results Laboratory Tests Test 09/08/20 14:37 09/08/20 16:35 Range/Units White Blood Count 8.6 4.3-11.0 10^3/uL Red Blood Count 5.03 4.30-5.52 10^6/uL Hemoglobin 15.7 13.3-17.7 g/dL Hematocrit 45 40-54 % Mean Corpuscular Volume 89 80-99 fL Mean Corpuscular Hemoglobin 31 25-34 pg Mean Corpuscular Hemoglobin Concent 35 32-36 g/dL Red Cell Distribution Width 11.9 10.0-14.5 % Platelet Count 267 130-400 10^3/uL Mean Platelet Volume 10.2 9.0-12.2 fL Immature Granulocyte % (Auto) 1 % Neutrophils (%) (Auto) 50 42-75 % Lymphocytes (%) (Auto) 29 12-44 % Monocytes (%) (Auto) 7 0-12 % Eosinophils (%) (Auto) 13 H 0-10 % Basophils (%) (Auto) 1 0-10 % Neutrophils # (Auto) 4.3 1.8-7.8 10^3/uL Lymphocytes # (Auto) 2.5 1.0-4.0 10^3/uL Monocytes # (Auto) 0.6 0.0-1.0 10^3/uL Eosinophils # (Auto) 1.1 H 0.0-0.3 10^3/uL Basophils # (Auto) 0.1 0.0-0.1 10^3/uL Immature Granulocyte # (Auto) 0.0 0.0-0.1 10^3/uL Neutrophils % (Manual) 49 % Lymphocytes % (Manual) 31 % Monocytes % (Manual) 7 % Eosinophils % (Manual) 13 % Basophils % (Manual) 0 % Band Neutrophils 0 % Percent Immature Platelet Fraction 3.6 0.0-7.6 % Blood Morphology Comment NORMAL Prothrombin Time 14.6 12.2-14.7 SEC INR Comment 1.1 0.8-1.4 Activated Partial Thromboplast Time 30 24-35 SEC Sodium Level 143 135-145 MMOL/L Potassium Level 4.1 3.6-5.0 MMOL/L Chloride Level 107 98-107 MMOL/L Carbon Dioxide Level 23 21-32 MMOL/L Anion Gap 13 5-14 MMOL/L Blood Urea Nitrogen 18 7-18 MG/DL Creatinine 1.01 0.60-1.30 MG/DL Estimat Glomerular Filtration Rate > 60 BUN/Creatinine Ratio 18 Glucose Level 90 70-105 MG/DL Calcium Level 9.2 8.5-10.1 MG/DL Corrected Calcium 9.0 8.5-10.1 MG/DL Magnesium Level 2.3 1.6-2.4 MG/DL Total Bilirubin 1.1 H 0.1-1.0 MG/DL Aspartate Amino Transf (AST/SGOT) 29 5-34 U/L Alanine Aminotransferase (ALT/SGPT) 41 0-55 U/L Alkaline Phosphatase 126 40-136 U/L Myoglobin 115.8 H 10.0-92.0 NG/ML Troponin I < 0.028 < 0.028 <0.028 NG/ML Total Protein 7.1 6.4-8.2 GM/DL Albumin 4.3 3.2-4.5 GM/DL My Orders Orders - RADHA KIMBROUGH HE[employer] RECRUITER Cbc With Automated Diff (09/08/20 14:18) Magnesium (09/08/20 14:18) Chest 1 View, Ap/Pa Only (09/08/20 14:18) Ekg Tracing (09/08/20 14:18) Comprehensive Metabolic Panel (09/08/20 14:18) Myoglobin Serum (09/08/20 14:18) Protime With Inr (09/08/20 14:18) Partial Thromboplastin Time (09/08/20 14:18) O2 (09/08/20 14:18) Ed Iv/Invasive Line Start (09/08/20 14:18) Troponin I (09/08/20 14:18) Aspirin Chewable Tablet (Baby Aspirin Ch (09/08/20 14:30) Albuterol/Ipra Inhalation Soln (Duoneb I (09/08/20 14:30) Rt Request For Service (09/08/20 14:19) Svn Small Volume Nebulizer (09/08/20 14:19) Manual Differential (09/08/20 14:37) Ns Iv 1000 Ml (Sodium Chloride 0.9%) (09/08/20 15:45) Troponin I (09/08/20 17:30) Medications Given in ED Vital Signs/I&O 09/08/20 09/08/20 09/08/20 09/08/20 14:18 14:26 14:28 17:21 Temp 36.8 Pulse 103 64 Resp 18 16 B/P (MAP) 133/81 (98) 122/69 Pulse Ox 95 100 O2 Delivery Room Air Room Air Room Air Room Air Progress Progress Note : Progress Note Patient examined. Orders placed for albuterol treatment. Vital signs stable. Initiated cardiac work-up. Reviewed and unremarkable. Chest x-ray shows no acute abnormalities. Reported feeling much improved after albuterol treatment, chest pain no longer present. Will keep for troponin repeat. Repeat troponin negative. Continues to report no chest pain. Discharge plan of care and he is agreeable with plan. Initial ECG Impression Date: Sep 10, 2020 Initial ECG Impression Time: 14:15 Initial ECG Rate: 86 Initial ECG Rhythm: Normal Sinus Initial ECG Intervals: Normal Initial ECG Impression: Normal Initial ECG Comparisson: Unchanged Diagnostic Imaging Diagonstic Imaging: Xray Plain Films/CT/US/NM/MRI: chest Comments [facility] [place], [place] NAME: ADDIESAMMIDEANNA [facility] REC#: [id number] PT STATUS: REG ER : 1995 PHYSICIAN: RADHA KIMBROUGH [facility]C[facility] RECRUITER ADMIT DATE: 09/08/20/ER Signed Date of Exam:09/08/20 CHEST 1 VIEW, AP/PA ONLY INDICATION: Chest pain. COMPARISON: October 05, 2019. TECHNIQUE: Single radiograph of the chest dated September 08, 2020. FINDINGS: The cardiac silhouette is within normal limits in size. No significant pulmonary vascular congestion. The lungs are clear. No pleural effusion. No pneumothorax. No acute osseous abnormality. IMPRESSION: Similar-appearing examination without acute cardiopulmonary abnormality. Dictated by: Dictated on workstation # [id number] Dict: 09/08/20 1459 Trans: 09/08/20 1629 [id number] Interpreted by: HOLLY AMIN MD Electronically signed by: HOLLY AMIN MD 09/08/20 1629 Reviewed: Reviewed by Me Departure Impression Primary Impression: Asthma with acute exacerbation Disposition: HOME, SELF-CARE Condition: Improved Departure-Patient Inst. Decision time for Depature: 17:10 Referrals: TOAN STANFORD DO (PCP/Family) Primary Care Physician Patient Instructions: Asthma in Adults Add. Discharge Instructions: Plan: 1. Take antihistamine daily as discussed. You can buy this [id number], try loratadine or Margarita. 2. Use your inhaler as needed for wheezing or shortness of breath. Make sure you take this to work with you. 3. Follow-up with your primary care provider if you are experiencing increased episodes. 4. Return to the emergency department if you are experiencing any new, concerning, worsening symptoms. All discharge instructions reviewed with patient and/or family. Voiced understanding. RADHA KIMBROUGH HEALTHC[employer] RECRUITER Sep 08, 2020 14:26
[2020-09-08] MEDS ORDERED: RT-ALBUTEROL/IPRATROPIUM 3 ML (DUONEB) VIAL INH ONE (14:30)
[2020-09-08] MEDS ORDERED: ASPIRIN 81 MG CHEW (CHILDREN'S ASA) PO ONE (14:30)
[2020-09-08 14:50] LABS: BASOPHILS # (AUTO) 0.1 10^3/uL (0.0-0.1); BASOPHILS % (AUTO) 1 % (0-10); EOSINOPHILS # (AUTO) 1.1 10^3/uL (0.0-0.3); EOSINOPHILS % (AUTO) 13 % (0-10); HEMATOCRIT 45 % (40-54); HEMOGLOBIN 15.7 g/dL (13.3-17.7); LYMPHOCYTES # (AUTO) 2.5 10^3/uL (1.0-4.0); LYMPHOCYTES % (AUTO) 29 % (12-44); MEAN CORPUSCULAR HEMOGLOBIN 31 pg (25-34); MEAN CORPUSCULAR HGB CONC 35 g/dL (32-36); MEAN CORPUSCULAR VOLUME 89 fL (80-99); MEAN PLATELET VOLUME 10.2 fL (9.0-12.2); MONOCYTES # (AUTO) 0.6 10^3/uL (0.0-1.0); MONOCYTES % (AUTO) 7 % (0-12); NEUTROPHILS # (AUTO) 4.3 10^3/uL (1.8-7.8); NEUTROPHILS % (AUTO) 50 % (42-75); PLATELET COUNT 267 10^3/uL (130-400); WHITE BLOOD COUNT 8.6 10^3/uL (4.3-11.0)
[2020-09-08 14:56] LABS: ALBUMIN 4.3 GM/DL (3.2-4.5); CHLORIDE 107 MMOL/L (98-107); INR 1.1 (0.8-1.4); POTASSIUM 4.1 MMOL/L (3.6-5.0); PROTHROMBIN TIME PATIENT 14.6 SEC (12.2-14.7); SODIUM 143 MMOL/L (135-145)
[2020-09-08 14:58] LABS: CALCIUM 9.2 MG/DL (8.5-10.1)
[2020-09-08 14:59] LABS: GLUCOSE 90 MG/DL (70-105); TOTAL PROTEIN 7.1 GM/DL (6.4-8.2)
[2020-09-08 15:00] LABS: CARBON DIOXIDE 23 MMOL/L (21-32)
[2020-09-08 15:01] LABS: BILIRUBIN,TOTAL 1.1 MG/DL (0.1-1.0)
[2020-09-08 15:02] LABS: ALKALINE PHOSPHATASE 126 U/L (40-136); BAND NEUTROPHILS 0 %; BASOPHILS % (MANUAL) 0 %; CREATININE SERUM 1.01 MG/DL (0.60-1.30); EOSINOPHILS % (MANUAL) 13 %; GFR ESTIMATED > 60; LYMPHOCYTES % (MANUAL) 31 %; MONOCYTES % (MANUAL) 7 %; NEUTROPHILS % (MANUAL) 49 %; RBC MORPH NORMAL
[2020-09-08 15:03] LABS: BUN/CREATININE RATIO 18
[2020-09-08 15:05] LABS: ALANINE AMINOTRANSFERASE 41 U/L (0-55); MAGNESIUM 2.3 MG/DL (1.6-2.4)
--- NOTE | 2020-09-08 15:07 | Diagnostic Imaging Report ---
INDICATION: Chest pain. COMPARISON: October 05, 2019. TECHNIQUE: Single radiograph of the chest dated September 08, 2020. FINDINGS: The cardiac silhouette is within normal limits in size. No significant pulmonary vascular congestion. The lungs are clear. No pleural effusion. No pneumothorax. No acute osseous abnormality. IMPRESSION: Similar-appearing examination without acute cardiopulmonary abnormality. Dictated by: Dictated on workstation # [id number]
[2020-09-08] MEDS ORDERED: NS IV 1000 ML 1,000 ML IV ONE (15:45)
[2020-09-08 17:21] VITALS: BP 122/69
== END 2020-09-08 17:23 | disposition home or self-care (01) ==
LOC: EDUNIT# 14:17 → ER 14:18
DX: J45.901 Unspecified asthma with (acute) exacerbation (principal); K21.9 Gastro-esophageal reflux disease without esophagitis; Z79.899 Other long term (current) drug therapy
CPT/HCPCS: 36415; 71045; 80053; 83735; 83874; 84484; 85007; 85027; 85610; 85730; 94640

== ENCOUNTER 2020-09-12 20:04 | Emergency (ER) | payer OTHER ==
[~2020-09-12] VITALS: Ht 185 cm; Wt 104.0 kg
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
[2020-09-12] MEDS ORDERED: LACTATED RINGERS 1,000 ML IV ONE ×3 (20:15→22:00)
--- NOTE | 2020-09-12 20:39 | Diagnostic Imaging Report ---
PROCEDURE: CT head wo r/o stroke. TECHNIQUE: Multiple contiguous axial images were obtained through the brain without the use of intravenous contrast. Auto Exposure Controls were utilized during the CT exam to meet ALARA standards for radiation dose reduction. INDICATION: Fell seizure-like activity syncope neurodeficit COMPARISON STUDY: CT head from 12 to-20. FINDINGS: Noncontrast CT scan head demonstrates mass effect midline shift hemorrhage or extra-axial fluid collections. Campos-white matter differentiation is normal. Ventricles cortical sulci and basilar cisterns appear normal. Pituitary fossa appears unremarkable. No fractures are present. No fluid is seen in the paranasal sinuses mastoid air cells. IMPRESSION: Normal stable CT scan the head. Dictated by: Dictated on workstation # [id number]
[2020-09-12 21:01] LABS: BILIRUBIN,URINE NEGATIVE (NEGATIVE); CLARITY,URINE CLEAR; COLOR,URINE YELLOW; GLUCOSE, URINE (UA) NEGATIVE (NEGATIVE); KETONES,URINE NEGATIVE (NEGATIVE); LEUKOCYTE ESTERASE ,URINE NEGATIVE (NEGATIVE); NITRITE,URINE NEGATIVE (NEGATIVE); PROTEIN,URINE NEGATIVE (NEGATIVE)
--- NOTE | 2020-09-12 21:01 | Diagnostic Imaging Report ---
INDICATION: Pelvic pain, fell. FINDINGS: AP view of the pelvis demonstrates postoperative changes to the left femur. The joint spaces appear normal. No diastasis or fracture is present. IMPRESSION: Negative pelvis. Dictated by: Dictated on workstation # [id number]
--- NOTE | 2020-09-12 21:02 | Diagnostic Imaging Report ---
INDICATION: Fell, left leg pain. FINDINGS: Two views of the left femur demonstrate previous internal fixation of a healed fracture of the proximal femoral shaft. No acute fracture is present. There is no evidence of hardware loosening. IMPRESSION: Internal fixation of the healed femoral fracture is stable. Dictated by: Dictated on workstation # [id number]
--- NOTE | 2020-09-12 21:03 | Diagnostic Imaging Report ---
INDICATION: Fell, left leg pain. FINDINGS: Two views of the left tibia and fibula demonstrate intramedullary rodding of the distal tibial shaft fracture. Fracture fragments are well aligned and healed. Fibular shaft fracture is also healed. IMPRESSION: There are old fractures of the tibia and fibula with no acute finding. Dictated by: Dictated on workstation # [id number]
[2020-09-12 21:09] LABS: BACTERIA,URINE TRACE /HPF; SQUAMOUS EPITHELIAL CELL,UR RARE /HPF; WBC,URINE RARE /HPF
[2020-09-12 21:09] LABS: BASOPHILS # (AUTO) 0.1 10^3/uL (0.0-0.1); BASOPHILS % (AUTO) 1 % (0-10); EOSINOPHILS # (AUTO) 1.9 10^3/uL (0.0-0.3); EOSINOPHILS % (AUTO) 15 % (0-10); HEMATOCRIT 43 % (40-54); HEMOGLOBIN 14.8 g/dL (13.3-17.7); LYMPHOCYTES # (AUTO) 2.6 10^3/uL (1.0-4.0); LYMPHOCYTES % (AUTO) 20 % (12-44); MEAN CORPUSCULAR HEMOGLOBIN 31 pg (25-34); MEAN CORPUSCULAR HGB CONC 35 g/dL (32-36); MEAN CORPUSCULAR VOLUME 90 fL (80-99); MONOCYTES # (AUTO) 0.8 10^3/uL (0.0-1.0); MONOCYTES % (AUTO) 6 % (0-12); NEUTROPHILS # (AUTO) 7.4 10^3/uL (1.8-7.8); NEUTROPHILS % (AUTO) 57 % (42-75); PLATELET COUNT 262 10^3/uL (130-400); WHITE BLOOD COUNT 12.8 10^3/uL (4.3-11.0)
[2020-09-12 21:13] LABS: AMPHETAMINE SCREEN, URINE NEGATIVE (NEGATIVE); BARBITURATE SCREEN URINE NEGATIVE (NEGATIVE); BENZODIAZEPINES SCREEN URINE NEGATIVE (NEGATIVE); CANNABINOID SCREEN, URINE NEGATIVE (NEGATIVE); COCAINE SCREEN URINE NEGATIVE (NEGATIVE); METHADONE STAT NEGATIVE (NEGATIVE); METHAMPHETAMINE SCREEN URINE S NEGATIVE (NEGATIVE); OPIATE SCREEN URINE NEGATIVE (NEGATIVE); OXYCODONE STAT NEGATIVE (NEGATIVE); PROPOXYPHENE STAT NEGATIVE (NEGATIVE); TRICYCLIC ANTIDEPRESSANTS SCRE NEGATIVE (NEGATIVE)
[2020-09-12 21:18] LABS: ALBUMIN 4.2 GM/DL (3.2-4.5); CHLORIDE 109 MMOL/L (98-107); POTASSIUM 4.1 MMOL/L (3.6-5.0); SODIUM 141 MMOL/L (135-145)
[2020-09-12 21:19] LABS: CALCIUM 9.2 MG/DL (8.5-10.1)
[2020-09-12 21:21] LABS: GLUCOSE 97 MG/DL (70-105); TOTAL PROTEIN 6.9 GM/DL (6.4-8.2)
[2020-09-12 21:22] LABS: BILIRUBIN,TOTAL 0.8 MG/DL (0.1-1.0); CARBON DIOXIDE 21 MMOL/L (21-32)
[2020-09-12 21:23] LABS: BAND NEUTROPHILS 0 %; BASOPHILS % (MANUAL) 0 %; EOSINOPHILS % (MANUAL) 16 %; LYMPHOCYTES % (MANUAL) 19 %; MONOCYTES % (MANUAL) 1 %; NEUTROPHILS % (MANUAL) 56 %; RBC MORPH NORMAL; REACTIVE LYMPHOCYTES 8 %
[2020-09-12 21:24] LABS: ALKALINE PHOSPHATASE 114 U/L (40-136); CREATININE SERUM 1.05 MG/DL (0.60-1.30); GFR ESTIMATED > 60
[2020-09-12 21:25] LABS: BUN/CREATININE RATIO 18
[2020-09-12 21:27] LABS: ALANINE AMINOTRANSFERASE 46 U/L (0-55); MAGNESIUM 2.2 MG/DL (1.6-2.4)
[2020-09-12 21:28] LABS: CREATINE KINASE 125 U/L (30-200)
[2020-09-12 21:35] LABS: CREATINE KINASE MB 0.9 NG/ML (<6.6)
[2020-09-12] MEDS ORDERED: KETOROLAC 30 MG/ML VIAL IVP ONE (22:00)
[2020-09-12 23:24] VITALS: BP 131/87
== END 2020-09-12 23:24 | disposition home or self-care (01) ==
LOC: EDUNIT# 20:04 → ER 20:05
DX: R56.9 Unspecified convulsions (principal); T67.5XXA Heat exhaustion, unspecified, initial encounter; E86.0 Dehydration; J45.909 Unspecified asthma, uncomplicated; K21.9 Gastro-esophageal reflux disease without esophagitis; Z79.899 Other long term (current) drug therapy
CPT/HCPCS: 70450; 72170; 73552; 73590; 80053; 80306; 81000; 82550; 82553; 83735; 83874; 84484; 85007; 85027; 93005; 93041; 99284; G0480; 36415; 80320

== ENCOUNTER 2020-11-03 11:40 | Emergency (ER) | payer OTHER ==
[~2020-11-03] VITALS: Ht 185 cm; Wt 99.8 kg
[~2020-11-03 11:40] MED LIST changes: -SULF1TAB35 PO; +SULF1TAB38 PO
[2020-11-03] MEDS ORDERED: morphine INJ 10 MG/ML 1ML (SYR OR VIAL) IVP STA (11:48)
[2020-11-03] MEDS ORDERED: morphine INJ 10 MG/ML 1ML (SYR OR VIAL) ONE (11:49)
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
[2020-11-03] MEDS ORDERED: LACTATED RINGERS 1,000 ML IV SCH (12:00)
[2020-11-03 12:09] LABS: HEMATOCRIT 42 % (40-54); HEMOGLOBIN 14.5 g/dL (13.3-17.7); MEAN CORPUSCULAR HEMOGLOBIN 31 pg (25-34); MEAN CORPUSCULAR HGB CONC 35 g/dL (32-36); MEAN CORPUSCULAR VOLUME 90 fL (80-99); PLATELET COUNT 213 10^3/uL (130-400); WHITE BLOOD COUNT 7.3 10^3/uL (4.3-11.0)
[2020-11-03 12:24] LABS: ALBUMIN 4.2 GM/DL (3.2-4.5); CHLORIDE 109 MMOL/L (98-107); POTASSIUM 3.9 MMOL/L (3.6-5.0); SODIUM 142 MMOL/L (135-145)
[2020-11-03 12:25] LABS: CALCIUM 8.9 MG/DL (8.5-10.1)
[2020-11-03 12:26] LABS: GLUCOSE 88 MG/DL (70-105); TOTAL PROTEIN 6.6 GM/DL (6.4-8.2)
[2020-11-03 12:27] LABS: CARBON DIOXIDE 23 MMOL/L (21-32)
[2020-11-03 12:28] LABS: BILIRUBIN,TOTAL 1.1 MG/DL (0.1-1.0)
[2020-11-03 12:30] LABS: ALKALINE PHOSPHATASE 100 U/L (40-136); CREATININE SERUM 0.87 MG/DL (0.60-1.30); GFR ESTIMATED 106
[2020-11-03] MEDS ORDERED: LIDOCAINE 2% VISCOUS 15 ML UDC PO ONE (12:30)
[2020-11-03] MEDS ORDERED: ANTACID SUSP 30 ML UDC (MYLANTA) PO ONE (12:30)
--- NOTE | 2020-11-03 12:30 | Diagnostic Imaging Report ---
Indication: Fall with pain Findings: The heart size within the upper limits of normal, there is borderline congestion of the upper lobe pulmonary veins but no yolanda edema, pneumonia, effusion or pneumothorax. Impression: A borderline upper lobe vascular congestion but clear lungs with no acute chest wall or pleural pathology identified. Dictated by: Dictated on workstation # [id number]
[2020-11-03 12:31] LABS: BILIRUBIN,DIRECT 0.4 MG/DL (0.0-0.3); BILIRUBIN,INDIRECT 0.7 MG/DL; BUN/CREATININE RATIO 16
--- NOTE | 2020-11-03 12:32 | Diagnostic Imaging Report ---
INDICATION: Fall, history of a remote fracture and surgical repair, complaint now at the level of the hip. Its compared with the femoral radiographs most recently 09/12/2020. FINDINGS: Some chronic cortical thickening and chronic new bone formation about the mid shaft of the femur is unchanged. The intramedullary alexa with its proximal and distal interlocking screws intact and stable. No acute or unhealed fracture. Acetabulum nonacute. No bony avulsion. IMPRESSION: Stable chronic and postoperative changes to the femur. No acute-appearing abnormality identified. Dictated by: Dictated on workstation # [id number]
[2020-11-03 12:33] LABS: ALANINE AMINOTRANSFERASE 28 U/L (0-55)
--- NOTE | 2020-11-03 12:43 | Diagnostic Imaging Report ---
INDICATION: Pelvic pain after fall. COMPARISON: 09/12/2020. FINDINGS: There is no acute fracture or traumatic malalignment. 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 Partially imaged intramedullary nail in the left proximal femur. Lumbar spine is unremarkable. IMPRESSION: 1. No acute osseous abnormality in the pelvis. 2. 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 Dictated by: Dictated on workstation # [id number]
--- NOTE | 2020-11-03 12:44 | Diagnostic Imaging Report ---
INDICATION: Left tibia-fibula pain after fall. COMPARISON: 09/12/2020. TECHNIQUE: 2 views of left tibia and fibula. FINDINGS: There has been intramedullary nail fixation of distal tibial fracture which is completely healed. The nail is intact as well as its proximal interlocking screws. Heterotopic ossification along the anterior aspect of the tibia is stable with a spikelike configuration. Old healed distal fibular diaphyseal fracture is unchanged as well. Partially imaged intramedullary nail in the distal femur. IMPRESSION: 1. No acute fracture in the left tibia or fibula. 2. Old healed fracture deformity is in the distal tibia and fibular diaphyses. Dictated by: Dictated on workstation # [id number]
[2020-11-03] MEDS ORDERED: ACHD5005 PO (12:59)
[2020-11-03 13:25] LABS: BILIRUBIN,URINE NEGATIVE (NEGATIVE); CLARITY,URINE CLEAR; COLOR,URINE YELLOW; GLUCOSE, URINE (UA) NEGATIVE (NEGATIVE); KETONES,URINE TRACE (NEGATIVE); LEUKOCYTE ESTERASE ,URINE NEGATIVE (NEGATIVE); NITRITE,URINE NEGATIVE (NEGATIVE); PH,URINE 7.5 (5-9); PROTEIN,URINE NEGATIVE (NEGATIVE)
[2020-11-03 13:34] VITALS: BP 127/73
[2020-11-03 13:36] LABS: BACTERIA,URINE TRACE /HPF; SQUAMOUS EPITHELIAL CELL,UR RARE /HPF
== END 2020-11-03 13:34 | disposition home or self-care (01) ==
LOC: EDUNIT# 11:40 → ER 11:41
DX: M25.552 Pain in left hip (principal); J45.909 Unspecified asthma, uncomplicated; K21.9 Gastro-esophageal reflux disease without esophagitis; Z79.899 Other long term (current) drug therapy
CPT/HCPCS: 71045; 72170; 73552; 73590; 80048; 80076; 81000; 85027; 86850; 86900; 86901; 93041; G0480; 36415; 80320

== ENCOUNTER 2021-01-19 18:50 | Emergency (ER) | payer BC, MEDICAID ==
[~2021-01-19 18:50] MED LIST changes: +ACHD5005 PO
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
--- NOTE | 2021-01-19 21:05 | Diagnostic Imaging Report ---
INDICATION: Left leg pain AP, oblique, and lateral views of the left tibia and fibula are obtained with comparison to 11/03/2020. Intramedullary alexa of the tibial shaft remains in good position. Chronic fracture deformity of the distal tibial shaft appears unchanged with heterotopic bone anteriorly. There is a chronic fracture deformity of the distal fibula which is also in good alignment. IMPRESSION: Stable chronic changes compared with 11/03/2020. No new abnormality. Dictated by: Dictated on workstation # [id number]
--- NOTE | 2021-01-19 21:05 | Diagnostic Imaging Report ---
INDICATION: Left knee pain. AP, oblique, and lateral views of the left knee are obtained. No fracture or acute bony abnormality is seen. Previous hardware in distal femur and proximal tibia appears unchanged compared to 11/03/2020. IMPRESSION: No acute fracture of left knee. No change in previous hardware in the distal femur and tibial shaft. Dictated by: Dictated on workstation # [id number]
[2021-01-19] MEDS ORDERED: ACHD5005 PO (21:17)
[2021-01-19 21:43] VITALS: BP 133/86
== END 2021-01-19 21:40 | disposition home or self-care (01) ==
LOC: EDUNIT# 18:50 → ER 18:52
DX: M79.605 Pain in left leg (principal); J45.909 Unspecified asthma, uncomplicated; K21.9 Gastro-esophageal reflux disease without esophagitis; Z79.899 Other long term (current) drug therapy
CPT/HCPCS: 73562; 73590

== ENCOUNTER 2021-11-02 17:40 | Emergency (ER) | payer BC, MEDICAID ==
[~2021-11-02] VITALS: Ht 185.4 cm; Wt 102.0 kg
[2021-11-02 17:45] VITALS: BP 147/90
[2021-11-02] MEDS ORDERED: NS IV 1000 ML 1,000 ML IV STA ×2 (18:10→19:16)
[2021-11-02 18:20] LABS: BASOPHILS # (AUTO) 0.1 10^3/uL (0.0-0.1); BASOPHILS % (AUTO) 1 % (0-10); EOSINOPHILS # (AUTO) 0.1 10^3/uL (0.0-0.3); EOSINOPHILS % (AUTO) 1 % (0-10); HEMATOCRIT 49 % (40-54); HEMOGLOBIN 16.9 g/dL (13.3-17.7); LYMPHOCYTES # (AUTO) 2.1 10^3/uL (1.0-4.0); LYMPHOCYTES % (AUTO) 26 % (12-44); MEAN CORPUSCULAR HEMOGLOBIN 31 pg (25-34); MEAN CORPUSCULAR HGB CONC 35 g/dL (32-36); MEAN CORPUSCULAR VOLUME 88 fL (80-99); MEAN PLATELET VOLUME 10.3 fL (9.0-12.2); MONOCYTES # (AUTO) 0.7 10^3/uL (0.0-1.0); MONOCYTES % (AUTO) 9 % (0-12); NEUTROPHILS # (AUTO) 5.2 10^3/uL (1.8-7.8); NEUTROPHILS % (AUTO) 63 % (42-75); PLATELET COUNT 279 10^3/uL (130-400); WHITE BLOOD COUNT 8.2 10^3/uL (4.3-11.0)
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
[2021-11-02 18:39] LABS: CLARITY,URINE CLEAR; COLOR,URINE YELLOW; GLUCOSE, URINE (UA) NEGATIVE (NEGATIVE); KETONES,URINE NEGATIVE (NEGATIVE); LEUKOCYTE ESTERASE ,URINE NEGATIVE (NEGATIVE); NITRITE,URINE NEGATIVE (NEGATIVE); PROTEIN,URINE 1+ (NEGATIVE)
[2021-11-02 18:40] LABS: ALANINE AMINOTRANSFERASE 54 U/L (0-55); ALKALINE PHOSPHATASE 98 U/L (40-136); BILIRUBIN,TOTAL 1.3 MG/DL (0.1-1.0); BUN/CREATININE RATIO 16; CALCIUM 10.1 MG/DL (8.5-10.1); CARBON DIOXIDE 25 MMOL/L (21-32); CHLORIDE 105 MMOL/L (98-107); CREATINE KINASE 139 U/L (30-200); CREATININE SERUM 1.16 MG/DL (0.60-1.30); GFR ESTIMATED 89; GLUCOSE 90 MG/DL (70-105); LIPASE 22 U/L (8-78); MAGNESIUM 2.3 MG/DL (1.6-2.4); POTASSIUM 4.3 MMOL/L (3.6-5.0); SODIUM 142 MMOL/L (135-145); TOTAL PROTEIN 7.9 GM/DL (6.4-8.2)
[2021-11-02 18:51] LABS: BACTERIA,URINE TRACE /HPF; BILIRUBIN,URINE 1+ (NEGATIVE); WBC,URINE 0-2 /HPF
--- NOTE | 2021-11-02 18:52 | Diagnostic Imaging Report ---
PROCEDURE: CT head without contrast. TECHNIQUE: Multiple contiguous axial images were obtained through the brain without the use of intravenous contrast. Auto Exposure Controls were utilized during the CT exam to meet ALARA standards for radiation dose reduction. INDICATION: Fall with head injury. Correlation is made with prior CT from 09/12/2020. Ventricles and sulci are within normal limits. No sulcal effacement or midline shift is identified. No acute intra-axial or extra-axial hemorrhage is detected. Cisterns are patent. Visualized paranasal sinuses are clear. IMPRESSION: No acute intracranial process is detected. Dictated by: Dictated on workstation # [id number]
[2021-11-02 18:59] LABS: PROTHROMBIN TIME PATIENT 13.6 SEC (12.2-14.7)
== END 2021-11-02 20:19 | disposition home or self-care (01) ==
LOC: EDUNIT# 17:40 → ER 17:41
DX: T67.5XXA Heat exhaustion, unspecified, initial encounter (principal); Z28.310 Unvaccinated for COVID-19
CPT/HCPCS: 36415; 70450; 80053; 81000; 82550; 83690; 83735; 84484; 85025; 85610; 85730; 93005

== ENCOUNTER 2022-08-01 08:00 | Emergency (ER) | payer MEDICAID ==
[~2022-08-01] VITALS: Ht 185.4 cm; Wt 102.0 kg
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
[2022-08-01 08:26] LABS: BASOPHILS # (AUTO) 0.1 10^3/uL (0.0-0.1); BASOPHILS % (AUTO) 1 % (0-10); EOSINOPHILS # (AUTO) 0.1 10^3/uL (0.0-0.3); EOSINOPHILS % (AUTO) 1 % (0-10); HEMATOCRIT 45 % (40-54); HEMOGLOBIN 15.5 g/dL (13.3-17.7); LYMPHOCYTES # (AUTO) 1.3 10^3/uL (1.0-4.0); LYMPHOCYTES % (AUTO) 28 % (12-44); MEAN CORPUSCULAR HEMOGLOBIN 31 pg (25-34); MEAN CORPUSCULAR HGB CONC 35 g/dL (32-36); MEAN CORPUSCULAR VOLUME 89 fL (80-99); MEAN PLATELET VOLUME 10.3 fL (9.0-12.2); MONOCYTES # (AUTO) 0.5 10^3/uL (0.0-1.0); MONOCYTES % (AUTO) 11 % (0-12); NEUTROPHILS # (AUTO) 2.8 10^3/uL (1.8-7.8); NEUTROPHILS % (AUTO) 59 % (42-75); PLATELET COUNT 241 10^3/uL (130-400); WHITE BLOOD COUNT 4.7 10^3/uL (4.3-11.0)
[2022-08-01] MEDS ORDERED: ANTACID SUSP 30 ML UDC (MYLANTA) PO ONE (08:30)
[2022-08-01] MEDS ORDERED: LIDOCAINE 2% VISCOUS 15 ML UDC PO ONE (08:30)
[2022-08-01] MEDS ORDERED: SUCRALFATE 1 GM (CARAFATE) TAB PO ONE (08:30)
[2022-08-01 08:36] LABS: ALBUMIN 4.5 GM/DL (3.2-4.5)
[2022-08-01 08:37] LABS: CHLORIDE 107 MMOL/L (98-107); POTASSIUM 3.9 MMOL/L (3.6-5.0); SODIUM 141 MMOL/L (135-145)
[2022-08-01 08:38] LABS: CALCIUM 9.6 MG/DL (8.5-10.1)
[2022-08-01 08:39] LABS: GLUCOSE 63 MG/DL (70-105); TOTAL PROTEIN 7.5 GM/DL (6.4-8.2)
[2022-08-01 08:40] LABS: CARBON DIOXIDE 26 MMOL/L (21-32)
[2022-08-01 08:41] LABS: BILIRUBIN,TOTAL 1.1 MG/DL (0.1-1.0)
[2022-08-01 08:42] LABS: ALKALINE PHOSPHATASE 87 U/L (40-136); CREATININE SERUM 0.94 MG/DL (0.60-1.30); GFR ESTIMATED 113
[2022-08-01 08:44] LABS: BUN/CREATININE RATIO 18
[2022-08-01 08:45] LABS: ALANINE AMINOTRANSFERASE 46 U/L (0-55)
[2022-08-01 08:46] LABS: LIPASE 35 U/L (8-78)
--- NOTE | 2022-08-01 08:48 | Diagnostic Imaging Report ---
INDICATION: Epigastric pain this morning. TECHNIQUE: Single view chest 8:47 AM. CORRELATION STUDY: 11/03/2020 FINDINGS: The heart size, mediastinal configuration and pulmonary vascularity are within normal limits. The lungs are clear with no consolidating infiltrate. There is no significant effusion or pneumothorax. IMPRESSION: 1. Negative appearing portable chest. Dictated by: Dictated on workstation # [id number]
[2022-08-01] MEDS ORDERED: SUCR1TAB36 PO (09:04)
[2022-08-01 09:10] VITALS: BP 131/87
[2022-08-02] MEDS ORDERED: ONDANSETRON 4 MG/2 ML (SDV) Z0FRAN ONE (11:37)
[2022-08-02] MEDS ORDERED: morphine INJ 4 MG/ML 1 ML (VIAL/SYRINGE) ONE (11:37)
[2022-08-02] MEDS ORDERED: LIDOCAINE 2% VISCOUS 15 ML UDC ONE (11:38)
[2022-08-02] MEDS ORDERED: ANTACID SUSP 30 ML UDC (MYLANTA) ONE (11:38)
[2022-08-02] MEDS ORDERED: PROMETHAZINE INJ 25 MG/ML (PHENERGAN) AMP ONE (13:37)
== END 2022-08-01 09:10 | disposition home or self-care (01) ==
LOC: EDUNIT# 08:00 → ER 08:03
DX: R10.13 Epigastric pain (principal)
CPT/HCPCS: 36415; 71045; 80053; 83690; 84484; 85025; 93005

== ENCOUNTER 2022-08-02 09:38 | Emergency (ER) | payer MEDICAID ==
[~2022-08-02] VITALS: Ht 185 cm; Wt 105.0 kg
[2022-08-02 14:20] VITALS: BP 121/84
[2022-08-02 16:04] LABS: BASOPHILS # (AUTO) 0.1 10^3/uL (0.0-0.1); BASOPHILS % (AUTO) 1 % (0-10); EOSINOPHILS % (AUTO) 1 % (0-10); HEMATOCRIT 48 % (40-54); HEMOGLOBIN 16.4 g/dL (13.3-17.7); LYMPHOCYTES # (AUTO) 1.7 10^3/uL (1.0-4.0); LYMPHOCYTES % (AUTO) 31 % (12-44); MEAN CORPUSCULAR HEMOGLOBIN 31 pg (25-34); MEAN CORPUSCULAR HGB CONC 34 g/dL (32-36); MEAN CORPUSCULAR VOLUME 89 fL (80-99); MEAN PLATELET VOLUME 10.4 fL (9.0-12.2); MONOCYTES # (AUTO) 0.4 10^3/uL (0.0-1.0); MONOCYTES % (AUTO) 8 % (0-12); NEUTROPHILS # (AUTO) 3.3 10^3/uL (1.8-7.8); NEUTROPHILS % (AUTO) 60 % (42-75); PLATELET COUNT 255 10^3/uL (130-400); WHITE BLOOD COUNT 5.6 10^3/uL (4.3-11.0)
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
[2022-08-02] MEDS ORDERED: NS IV 1000 ML 1,000 ML IV SCH (17:45)
[2022-08-02] MEDS ORDERED: LIDOCAINE 2% VISCOUS 15 ML UDC PO ONE (17:45)
[2022-08-02] MEDS ORDERED: ANTACID SUSP 30 ML UDC (MYLANTA) PO ONE (17:45)
[2022-08-02] MEDS ORDERED: PROMETHAZINE INJ 25 MG/ML (PHENERGAN) AMP IVP ONE (17:45)
[2022-08-02] MEDS ORDERED: ONDANSETRON 4 MG/2 ML (SDV) Z0FRAN IVP ONE (17:45)
[2022-08-02] MEDS ORDERED: morphine INJ 4 MG/ML 1 ML (VIAL/SYRINGE) IVP ONE (17:45)
[2022-08-02 17:48] LABS: ALANINE AMINOTRANSFERASE 46 U/L (0-55); ALBUMIN 4.8 GM/DL (3.2-4.5); ALKALINE PHOSPHATASE 93 U/L (40-136); BILIRUBIN,TOTAL 1.4 MG/DL (0.1-1.0); BUN/CREATININE RATIO 15; CALCIUM 9.6 MG/DL (8.5-10.1); CARBON DIOXIDE 28 MMOL/L (21-32); CHLORIDE 104 MMOL/L (98-107); CREATININE SERUM 0.91 MG/DL (0.60-1.30); GFR ESTIMATED 118; GLUCOSE 94 MG/DL (70-105); LIPASE 24 U/L (8-78); SODIUM 139 MMOL/L (135-145); TOTAL PROTEIN 7.8 GM/DL (6.4-8.2)
== END 2022-08-02 16:20 | disposition home or self-care (01) ==
LOC: EDUNIT# 12:16 → ER 12:19
DX: R10.13 Epigastric pain (principal); K21.9 Gastro-esophageal reflux disease without esophagitis; K22.70 Barrett's esophagus without dysplasia; Z79.899 Other long term (current) drug therapy; Z28.310 Unvaccinated for COVID-19; Z90.49 Acquired absence of other specified parts of digestive tract
CPT/HCPCS: 36415; 80053; 83690; 85025

== ENCOUNTER → 2022-08-10 | Outpatient (CLI) | payer MEDICAID ==
[~2022-08-10] VITALS: Ht 185.4 cm; Wt 106.0 kg
[~2022-08-10] MED LIST changes: +MELO15TA39 PO
== END | disposition home or self-care (01) ==
LOC: PREOP 07:19
PROVIDERS: ATTEND Surgery
DX: Z01.818 Encounter for other preprocedural examination (principal)

== ENCOUNTER 2022-08-23 13:04 | Day surgery (SDC) | payer MEDICAID ==
[~2022-08-23] VITALS: Ht 185.4 cm; Wt 106.0 kg
--- NOTE | 2022-08-23 14:04 | Progress Note-Pre Operative ---
Pre-Operative Progress Note Date H&P Reviewed: August 23, 2022 Time H&P Reviewed: 14:04 History & Physical: H&P Reviewed, Patient Examed, No changes noted Pre-Operative Diagnosis: Epigastric pain, Hx of Barretts JAIDA RODRIGUEZ DO August 23, 2022 14:04
[2022-08-23] MEDS ORDERED: LACTATED RINGERS 1,000 ML IV STA (14:10)
[2022-08-23] MEDS ORDERED: HURRICAINE EXT TUBE (BENZOCAINE) XX PRN (14:15)
[2022-08-23 14:22] VITALS: BP 129/80
[2022-08-23] MEDS ORDERED: PROPOFOL INJECTION 50 ML IV ONE (15:21)
[2022-08-23] MEDS ORDERED: MIDAZOLAM 2 MG/2 ML (VERSED) VIAL ONE (15:21)
[2022-08-23 15:40] VITALS: BP 108/67
--- NOTE | 2022-08-23 15:41 | Anesthesia-General Post-Op ---
MAC Patient Condition Mental Status/LOC: Same as Preop Cardiovascular: Satisfactory Nausea/Vomiting: Absent Respiratory: Satisfactory Pain: Controlled Complications: Absent Post Op Complications Complications None Follow Up Care/Instructions Patient Instructions None needed. Anesthesiology Discharge Order Discharge Order Patient is doing well, no complaints, stable vital signs, no apparent adverse anesthesia problems. No complications reported per nursing. LYNN RAMIREZ CRNA August 23, 2022 15:41
--- NOTE | 2022-08-23 15:41 | Progress Note-Post Operative ---
Post-Operative Progess Note Surgeon (s)/Retail Loan Originator Assistant (s) Surgeon JAIDA RODRIGUEZ DO Retail Loan Originator Assistant: na Pre-Operative Diagnosis Epigastric pain, Hx of Barretts Post-Operative Diagnosis Mucosal change proximal esophagus Procedure & Operative Findings Date of Procedure 08/23/22 Procedure Performed/Findings EGD with biopsies Anesthesia Type per [employer] LEAKAGE TESTER Estimated Blood Loss Estimated blood loss (mL): none Specimens/Packing Specimens Removed Antrum, GE junction, Proximal Esophagus JAIDA RODRIGUEZ DO August 23, 2022 15:41
--- NOTE | 2022-08-23 15:43 | Discharge Inst-Simple/Standard ---
Discharge Inst-Standard Patient Instructions/Follow Up Plan of Care/Instructions/FU: Follow up with Dr. Rico in clinic in two weeks Activity as Tolerated: Yes Discharge Diet: Regular Diet JAIDA RICO DO August 23, 2022 15:43
[2022-08-23 15:45] VITALS: BP 112/67
[2022-08-23 15:50] VITALS: BP 110/68
[2022-08-23 15:55] VITALS: BP 128/76
[2022-08-23 16:25] VITALS: BP 128/76
--- NOTE | 2022-08-23 22:45 | OPERATIVE REPORT ---
DATE OF SERVICE: 08/23/2022 PREOPERATIVE DIAGNOSIS: History of Hilario's esophagus, epigastric abdominal pain. POSTOPERATIVE DIAGNOSES: Slight mucosal change, proximal esophagus. PROCEDURE: EGD with biopsy. SURGEON: Jaida Rico DO ANESTHESIA: Per [employer]BON PAPER. ESTIMATED BLOOD LOSS: None. COMPLICATIONS: None. SPECIMENS: Antrum, GE junction and proximal esophagus. INDICATIONS: The patient is a 27-year-old male with epigastric abdominal pain, history of Hilario's esophagus. He understands risks and benefits of procedure and wishes to proceed. Consent was signed in chart. DESCRIPTION OF PROCEDURE: The patient was taken to endoscopy suite, placed in left lateral recumbent position. Timeout was performed. Scope was inserted into the mouth, down the esophagus, stomach and into the duodenum without difficulty. No polyps, masses or ulcerations within the duodenum. Scope was slowly retracted back into the stomach where it was further insufflated. Biopsy of the antrum was obtained. No polyps, masses or ulcerations. Scope was retroflexed noting no other pathology. Scope was returned to its normal position. Biopsy of the antrum had been obtained. Scope was slowly retracted back into the distal esophagus. No polyps, masses or ulcerations. Four-quadrant biopsies were obtained. Scope was then slowly retracted back, noting no other pathology except for the proximal esophagus, slight mucosal change. Biopsy of this area was obtained. Scope was slowly retracted back until completely removed. The patient tolerated the procedure well without complications, taken to recovery room in stable condition. RECOMMENDATIONS: The patient will continue on current medications. Would repeat EGD in 2 years. Follow up in 2 weeks to discuss pathology results. Job ID: [id number] DocumentID: [id number] Dictated Date: 08/23/2022 15:42:39 Costumer Date: 08/23/2022 22:42:00 Dictated By: JAIDA RICO DO
== END 2022-08-23 16:24 | disposition home or self-care (01) ==
LOC: ENDO 13:04
PROVIDERS: ATTEND Surgery
DX: K29.50 Unspecified chronic gastritis without bleeding (principal); K21.00 Gastro-esophageal reflux disease with esophagitis, without bleeding; K22.70 Barrett's esophagus without dysplasia; E66.9 Obesity, unspecified; Z68.30 Body mass index [BMI] 30.0-30.9, adult; Z79.899 Other long term (current) drug therapy